=== PATIENT | female | born 1940 | race Caucasian/White ===

== ENCOUNTER 2016-03-03 12:56 | Inpatient (IN) ==
--- NOTE | 2016-03-03 13:37 | Emergency Department Note ---
Disposition Clinical Impression: CAP (community acquired pneumonia), Weakness, Lower extremity pain, left, Acute pelvic pain, female Fatigue Qualifiers: Fatigue type: unspecified Qualified Code(s): R53.83 - Other fatigue Disposition: Admitted As Inpatient Condition: Serious Fall HPI - General Chief Complaint: ED Fall Stated Complaint: WEAKNESS, FATIGUE, L ANKLE INJURY Time Seen by Provider: 03/03/16 13:02 Source: patient Nursing Notes Reviewed: Yes Vital Signs Reviewed: Yes - History of Present Illness HPI Narrative: Patient is a 25-year-old female who sustained a ground-level fall sometime early this morning. Patient has a past history for A. fib, hypertension, CVA, COPD, CHF, leaky heart valve, kidney stents Report is patient was trying to use the bathroom and missed the seat while trying to sit down. She tried to catch herself but was unable to and sustained injury to her right and left arm which she states feels sore, her bottom and her left ankle. Patient states overall her pain is 8 out of 10. - Related Data Home Medications Medication Instructions Recorded Confirmed Carvedilol [Coreg] 6.25 mg PO BID 09/29/14 03/03/16 Citalopram Hydrobromide [Celexa] 10 mg PO DAILY 09/29/14 03/03/16 Clopidogrel [Plavix] 75 mg PO DAILY 09/29/14 03/03/16 Furosemide [Lasix] 80 mg PO BID 09/29/14 03/03/16 Gabapentin [Neurontin] 300 mg PO TID 09/29/14 03/03/16 Loratadine [Claritin] 10 mg PO DAILY 09/29/14 03/03/16 Pantoprazole Sodium 40 mg PO BID 09/29/14 03/03/16 Potassium Chloride 10 meq PO DAILY 09/29/14 03/03/16 Ropinirole HCl [Requip] 3 mg PO HS 09/29/14 03/03/16 Diltiazem HCl [Cartia Xt] 120 mg PO DAILY 07/18/15 03/03/16 HYDROcodone/Acet 7.5/325 mg [[place] 1 tab PO Q6H PRN 07/18/15 03/03/16 7.5-325 mg] Isosorbide MONOnitrate (24 HR) 30 mg PO DAILY 05/28/16 01/12/17 [Imdur] Ferrous Sulfate [Iron] 325 mg PO DAILY 03/03/16 03/03/16 Folic Acid 1 mg PO DAILY 03/03/16 03/03/16 Nitroglycerin [Nitrostat] 0.4 mg SL Q5M PRN 03/03/16 03/03/16 Allergies Allergy/AdvReac Type Severity Reaction Status Date / Time codeine AdvReac Vomiting Verified 05/14/15 18:03 [From Tylenol-Codeine #3] Review of Systems: Patient claims a weakness, fatigue, chills, hot and cold flashes. Patient denies fever, nausea, vomiting, chest pain, shortness of breath, abdominal pain , urinary symptoms of dysuria or frequency. Patient denies back pain but admits to gluteal pain, bilateral arm soreness, left ankle pain. 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: Reports: spontaneous - Social History Smoking Status: Never smoker Alcohol use: Reports: none Drug use: Reports: none Physical Exam Vital Signs Temperature 99 F 03/03/16 12:58 Pulse Rate 96 03/03/16 12:58 Respiratory Rate 20 03/03/16 12:58 Blood Pressure 94/56 03/03/16 12:58 O2 Sat by Pulse Oximetry 97 03/03/16 12:58 Temperature 98.9 F 03/03/16 14:43 Pulse Rate 98 03/03/16 14:15 Respiratory Rate 16 03/03/16 14:15 Blood Pressure 105/63 03/03/16 14:15 O2 Sat by Pulse Oximetry 96 03/03/16 14:15 Oxygen Delivery Oxygen Delivery Nasal Cannula -General Appearance: Patient is a 75-year-old female who is alert and oriented 3 and in no acute distress. -Neurological exam: Cranial nerves II-12 intact, no focal deficits observed, strength equal 5/5 bilaterally in upper and lower extremities, Negative loss of sensation - Head Head exam: atraumatic, normocephalic, normal inspection - Eye Eye exam: Present: normal appearance, PERRL, EOMI, negative for scleral icterus negative for conjunctival pallor - ENT ENT exam: normal exam, normal oropharynx, mucous membranes moist - Neck Neck exam: Present: normal inspection, full ROM, trachea midline, negative JVD - Chest Chest inspection: Present: Patient has bilateral equal rise and fall of chest wall. Non-tender to palpation. - Respiratory Respiratory exam: Clear to auscultation bilaterally without wheezes rales or rhonchi Cardiovascular Cardiovascular exam: Present: regular rate, normal rhythm, normal heart sounds, without murmurs rubs or gallops. - Abdominal Exam Abdominal exam: Present: soft, nondistended, Non-Tender light and deep palpation in all quadrants. Bowel sounds normoactive throughout all 4 quadrants. Negative for hyper or hyperresonance. - Extremities Exam Extremities exam: Present: normal inspection, full ROM, no pinpoint bony tenderness, no crepitus, no bruising, no ecchymosis. Nontender to palpation bilaterally in upper extremities. Left lower extremity around the ankle area tender to palpation bilateral lower extremities edematous (chronic) - Back Exam Back exam: Present: normal inspection, full ROM. Absent: tenderness, CVA tenderness (R), CVA tenderness (L), midline bony tenderness at T7-T8 to palpation. - Psychiatric Psychiatric exam: Present: normal affect, normal mood - Skin Skin exam: Present: Upper extremities warm dry. Normal color for patient. Lower extremities thick woody like skin no signs of skin breakdown no signs of erythema - General Limitations: no limitations General appearance: alert Course Course Narrative: Patient seen and examined. Chest x-ray cardiac labs ordered. UA ordered imagery of pelvis and ankle ordered - Reevaluation(s) Reevaluation #1: Patient resting comfortably no complaints Time: 14:00 Reevaluation #2: Patient's labs show signs of possible infection. looking for source. Ordered lactate and blood cultures. No change in his status states she has no complaints Time: 14:20 Reevaluation #3: Patient's chest x-ray was a poor study. His back pain and current labs may be related. Ordered CTA patient's weight and another CT. Time: 15:00 Additional Reevaluation(s): 1402 hrs., patient on her way to CT. ordered 0.5 mg Dilaudid secondary to patient complaining of leg pain - Consultations Consultation #1: Dr. Beltran has accepted admission. Time: 17:08 Vital Signs Temperature 99 F 01/12/17 12:58 Pulse Rate 96 03/03/16 12:58 Respiratory Rate 20 03/03/16 12:58 Blood Pressure 94/56 03/03/16 12:58 O2 Sat by Pulse Oximetry 97 03/03/16 12:58 Temperature 97.8 F 03/05/16 07:43 Pulse Rate 107 03/05/16 07:43 Respiratory Rate 18 03/05/16 07:43 Blood Pressure 182/108 03/05/16 07:43 O2 Sat by Pulse Oximetry 98 03/05/16 07:43 Oxygen Delivery Oxygen Delivery Nasal Cannula Fall - MDM Narrative Medical decision making narrative: Patient's history and exam concerning for possible fractures of T-spine coccyx, left ankle. Injury taken. Studies show no fractures chest x-ray 2 view for study and T-spine could not be seen properly. Patient also complained of weakness and fatigue. Patient has a history of A. fib and troponin shows 0.07, CBC shows a WBC of 20.0, patient also has a creatinine of 1.15 previous creatinine level 0.06. Acute kidney injury. Patient's worrisome for possible pneumonia. Better chest study needs to be taken. CT chest without contrast ordered. Patient service positive for heart rate of 98 and WBC of 20.0. No clear source of infection. Lactate is been ordered with repeat lactate for 4 hours later. She started on IV fluid therapy normal saline. Patient states that she is feeling slightly short of breath ordered DuoNeb therapy. CT scan studies showed consolidations right lower lung area. Consistent with pneumonia. Patient has community-acquired pneumonia has been started on 2 g ceftriaxone and 500 mg azithromycin. Patient also has SIRS criteria for tachycardia and WBC count 20.0. Patient has sepsis. Recommend admission. This is discussed with patient and family. They understand and agreed to treatment and plan except admission. Dr. Beltran has accepted admission and asked to be ordered a creatine kinase to rule out rhabdomyolysis. Creatinine kinase ordered - Medical Records Medical records reviewed: Yes I reviewed the patient's medical records. She shows a past history a consult with oncology for possible lung pathology. He is also very studies showed enlarged lymph nodes of unclear etiology. - Lab Data Lab results reviewed: Yes I reviewed the patient's lab results. Lab results narrative: Short CBC 03/03/16 Range/Units 14:13 WBC 20.0 H (4.3-11.1) K/mcL Hgb 10.3 L (11.5-15.4) g/dL Hct 34.3 L (35.3-44.9) % Plt Count 207 (140-400) K/mcL Neutrophils # 17.6 H (1.6-8.9) K/mcL BMP 03/03/16 Range/Units 14:13 Sodium 139 (136-145) mEq/L Potassium 3.6 (3.5-4.5) mEq/L Chloride 98 (98-109) mEq/L Carbon Dioxide 31 H (19-29) mEq/L BUN 20 (7-20) mg/dL Creatinine 1.15 H (0.57-1.11) mg/dL Glucose 154 H (70-99) mg/dL Calcium 8.2 L (8.6-10.8) mg/dL Cardiac Enzymes 03/03/16 Range/Units 14:13 Troponin I 0.07 H* (0-0.03) ng/mL Urine 03/03/16 Range/Units 14:57 Urine Color Dark Yellow (Yellow) Urine Clarity Clear (Clear) Urine pH 6.5 (5.0-8.0) pH Units Ur Specific [place] 1.017 (1.010-1.025) Urine Protein Negative (Neg-Trace) mg/dL Urine Glucose (UA) Normal (Normal) mg/dL Result diagrams: 03/05/16 06:02 03/05/16 06:02 Lab Results 03/03/16 03/03/16 03/03/16 Range/Units 13:00 14:13 14:13 WBC 20.0 H (4.3-11.1) K/mcL RBC 3.91 (3.82-4.97) M/mcL Hgb 10.3 L (11.5-15.4) g/dL Hct 34.3 L (35.3-44.9) % MCV 87.7 (83.0-100.0) fL MCH 26.3 L (28.0-33.3) pg MCHC 30.0 L (31.6-35.5) g/dL RDW 15.0 H (11.5-14.5) % Plt Count 207 (140-400) K/mcL MPV 9.2 L (9.4-12.4) fL Immature Gran % 0.8 (0-4) % Seg Neutrophils % 87.7 % Lymphocytes % 6.0 % Monocytes % 5.4 % Eosinophils % 0.0 % Basophils % 0.1 % Neutrophils # 17.6 H (1.6-8.9) K/mcL Lymphocytes # 1.2 (0.6-4.6) K/mcL Monocytes # 1.1 (0.0-1.3) K/mcL Eosinophils # 0.0 (0.0-0.6) K/mcL Basophils # 0.0 (0.0-0.2) K/mcL Sodium 139 (136-145) mEq/L Potassium 3.6 (3.5-4.5) mEq/L Chloride 98 (98-109) mEq/L Carbon Dioxide 31 H (19-29) mEq/L BUN 20 (7-20) mg/dL Creatinine 1.15 H (0.57-1.11) mg/dL Est GFR ( Amer) 56 L (> 60) Est GFR (Non-Af Amer) 46 L (> 60) BUN/Creatinine Ratio 17 (6-26) Glucose 154 H (70-99) mg/dL POC Glucose 163 H (58-89) Calculated Osmolality 294 (280-300) Lactic Acid (0.5-2.2) mmol/L Calcium 8.2 L (8.6-10.8) mg/dL Creatine Kinase (29-168) Units/L Troponin I (0-0.03) ng/mL Urine Color (Yellow) Urine Clarity (Clear) Urine pH (5.0-8.0) pH Units Ur Specific [place] (1.010-1.025) Urine Protein (Neg-Trace) mg/dL Urine Glucose (UA) (Normal) mg/dL Urine Ketones (Negative) mg/dL Urine Blood (Negative) Urine Nitrite (Negative) Urine Bilirubin (Negative) Urine Urobilinogen (Normal) mg/dL Ur Leukocyte Esterase (Negative) 03/03/16 03/03/16 03/03/16 Range/Units 14:13 14:13 14:57 WBC (4.3-11.1) K/mcL RBC (3.82-4.97) M/mcL Hgb (11.5-15.4) g/dL Hct (35.3-44.9) % MCV (83.0-100.0) fL MCH (28.0-33.3) pg MCHC (31.6-35.5) g/dL RDW (11.5-14.5) % Plt Count (140-400) K/mcL MPV (9.4-12.4) fL Immature Gran % (0-4) % Seg Neutrophils % % Lymphocytes % % Monocytes % % Eosinophils % % Basophils % % Neutrophils # (1.6-8.9) K/mcL Lymphocytes # (0.6-4.6) K/mcL Monocytes # (0.0-1.3) K/mcL Eosinophils # (0.0-0.6) K/mcL Basophils # (0.0-0.2) K/mcL Sodium (136-145) mEq/L Potassium (3.5-4.5) mEq/L Chloride (98-109) mEq/L Carbon Dioxide (19-29) mEq/L BUN (7-20) mg/dL Creatinine (0.57-1.11) mg/dL Est GFR ( Amer) (> 60) Est GFR (Non-Af Amer) (> 60) BUN/Creatinine Ratio (6-26) Glucose (70-99) mg/dL POC Glucose (58-89) Calculated Osmolality (280-300) Lactic Acid (0.5-2.2) mmol/L Calcium (8.6-10.8) mg/dL Creatine Kinase 321 H (29-168) Units/L Troponin I 0.07 H* (0-0.03) ng/mL Urine Color Dark Yellow (Yellow) Urine Clarity Clear (Clear) Urine pH 6.5 (5.0-8.0) pH Units Ur Specific [place] 1.017 (1.010-1.025) Urine Protein Negative (Neg-Trace) mg/dL Urine Glucose (UA) Normal (Normal) mg/dL Urine Ketones Negative (Negative) mg/dL Urine Blood Negative (Negative) Urine Nitrite Negative (Negative) Urine Bilirubin Small H (Negative) Urine Urobilinogen 4.0 H (Normal) mg/dL Ur Leukocyte Esterase Negative (Negative) 03/03/16 Range/Units 15:29 WBC (4.3-11.1) K/mcL RBC (3.82-4.97) M/mcL Hgb (11.5-15.4) g/dL Hct (35.3-44.9) % MCV (83.0-100.0) fL MCH (28.0-33.3) pg MCHC (31.6-35.5) g/dL RDW (11.5-14.5) % Plt Count (140-400) K/mcL MPV (9.4-12.4) fL Immature Gran % (0-4) % Seg Neutrophils % % Lymphocytes % % Monocytes % % Eosinophils % % Basophils % % Neutrophils # (1.6-8.9) K/mcL Lymphocytes # (0.6-4.6) K/mcL Monocytes # (0.0-1.3) K/mcL Eosinophils # (0.0-0.6) K/mcL Basophils # (0.0-0.2) K/mcL Sodium (136-145) mEq/L Potassium (3.5-4.5) mEq/L Chloride (98-109) mEq/L Carbon Dioxide (19-29) mEq/L BUN (7-20) mg/dL Creatinine (0.57-1.11) mg/dL Est GFR ( Amer) (> 60) Est GFR (Non-Af Amer) (> 60) BUN/Creatinine Ratio (6-26) Glucose (70-99) mg/dL POC Glucose (58-89) Calculated Osmolality (280-300) Lactic Acid 1.8 (0.5-2.2) mmol/L Calcium (8.6-10.8) mg/dL Creatine Kinase (29-168) Units/L Troponin I (0-0.03) ng/mL Urine Color (Yellow) Urine Clarity (Clear) Urine pH (5.0-8.0) pH Units Ur Specific [place] (1.010-1.025) Urine Protein (Neg-Trace) mg/dL Urine Glucose (UA) (Normal) mg/dL Urine Ketones (Negative) mg/dL Urine Blood (Negative) Urine Nitrite (Negative) Urine Bilirubin (Negative) Urine Urobilinogen (Normal) mg/dL Ur Leukocyte Esterase (Negative) - Radiology Data Radiology results reviewed: Yes I reviewed the patient's radiology results. Chest X-Ray 03/03/16 13:31 IMPRESSION: 1. No acute cardiopulmonary disease. 2. Cardiomegaly, without evidence of overt failure. D/ / Jose Guerrier MD / Jose Guerrier MD Interpreting Provider: Jose Guerrier MD Ankle X-Ray 03/03/16 13:32 IMPRESSION: No fracture demonstrated D/ / Brian Rodriguez MD / Brian Rodriguez MD Interpreting Provider: Brian Rodriguez MD Pelvis X-Ray 03/03/16 13:32 IMPRESSION: No radiographic evidence of fracture in the pelvis or left hip. D/ / Ruslan Baker MD / Ruslan Baker MD Interpreting Provider: Ruslan Baker MD Chest X-Ray 03/03/16 13:31 IMPRESSION: 1. No acute cardiopulmonary disease. 2. Cardiomegaly, without evidence of overt failure. D/ / Jose Guerrier MD / Jose Guerrier MD Interpreting Provider: Jose Guerrier MD Ankle X-Ray 03/03/16 13:32 IMPRESSION: No fracture demonstrated D/ / Brian Rodriguez MD / Brian Rodriguez MD Interpreting Provider: Brian Rodriguez MD Pelvis X-Ray 03/03/16 13:32 IMPRESSION: No radiographic evidence of fracture in the pelvis or left hip. D/ / Ruslan Baker MD / Ruslan Baker MD Interpreting Provider: Ruslan Baker MD Chest CT 03/03/16 14:43 IMPRESSION: 1. Masslike consolidation involving the right lower lobe. Ground-glass and reticular opacities are seen in the left lung findings are new since June 2015 and likely represent pneumonia. Recommend treating the patient and following to resolution (8 weeks). 2. Interval enlargement of multiple mediastinal nodes, favor reactive. 3. No acute fracture of the thoracic spine. D/ / Erika Christianson MD / Erika Christianson MD Interpreting Provider: Erika Christianson MD Thoracic Spine CT 03/03/16 14:47 IMPRESSION: 1. Masslike consolidation involving the right lower lobe. Ground-glass and reticular opacities are seen in the left lung findings are new since June 2015 and likely represent pneumonia. Recommend treating the patient and following to resolution (8 weeks). 2. Interval enlargement of multiple mediastinal nodes, favor reactive. 3. No acute fracture of the thoracic spine. D/ / Erika Christianson MD / Erika Christianson MD Interpreting Provider: Erika Christianson MD - EKG Data EKG attestation: Yes I reviewed and interpreted this EKG. EKG results narrative: EKG taken 03/03/2016 at 1305 hrs. shows A. fib RVR at a rate of [address] abnormalities. Attestation Statement - Attestation Attestation: I examined this patient and my medical decision-making was reviewed with the BEE KEEPER/PA/Advanced Practice Nurse/Resident Physician. I agree with the documented findings, disposition and treatment plan as described except to the extent set forth below.
[2016-03-03 14:22] LABS: Hematocrit 34.3 % (35.3-44.9); Hemoglobin 10.3 g/dL (11.5-15.4); Mean Corpuscular Hemoglobin 26.3 pg (28.0-33.3); Mean Corpuscular Volume 87.7 fL (83.0-100.0); Mean Platelet Volume 9.2 fL (9.4-12.4); Platelet Count 207 K/mcL (140-400); Red Blood Count 3.91 M/mcL (3.82-4.97)
[2016-03-03 14:34] LABS: Calcium 8.2 mg/dL (8.6-10.8); Potassium 3.6 mEq/L (3.5-4.5)
[2016-03-03] MEDS ORDERED: Aspirin 325 MG TABLET PO ONE (14:48)
[2016-03-03] MEDS ORDERED: 0.9 % Sodium Chloride 1,000 ML IVC ONE ×2 (14:49→16:31)
[2016-03-03 15:05] LABS: Bilirubin,Urine Small (Negative); Blood,Urine Negative (Negative); Clarity,Urine Clear (Clear); Color,Urine Dark Yellow (Yellow); Glucose,Urine (UA) Normal (Normal); Ketones,Urine Negative (Negative); Leukocyte Esterase,Urine Negative (Negative); Nitrite,Urine Negative (Negative); PH,Urine 6.5 pH Units (5.0-8.0); Protein,Urine Negative (Neg-Trace); Specific Gravity,Urine 1.017 (1.010-1.025)
[2016-03-03 15:26] LABS: Basophils % 0.1 %; Immature Granulocytes % 0.8 % (0-4); Lymphocytes # 1.2 K/mcL (0.6-4.6); Monocytes # 1.1 K/mcL (0.0-1.3); Monocytes % 5.4 %; Neutrophils # 17.6 K/mcL (1.6-8.9); Segmented Neutrophils % 87.7 %
[2016-03-03] MEDS ORDERED: *HR* HYDROmorphone 2 MG/ML SYRINGE IV ONE (15:46)
[2016-03-03] MEDS ORDERED: Ipratropium/Albuterol Neb 3 ML IH ONE (15:47)
--- NOTE | 2016-03-03 15:57 | Emergency Department Note ---
START Narrative - START START: I examined this patient and my medical decision-making was reviewed with the EMERGENCY SERVICES DIRECTOR/PA/Advanced Practice Nurse/Resident Physician. I agree with the documented findings, disposition and treatment plan as described except to the extent set forth below. Patient presents to the emergency department with a chief complaint of ankle pain and weakness. Patient states this morning she was trying to get on the toilet and fell. States she miscalculated when she went to sit down. Complaining of heel pain. Also complaining of being weak all over. She states the weakness contributed to her fall. Exam shows her awake alert and appropriate. Heart regular lungs clear. Tenderness over the left ankle without swelling. Plan. Imaging. Workup for her weakness. Patient afebrile but coming back with elevated white blood cell count. 20,000 which is abnormally high for her. We will search for infectious source. Patient has a right lower lobe infiltrate that was not visualized on her chest x -ray. An bikes are being ordered at this time. Delayed secondary to no source being done prior to this. Meeting sepsis criteria with elevated white blood cell count heart rate. Admit to medicine.
[2016-03-03] MEDS ORDERED: Azithromycin 500 MG in D5% in Water 250 ML IVPB ONE (16:28)
[2016-03-03] MEDS ORDERED: *HR* HYDROcodone/Acet 5/325 mg TABLET PO PRN (19:29)
[2016-03-03] MEDS ORDERED: Naloxone 0.4 MG/ML INJ IVP PRN (19:29)
[2016-03-03] MEDS ORDERED: 0.9 % Sodium Chloride 1,000 ML IVC SCH (19:30)
[2016-03-03] MEDS ORDERED: Nitroglycerin 0.4 MG TAB.SUBL SL PRN (19:33)
[2016-03-03] MEDS ORDERED: Albuterol 2.5 MG/3 ML NEBULIZER IH PRN (19:35)
--- NOTE | 2016-03-03 20:05 | Internal Med History&Physical ---
Date of Encounter: 03/03/16 Time of Encounter: 19:50 Assessment and Plan (1) Sepsis Current visit: No Status: Acute WBC 20.0, UA negative, Chest CT showed mass consolidation in RLL and ground glass opacities in left lung. Tachycardic with HR 96-110. Low grade fever of 99F. Lactate 1.8. Blood cultures drawn 2L bolus of 0.9NS of fluids given Continuous IV fluids 0.9NS at 125mL/hr Initiated on antibiotics with Azithromycin and Ceftriaxone for community acquired pnuemonia. Qualifiers: Sepsis type: sepsis due to unspecified organism Qualified Code(s): A41.9 - Sepsis, unspecified organism (2) CAP (community acquired pneumonia) Current visit: Yes Status: Acute Patient with increasing shortness of breath. Chest CT showed mass consolidation in right lower lobe and ground glass opacities in left lung. She has low-grade fever to 99F, tachycardic with HR 96-110. Started on Azithromycin and Ceftriaxone for community acquired pneumonia. titrate O2 to maintain O2 saturation > 92% BiPap over night duoneb treatments QIDR Albuterol nebulizer Q2hr PRN Incentive spirometry chest PT (3) Elevated troponin Current visit: Yes Status: Acute Patient with increasing shortness of breath, denies chest pain or palpitations. Troponin elevated to 0.07. EKG showed; serial troponins for trend continuous media monitor titrate O2 to maintain O2 saturation > 92% (4) Lower extremity pain, left Current visit: Yes Status: Acute Imaging negative for fractures. Pain control with [place] Narcan PRN for respiratory depression. (5) Acute kidney injury Current visit: No Status: Acute Creatinine elevated to 1.15 up from baseline of 0.6. CK also elevated to 321, may be related to mild rhabdomyolysis from fall, or dehydration from pneumonia. UA negative. Patient has received 2L of fluid bolus and will continue with maintenance fluids. Recheck chemistry in the morning. (6) Acute on chronic respiratory failure with hypoxemia Current visit: No Status: Acute Patient with history of COPD requiring 3L of oxygen NC at home. Increased O2 requirements, now satting 95% on 4L. Patient appears tachypnic and lungs with expiratory wheeze and diffuse mild crackles. Bipap ordered over night. Duoneb treatments QIDR. Albuterol nebulizer Q2hr PRN. Titrate O2 to maintain oxygen > 92%. ABG ordered. (7) DVT prophylaxis Current visit: No Status: Acute Up to chair BID anti-embolic stockings 5,000u heparin SQ BID Internal Medicine - H&P: HPI Chief complaint: Shortness of breath Admitted From: Emergency Dept Plans for Post Hospital Care: Home History of present illness: Ms. Crawford is a 75 year old female with history of COPD, aFib, HTN, CVA, CHF, lymphadenopathy being followed by Heme/onc, presented to the ED after a fall at home. She was also having increasing shortness of breath. Patient reported falling when trying to get on the toilet this morning and complained of pain in backside, left ankle. Xrays of ankle, pelvis negative for fractures. Additional evaluation in the ED was significant for elevated WBC count of 20.0, tachycardia with HR 96-110, CXR was unrevealing, but Chest CT showed mass consolidation in RLL and ground glass opacities in Left lung, as well as mediastinal lymphadenopathy with increase from previous studies, concerning for pneumonia. She also had elevated creatinine 1.15 up from baseline of 0.6, and CK of 321. On exam, patient is drowsy, but arousable, alert and oriented x 3. She is slightly tachypnic and reports her shortness of breath has been going on for several days. She reports she wears 3L NC oxygen at home. Heart is tachycardic with regular rhythm, lungs have expiratory wheeze and crackles diffusely. Past Med Surg Social Fam HX - Past Medical History Medical history: arthritis, atrial fibrillation, cardiomyopathy, CHF, COPD, GERD , GI bleed, hypertension, myocardial infarction, TIA, other Psychiatric history: depression - Past Surgical History Surgical History: angioplasty/stent, , other (renal artery stent) - Social History Smoking Status: Never smoker Smokeless Tobacco Status: No Alcohol use: none Drug use: none Activity Level: Wheelchair bound - Family History Mother History Unknown: Yes Internal Medicine - H&P: Meds Carvedilol [Coreg] 6.25 mg PO BID 09/29/14 [History] Citalopram Hydrobromide [Celexa] 10 mg PO DAILY 09/29/14 [History] Clopidogrel [Plavix] 75 mg PO DAILY 09/29/14 [History] Furosemide [Lasix] 80 mg PO BID 09/29/14 [History] Gabapentin [Neurontin] 300 mg PO TID 09/29/14 [History] Loratadine [Claritin] 10 mg PO DAILY 09/29/14 [History] Pantoprazole Sodium 40 mg PO BID 09/29/14 [History] Potassium Chloride 10 meq PO DAILY 09/29/14 [History] Ropinirole HCl [Requip] 3 mg PO HS 09/29/14 [History] Diltiazem HCl [Cartia Xt] 120 mg PO DAILY 07/18/15 [History] HYDROcodone/Acet 7.5/325 mg [[place] 7.5-325 mg] 1 tab PO Q6H PRN 07/18/15 [ History] Isosorbide MONOnitrate (24 HR) [Imdur] 30 mg PO DAILY 07/18/15 [History] Ferrous Sulfate [Iron] 325 mg PO DAILY 03/03/16 [History] Folic Acid 1 mg PO DAILY 03/03/16 [History] Nitroglycerin [Nitrostat] 0.4 mg SL Q5M PRN 03/03/16 [History] Allergies codeine [From Tylenol-Codeine #3] Adverse Reaction (Verified 05/14/15 18:03) Vomiting All Systems PM: A 10-system review of systems was performed and is negative for pertinent findings except as documented above in the HPI. - Constitutional Constitutional: no chills, no fever(s), no night sweats - EENT Eyes: no change in vision, no discharge, no pain, no photophobia Ears: no ear discharge, no ear pain, no tinnitus Nose, mouth and throat: no dysphagia, no nasal discharge, no neck pain, no sore throat - Cardiovascular Cardiovascular ROS IM: dyspnea, lightheadedness, no chest pain, no diaphoresis, no palpitations, no syncope - Respiratory Respiratory: cough, dyspnea, dyspnea on exertion, wheezing, no excessive phlegm production, no change in phlegm color - Gastrointestinal Gastrointestinal: no abdominal pain, no diarrhea, no hematemesis, no hematochezia, no melena, no nausea, no vomiting - Genitourinary Genitourinary: no change in urinary stream, no dysuria, no flank pain, no hematuria - Musculoskeletal Musculoskeletal ROS IM: no numbness, no tingling - Integumentary Integumentary IM: no rash, no unusual bruising - Neurological Neurological ROS: no confusion, no convulsions, no focal weakness, no numbness, no tingling, no tremor(s) - Hematologic/Lymphatic Hematologic/Lymphatic: no easy bruising - Constitutional Vitals: Temp Pulse Resp BP Pulse Ox 98.5 F 110 20 153/73 95 03/03/16 18:58 03/03/16 18:58 03/03/16 18:58 03/03/16 18:58 03/03/16 18:58 General appearance: Present: A&O X 3 - Head Head exam: Present: atraumatic, normocephalic - Eye Eye exam: Present: PERRL, conjuntiva pink, sclera anicteric Pupils: Present: PERRL - Neck Neck exam general surgery: Present: supple, trachea midline. Absent: lymphadenopathy - Respiratory Respiratory exam: Present: rales, wheezes, tachypnea. Absent: accessory muscle use, rhonchi - Cardiovascular Cardiovascular exam: Present: RRR, +S1, +S2. Absent: diastolic murmur, gallop, rubs, systolic murmur - GI/Abdominal GI/Abdominal exam: Present: normal bowel sounds, soft, no peritoneal signs. Absent: distended, tenderness - Extremities Exam Extremities exam: Present: normal capillary refill, pedal edema (bilateral 2+ ) , warm, radial pulses palpable and symetrical. Absent: calf tenderness, cyanotic - Neurological Exam Neurological exam: Present: CN II-XII intact, oriented X3, no focal deficits. Absent: facial droop, speech deficit - Skin Skin exam: Present: dry, intact Internal Med - H&P Results - Labs CBC & Chem 7: 03/03/16 14:13 03/03/16 14:13
[2016-03-03] MEDS: Ipratropium/Albuterol Neb 3 ML IH SCH ×2 (20:19→23:40)
[2016-03-03 20:31] LABS: ABG Base Excess 7.5 mEq/L (-2.0 to 3.0); ABG HCO3 31.1 mEQ/L (21-27); ABG Oxygen Saturation 92 % (95-98); ABG PCO2 39 mmHg (35-45); ABG PH 7.51 pH Units (7.32-7.45); ABG PO2 57 mmHg (85-104); ABG TCO2 32.3 mEq/L (20-26)
[2016-03-03 20:32] LABS: Blood Gas FiO2 38 %
[2016-03-03] MEDS: 0.9 % Sodium Chloride 1,000 ML IVC SCH (21:22)
[2016-03-03] MEDS: Furosemide 40 MG TABLET PO SCH (21:24)
[2016-03-03] MEDS: Gabapentin 300 MG CAPSULE PO SCH (21:24)
--- NOTE | 2016-03-03 22:01 | Event Note ---
Date of Encounter: 03/03/16 Time of Encounter: 22:00 Patient's second troponin elevated to 0.21. Discussed with Dr. Santos. Will get Stat EKG. We will give 1mg/kg dose of SQ Lovenox X 2 and order an echocardiogram to check for wall motion abnormality. Continue to follow troponins.
[2016-03-03] MEDS: *HR* Enoxaparin 100 MG/ML SYRINGE SQ SCH (22:42)
[2016-03-04] MEDS: Acetaminophen 325 MG TABLET PO PRN ×2 (00:22→20:55)
[2016-03-04 02:55] LABS: Basophils % 0.1 %; Hematocrit 31.7 % (35.3-44.9); Hemoglobin 9.7 g/dL (11.5-15.4); Immature Granulocytes % 1.9 % (0-4); Immature Platelets 2.4 % (1.1-6.1); Lymphocytes # 1.1 K/mcL (0.6-4.6); Lymphocytes % 5.5 %; Mean Corpuscular HGB Conc 30.6 g/dL (31.6-35.5); Mean Corpuscular Hemoglobin 27.2 pg (28.0-33.3); Mean Platelet Volume 9.5 fL (9.4-12.4); Monocytes # 0.9 K/mcL (0.0-1.3); Monocytes % 4.4 %; Platelet Count 186 K/mcL (140-400); Red Blood Count 3.56 M/mcL (3.82-4.97); Red Cell Distribution Width 14.9 % (11.5-14.5); Segmented Neutrophils % 88.1 %
[2016-03-04 03:08] LABS: BUN/Creatinine Ratio 20 (6-26); Blood Urea Nitrogen 21 mg/dL (7-20); Carbon Dioxide 26 mEq/L (19-29); Chloride 101 mEq/L (98-109); Glucose 190 mg/dL (70-99); Osmolality,Calculated 296 (280-300); Potassium 3.2 mEq/L (3.5-4.5); Sodium 139 mEq/L (136-145); eGFR For African Americans > 60 (> 60); eGFR For Non-African Americans 51 (> 60)
[2016-03-04] MEDS: Ipratropium/Albuterol Neb 3 ML IH SCH ×4 (04:34→22:30)
[2016-03-04] MEDS: 0.9 % Sodium Chloride 1,000 ML IVC SCH (05:46)
[2016-03-04] MEDS: *HR* Enoxaparin 100 MG/ML SYRINGE SQ SCH (09:00)
--- NOTE | 2016-03-04 09:57 | Electrocardiograph Report ---
[facility] Test Date: 2016-03-03 Pat Name: Kimberly Crawford Department: 113 Room: 3B44 Gender: F Screen Maker: : 1940 Requested By: Angelika Wilson Order Number: [id number] Reading MD: Madison Lopez Measurements Intervals [place] Rate: 97 P: SC: 0 QRS: 53 QRSD: 94 T: -9 QT: 358 QTc: 413 Interpretive Statements ATRIAL FIBRILLATION NONSPECIFIC ST \T\ T-WAVE ABNORMALITY Electronically Signed On 03-04-16 09:56:33 EST by Madison Lopez
[2016-03-04] MEDS: Gabapentin 300 MG CAPSULE PO SCH ×3 (10:25→22:46)
[2016-03-04] MEDS: Diltiazem CD (24hr) 120 MG CAPSULE PO SCH (10:25)
[2016-03-04] MEDS: Isosorbide MONOnitrate (24 HR) 30 MG TAB.ER.24H PO SCH (10:25)
[2016-03-04] MEDS: Loratadine 10 MG TABLET PO SCH (10:25)
[2016-03-04] MEDS: Folic Acid 1 MG TABLET PO SCH (10:26)
[2016-03-04] MEDS: Furosemide 40 MG TABLET PO SCH ×2 (10:26→20:40)
--- NOTE | 2016-03-04 10:47 | ECHO - Doppler Report ---
Echocardiogram Name: Kimberly Crawford Date of Study: 03/04/2016 Date: 1940 Ht: 64.0 in Medical Record#: [id number] Age: 75 Wt: 206.0 lb Gender: Female BSA: 1.98 Order #: [id number] Location: [facility] Room #: 3B44 Reading Physician: Rosailo Chong DO, NICOLETTE, LIONEL CORTES Educational Speech Language Clinician: Tesha Leyva Ordering Physician: Angelika Wilson CNP Primary Physician: Yue Kennedy CNP Impressions: LVEF 65%. Normal LV chamber size and function. Moderate concentric left ventricular hypertrophy. Atypical septal motion consistent with bundle branch block. Moderately dilated right ventricle with mildly reduced function. Severely dilated left atrium. Severely dilated right atrium. Moderately calcified aortic valve leaflets. Mild-moderate aortic regurgitation. Mild aortic stenosis. Mean gradient 13 mmHg. Mild mitral regurgitation. Severe tricuspid regurgitation. Moderate-severe pulmonary hypertension. Estimated RVSP is 52-62 mmHg, including an estimated RA pressure of 10-20 mmHg. Left Ventricular Wall Motion: Rest Echo Findings All wall segments showed normal motion. Findings: Study Quality * Technically adequate exam. ECG Findings * Atrial fibrillation iwth a bundle branch block. Left Ventricle * LVEF 65%. * Normal LV chamber size and function. * Moderate concentric left ventricular hypertrophy. * Indeterminate diastolic function. * Atypical septal motion consistent with bundle branch block. Right Ventricle * Moderately dilated right ventricle with mildly reduced function. Left Atrium * Severely dilated left atrium. Right Atrium * Severely dilated right atrium. Interatrial Septum * No evidence of PFO by color Doppler. Aortic Valve * Trileaflet aortic valve. * Moderately calcified aortic valve leaflets. * Mild-moderate aortic regurgitation. * Mild aortic stenosis. Mean gradient 13 mmHg. Mitral Valve * Mild mitral annular calcification * Mildly thickened mitral valve leaflets. * Mild mitral regurgitation. * No mitral stenosis. Tricuspid Valve * Normal tricuspid valve structure. * Severe tricuspid regurgitation. * Estimated RVSP is 52-62 mmHg. * Estimated RA pressure is 10-20 mmHg. * Moderate-severe pulmonary hypertension. Pulmonic Valve * Normal pulmonic valve structure and function. * Trace pulmonic regurgitation. Aorta * Normally sized aortic root. Pericardium * The pericardium appears normal. IVC * The IVC is dilated. * < 50% respiratory change. Pulmonary Artery * Normal visualized portions of the main pulmonary artery. History Hypertension Congestive Heart Failure 03/07/2014 a Previous Echo was performed. Measurements: BP: 128/ 79 2D Normal Values RVIDd: 3.90 cm <2.7 cm IVSd: 1.40 cm 0.6 - 1.0 cm LVIDd: 3.60 cm 3.7 - 5.6 cm LVPWd: 1.40 cm 0.6 - 1.1 cm LVIDs: 2.30 cm 1.5 - 3.6 cm AO: 2.80 cm < 4.0 cm LA: 4.50 cm 2.0 - 4.0cm %FS: 36.10 cm >25 % LVOT Diam: 2.00 cm LA volume: 92 Mitral Valve Peak E:1.11 m/sec LVOT Peak Mark:.75 m/sec Mean Mark:.52 m/sec Peak Grad:2.00 mmHg Mean Grad:1.00 mmHg Aortic Valve Peak Mark:2.51 m/sec Mean Mark:1.66 m/sec Peak Grad:25.00 mmHg Mean Grad:13.00 mmHg Tricuspid Valve TV Regurg Peak Grad: 32.00mmHg TV Regurg Peak Mark: 2.82m/sec Updated by Rosalio Chong DO, FACCortes, LIONEL CORTES on 03/04/2016 10:42:45 AM electronically signed on 03/04/2016 10:43:22 AM with status of Final Wall Motion Torres: 1=Normal, 2=Hypokinesis, 3=Akinesis, 4=Dyskinesis, 5=Aneurysmal, 6=Hyperkinetic, X=Not Visualized (Blank)=Missing
--- NOTE | 2016-03-04 16:26 | Electrocardiograph Report ---
Test Date: 2016-03-03 Pat Name: Kimberly Crawford Department: 103 Room: 3B44 Gender: F Pathologist: BENNY : 1940 Requested By: Sb Rolle Order Number: [id number] Reading MD: Marcus Bourgeois MD Measurements Intervals [place] Rate: 100 P: [place]: 0 QRS: 50 QRSD: 89 T: 21 QT: 381 QTc: 438 Interpretive Statements ATRIAL FIBRILLATION WITH RAPID VENTRICULAR RESPONSE ABNORMAL RHYTHM ECG Electronically Signed On 03-04-16 16:23:54 EST by Marcus Bourgeois MD
[2016-03-04] MEDS: Azithromycin 500 MG in D5% in Water 250 ML IVPB SCH (17:40)
--- NOTE | 2016-03-04 19:03 | Internal Med Progress Note ---
Date of Encounter: 03/04/16 Time of Encounter: 19:00 - Assessment and plan (1) CAP (community acquired pneumonia) Current Visit: Yes Status: Acute (2) Sepsis Current Visit: No Status: Acute Qualifiers: Sepsis type: sepsis due to unspecified organism Qualified Code(s): A41.9 - Sepsis, unspecified organism (3) Elevated troponin Current Visit: Yes Status: Acute (4) Acute hypoxemic respiratory failure Current Visit: No Status: Acute (5) CAD (coronary artery disease) Current Visit: No Status: Acute Qualifiers: Coronary Disease-Associated Artery/Lesion type: unspecified vessel or lesion type Associated angina: without angina Qualified Code(s): I25.10 - Atherosclerotic heart disease of [place] coronary artery without angina pectoris (6) Chronic diastolic CHF (congestive heart failure) Current Visit: No Status: Acute (7) Hypokalemia Current Visit: No Status: Acute (8) MRSA (methicillin resistant Staphylococcus aureus) colonization Current Visit: No Status: Acute (9) Atrial fibrillation Current Visit: No Status: Chronic Assessment and plan: pt seems to be improving, continue rocephin and zithromax. continue oral lasix, monitor ins and outs. monitor electrolytes, replace potassium. Pt does not report chest pain, abnormal troponin likely demand related. follow serial troponin. continue telemetry. continue plavix. continue coreg. continue prn albuterol. continue DVT prophylaxis. Qualifiers: Atrial fibrillation type: chronic Qualified Code(s): I48.2 - Chronic atrial fibrillation - Subjective Interval history: Pt seen laying in bed, says still tired, but not feeling worse. Denies chest pain. - Constitutional Vitals: Temp Pulse Resp BP Pulse Ox 97.9 F 97 18 129/78 96 03/04/16 16:28 03/04/16 16:28 03/04/16 17:00 03/04/16 16:28 03/04/16 17:00 General appearance: Present: A&O X 3 - Head Head exam: Present: atraumatic, normocephalic - Eye Eye exam: Present: PERRL, conjuntiva pink, sclera anicteric Pupils: Present: PERRL - Neck Neck exam general surgery: Present: supple, trachea midline. Absent: lymphadenopathy - Respiratory Respiratory exam: Present: decreased breath sounds. Absent: accessory muscle use, rales, rhonchi, wheezes - Cardiovascular Cardiovascular exam: Present: RRR, +S1, +S2. Absent: diastolic murmur, gallop, rubs, systolic murmur - GI/Abdominal GI/Abdominal exam: Present: normal bowel sounds, soft, no peritoneal signs. Absent: distended, tenderness - Extremities Exam Extremities exam: Present: warm, radial pulses palpable and symetrical. Absent : calf tenderness, cyanotic, pedal edema - Neurological Exam Neurological exam: Present: CN II-XII intact, oriented X3, no focal deficits. Absent: pronater drift, facial droop, speech deficit - Skin Skin exam: Present: dry, intact Internal Medicine: Result - Labs CBC & Chem 7: 03/04/16 02:39 03/04/16 02:39 Labs: Short CBC 03/04/16 Range/Units 02:39 WBC 19.3 H (4.3-11.1) K/mcL Hgb 9.7 L (11.5-15.4) g/dL Hct 31.7 L (35.3-44.9) % Plt Count 186 (140-400) K/mcL Neutrophils # 17.0 H (1.6-8.9) K/mcL BMP 03/04/16 02:39 Sodium 139 Potassium 3.2 L Chloride 101 Carbon Dioxide 26 BUN 21 H Creatinine 1.06 Glucose 190 H Calcium 8.0 L Cardiac Enzymes 03/03/16 03/04/16 Range/Units 20:49 02:39 Troponin I 0.21 H* 0.17 H* (0-0.03) ng/mL - ABG Interpretation ABG results: ABG ABG pH 7.51 pH Units (7.32-7.45) H 03/03/16 20:17 ABG pCO2 39 mmHg (35-45) 03/03/16 20:17 ABG pO2 57 mmHg (85-104) L 03/03/16 20:17 ABG O2 Saturation 92 % (95-98) L 03/03/16 20:17 Consult Discharge Plan - Plan Referrals: Yue Kennedy, NATIONAL SALES REPRESENTATIVE [Primary Care Provider] -
[2016-03-04] MEDS: *HR* Heparin 5,000 UNIT/ML VIAL SQ SCH (20:40)
[2016-03-05] MEDS: Ipratropium/Albuterol Neb 3 ML IH SCH ×4 (04:01→22:29)
[2016-03-05] MEDS: *HR* Heparin 5,000 UNIT/ML VIAL SQ SCH ×2 (06:15→16:38)
[2016-03-05 07:06] LABS: BUN/Creatinine Ratio 24 (6-26); Blood Urea Nitrogen 18 mg/dL (7-20); Calcium 8.2 mg/dL (8.6-10.8); Carbon Dioxide 27 mEq/L (19-29); Chloride 102 mEq/L (98-109); Glucose 107 mg/dL (70-99); Osmolality,Calculated 296 (280-300); Sodium 142 mEq/L (136-145); eGFR For African Americans > 60 (> 60); eGFR For Non-African Americans > 60 (> 60)
[2016-03-05 07:30] LABS: Basophils % 0.3 %; Eosinophils # 0.3 K/mcL (0.0-0.6); Eosinophils % 3.8 %; Hematocrit 32.6 % (35.3-44.9); Hemoglobin 9.7 g/dL (11.5-15.4); Immature Granulocytes % 0.4 % (0-4); Lymphocytes # 0.7 K/mcL (0.6-4.6); Lymphocytes % 10.2 %; Mean Corpuscular HGB Conc 29.8 g/dL (31.6-35.5); Mean Corpuscular Hemoglobin 26.7 pg (28.0-33.3); Mean Corpuscular Volume 89.8 fL (83.0-100.0); Mean Platelet Volume 10.3 fL (9.4-12.4); Monocytes # 0.4 K/mcL (0.0-1.3); Monocytes % 4.9 %; Neutrophils # 5.7 K/mcL (1.6-8.9); Platelet Count 174 K/mcL (140-400); Red Blood Count 3.63 M/mcL (3.82-4.97); Red Cell Distribution Width 14.6 % (11.5-14.5); Segmented Neutrophils % 80.4 %
[2016-03-05] MEDS: Gabapentin 300 MG CAPSULE PO SCH ×3 (08:38→20:21)
[2016-03-05] MEDS: Diltiazem CD (24hr) 120 MG CAPSULE PO SCH (08:38)
[2016-03-05] MEDS: Isosorbide MONOnitrate (24 HR) 30 MG TAB.ER.24H PO SCH (08:39)
[2016-03-05] MEDS: Folic Acid 1 MG TABLET PO SCH (08:39)
[2016-03-05] MEDS: Furosemide 40 MG TABLET PO SCH ×2 (08:39→20:21)
[2016-03-05] MEDS: Loratadine 10 MG TABLET PO SCH (08:41)
[2016-03-05] MEDS ORDERED: Preparation H Ointment 30 GM TUBE RC PRN (14:53)
[2016-03-05] MEDS ORDERED: Potassium Chloride Elixir 20 MEQ/15 ML UDC PO ONE (15:38)
[2016-03-05] MEDS ORDERED: *HR* Metoprolol 5 MG/5 ML VIAL IVP ONE ×2 (16:08→20:45)
[2016-03-05 16:24] LABS: Magnesium 1.7 mg/dL (1.6-2.6); Phosphorous 3.1 mg/dL (2.3-4.7)
[2016-03-05] MEDS: Azithromycin 500 MG in D5% in Water 250 ML IVPB SCH (16:37)
[2016-03-05] MEDS ORDERED: Magnesium Sulfate 1 GM in D5% in Water 100 ML IVPB ONE (17:20)
--- NOTE | 2016-03-05 17:23 | Internal Med Progress Note ---
Date of Encounter: 03/05/16 Time of Encounter: 16:30 - Assessment and plan (1) Elevated troponin Current Visit: Yes Status: Acute Assessment and plan: We will trend troponin, close monitoring, will consult cardiology, check EKG, at one dose of Lopressor IV now with her significant tachycardia and hypertension (2) CHF (congestive heart failure) Current Visit: No Status: Acute Assessment and plan: Lasix IV monitor Qualifiers: Congestive heart failure type: unspecified congestive heart failure type Congestive heart failure chronicity: acute Qualified Code(s): I50.9 - Heart failure, unspecified (3) Community acquired pneumonia Current Visit: No Status: Acute Assessment and plan: Continue current medication, recheck chest x-ray (4) History of atrial fibrillation Current Visit: No Status: Acute Assessment and plan: Continue current medication, Lopressor as needed, replace potassium and magnesium keep potassium more than 4 magnesium more than 2 (5) Abdominal pain Current Visit: Yes Status: Acute Assessment and plan: Possible gastritis will add Protonix and Carafate check liver function test and lipase amylase Qualifiers: Abdominal location: generalized Qualified Code(s): R10.84 - Generalized abdominal pain (6) External hemorrhoid Current Visit: Yes Status: Acute Assessment and plan: Add hydrocortisone, Stool softner - Time Spent With Patient 25 - 35 minutes - Subjective Interval history: Patient is complaining of epigastric discomfort and diffuse abdominal pain with trying eating her lunch. Patient denies any chest pain but she complain of shortness of breath, large external hemorrhoid with straining - Constitutional Vitals: Temp Pulse Resp BP Pulse Ox 97.6 F 113 18 184/116 94 L 03/05/16 16:00 03/05/16 16:00 03/05/16 16:00 03/05/16 16:00 03/05/16 16:00 General appearance: Present: mild distress - Respiratory Respiratory exam: Present: decreased breath sounds, prolonged expiratory phase, rhonchi (Bilateral lung). Absent: accessory muscle use, rales, wheezes - Cardiovascular Cardiovascular exam: Present: irregular rhythm, +S1, +S2. Absent: diastolic murmur, gallop, rubs, systolic murmur - GI/Abdominal GI/Abdominal exam: Present: normal bowel sounds, soft, tenderness (Diffuse abdominal tenderness more in left upper quadrant and epigastric area), no peritoneal signs. Absent: distended - Extremities Exam Extremities exam: Present: warm. Absent: calf tenderness, cyanotic, pedal edema - Skin Skin exam: Present: dry, intact Internal Medicine: Result - Labs CBC & Chem 7: 03/05/16 06:02 03/05/16 06:02 Labs: Short CBC 03/05/16 Range/Units 06:02 WBC 7.1 D (4.3-11.1) K/mcL Hgb 9.7 L (11.5-15.4) g/dL Hct 32.6 L (35.3-44.9) % Plt Count 174 (140-400) K/mcL Neutrophils # 5.7 (1.6-8.9) K/mcL BMP 03/05/16 06:02 Sodium 142 Potassium 3.0 L Chloride 102 Carbon Dioxide 27 BUN 18 Creatinine 0.74 Glucose 107 H Calcium 8.2 L - ABG Interpretation ABG results: ABG ABG pH 7.51 pH Units (7.32-7.45) H 03/03/16 20:17 ABG pCO2 39 mmHg (35-45) 03/03/16 20:17 ABG pO2 57 mmHg (85-104) L 03/03/16 20:17 ABG O2 Saturation 92 % (95-98) L 03/03/16 20:17 Consult Discharge Plan - Plan Referrals: Yue Kennedy TRANSMISSION REPAIRER [Primary Care Provider] -
[2016-03-05] MEDS: Sucralfate 1 GM TABLET PO SCH ×2 (18:21→22:27)
[2016-03-05] MEDS: Pantoprazole 40 MG VIAL IVP SCH (18:23)
[2016-03-05 18:31] LABS: Albumin 2.6 g/dL (3.5-5.0); Albumin/Globulin Ratio 0.7 (1.1-2.2); Bilirubin,Direct 0.6 mg/dL (0.0-0.5); Bilirubin,Indirect 0.5 mg/dL (0.0-1.2); Bilirubin,Total 1.1 mg/dL (0.2-1.2); Globulin 3.8 g/dL (2.4-3.5); Total Protein 6.4 g/dL (6.0-8.3)
[2016-03-05] MEDS: *HR* Metoprolol 5 MG/5 ML VIAL IVP PRN (20:50)
[2016-03-05] MEDS: Hydrocortisone Acetate 25 MG RECTAL SUPPOSITORY RC SCH (22:26)
[2016-03-06] MEDS: *HR* Metoprolol 5 MG/5 ML VIAL IVP PRN ×2 (04:35→21:03)
[2016-03-06 04:46] LABS: Basophils % 0.6 %; Eosinophils # 0.1 K/mcL (0.0-0.6); Hematocrit 35.7 % (35.3-44.9); Hemoglobin 10.7 g/dL (11.5-15.4); Immature Granulocytes % 0.6 % (0-4); Lymphocytes # 0.8 K/mcL (0.6-4.6); Lymphocytes % 11.3 %; Mean Corpuscular Hemoglobin 26.9 pg (28.0-33.3); Mean Corpuscular Volume 89.7 fL (83.0-100.0); Mean Platelet Volume 10.1 fL (9.4-12.4); Monocytes # 0.5 K/mcL (0.0-1.3); Monocytes % 7.1 %; Neutrophils # 5.6 K/mcL (1.6-8.9); Platelet Count 205 K/mcL (140-400); Red Blood Count 3.98 M/mcL (3.82-4.97); Red Cell Distribution Width 14.6 % (11.5-14.5); Segmented Neutrophils % 79.4 %
[2016-03-06 05:01] LABS: BUN/Creatinine Ratio 19 (6-26); Blood Urea Nitrogen 14 mg/dL (7-20); Calcium 8.4 mg/dL (8.6-10.8); Carbon Dioxide 26 mEq/L (19-29); Chloride 100 mEq/L (98-109); Glucose 142 mg/dL (70-99); Osmolality,Calculated 289 (280-300); Sodium 138 mEq/L (136-145); eGFR For African Americans > 60 (> 60); eGFR For Non-African Americans > 60 (> 60)
[2016-03-06] MEDS: Ipratropium/Albuterol Neb 3 ML IH SCH (05:05)
[2016-03-06] MEDS: *HR* Heparin 5,000 UNIT/ML VIAL SQ SCH ×2 (05:56→16:57)
[2016-03-06] MEDS: Pantoprazole 40 MG VIAL IVP SCH ×2 (05:56→16:58)
--- NOTE | 2016-03-06 07:28 | Internal Med Progress Note ---
Date of Encounter: 03/06/16 Time of Encounter: 07:15 - Assessment and plan (1) Elevated troponin Current Visit: Yes Status: Acute Assessment and plan: Troponin is trending down, most likely secondary to CHF exacerbation and pneumonia (2) CHF (congestive heart failure) Current Visit: No Status: Acute Assessment and plan: Change Lasix to IV , cardiac echo reviewed, Qualifiers: Congestive heart failure type: unspecified congestive heart failure type Congestive heart failure chronicity: acute Qualified Code(s): I50.9 - Heart failure, unspecified (3) Community acquired pneumonia Current Visit: No Status: Acute Assessment and plan: Continue current medication, x-ray today, incentive spirometry (4) History of atrial fibrillation Current Visit: No Status: Acute Assessment and plan: Continue current medication, increase beta shilpa and Cardizem discontinue albuterol and start Xopenex (5) Abdominal pain Current Visit: Yes Status: Acute Assessment and plan: Continue Protonix and Carafate, liver function test and lipase amylase normal, check KUB Qualifiers: Abdominal location: generalized Qualified Code(s): R10.84 - Generalized abdominal pain (6) External hemorrhoid Current Visit: Yes Status: Acute Assessment and plan: Continue hydrocortisone, Stool softner. If not better consider surgery consult for possible rectal prolapse. If better consider follow-up as an outpatient - Time Spent With Patient 25 - 35 minutes - Subjective Interval history: Patient is complaining of shortness of breath, productive cough with yellowish sputum. She Is still complaining of generalized abdominal pain, had small bowel movement yesterday, rectal prolapse for last year when she strain - Constitutional Vitals: Temp Pulse Resp BP Pulse Ox 98.1 F 104 24 160/102 95 03/06/16 05:15 03/06/16 05:15 03/06/16 05:15 03/06/16 05:15 03/06/16 05:15 General appearance: Present: mild distress, obese, answers questions appropriately - Respiratory Respiratory exam: Present: decreased breath sounds, prolonged expiratory phase, rales ( scattered crackles rales and wheezing bilateral), rhonchi, wheezes. Absent: accessory muscle use - Cardiovascular Cardiovascular exam: Present: irregular rhythm (Tachycardic), +S1, +S2. Absent : diastolic murmur, gallop, rubs, systolic murmur - GI/Abdominal GI/Abdominal exam: Present: normal bowel sounds, soft, tenderness (Mild generalized abdominal tenderness), no peritoneal signs. Absent: distended - Extremities Exam Extremities exam: Present: warm. Absent: calf tenderness, cyanotic, pedal edema - Skin Skin exam: Present: dry, intact. Absent: abrasion Internal Medicine: Result - Labs CBC & Chem 7: 03/06/16 04:15 03/06/16 04:15 Labs: Short CBC 03/05/16 03/06/16 Range/Units 06:02 04:15 WBC 7.1 D 7.0 (4.3-11.1) K/mcL Hgb 9.7 L 10.7 L (11.5-15.4) g/dL Hct 32.6 L 35.7 (35.3-44.9) % Plt Count 174 205 (140-400) K/mcL Neutrophils # 5.7 5.6 (1.6-8.9) K/mcL BMP 03/05/16 03/06/16 06:02 04:15 Sodium 142 138 Potassium 3.0 L 4.0 D Chloride 102 100 Carbon Dioxide 27 26 BUN 18 14 Creatinine 0.74 0.75 Glucose 107 H 142 H Calcium 8.2 L 8.4 L Cardiac Enzymes 03/05/16 Range/Units 17:52 Troponin I 0.05 H* (0-0.03) ng/mL Liver Function 03/05/16 Range/Units 17:52 Total Bilirubin 1.1 (0.2-1.2) mg/dL Direct Bilirubin 0.6 H (0.0-0.5) mg/dL AST 21 (5-34) Units/L ALT 17 (0-55) Units/L Alkaline Phosphatase 103 (38-126) Units/L Albumin 2.6 L (3.5-5.0) g/dL - ABG Interpretation ABG results: ABG ABG pH 7.51 pH Units (7.32-7.45) H 03/03/16 20:17 ABG pCO2 39 mmHg (35-45) 03/03/16 20:17 ABG pO2 57 mmHg (85-104) L 03/03/16 20:17 ABG O2 Saturation 92 % (95-98) L 03/03/16 20:17 Consult Discharge Plan - Plan Referrals: Yue Kennedy, LATIN DANCER [Primary Care Provider] -
[2016-03-06] MEDS ORDERED: Diltiazem CD (24hr) 120 MG CAPSULE PO SCH (07:41)
[2016-03-06] MEDS: Levalbuterol Neb 1.25 MG/3 ML IH SCH ×4 (08:05→21:49)
[2016-03-06] MEDS: Ipratropium Neb 0.5 MG NEBULIZER IH SCH ×4 (08:05→21:49)
[2016-03-06] MEDS: Furosemide 40 MG/4 ML VIAL IVP SCH ×3 (09:16→23:19)
[2016-03-06] MEDS: Diltiazem CD (24hr) 180 MG CAPSULE PO SCH (09:16)
[2016-03-06] MEDS: Sucralfate 1 GM TABLET PO SCH ×4 (09:17→20:55)
[2016-03-06] MEDS: Loratadine 10 MG TABLET PO SCH (09:17)
[2016-03-06] MEDS: Isosorbide MONOnitrate (24 HR) 30 MG TAB.ER.24H PO SCH (09:17)
[2016-03-06] MEDS: Gabapentin 300 MG CAPSULE PO SCH ×3 (09:18→20:55)
[2016-03-06] MEDS: Folic Acid 1 MG TABLET PO SCH (09:18)
[2016-03-06] MEDS: Sennosides 8.6 MG TABLET PO SCH ×2 (09:19→20:55)
[2016-03-06] MEDS: Hydrocortisone Acetate 25 MG RECTAL SUPPOSITORY RC SCH ×2 (09:19→20:55)
--- NOTE | 2016-03-06 11:57 | Cardiology Consult Note ---
Date of Encounter: 03/06/16 Time of Encounter: 11:57 Assessment and Plan (1) Elevated troponin Current Visit: Yes Status: Acute Mild troponin elevation, 0.07, 0.21, 0.17, 0.11, in the setting of acute on chronic respiratory failure. pneumonia, GERARD and sepsis. Demand ischemia. TTE shows preserved EF. EF 65%, moderate LVH, atypical septal motion consistent with BBB. Moderately dilated RV with reduced function. Severely dilated bilateral atrium. Moderately calcified aortic valve leaflets. Mild to moderate aortic regurgitation and mild aortic stenosis. Mild mitral regurgitation. Severe tricuspid regurgitation. Mod to severe pulmonary hypertension. Pulmonary hypertension increased since last TTE in 2014. LHC in 2015 showed minimal CAD. No further cardiac testing at this time. (2) CHF (congestive heart failure) Current Visit: No Status: Acute Acute on chronic right sided heart failure. LVEF 65%. Agree with IV diuretic to maintain fluid status. Fluid status positive 3855 for hospital stay d/t sepsis fluid resuscitation. No significant peripheral edema seen. No JVD. Reports weight gain. Recent CXR showed small right pleural effusion. Continue lasix as tolerated to maintain fluid status. Monitor BMP. Low sodium diet and daily weights. Close out-pt cardiology f/u. Qualifiers: Congestive heart failure type: unspecified congestive heart failure type Congestive heart failure chronicity: acute Qualified Code(s): I50.9 - Heart failure, unspecified (3) CAP (community acquired pneumonia) Current Visit: Yes Status: Acute CT scan revealed mass like consolidation in the RLL. ground glass and reticular opacities seen on the left lung. Findings consistent with pneumonia. On IV antibiotic. Hospitalist following. (4) Atrial fibrillation Current Visit: No Status: Chronic Known afib. Appears to be chronic. 24 hour telemetry review shows avg HR 103. HR 80-90's currently. HR will improve once respiratory status improves. 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 She required 9 units of PRBC at that time. Continue asa and plavix. Qualifiers: Atrial fibrillation type: chronic Qualified Code(s): I48.2 - Chronic atrial fibrillation Discussion w patient/family: The assessment and plan as outlined above was discussed with the patient and/or family members who expressed understanding and agreement. All questions were answered. Thank you for involving us in the care of your patient. Please call with any questions. History of Present Illness Consult date: 03/06/16 Requesting physician: Que Thapa Consult reason: elevated troponin Chief complaint: SOB History of present illness: Ms. Crawford is a 75 year old female with a past medical history of right sided congestive heart failure, severe tricuspid regurgitation, atrial fibrillation, GI bleed, COPD and chronic respiratory failure. She presented after falling at home. She reports becoming weak and loosing her balance. She denies dizziness or syncope. Also c/o increasing SOB over the past couple of weeks associated with BLE edema, 20 lb weight gain, cough, and orthopnea. Denies chest pain. 03/03 CT scan showed findings suggestive of pneumonia. She was diagnosed with Sepsis , community acquired pneumonia, right sided heart failure, and GERARD. Cardiology consulted for elevated troponin. Past cardiovascular testing includes: TTE 03/07/14: LVEF 65-70%, moderately dilated RV with mild RV dysfunction, severely dilated RA, mild /AR, severe TR. LHC 03/08/14: mild, non-obstructive CAD. Past Med Surg Social Fam HX - Past Medical History Medical history: arthritis, atrial fibrillation, cardiomyopathy, CHF, GERD, GI bleed, hypertension, myocardial infarction, TIA, other Psychiatric history: depression - Past Surgical History Surgical History: angioplasty/stent (Renal stents for JUAN RAMON x2 on right side), c- section - Social History Smoking Status: Never smoker Smokeless Tobacco Status: No Alcohol use: none Drug use: none - Family History Mother History Unknown: Yes Medications and Allergies Carvedilol [Coreg] 6.25 mg PO BID 09/29/14 [History] Citalopram Hydrobromide [Celexa] 10 mg PO DAILY 09/29/14 [History] Clopidogrel [Plavix] 75 mg PO DAILY 09/29/14 [History] Furosemide [Lasix] 80 mg PO BID 09/29/14 [History] Gabapentin [Neurontin] 300 mg PO TID 09/29/14 [History] Loratadine [Claritin] 10 mg PO DAILY 09/29/14 [History] Pantoprazole Sodium 40 mg PO BID 09/29/14 [History] Potassium Chloride 10 meq PO DAILY 09/29/14 [History] Ropinirole HCl [Requip] 3 mg PO HS 09/29/14 [History] Diltiazem HCl [Cartia Xt] 120 mg PO DAILY 07/18/15 [History] HYDROcodone/Acet 7.5/325 mg [[place] 7.5-325 mg] 1 tab PO Q6H PRN 07/18/15 [ History] Isosorbide MONOnitrate (24 HR) [Imdur] 30 mg PO DAILY 07/18/15 [History] Ferrous Sulfate [Iron] 325 mg PO DAILY 03/03/16 [History] Folic Acid 1 mg PO DAILY 03/03/16 [History] Nitroglycerin [Nitrostat] 0.4 mg SL Q5M PRN 03/03/16 [History] Allergies codeine [From Tylenol-Codeine #3] Adverse Reaction (Verified 05/14/15 18:03) Vomiting All Systems Review: A 10-system review of systems was performed and is negative for pertinent findings except as documented above in the HPI. Physical Examination General: Conversant, Other (Ill appearing, tremors noted) HEENT: Atraumatic, Normocephaly, Mucus Membranes Moist Neck: No JVD, Normal carotid pulses Cardiac: Other (Irregularly irregular.) Lungs: Other (Course rhonci scattered throughout. ) Neuro: Alert and responsive, No focal deficits noted Abdomen: Soft, Non-Tender Skin: No rashes noted on visualized skin Musculoskeletal: No Chest Wall Tenderness Extremities: No Clubbing, No Cyanosis, Normal Pulses, Other (Trace edema in BLE. ) Results 03/06/16 04:15 03/06/16 04:15 Lab Results 03/05/16 03/05/16 03/05/16 06:02 17:52 17:52 WBC Hgb Hct Plt Count Sodium 142 Potassium 3.0 L Chloride 102 Carbon Dioxide 27 BUN 18 Creatinine 0.74 Glucose 107 H Calcium 8.2 L Magnesium 1.7 Total Bilirubin 1.1 AST 21 ALT 17 Alkaline Phosphatase 103 Troponin I 0.05 H* Amylase 16 L Lipase 4 L 03/06/16 03/06/16 04:15 04:15 WBC 7.0 Hgb 10.7 L Hct 35.7 Plt Count 205 Sodium 138 Potassium 4.0 D Chloride 100 Carbon Dioxide 26 BUN 14 Creatinine 0.75 Glucose 142 H Calcium 8.4 L Magnesium Total Bilirubin AST ALT Alkaline Phosphatase Troponin I Amylase Lipase - Imaging and Cardiology Echo: report reviewed - EKG Interpretation EKG results cardiology: personally reviewed (atrial fibrillation), other Consult Discharge Plan - Plan Referrals: Yeu Kennedy, MOLD HOLDER [Primary Care Provider] -
[2016-03-06] MEDS: Acetaminophen 325 MG TABLET PO PRN (16:56)
[2016-03-06] MEDS: Azithromycin 500 MG in D5% in Water 250 ML IVPB SCH (16:59)
[2016-03-07] MEDS: Levalbuterol Neb 1.25 MG/3 ML IH SCH ×4 (04:27→23:13)
[2016-03-07] MEDS: Ipratropium Neb 0.5 MG NEBULIZER IH SCH ×4 (04:27→23:14)
[2016-03-07] MEDS: Pantoprazole 40 MG VIAL IVP SCH ×2 (05:58→17:08)
[2016-03-07] MEDS: *HR* Heparin 5,000 UNIT/ML VIAL SQ SCH ×2 (05:59→16:59)
[2016-03-07 06:28] LABS: Basophils % 0.5 %; Hematocrit 34.9 % (35.3-44.9); Hemoglobin 10.6 g/dL (11.5-15.4); Immature Granulocytes % 1.8 % (0-4); Lymphocytes # 0.6 K/mcL (0.6-4.6); Lymphocytes % 13.9 %; Mean Corpuscular HGB Conc 30.4 g/dL (31.6-35.5); Mean Corpuscular Hemoglobin 26.8 pg (28.0-33.3); Mean Corpuscular Volume 88.1 fL (83.0-100.0); Monocytes # 0.4 K/mcL (0.0-1.3); Monocytes % 10.6 %; Neutrophils # 2.9 K/mcL (1.6-8.9); Platelet Count 193 K/mcL (140-400); Red Blood Count 3.96 M/mcL (3.82-4.97); Red Cell Distribution Width 14.6 % (11.5-14.5); Segmented Neutrophils % 72.2 %
[2016-03-07 06:49] LABS: BUN/Creatinine Ratio 19 (6-26); Blood Urea Nitrogen 14 mg/dL (7-20); Calcium 8.4 mg/dL (8.6-10.8); Carbon Dioxide 33 mEq/L (19-29); Chloride 98 mEq/L (98-109); Glucose 127 mg/dL (70-99); Osmolality,Calculated 294 (280-300); Potassium 3.2 mEq/L (3.5-4.5); Sodium 141 mEq/L (136-145); eGFR For African Americans > 60 (> 60); eGFR For Non-African Americans > 60 (> 60)
--- NOTE | 2016-03-07 09:29 | Internal Med Progress Note ---
<Devan Coronel - Last Filed: 03/07/16 16:23> Date of Encounter: 03/07/16 Time of Encounter: 09:28 - Assessment and plan (1) CAP (community acquired pneumonia) Current Visit: Yes Status: Acute Assessment and plan: Pt had drug reaction to azithro IV yesterday, will switch to monotherapy with levaquin IV, SOB improved, (2) Right-sided heart failure Current Visit: Yes Status: Acute Assessment and plan: Recent echo showed LVEF 65%, moderate dilated RV with mildly reduced fxn, cardio once consulted, con't IV lasix, strict I and O's, check daily weight, daily fluid restriction, SOB improved. (3) Elevated troponin Current Visit: Yes Status: Acute Assessment and plan: Demand ischemia in a setting of acute on chronic right sided HF and CAP with sepsis, no chest pain now, cardio once consulted, trop trended down. (4) Weakness Current Visit: Yes Status: Acute Assessment and plan: PT/OT recommended home health, SW consulted. (5) DVT prophylaxis Current Visit: Yes Status: Acute Assessment and plan: Heparin SQ BID. - Subjective Interval history: Pt seen and examined, she states that her SOB is slightly better than yesterday , still have productive cough, no other complaints. - Constitutional Vitals: Temp Pulse Resp BP Pulse Ox 98.2 F 73 20 170/93 100 03/07/16 07:38 03/07/16 07:38 03/07/16 07:38 03/07/16 07:38 03/07/16 07:38 General appearance: Present: cooperative, A&O X 3, no acute distress, obese, answers questions appropriately - Head Head exam: Present: atraumatic, normocephalic - Eye Eye exam: Present: PERRL, conjuntiva pink, sclera anicteric Pupils: Present: PERRL - Neck Neck exam general surgery: Present: supple, trachea midline. Absent: lymphadenopathy - Respiratory Respiratory exam: Present: decreased breath sounds (diffusely in upper and lower b/l). Absent: accessory muscle use, rales, rhonchi, wheezes - Cardiovascular Cardiovascular exam: Present: RRR, +S1, +S2. Absent: diastolic murmur, gallop, rubs, systolic murmur - GI/Abdominal GI/Abdominal exam: Present: normal bowel sounds, soft, no peritoneal signs. Absent: distended, tenderness - Extremities Exam Extremities exam: Present: pedal edema (mild non-pitting b/l), warm, radial pulses palpable and symetrical. Absent: calf tenderness, cyanotic - Neurological Exam Neurological exam: Present: CN II-XII intact, oriented X3, no focal deficits. Absent: pronater drift, facial droop, speech deficit - Skin Skin exam: Present: dry, intact Internal Medicine: Result - Labs CBC & Chem 7: 03/07/16 05:41 03/07/16 05:41 Labs: Short CBC 03/07/16 Range/Units 05:41 WBC 4.0 L (4.3-11.1) K/mcL Hgb 10.6 L (11.5-15.4) g/dL Hct 34.9 L (35.3-44.9) % Plt Count 193 (140-400) K/mcL Neutrophils # 2.9 (1.6-8.9) K/mcL BMP 03/07/16 05:41 Sodium 141 Potassium 3.2 L Chloride 98 Carbon Dioxide 33 H BUN 14 Creatinine 0.72 Glucose 127 H Calcium 8.4 L - ABG Interpretation ABG results: ABG ABG pH 7.51 pH Units (7.32-7.45) H 03/03/16 20:17 ABG pCO2 39 mmHg (35-45) 03/03/16 20:17 ABG pO2 57 mmHg (85-104) L 03/03/16 20:17 ABG O2 Saturation 92 % (95-98) L 03/03/16 20:17 Consult Discharge Plan - Plan Referrals: Yue Kennedy, PRE CODER [Primary Care Provider] - <Que Thapa - Last Filed: 03/07/16 17:24> Date of Encounter: 03/07/16 - Constitutional Vitals: Temp Pulse Resp BP Pulse Ox 98.2 F 97 20 152/86 98 03/07/16 07:38 03/07/16 15:00 03/07/16 15:45 03/07/16 15:00 03/07/16 15:45 Internal Medicine: Result - Labs CBC & Chem 7: 03/07/16 05:41 03/07/16 05:41 Labs: Short CBC 03/07/16 Range/Units 05:41 WBC 4.0 L (4.3-11.1) K/mcL Hgb 10.6 L (11.5-15.4) g/dL Hct 34.9 L (35.3-44.9) % Plt Count 193 (140-400) K/mcL Neutrophils # 2.9 (1.6-8.9) K/mcL BMP 03/07/16 05:41 Sodium 141 Potassium 3.2 L Chloride 98 Carbon Dioxide 33 H BUN 14 Creatinine 0.72 Glucose 127 H Calcium 8.4 L - ABG Interpretation ABG results: ABG ABG pH 7.51 pH Units (7.32-7.45) H 03/03/16 20:17 ABG pCO2 39 mmHg (35-45) 03/03/16 20:17 ABG pO2 57 mmHg (85-104) L 03/03/16 20:17 ABG O2 Saturation 92 % (95-98) L 03/03/16 20:17 - Attending Attestation I examined this patient and my medical decision-making was reviewed with the CURTAIN FRAMER/PA/Advanced Practice Nurse/Resident Physician. I agree with the documented findings, disposition and treatment plan as described except to the extent set forth below.
[2016-03-07] MEDS: Sucralfate 1 GM TABLET PO SCH ×4 (09:45→20:19)
[2016-03-07] MEDS: Isosorbide MONOnitrate (24 HR) 30 MG TAB.ER.24H PO SCH (09:45)
[2016-03-07] MEDS: Folic Acid 1 MG TABLET PO SCH (09:46)
[2016-03-07] MEDS: Diltiazem CD (24hr) 180 MG CAPSULE PO SCH (09:46)
[2016-03-07] MEDS: Sennosides 8.6 MG TABLET PO SCH ×2 (09:46→20:19)
[2016-03-07] MEDS: Gabapentin 300 MG CAPSULE PO SCH ×3 (09:48→20:19)
[2016-03-07] MEDS: Loratadine 10 MG TABLET PO SCH (09:49)
[2016-03-07] MEDS: Furosemide 40 MG/4 ML VIAL IVP SCH ×3 (09:49→20:19)
--- NOTE | 2016-03-07 11:14 | Electrocardiograph Report ---
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
[2016-03-07] MEDS: Acetaminophen 325 MG TABLET PO PRN (16:59)
[2016-03-07] MEDS: Levofloxacin 750 MG/150 ML 750 MG/150 ML BAG IVPB SCH (17:03)
[2016-03-08] MEDS: Levalbuterol Neb 1.25 MG/3 ML IH SCH ×4 (05:17→22:45)
[2016-03-08] MEDS: Ipratropium Neb 0.5 MG NEBULIZER IH SCH ×4 (05:17→22:45)
[2016-03-08] MEDS: *HR* Heparin 5,000 UNIT/ML VIAL SQ SCH ×2 (05:30→17:25)
[2016-03-08] MEDS: Pantoprazole 40 MG VIAL IVP SCH (05:30)
[2016-03-08 05:58] LABS: Basophils % 0.7 %; Eosinophils # 0.3 K/mcL (0.0-0.6); Eosinophils % 4.5 %; Hematocrit 39.8 % (35.3-44.9); Hemoglobin 11.6 g/dL (11.5-15.4); Immature Granulocytes % 1.4 % (0-4); Lymphocytes # 0.8 K/mcL (0.6-4.6); Lymphocytes % 12.9 %; Mean Corpuscular HGB Conc 29.1 g/dL (31.6-35.5); Mean Corpuscular Hemoglobin 26.8 pg (28.0-33.3); Mean Corpuscular Volume 91.9 fL (83.0-100.0); Mean Platelet Volume 10.6 fL (9.4-12.4); Monocytes # 0.6 K/mcL (0.0-1.3); Monocytes % 10.5 %; Neutrophils # 4.1 K/mcL (1.6-8.9); Nucleated Red Blood Cells 0.3 /100 WBC (0); Platelet Count 166 K/mcL (140-400); Red Blood Count 4.33 M/mcL (3.82-4.97)
[2016-03-08 06:12] LABS: BUN/Creatinine Ratio 22 (6-26); Blood Urea Nitrogen 16 mg/dL (7-20); Calcium 8.2 mg/dL (8.6-10.8); Carbon Dioxide 29 mEq/L (19-29); Chloride 99 mEq/L (98-109); Glucose 120 mg/dL (70-99); Osmolality,Calculated 286 (280-300); Sodium 137 mEq/L (136-145); eGFR For African Americans > 60 (> 60); eGFR For Non-African Americans > 60 (> 60)
[2016-03-08 06:22] LABS: Potassium 4.2 mEq/L (3.5-4.5)
[2016-03-08] MEDS: Sucralfate 1 GM TABLET PO SCH ×4 (08:15→20:05)
[2016-03-08] MEDS: Isosorbide MONOnitrate (24 HR) 30 MG TAB.ER.24H PO SCH (08:16)
[2016-03-08] MEDS: Diltiazem CD (24hr) 180 MG CAPSULE PO SCH (08:16)
[2016-03-08] MEDS: Sennosides 8.6 MG TABLET PO SCH ×2 (08:16→20:05)
[2016-03-08] MEDS: Folic Acid 1 MG TABLET PO SCH (08:16)
[2016-03-08] MEDS: Furosemide 40 MG/4 ML VIAL IVP SCH ×2 (08:17→20:05)
[2016-03-08] MEDS: Loratadine 10 MG TABLET PO SCH (08:17)
[2016-03-08] MEDS: Gabapentin 300 MG CAPSULE PO SCH ×3 (08:17→20:05)
[2016-03-08] MEDS: Levofloxacin 750 MG/150 ML 750 MG/150 ML BAG IVPB SCH (08:17)
[2016-03-08] MEDS: Acetaminophen 325 MG TABLET PO PRN ×2 (10:30→21:33)
--- NOTE | 2016-03-08 15:17 | Internal Med Progress Note ---
<Devan Coronel - Last Filed: 03/08/16 15:14> Date of Encounter: 03/08/16 Time of Encounter: 15:14 - Assessment and plan (1) CAP (community acquired pneumonia) Current Visit: Yes Status: Acute Assessment and plan: Con't monotherapy with levaquin IV, SOB improved, two view chest x-ray today showed no infiltrates. She states that her SOB is not back to baseline yet, does not feel comfortable going home, likely d/c tmw. (2) Right-sided heart failure Current Visit: Yes Status: Acute Assessment and plan: Recent echo showed LVEF 65%, moderate dilated RV with mildly reduced fxn, cardio once consulted, con't IV lasix, strict I and O's, check daily weight, daily fluid restriction, SOB improved. (3) Elevated troponin Current Visit: Yes Status: Acute Assessment and plan: Demand ischemia in a setting of acute on chronic right sided HF and CAP with sepsis, no chest pain now, cardio once consulted, trop trended down. (4) Weakness Current Visit: Yes Status: Acute Assessment and plan: PT/OT recommended home health, will add PT to her HH service. (5) DVT prophylaxis Current Visit: Yes Status: Acute Assessment and plan: Heparin SQ BID. - Subjective Interval history: Pt seen and examined, she states that her SOB is slightly better than yesterday but not back to baseline, does not feel comfortable going home today per her. - Constitutional Vitals: Temp Pulse Resp BP Pulse Ox 97.9 F 82 24 146/92 99 03/08/16 14:37 03/08/16 14:37 03/08/16 14:37 03/08/16 14:37 03/08/16 14:37 General appearance: Present: cooperative, A&O X 3, no acute distress, obese, answers questions appropriately - Head Head exam: Present: atraumatic, normocephalic - Eye Eye exam: Present: PERRL, conjuntiva pink, sclera anicteric Pupils: Present: PERRL - Neck Neck exam general surgery: Present: supple, trachea midline. Absent: lymphadenopathy - Respiratory Respiratory exam: Present: decreased breath sounds (diffusely b/l). Absent: accessory muscle use, rales, rhonchi, wheezes - Cardiovascular Cardiovascular exam: Present: RRR, +S1, +S2. Absent: diastolic murmur, gallop, rubs, systolic murmur - GI/Abdominal GI/Abdominal exam: Present: normal bowel sounds, soft, no peritoneal signs. Absent: distended, tenderness - Extremities Exam Extremities exam: Present: warm, radial pulses palpable and symetrical. Absent : calf tenderness, cyanotic, pedal edema - Neurological Exam Neurological exam: Present: CN II-XII intact, oriented X3, no focal deficits. Absent: pronater drift, facial droop, speech deficit - Skin Skin exam: Present: dry, intact Internal Medicine: Result - Labs CBC & Chem 7: 03/08/16 05:51 03/08/16 05:51 Labs: Short CBC 03/08/16 Range/Units 05:51 WBC 5.8 (4.3-11.1) K/mcL Hgb 11.6 (11.5-15.4) g/dL Hct 39.8 (35.3-44.9) % Plt Count 166 (140-400) K/mcL Neutrophils # 4.1 (1.6-8.9) K/mcL BMP 03/08/16 05:51 Sodium 137 Potassium 4.2 D Chloride 99 Carbon Dioxide 29 BUN 16 Creatinine 0.74 Glucose 120 H Calcium 8.2 L - ABG Interpretation ABG results: ABG ABG pH 7.51 pH Units (7.32-7.45) H 03/03/16 20:17 ABG pCO2 39 mmHg (35-45) 03/03/16 20:17 ABG pO2 57 mmHg (85-104) L 03/03/16 20:17 ABG O2 Saturation 92 % (95-98) L 03/03/16 20:17 - Impressions Impressions Chest X-Ray 03/08/16 10:30 IMPRESSION: Cardiomegaly, no acute pulmonary disease. D/ / 03/08/2016 14:40:05 Ok Nunes MD / louis Interpreting Provider: Ok Nunes MD Consult Discharge Plan - Plan Referrals: Yue Kennedy, PLANT SCIENCE PROFESSOR [Primary Care Provider] - <Alessandro Mercer - Last Filed: 03/08/16 17:25> Date of Encounter: 03/08/16 - Assessment and plan (1) Acute on chronic respiratory failure with hypoxemia Current Visit: No Status: Acute (2) Sepsis Current Visit: Yes Status: Resolved Qualifiers: Sepsis type: sepsis due to unspecified organism Qualified Code(s): A41.9 - Sepsis, unspecified organism (3) Pneumonia due to aerobic bacteria Current Visit: Yes Status: Acute (4) Atrial fibrillation Current Visit: No Status: Chronic Qualifiers: Atrial fibrillation type: chronic Qualified Code(s): I48.2 - Chronic atrial fibrillation (5) Restless leg syndrome Current Visit: No Status: Chronic (6) HTN (hypertension) Current Visit: No Status: Acute Qualifiers: Hypertension type: essential hypertension Qualified Code(s): I10 - Essential (primary) hypertension - Constitutional Vitals: Temp Pulse Resp BP Pulse Ox 97 F L 88 18 156/85 98 03/08/16 16:11 03/08/16 16:11 03/08/16 16:11 03/08/16 16:11 03/08/16 16:11 Internal Medicine: Result - Labs CBC & Chem 7: 03/08/16 05:51 03/08/16 05:51 Labs: Short CBC 03/08/16 Range/Units 05:51 WBC 5.8 (4.3-11.1) K/mcL Hgb 11.6 (11.5-15.4) g/dL Hct 39.8 (35.3-44.9) % Plt Count 166 (140-400) K/mcL Neutrophils # 4.1 (1.6-8.9) K/mcL BMP 03/08/16 05:51 Sodium 137 Potassium 4.2 D Chloride 99 Carbon Dioxide 29 BUN 16 Creatinine 0.74 Glucose 120 H Calcium 8.2 L - ABG Interpretation ABG results: ABG ABG pH 7.51 pH Units (7.32-7.45) H 03/03/16 20:17 ABG pCO2 39 mmHg (35-45) 03/03/16 20:17 ABG pO2 57 mmHg (85-104) L 03/03/16 20:17 ABG O2 Saturation 92 % (95-98) L 03/03/16 20:17 - Impressions Impressions Chest X-Ray 03/08/16 10:30 IMPRESSION: Cardiomegaly, no acute pulmonary disease. D/ / 03/08/2016 14:40:05 Ok Nunes MD / louis Interpreting Provider: Ok Nunes MD - Attending Attestation I examined this patient and my medical decision-making was reviewed with the Resident Physician on 03/08/16. I agree with the documented findings, disposition and treatment plan as described except to the extent set forth below. Ms. Crawford is currently admitted for acute respiratory failure. She remains moderate to high risk due to potential for worsening respiratory status. Ms. Crawford is quite dyspneic currently. She just got back from bathroom. She does not feel she is at baseline yet. Denies chest pain or GI symptoms currently. Exam Alert. Mild distress at rest. Heart reg Lungs diminished with bibasilar rales Abd soft I/P 1. Acute on chronic hypoxic respiratory failure 2. CAP 3. Sepsis - resolved. 4. GERARD - resolved Further diagnoses and plan as above. Anticipate d/c tomorrow.
[2016-03-09] MEDS: Levalbuterol Neb 1.25 MG/3 ML IH SCH ×2 (04:26→10:29)
[2016-03-09] MEDS: Ipratropium Neb 0.5 MG NEBULIZER IH SCH ×2 (04:26→10:29)
[2016-03-09] MEDS: *HR* Heparin 5,000 UNIT/ML VIAL SQ SCH (05:14)
[2016-03-09 07:42] VITALS: BP 156/71
[2016-03-09] MEDS: Isosorbide MONOnitrate (24 HR) 30 MG TAB.ER.24H PO SCH (08:07)
[2016-03-09] MEDS: Gabapentin 300 MG CAPSULE PO SCH (08:08)
[2016-03-09] MEDS: Loratadine 10 MG TABLET PO SCH (08:08)
[2016-03-09] MEDS: Sucralfate 1 GM TABLET PO SCH ×2 (08:09→12:33)
[2016-03-09] MEDS: Furosemide 40 MG/4 ML VIAL IVP SCH (08:09)
[2016-03-09] MEDS: Diltiazem CD (24hr) 180 MG CAPSULE PO SCH (08:09)
[2016-03-09] MEDS: Levofloxacin 750 MG/150 ML 750 MG/150 ML BAG IVPB SCH (08:09)
[2016-03-09] MEDS: Folic Acid 1 MG TABLET PO SCH (08:09)
[2016-03-09] MEDS: Sennosides 8.6 MG TABLET PO SCH (08:09)
--- NOTE | 2016-03-09 10:31 | Discharge Summary ---
<Devan Coronel - Last Filed: 03/09/16 13:37> Date of Encounter: 03/09/16 Time of Encounter: 10:28 - Discharge Diagnosis (1) CAP (community acquired pneumonia) Priority: Primary Status: Acute (2) Right-sided heart failure Priority: Secondary Status: Acute (3) Elevated troponin Priority: Secondary Status: Acute (4) Weakness Priority: Secondary Status: Acute (5) DVT prophylaxis Priority: Secondary Status: Acute - Discharge Medications Home Medications: Carvedilol [Coreg] 6.25 mg PO BID 09/29/14 [History] Citalopram Hydrobromide [Celexa] 10 mg PO DAILY 09/29/14 [History] Clopidogrel [Plavix] 75 mg PO DAILY 09/29/14 [History] Furosemide [Lasix] 80 mg PO BID 09/29/14 [History] Gabapentin [Neurontin] 300 mg PO TID 09/29/14 [History] Loratadine [Claritin] 10 mg PO DAILY 09/29/14 [History] Pantoprazole Sodium 40 mg PO BID 09/29/14 [History] Potassium Chloride 10 meq PO DAILY 09/29/14 [History] Ropinirole HCl [Requip] 3 mg PO HS 09/29/14 [History] Diltiazem HCl [Cartia Xt] 120 mg PO DAILY 07/18/15 [History] HYDROcodone/Acet 7.5/325 mg [[place] 7.5-325 mg] 1 tab PO Q6H PRN 07/18/15 [ History] Isosorbide MONOnitrate (24 HR) [Imdur] 30 mg PO DAILY 07/18/15 [History] Ferrous Sulfate [Iron] 325 mg PO DAILY 03/03/16 [History] Folic Acid 1 mg PO DAILY 03/03/16 [History] Nitroglycerin [Nitrostat] 0.4 mg SL Q5M PRN 03/03/16 [History] Allergies/Adverse Reactions: Allergies codeine [From Tylenol-Codeine #3] Adverse Reaction (Verified 05/14/15 18:03) Vomiting Date of admission: 03/03/16 19:29 Primary care physician: Yue Kennedy CNP Consults: 03/07/16 09:28 Consult to Physical Therapy [CONS] Routine Comment: Evaluate, develop and implement POC OT [Consult to Occupational Therapy] [CONS] Routine Comment: Evaluate, develop and implement POC Discharging clinician: Devan Coronel Anticipated date of discharge: 03/09/16 - Patient Status Disposition: Home Health Service Condition: Good Functional capacity at discharge: uses cane/walker (fall precaution) Overall status at discharge: patient is progressing back to baseline - Discharge Instructions Follow Up With: Yue Kennedy, OIL SPRAYER [Primary Care Provider] - 03/16/16 11:00 am (F/u with pt's PCP in a week for hospital d/c f/u, cardiology referral for right sided CHF.) - Diet and Activity Activity: resume usual activities as tolerated Diet: low fat, low cholesterol (cardiac), low salt diet Hospital course: Ms. Crawford is a 75 year old female with hx of COPD and right sided CHF, fell at home, came to the ER, found to have community acquired pneumonia with sepsis, started on azithromycin and rocephin IV, also elevated troponin, which plateaued , 2/2 demand ischemia in a setting of acute on chronic right sided CHF and CAP with sepsis, cardio consulted, echo reviewed, she was on IV lasix therapy during the stay, diuresed well, at the day of discharge, she was stable enough to return to home today, PT/OT recommended home health with PT for weakness and recurrent fall, she refused to go to SNF/ECF. - Time Spent with Patient Total time spent providing and/or coordinating discharge services: - Constitutional Vitals: Temp Pulse Resp BP Pulse Ox 98.2 F 76 16 156/71 100 03/09/16 07:00 03/09/16 07:00 03/09/16 07:00 03/09/16 07:00 03/09/16 07:00 General appearance: Present: cooperative, A&O X 3, no acute distress, obese, answers questions appropriately - Head Head exam: Present: atraumatic, normocephalic - Eye Eye exam: Present: PERRL, conjuntiva pink, sclera anicteric Pupils: Present: PERRL - Neck Neck exam general surgery: Present: supple, trachea midline. Absent: lymphadenopathy - Respiratory Respiratory exam: Present: CTAB. Absent: accessory muscle use, rales, rhonchi, wheezes - Cardiovascular Cardiovascular exam: Present: RRR, +S1, +S2. Absent: diastolic murmur, gallop, rubs, systolic murmur - GI/Abdominal GI/Abdominal exam: Present: normal bowel sounds, soft, no peritoneal signs. Absent: distended, tenderness - Extremities Exam Extremities exam: Present: warm, radial pulses palpable and symetrical. Absent : calf tenderness, cyanotic, pedal edema - Neurological Exam Neurological exam: Present: CN II-XII intact, oriented X3, no focal deficits. Absent: pronater drift, facial droop, speech deficit - Skin Skin exam: Present: dry, intact <Alessandro Mercer A - Last Filed: 03/09/16 16:05> Date of Encounter: 03/09/16 - Discharge Diagnosis (1) Acute on chronic respiratory failure with hypoxemia Priority: Primary Status: Acute (2) Sepsis Priority: Primary Status: Resolved Qualifiers: Sepsis type: sepsis due to unspecified organism Qualified Code(s): A41.9 - Sepsis, unspecified organism (3) Pneumonia due to aerobic bacteria Priority: Primary Status: Acute (4) Atrial fibrillation Priority: Secondary Status: Chronic Qualifiers: Atrial fibrillation type: chronic Qualified Code(s): I48.2 - Chronic atrial fibrillation (5) Restless leg syndrome Priority: Secondary Status: Chronic (6) HTN (hypertension) Priority: Secondary Status: Acute Qualifiers: Hypertension type: essential hypertension Qualified Code(s): I10 - Essential (primary) hypertension Date of admission: 03/03/16 19:29 Primary care physician: Yue Kennedy CNP Consults: 03/07/16 09:28 Consult to Physical Therapy [CONS] Routine Comment: Evaluate, develop and implement POC OT [Consult to Occupational Therapy] [CONS] Routine Comment: Evaluate, develop and implement POC Hospital course: Ms. Crawford is a 75 year old female - Time Spent with Patient Total time spent providing and/or coordinating discharge services: 38min - Constitutional Vitals: Temp Pulse Resp BP Pulse Ox 98.2 F 76 16 156/71 100 03/09/16 07:00 03/09/16 07:00 03/09/16 10:31 03/09/16 07:00 03/09/16 10:31 - Attending Attestation I examined this patient and my medical decision-making was reviewed with the Resident Physician on 03/09/16. I agree with the documented findings, disposition and treatment plan as described except to the extent set forth below. Ms. Crawford feels better today and is nearly at baseline. She is ready to go home today. Exam Alert. Comfortable Heart not tachy No wheeze. Scant rales Plan D/C today.
--- NOTE | 2016-03-09 10:49 | Physician Discharge Referral ---
<Devan Coronel - Last Filed: 03/09/16 10:47> Home Health/Hosp Referral Info Transfer to: Home Health Attending Provider: Dr. Mercer Provider in Charge Post Discharge: PCP - Diagnosis (1) CAP (community acquired pneumonia) Priority: Primary Status: Acute (2) Right-sided heart failure Status: Acute (3) Elevated troponin Status: Acute (4) Weakness Status: Acute (5) DVT prophylaxis Status: Acute - Respiratory Orders Oxygen / L per min (3.5) Smoking Cessation: Smoking cessation has been advised. For more information, call the [place] Quit Line at 6-934-HREU-NOW. - Diet/Nutrition Diet/Nutrition Orders: No Added Salt (PORSCHE), Cardiac - Activity Activity Orders: Ambulate (fall precaution) - Services Needed Following services are medically necessary services: Home Health Aide, Physical Therapy, Occupational Therapy - Transfer Medications Home Medications: Carvedilol [Coreg] 6.25 mg PO BID 09/29/14 [History] Citalopram Hydrobromide [Celexa] 10 mg PO DAILY 09/29/14 [History] Clopidogrel [Plavix] 75 mg PO DAILY 09/29/14 [History] Furosemide [Lasix] 80 mg PO BID 09/29/14 [History] Gabapentin [Neurontin] 300 mg PO TID 09/29/14 [History] Loratadine [Claritin] 10 mg PO DAILY 09/29/14 [History] Pantoprazole Sodium 40 mg PO BID 09/29/14 [History] Potassium Chloride 10 meq PO DAILY 09/29/14 [History] Ropinirole HCl [Requip] 3 mg PO HS 09/29/14 [History] Diltiazem HCl [Cartia Xt] 120 mg PO DAILY 07/18/15 [History] HYDROcodone/Acet 7.5/325 mg [[place] 7.5-325 mg] 1 tab PO Q6H PRN 07/18/15 [ History] Isosorbide MONOnitrate (24 HR) [Imdur] 30 mg PO DAILY 07/18/15 [History] Ferrous Sulfate [Iron] 325 mg PO DAILY 03/03/16 [History] Folic Acid 1 mg PO DAILY 03/03/16 [History] Nitroglycerin [Nitrostat] 0.4 mg SL Q5M PRN 03/03/16 [History] Allergies/Adverse Reactions: Allergies codeine [From Tylenol-Codeine #3] Adverse Reaction (Verified 05/14/15 18:03) Vomiting Certification: Further, I certify that my clinical findings support that this patient is homebound (i.e. absences from home require considerable and taxing effort and are for medical reasons or cheondoism services or infrequently or short duration when for other reasons) because: pt is having difficulty getting in/out of vehicle. Homebound Reason: Leaving home requires considerable and taxing effort due to condition Attestation: My signature below is to certify that this patient is under my care and that I, or nurse practitioner, or a physician's registrar assistant working with me, has a face-to -face encounter with this patient. <Alessandro Mercer - Last Filed: 03/09/16 16:07> - Diagnosis (1) Acute on chronic respiratory failure with hypoxemia Status: Acute (2) Sepsis Status: Resolved (3) Pneumonia due to aerobic bacteria Status: Acute (4) Atrial fibrillation Status: Chronic (5) Restless leg syndrome Status: Chronic (6) HTN (hypertension) Status: Acute - Respiratory Orders Smoking Cessation: Smoking cessation has been advised. For more information, call the [place] [employer] Quit Line at 2-436-UCWM-NOW. Certification: Further, I certify that my clinical findings support that this patient is homebound (i.e. absences from home require considerable and taxing effort and are for medical reasons or cheondoism services or infrequently or short duration when for other reasons) because: Attestation: My signature below is to certify that this patient is under my care and that I, or nurse practitioner, or a physician's registrar assistant working with me, has a face-to -face encounter with this patient.
[2016-03-09] MEDS: Acetaminophen 325 MG TABLET PO PRN (13:05)
== END 2016-03-09 14:45 | disposition home health service (06) | DRG 871 ==
LOC: EMEROO 12:56 → 3BNU 12:56 → SUATTDRO 19:29 → 2NENU 03-04 20:26
PROVIDERS: ADMIT Nurse Practitioner Family; ATTEND Internal Medicine

== ENCOUNTER 2016-06-28 12:01 | Inpatient (IN) ==
[2016-06-28 13:09] LABS: Basophils % 0.2 %; Eosinophils # 0.1 K/mcL (0.0-0.6); Eosinophils % 2.5 %; Hematocrit 34.3 % (35.3-44.9); Immature Granulocytes % 0.4 % (0-4); Lymphocytes # 0.7 K/mcL (0.6-4.6); Lymphocytes % 14.8 %; Mean Corpuscular HGB Conc 29.2 g/dL (31.6-35.5); Mean Corpuscular Hemoglobin 26.6 pg (28.0-33.3); Mean Corpuscular Volume 91.2 fL (83.0-100.0); Mean Platelet Volume 10.2 fL (9.4-12.4); Monocytes # 0.3 K/mcL (0.0-1.3); Monocytes % 6.5 %; Neutrophils # 3.4 K/mcL (1.6-8.9); Platelet Count 171 K/mcL (140-400); Red Blood Count 3.76 M/mcL (3.82-4.97); Red Cell Distribution Width 15.7 % (11.5-14.5); Segmented Neutrophils % 75.6 %
[2016-06-28 13:14] LABS: INR 1.5; Prothrombin Time 16.2 Seconds (9.4-12.1)
[2016-06-28 13:17] LABS: Activated Partial Thrombo Time 30.1 Seconds (26.0-36.0)
[2016-06-28 13:23] LABS: BUN/Creatinine Ratio 18 (6-26); Blood Urea Nitrogen 16 mg/dL (7-20); Calcium 8.1 mg/dL (8.6-10.8); Carbon Dioxide 35 mEq/L (19-29); Chloride 100 mEq/L (98-109); Glucose 112 mg/dL (70-99); Osmolality,Calculated 296 (280-300); Potassium 3.8 mEq/L (3.5-4.5); Sodium 142 mEq/L (136-145); eGFR For African Americans > 60 (> 60); eGFR For Non-African Americans > 60 (> 60)
[2016-06-28] MEDS ORDERED: Furosemide 40 MG/4 ML VIAL IVP ONE (13:45)
--- NOTE | 2016-06-28 13:47 | Emergency Department Note ---
Disposition Clinical Impression: A-fib, Shortness of breath, Lower extremity edema Disposition: Admitted As Inpatient Condition: Fair Time of Disposition: 13:50 Chest Pain HPI - General Chief Complaint: ED Chest Pain Stated Complaint: chf Time Seen by Provider: 06/28/16 12:04 Source: EMS Limitations: no limitations Vital Signs Reviewed: Yes Nursing Notes Reviewed: Yes - History of Present Illness HPI Narrative: 75-year-old female presents emergency room for shortness of breath and dyspnea. Patient admits to lower extremity swelling over the past few days. She has been more short of breath as well for the past 2 days. She does have a history of congestive heart failure. She does wear home oxygen all the time. She takes 80 of Lasix twice daily for a total of 160 mg a day. She has not been weighing herself shows she is not sure if she has been gaining weight or not. She denies chest pain. She denies any cough or sputum production. Pt complaint: other (Shortness of breath) Onset (ago): day(s) Duration: constant Onset: during rest Severity scale (1-10): 8 Quality: tightness Pain Radiation: none Improves with: nothing Worsens with: exertion Associated symptoms: Reports: dyspnea Treatments prior to arrival chest pain: none - Related Data Home Medications Medication Instructions Recorded Confirmed Carvedilol [Coreg] 6.25 mg PO BID 09/29/14 03/03/16 Citalopram Hydrobromide [Celexa] 10 mg PO DAILY 09/29/14 03/03/16 Clopidogrel [Plavix] 75 mg PO DAILY 09/29/14 03/03/16 Furosemide [Lasix] 80 mg PO BID 09/29/14 03/03/16 Gabapentin [Neurontin] 300 mg PO TID 09/29/14 03/03/16 Loratadine [Claritin] 10 mg PO DAILY 09/29/14 03/03/16 Pantoprazole Sodium 40 mg PO BID 09/29/14 03/03/16 Potassium Chloride 10 meq PO DAILY 09/29/14 03/03/16 Ropinirole HCl [Requip] 3 mg PO HS 09/29/14 03/03/16 Diltiazem HCl [Cartia Xt] 120 mg PO DAILY 07/18/15 03/03/16 HYDROcodone/Acet 7.5/325 mg [[place] 1 tab PO Q6H PRN 07/18/15 03/03/16 7.5-325 mg] Isosorbide MONOnitrate (24 HR) 30 mg PO DAILY 07/18/15 03/03/16 [Imdur] Ferrous Sulfate [Iron] 325 mg PO DAILY 03/03/16 03/03/16 Folic Acid 1 mg PO DAILY 03/03/16 03/03/16 Nitroglycerin [Nitrostat] 0.4 mg SL Q5M PRN 03/03/16 03/03/16 Allergies Allergy/AdvReac Type Severity Reaction Status Date / Time codeine AdvReac Vomiting Verified 05/14/15 18:03 [From Tylenol-Codeine #3] All systems ED: reviewed and negative except as stated. Constitutional: Reports: as per HPI Eyes: Reports: as per HPI Cardiovascular: Reports: dyspnea on exertion Respiratory: Reports: dyspnea Gastrointestinal: Reports: as per HPI Genitourinary: Reports: as per HPI Musculoskeletal: Reports: as per HPI Integumentary: Reports: as per HPI Endocrine: Reports: as per HPI Hematological/Lymphatic: Reports: as per HPI Allergic/Immunologic: Reports: as per HPI Chest Pain PMH - Past Medical History Medical history: Reports: arthritis, atrial fibrillation, cardiomyopathy, CHF, GERD, GI bleed, hypertension, myocardial infarction, TIA, other Surgical history: Reports: angioplasty/stent (Renal stents for JUAN RAMON x2 on right side), Psychiatric history: Reports: depression HOSPICE ART THERAPIST history: Reports: spontaneous - Social History Smoking Status: Never smoker Alcohol use: Reports: none Drug use: Reports: none Physical Exam - General Limitations: no limitations General appearance: alert - Head Head exam: atraumatic, normocephalic - Eye Eye exam: Present: normal appearance - Chest Chest inspection: Present: normal inspection, symmetric chest wall rise - Respiratory Respiratory exam: Present: normal lung sounds bilaterally, other (diminshed in bases bilat). Absent: respiratory distress, wheezes - Cardiovascular Cardiovascular exam: Present: irregular rhythm, systolic murmur - Abdominal Exam Abdominal exam: Present: soft, normal bowel sounds - Extremities Exam Extremities exam: Present: other (3+ pitting edema bilat, weeping edema of left LE. bandages intact to Left LE. ) - Back Exam Back exam: Present: normal inspection - Neurological Exam Neurological exam: Present: alert, oriented X3 - Psychiatric Psychiatric exam: Present: normal affect, normal mood - Skin Skin exam: Present: warm, dry, intact Course Vital Signs Temperature 97.3 F L 06/28/16 12:03 Pulse Rate 70 06/28/16 12:03 Respiratory Rate 20 06/28/16 12:03 Blood Pressure 124/65 06/28/16 12:03 O2 Sat by Pulse Oximetry 93 06/28/16 12:03 Temperature 97.3 F L 06/28/16 12:03 Pulse Rate 70 06/28/16 12:03 Respiratory Rate 20 06/28/16 12:03 Blood Pressure 124/65 06/28/16 12:03 O2 Sat by Pulse Oximetry 97 06/28/16 12:08 Oxygen Delivery Oxygen Delivery Nasal Cannula Chest Pain - Medical Records Medical records reviewed: Yes I reviewed the patient's medical records. - Lab Data Lab results reviewed: Yes I reviewed the patient's lab results. Result diagrams: 06/28/16 12:45 06/28/16 12:45 Lab Results 06/28/16 06/28/16 06/28/16 Range/Units 12:45 12:45 12:45 WBC 4.5 (4.3-11.1) K/mcL RBC 3.76 L (3.82-4.97) M/mcL Hgb 10.0 L (11.5-15.4) g/dL Hct 34.3 L (35.3-44.9) % MCV 91.2 (83.0-100.0) fL MCH 26.6 L (28.0-33.3) pg MCHC 29.2 L (31.6-35.5) g/dL RDW 15.7 H (11.5-14.5) % Plt Count 171 (140-400) K/mcL MPV 10.2 (9.4-12.4) fL Immature Gran % 0.4 (0-4) % Seg Neutrophils % 75.6 % Lymphocytes % 14.8 % Monocytes % 6.5 % Eosinophils % 2.5 % Basophils % 0.2 % Neutrophils # 3.4 (1.6-8.9) K/mcL Lymphocytes # 0.7 (0.6-4.6) K/mcL Monocytes # 0.3 (0.0-1.3) K/mcL Eosinophils # 0.1 (0.0-0.6) K/mcL Basophils # 0.0 (0.0-0.2) K/mcL PT 16.2 H (9.4-12.1) Seconds INR 1.5 APTT 30.1 (26.0-36.0) Seconds Sodium (136-145) mEq/L Potassium (3.5-4.5) mEq/L Chloride (98-109) mEq/L Carbon Dioxide (19-29) mEq/L BUN (7-20) mg/dL Creatinine (0.57-1.11) mg/dL Est GFR ( Amer) (> 60) Est GFR (Non-Af Amer) (> 60) BUN/Creatinine Ratio (6-26) Glucose (70-99) mg/dL Calculated Osmolality (280-300) Calcium (8.6-10.8) mg/dL Troponin I (0-0.03) ng/mL B-Natriuretic Peptide 629 H (0-100) pg/mL 06/28/16 06/28/16 Range/Units 12:45 12:45 WBC (4.3-11.1) K/mcL RBC (3.82-4.97) M/mcL Hgb (11.5-15.4) g/dL Hct (35.3-44.9) % MCV (83.0-100.0) fL MCH (28.0-33.3) pg MCHC (31.6-35.5) g/dL RDW (11.5-14.5) % Plt Count (140-400) K/mcL MPV (9.4-12.4) fL Immature Gran % (0-4) % Seg Neutrophils % % Lymphocytes % % Monocytes % % Eosinophils % % Basophils % % Neutrophils # (1.6-8.9) K/mcL Lymphocytes # (0.6-4.6) K/mcL Monocytes # (0.0-1.3) K/mcL Eosinophils # (0.0-0.6) K/mcL Basophils # (0.0-0.2) K/mcL PT (9.4-12.1) Seconds INR APTT (26.0-36.0) Seconds Sodium 142 (136-145) mEq/L Potassium 3.8 (3.5-4.5) mEq/L Chloride 100 (98-109) mEq/L Carbon Dioxide 35 H (19-29) mEq/L BUN 16 (7-20) mg/dL Creatinine 0.89 (0.57-1.11) mg/dL Est GFR ( Amer) > 60 (> 60) Est GFR (Non-Af Amer) > 60 (> 60) BUN/Creatinine Ratio 18 (6-26) Glucose 112 H (70-99) mg/dL Calculated Osmolality 296 (280-300) Calcium 8.1 L (8.6-10.8) mg/dL Troponin I 0.01 (0-0.03) ng/mL B-Natriuretic Peptide (0-100) pg/mL - Radiology Data Radiology results reviewed: Yes I reviewed the patient's radiology results. - EKG Data EKG attestation: Yes I reviewed and interpreted this EKG. EKG results narrative: EKG shows a rate of 56. Atrial fibrillation. Normal axis. QRS 89. QT 442. TN interval indeterminable. No signs acute ischemia
[2016-06-28] MEDS ORDERED: Naloxone 0.4 MG/ML INJ IVP PRN (15:45)
[2016-06-28] MEDS ORDERED: Ondansetron 4 MG/2 ML VIAL IVP PRN (15:45)
[2016-06-28] MEDS ORDERED: Albuterol 2.5 MG/3 ML NEBULIZER IH PRN (15:47)
--- NOTE | 2016-06-28 15:54 | Internal Med History&Physical ---
Date of Encounter: 06/28/16 Time of Encounter: 15:52 Assessment and Plan (1) CHF (congestive heart failure) Current visit: Yes Status: Acute Acute on chronic diastolic CHF exacerbation Patient is hemodynamically stable Respiratory status is stable Patient has chronic respiratory failure and is on oxygen at home she has not required increasing liters of oxygen Continue oxygen supplement Give Lasix IV 60 mg twice a day however challenge with by po metolazone 5mg and 2.5mg respectively 30 minutes prior to Lasix administration tonight and a.m Will repeat as needed Cycle troponins, initial troponin negative. Echocardiogram from February 2016 reviewed and noted for normal ejection fraction with severe pulmonary hypertension, severely dilated LA/RA and diastolic dysfunction. Check repeat limited echocardiogram for ejection fraction and wall motion abnormalities. 1.5 L fluid restriction diet Check daily weights Strict intake and output measurements monitor chemistry closely Qualifiers: Congestive heart failure type: diastolic Congestive heart failure chronicity: acute on chronic Qualified Code(s): I50.33 - Acute on chronic diastolic (congestive) heart failure (2) Atrial fibrillation Current visit: Yes Status: Chronic Heart rate is controlled on current medications Resume home medications. Not on anticoagulation due to GI bleed. Continue aspirin and Plavix. Qualifiers: Atrial fibrillation type: chronic Qualified Code(s): I48.2 - Chronic atrial fibrillation (3) HTN (hypertension) Current visit: Yes Status: Chronic Controlled Continue home meds Qualifiers: Hypertension type: essential hypertension Qualified Code(s): I10 - Essential (primary) hypertension (4) CAD (coronary artery disease) Current visit: Yes Status: Chronic No chest pain EKG with A. fib no ST segment changes. Continue aspirin and Plavix. Qualifiers: Coronary Disease-Associated Artery/Lesion type: [place] artery [place] vs. transplanted heart: [place] heart Associated angina: without angina Qualified Code(s): I25.10 - Atherosclerotic heart disease of [place] coronary artery without angina pectoris (5) Wheelchair bound Current visit: Yes Status: Chronic Fall Precautions. Internal Medicine - H&P: HPI Chief complaint: Shortness of breath Admitted From: Home Plans for Post Hospital Care: Home History of present illness: Ms. Crawford is a 75 year old female with past medical history of CHF with preserved ejection fraction, atrial fibrillation, chronic lower extremity edema and lymphedema, wheelchair-bound, hypertension. She presented to the ER complaining of worsening shortness of breath and lower extremity edema. Patient has chronic lower extremity edema and lymphedema. patient reports that she is wheelchair bound but has not has been having shortness of breath on minimal exertion. At baseline she is able to transfer from her wheelchair to do her daily activities however this has been difficult in the past week. Her shortness of breath has been worsening for the past 3 months. This is despite being on Lasix 80 mg twice a day. She denies chest pain, she denies dizziness. She denies orthopnea she uses only one pillow at night, she denies PND. At the time of review she denies any GI or genitourinary symptoms. She reports compliance with medications however she confesses that she has fluid indiscretion and does not restrict her sodium intake. She has also a history of atrial fibrillation but she is not on anticoagulation due to GI bleed several years ago. Past Med Surg Social Fam HX - Past Medical History Medical history: arthritis, atrial fibrillation, cardiomyopathy, CHF, GERD, GI bleed, hypertension, myocardial infarction, TIA, other Psychiatric history: depression - Past Surgical History Surgical History: angioplasty/stent (Renal stents for JUAN RAMON x2 on right side), c- section - Social History Smoking Status: Never smoker Smokeless Tobacco Status: No Alcohol use: none Drug use: none Internal Medicine - H&P: Meds Carvedilol [Coreg] 6.25 mg PO BID 09/29/14 [History] Citalopram Hydrobromide [Celexa] 10 mg PO DAILY 09/29/14 [History] Clopidogrel [Plavix] 75 mg PO DAILY 09/29/14 [History] Furosemide [Lasix] 80 mg PO BID 09/29/14 [History] Gabapentin [Neurontin] 300 mg PO TID 09/29/14 [History] Pantoprazole Sodium 40 mg PO BID 09/29/14 [History] Potassium Chloride 10 meq PO DAILY 09/29/14 [History] Ropinirole HCl [Requip] 3 mg PO HS 09/29/14 [History] Diltiazem HCl [Cartia Xt] 120 mg PO DAILY 07/18/15 [History] HYDROcodone/Acet 7.5/325 mg [[place] 7.5-325 mg] 1 tab PO Q6H PRN 07/18/15 [ History] Isosorbide MONOnitrate (24 HR) [Imdur] 30 mg PO DAILY 07/18/15 [History] Ferrous Sulfate [Iron] 325 mg PO DAILY 03/03/16 [History] Folic Acid 1 mg PO DAILY 03/03/16 [History] Nitroglycerin [Nitrostat] 0.4 mg SL Q5M PRN 03/03/16 [History] Albuterol Neb [Proventil Neb] 2.5 mg IH Q4HR PRN 06/28/16 [History] Oxygen 3 l .ROUTE AD 06/28/16 [History] Allergies codeine [From Tylenol-Codeine #3] Adverse Reaction (Verified 05/14/15 18:03) Vomiting All Systems PM: A 10-system review of systems was performed and is negative for pertinent findings except as documented above in the HPI. - Constitutional Constitutional: no chills, no fever(s), no night sweats - EENT Eyes: no change in vision, no discharge, no pain, no photophobia Ears: no ear discharge, no ear pain, no tinnitus Nose, mouth and throat: no dysphagia, no nasal discharge, no neck pain, no sore throat - Cardiovascular Cardiovascular ROS IM: as per HPI - Respiratory Respiratory: as per HPI, dyspnea on exertion, no cough, no dyspnea, no wheezing , no excessive phlegm production - Gastrointestinal Gastrointestinal: no abdominal pain, no diarrhea, no hematemesis, no hematochezia, no melena, no nausea, no vomiting - Genitourinary Genitourinary: no change in urinary stream, no dysuria, no flank pain, no hematuria - Musculoskeletal Musculoskeletal ROS IM: no numbness, no tingling - Integumentary Integumentary IM: no rash, no unusual bruising - Neurological Neurological ROS: no confusion, no convulsions, no focal weakness, no numbness, no tingling, no tremor(s) - Hematologic/Lymphatic Hematologic/Lymphatic: no easy bruising - Constitutional Vitals: Temp Pulse Resp BP Pulse Ox 97.5 F L 58 16 114/63 100 06/28/16 15:50 06/28/16 15:50 06/28/16 15:50 06/28/16 15:50 06/28/16 15:50 General appearance: Present: A&O X 3, pleasant, no acute distress, obese - Head Head exam: Present: atraumatic, normocephalic - Eye Eye exam: Present: PERRL, conjuntiva pink, sclera anicteric Pupils: Present: PERRL - Neck Neck exam general surgery: Present: supple, trachea midline. Absent: lymphadenopathy - Respiratory Respiratory exam: Present: CTAB (Anterior auscultation only) - Cardiovascular Cardiovascular exam: Present: irregular rhythm, +S1, +S2. Absent: diastolic murmur, gallop, JVD, rubs, systolic murmur - GI/Abdominal GI/Abdominal exam: Present: normal bowel sounds, soft, no peritoneal signs. Absent: distended, tenderness - Extremities Exam Extremities exam: Present: pedal edema (3+ pitting pedal edea, chronic lymphedema) - Neurological Exam Neurological exam: Present: alert, CN II-XII intact, oriented X3. Absent: strengths equal and symetr throughout, pronater drift, facial droop, speech deficit - Skin Skin exam: Present: dry Internal Med - H&P Results - Labs CBC & Chem 7: 06/28/16 12:45 06/28/16 12:45
[2016-06-28] MEDS: Furosemide 40 MG/4 ML VIAL IVP SCH (16:44)
[2016-06-28] MEDS: *HR* HYDROcodone/Acet 7.5/325 mg TABLET PO PRN (20:00)
[2016-06-28] MEDS: Gabapentin 300 MG CAPSULE PO SCH (20:00)
[2016-06-28] MEDS: rOPINIRole 1 MG TABLET PO SCH (20:01)
[2016-06-28] MEDS ORDERED: metOLazone 5 MG TABLET PO ONE (20:30)
[2016-06-29 01:16] LABS: Basophils % 0.4 %; Eosinophils # 0.1 K/mcL (0.0-0.6); Eosinophils % 1.9 %; Hematocrit 34.4 % (35.3-44.9); Hemoglobin 9.8 g/dL (11.5-15.4); Immature Granulocytes % 0.4 % (0-4); Immature Platelets 4.3 % (1.1-6.1); Lymphocytes # 0.6 K/mcL (0.6-4.6); Mean Corpuscular HGB Conc 28.5 g/dL (31.6-35.5); Mean Corpuscular Hemoglobin 26.3 pg (28.0-33.3); Mean Corpuscular Volume 92.2 fL (83.0-100.0); Mean Platelet Volume 10.1 fL (9.4-12.4); Monocytes # 0.3 K/mcL (0.0-1.3); Monocytes % 6.2 %; Neutrophils # 3.8 K/mcL (1.6-8.9); Platelet Count 176 K/mcL (140-400); Red Blood Count 3.73 M/mcL (3.82-4.97); Red Cell Distribution Width 15.5 % (11.5-14.5); Segmented Neutrophils % 79.1 %
[2016-06-29 01:35] LABS: BUN/Creatinine Ratio 19 (6-26); Blood Urea Nitrogen 16 mg/dL (7-20); Calcium 8.2 mg/dL (8.6-10.8); Carbon Dioxide 35 mEq/L (19-29); Chloride 100 mEq/L (98-109); Glucose 117 mg/dL (70-99); Osmolality,Calculated 296 (280-300); Potassium 3.7 mEq/L (3.5-4.5); Sodium 142 mEq/L (136-145); eGFR For African Americans > 60 (> 60); eGFR For Non-African Americans > 60 (> 60)
[2016-06-29 01:44] LABS: Platelet Estimate Normal (Normal); Reactive Lymphocytes Present (Not Present)
[2016-06-29 01:45] LABS: Hypochromasia Present (Not Present)
[2016-06-29] MEDS: Folic Acid 1 MG TABLET PO SCH (08:02)
[2016-06-29] MEDS: Furosemide 40 MG/4 ML VIAL IVP SCH ×2 (08:02→18:07)
[2016-06-29] MEDS: Diltiazem CD (24hr) 120 MG CAPSULE PO SCH (08:02)
[2016-06-29] MEDS: Gabapentin 300 MG CAPSULE PO SCH ×3 (08:03→20:04)
[2016-06-29] MEDS: Isosorbide MONOnitrate (24 HR) 30 MG TAB.ER.24H PO SCH (08:03)
[2016-06-29] MEDS: *HR* HYDROcodone/Acet 7.5/325 mg TABLET PO PRN ×3 (08:20→21:44)
[2016-06-29] MEDS ORDERED: metOLazone 2.5 MG TABLET PO ONE (08:30)
--- NOTE | 2016-06-29 11:10 | ECHO - Doppler Report ---
Limited Echocardiogram Name: Kimberly Crawford Date of Study: 06/28/2016 Date: 1940 Ht: 63.0 in Medical Record#: [id number] Age: 75 Wt: 190.0 lb Gender: Female BSA: 1.89 Order #: [id number] Location: [facility] Room #: 3B13 Reading Physician: Rosalio Chong DO, FACC, FASE Tube Turner: Charity Smith RDCS Ordering Physician: Yonathan Beltran MD Primary Physician: Yue Kennedy CNP Indications: Evaluate EF, Evaluate WMA Impressions: LVEF 65%. No changes in LV function compared to prior report from 03/04/2016. Limited study for LV function. Left Ventricular Wall Motion: Rest Echo Findings All wall segments showed normal motion. Findings: Study Quality * Technically adequate exam. ECG Findings * Normal sinus rhythm. Left Ventricle * LVEF 65%. * Normal LV chamber size and function. * Moderate concentric left ventricular hypertrophy. History Hypertension History of CAD/PTCA Myocardial Infarction Congestive Heart Failure 03/04/2016 a Previous Echo was performed. Measurements: BP: 114/ 63 2D Normal Values RVIDd: 4.60 cm <2.7 cm IVSd: 1.49 cm 0.6 - 1.0 cm LVIDd: 3.81 cm 3.7 - 5.6 cm LVPWd: 1.58 cm 0.6 - 1.1 cm LVIDs: 2.71 cm 1.5 - 3.6 cm %FS: 28.90 cm >25 % LA volume: Updated by Rosalio Chong DO, FACC, FASE, FASNC on 06/29/2016 11:06:35 AM electronically signed on 06/29/2016 11:07:05 AM with status of Final Wall Motion Torres: 1=Normal, 2=Hypokinesis, 3=Akinesis, 4=Dyskinesis, 5=Aneurysmal, 6=Hyperkinetic, X=Not Visualized (Blank)=Missing
[2016-06-29] MEDS: Methyl Salicylate/Menthol 28 GM TUBE TP PRN ×2 (13:44→20:14)
[2016-06-29] MEDS: Acetaminophen 325 MG TABLET PO PRN ×2 (13:44→20:13)
--- NOTE | 2016-06-29 15:10 | Electrocardiograph Report ---
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
--- NOTE | 2016-06-29 17:05 | Internal Med Progress Note ---
Date of Encounter: 06/29/16 Time of Encounter: 09:00 - Assessment and plan (1) CHF (congestive heart failure) Current Visit: Yes Status: Acute Assessment and plan: Patient has acute on chronic diastolic CHF. Respiratory status is stable. She is wearing 2 L of oxygen. She does wear oxygen at home normally. Patient will have Lasix 60 mg by mouth twice a day. BNP 629. Patient had echocardiogram in February 2016 ejection fraction was normal with severe pulmonary hypertension, severely dilated left and right atria, and diastolic dysfunction. Patient is on 1.5 L fluid restriction diet. Check weight daily . Strict I&O measurements, patient does have a Decker. Patient had limited echocardiogram on 06/28/2016. LVEF 65% with no changes and LV function compared to prior report from February. All wall segments showed normal motion. Chest x-ray showed mild stable enlargement of cardiac silhouette and mild central congestion without evidence of overt pulmonary edema. Lungs are diminished and clear. Patient does have significant bilateral lower extremity edema. She says that she should been short of breath for a while and is unable to quantify the time. She says it has been increasing over the last 2 weeks. Patient does appear to be slightly debilitated and does have poor inspiratory effort. 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 \\ Qualifiers: Congestive heart failure type: diastolic Congestive heart failure chronicity: acute on chronic Qualified Code(s): I50.33 - Acute on chronic diastolic (congestive) heart failure (2) A-fib Current Visit: Yes Status: Acute Assessment and plan: Chronic. Rate is controlled with medications. Continue home medications. She does take aspirin and Plavix. She cannot have anticoagulation due to prior GI bleed. Qualifiers: Atrial fibrillation type: chronic Qualified Code(s): I48.2 - Chronic atrial fibrillation (3) Lower extremity edema Current Visit: Yes Status: Acute Assessment and plan: Patient reports chronic lower extremity edema bilaterally. It is 3-4+ nonpitting. Legs are very dry and scaly. Unable to palpate pulses due to edema. Bilateral feet are warm. She said that she is immobile and does not walk. She says in part due to bilateral knee pain and edema she became immobile probably 2-3 years ago. She does state that her legs look better than they did yesterday. Continue Lasix Fluid restriction diet Daily weights and strict I&O Continue to monitor labs and patient condition Monitor vital signs Qualifiers: Laterality: bilateral Qualified Code(s): R60.0 - Localized edema (4) Wheelchair bound Current Visit: Yes Status: Chronic Assessment and plan: Patient states that she stopped walking probably 2 years ago. She says that walking became too much for chore due to lower extremity edema and bilateral knee pain and degenerative joint disease. She says she uses a wheelchair to get around at all times. I asked her she would like to have PT and OT while she is here and she said no. She has done them multiple times before and they say that there is nothing they can do to help her. She is not a surgical candidate due to comorbidities. Patient is on fall precautions. (5) CAD (coronary artery disease) Current Visit: Yes Status: Chronic Assessment and plan: Patient denies chest pain. Patient is in A. fib with rate control with medication. She takes aspirin and Plavix. She does have a 1/6 systolic murmur heard at the left upper sternal border. She is aware of this and it is not new. Qualifiers: Coronary Disease-Associated Artery/Lesion type: [place] artery [place] vs. transplanted heart: campo heart Associated angina: without angina Qualified Code(s): I25.10 - Atherosclerotic heart disease of [place] coronary artery without angina pectoris (6) HTN (hypertension) Current Visit: Yes Status: Chronic Assessment and plan: Chronic. Continue home medications. Qualifiers: Hypertension type: essential hypertension Qualified Code(s): I10 - Essential (primary) hypertension - Time Spent With Patient less than 15 minutes - Subjective Interval history: Patient was seen and examined at approximately 9 AM this morning. She is alert and oriented she is pleasant cooperative. She reports shortness of breath "for a while". She is unable to quantify how long but she does know that the shortness of breath and edema has become worse over the last 2 weeks. She reported increase bilateral lower extremity edema she states it actually looks better today after some diuresis. She denies a cough. Pain she has is in her legs and is unchanged from her normal chronic leg pain that she has from her degenerative joint disease in her knees and from the chronic edema. She has refused PT and OT this visit says that she is chronically immobile and uses a motorized wheelchair to get around she says that when she does do PT and OT they are unable to help her. Lungs are clear and diminished posteriorly with poor inspiratory effort. She is in A. fib with a 1/6 systolic murmur heard at the left upper sternal border. - Constitutional Vitals: Temp Pulse Resp BP Pulse Ox 98.0 F 79 16 137/70 97 06/29/16 16:07 06/29/16 16:07 06/29/16 16:07 06/29/16 16:07 06/29/16 16:07 General appearance: Present: A&O X 3, pleasant, no acute distress, obese, answers questions appropriately - Head Head exam: Present: normal inspection - Eye Eye exam: Present: normal appearance, conjuntiva pink - ENT ENT exam: Present: mucous membranes moist, normal exam - Neck Neck exam general surgery: Present: normal inspection. Absent: lymphadenopathy , tenderness - Respiratory Respiratory exam: Present: decreased breath sounds, CTAB. Absent: rales, rhonchi - Cardiovascular Cardiovascular exam: Present: irregular rhythm, +S1, +S2, systolic murmur - Expanded Cardiovascular Exam Type of murmur: Present: diastolic Location: Present: LUSB Intensity: 2/6 Peripheral pulses: 1+: Radial (L), Radial (R) - GI/Abdominal GI/Abdominal exam: Present: normal bowel sounds. Absent: hepatomegaly, tenderness - Extremities Exam Extremities exam: Present: pedal edema, warm. Absent: tenderness - Neurological Exam Neurological exam: Present: alert, oriented X3, no focal deficits, strengths equal and symetr throughout. Absent: facial droop, speech deficit Internal Medicine: Result - Labs CBC & Chem 7: 06/29/16 00:28 06/29/16 00:28 Labs: Short CBC 06/29/16 Range/Units 00:28 WBC 4.8 (4.3-11.1) K/mcL Hgb 9.8 L (11.5-15.4) g/dL Hct 34.4 L (35.3-44.9) % Plt Count 176 (140-400) K/mcL Neutrophils # 3.8 (1.6-8.9) K/mcL BMP 06/29/16 00:28 Sodium 142 Potassium 3.7 Chloride 100 Carbon Dioxide 35 H BUN 16 Creatinine 0.83 Glucose 117 H Calcium 8.2 L Cardiac Enzymes 06/28/16 06/29/16 Range/Units 19:59 00:28 Troponin I 0.01 0.01 (0-0.03) ng/mL - ABG Interpretation ABG results: PT/INR, D-dimer PT 16.2 Seconds (9.4-12.1) H 06/28/16 12:45 Consult Discharge Plan - Plan Referrals: Yue Kennedy CNP [Primary Care Provider] - 07/06/16 12:45 pm
[2016-06-29] MEDS: rOPINIRole 1 MG TABLET PO SCH (20:04)
[2016-06-29] MEDS ORDERED: metOLazone 5 MG TABLET PO ONE (20:30)
[2016-06-30 05:15] LABS: Basophils % 0.4 %; Eosinophils # 0.1 K/mcL (0.0-0.6); Eosinophils % 2.9 %; Hematocrit 34.8 % (35.3-44.9); Hemoglobin 10.3 g/dL (11.5-15.4); Immature Granulocytes % 0.4 % (0-4); Lymphocytes # 0.7 K/mcL (0.6-4.6); Lymphocytes % 15.5 %; Mean Corpuscular HGB Conc 29.6 g/dL (31.6-35.5); Mean Corpuscular Hemoglobin 26.5 pg (28.0-33.3); Mean Corpuscular Volume 89.5 fL (83.0-100.0); Mean Platelet Volume 10.1 fL (9.4-12.4); Monocytes # 0.3 K/mcL (0.0-1.3); Monocytes % 7.1 %; Neutrophils # 3.5 K/mcL (1.6-8.9); Platelet Count 180 K/mcL (140-400); Red Blood Count 3.89 M/mcL (3.82-4.97); Red Cell Distribution Width 15.2 % (11.5-14.5); Segmented Neutrophils % 73.7 %
[2016-06-30 05:46] LABS: BUN/Creatinine Ratio 21 (6-26); Blood Urea Nitrogen 20 mg/dL (7-20); Calcium 8.3 mg/dL (8.6-10.8); Carbon Dioxide 39 mEq/L (19-29); Chloride 90 mEq/L (98-109); Glucose 114 mg/dL (70-99); Osmolality,Calculated 293 (280-300); Potassium 3.4 mEq/L (3.5-4.5); Sodium 140 mEq/L (136-145); eGFR For African Americans > 60 (> 60); eGFR For Non-African Americans 57 (> 60)
[2016-06-30] MEDS: *HR* Enoxaparin 40 MG/0.4 ML SYRINGE SQ SCH (06:04)
[2016-06-30] MEDS: *HR* HYDROcodone/Acet 7.5/325 mg TABLET PO PRN ×2 (06:04→16:39)
[2016-06-30] MEDS: Furosemide 40 MG/4 ML VIAL IVP SCH ×2 (10:23→16:23)
[2016-06-30] MEDS: Diltiazem CD (24hr) 120 MG CAPSULE PO SCH (10:23)
[2016-06-30] MEDS: Gabapentin 300 MG CAPSULE PO SCH ×3 (10:24→21:45)
[2016-06-30] MEDS: Isosorbide MONOnitrate (24 HR) 30 MG TAB.ER.24H PO SCH (10:24)
[2016-06-30] MEDS: Folic Acid 1 MG TABLET PO SCH (10:24)
[2016-06-30] MEDS: Acetaminophen 325 MG TABLET PO PRN ×2 (12:41→21:46)
[2016-06-30] MEDS: Methyl Salicylate/Menthol 28 GM TUBE TP PRN (12:42)
--- NOTE | 2016-06-30 12:58 | Internal Med Progress Note ---
Date of Encounter: 06/30/16 Time of Encounter: 12:56 - Assessment and plan (1) CHF (congestive heart failure) Current Visit: Yes Status: Acute Assessment and plan: Patient has acute on chronic diastolic CHF. continue Lasix 60 mg IV bid for now, clinically improving , will transition to PO tomm. Patient is on 1.5 L fluid restriction diet. Check weight daily . Strict I&O measurements, patient does have a Decker. Patient had limited echocardiogram on 06/28/2016. LVEF 65% with no changes and LV function compared to prior report from February. All wall segments showed normal motion. Chest x-ray showed mild stable enlargement of cardiac silhouette and mild central congestion without evidence of overt pulmonary edema. Continue fluxer labs \ Qualifiers: Congestive heart failure type: diastolic Congestive heart failure chronicity: acute on chronic Qualified Code(s): I50.33 - Acute on chronic diastolic (congestive) heart failure (2) Atrial fibrillation Current Visit: Yes Status: Chronic Assessment and plan: stable. Heart rate is controlled on current medications Resume home medications. Not on anticoagulation due to GI bleed. Continue aspirin and Plavix. Qualifiers: Atrial fibrillation type: chronic Qualified Code(s): I48.2 - Chronic atrial fibrillation (3) HTN (hypertension) Current Visit: Yes Status: Chronic Assessment and plan: Chronic. Continue home medications. Qualifiers: Hypertension type: essential hypertension Qualified Code(s): I10 - Essential (primary) hypertension - Time Spent With Patient 25 - 35 minutes - Subjective Interval history: seen at the bedside, reports that the sob is relatively better. denies chest pain or cough. - Constitutional Vitals: Temp Pulse Resp BP Pulse Ox 98.1 F 89 15 134/78 99 06/30/16 11:00 06/30/16 11:00 06/30/16 11:00 06/30/16 11:00 06/30/16 11:00 General appearance: Present: A&O X 3, pleasant, no acute distress, obese, answers questions appropriately Exam: neck- supple chest- b/l decreased breath sounds at the bases CVS-s1 and s2, no mr/g abd-soft, non tender, bs are present ext-b/l lower leg edema neuro -no focal deficits. Internal Medicine: Result - Labs CBC & Chem 7: 06/30/16 04:14 06/30/16 04:14 Labs: Short CBC 06/30/16 Range/Units 04:14 WBC 4.8 (4.3-11.1) K/mcL Hgb 10.3 L (11.5-15.4) g/dL Hct 34.8 L (35.3-44.9) % Plt Count 180 (140-400) K/mcL Neutrophils # 3.5 (1.6-8.9) K/mcL BMP 06/30/16 04:14 Sodium 140 Potassium 3.4 L Chloride 90 L Carbon Dioxide 39 H BUN 20 Creatinine 0.96 Glucose 114 H Calcium 8.3 L - ABG Interpretation ABG results: PT/INR, D-dimer PT 16.2 Seconds (9.4-12.1) H 06/28/16 12:45 Consult Discharge Plan - Plan Referrals: Yue Kennedy, SALINA [Primary Care Provider] - 07/06/16 12:45 pm
[2016-06-30] MEDS: rOPINIRole 1 MG TABLET PO SCH (21:46)
[2016-07-01] MEDS: *HR* HYDROcodone/Acet 7.5/325 mg TABLET PO PRN ×2 (02:03→08:45)
[2016-07-01] MEDS: *HR* Enoxaparin 40 MG/0.4 ML SYRINGE SQ SCH (06:32)
[2016-07-01] MEDS: Furosemide 40 MG/4 ML VIAL IVP SCH (08:38)
[2016-07-01] MEDS: Isosorbide MONOnitrate (24 HR) 30 MG TAB.ER.24H PO SCH (08:43)
[2016-07-01] MEDS: Folic Acid 1 MG TABLET PO SCH (08:43)
[2016-07-01] MEDS: Gabapentin 300 MG CAPSULE PO SCH (08:43)
[2016-07-01] MEDS: Diltiazem CD (24hr) 120 MG CAPSULE PO SCH (08:44)
[2016-07-01 11:12] VITALS: BP 121/78
--- NOTE | 2016-07-01 11:34 | Discharge Summary ---
Date of Encounter: 07/01/16 Time of Encounter: 11:32 - Discharge Diagnosis (1) CHF (congestive heart failure) Priority: Primary Status: Acute Qualifiers: Congestive heart failure type: diastolic Congestive heart failure chronicity: acute on chronic Qualified Code(s): I50.33 - Acute on chronic diastolic (congestive) heart failure (2) Atrial fibrillation Priority: Secondary Status: Chronic Qualifiers: Atrial fibrillation type: chronic Qualified Code(s): I48.2 - Chronic atrial fibrillation (3) HTN (hypertension) Priority: Secondary Status: Chronic Qualifiers: Hypertension type: essential hypertension Qualified Code(s): I10 - Essential (primary) hypertension - Discharge Medications Home Medications: Carvedilol [Coreg] 6.25 mg PO BID 09/29/14 [History] Citalopram Hydrobromide [Celexa] 10 mg PO DAILY 09/29/14 [History] Clopidogrel [Plavix] 75 mg PO DAILY 09/29/14 [History] Furosemide [Lasix] 80 mg PO BID 09/29/14 [History] Gabapentin [Neurontin] 300 mg PO TID 09/29/14 [History] Pantoprazole Sodium 40 mg PO BID 09/29/14 [History] Potassium Chloride 10 meq PO DAILY 09/29/14 [History] Ropinirole HCl [Requip] 3 mg PO HS 09/29/14 [History] Diltiazem HCl [Cartia Xt] 120 mg PO DAILY 07/18/15 [History] HYDROcodone/Acet 7.5/325 mg [[place] 7.5-325 mg] 1 tab PO Q6H PRN 07/18/15 [ History] Isosorbide MONOnitrate (24 HR) [Imdur] 30 mg PO DAILY 07/18/15 [History] Ferrous Sulfate [Iron] 325 mg PO DAILY 03/03/16 [History] Folic Acid 1 mg PO DAILY 03/03/16 [History] Nitroglycerin [Nitrostat] 0.4 mg SL Q5M PRN 03/03/16 [History] Albuterol Neb [Proventil Neb] 2.5 mg IH Q4HR PRN 06/28/16 [History] Oxygen 3 l .ROUTE AD 06/28/16 [History] Allergies/Adverse Reactions: Allergies codeine [From Tylenol-Codeine #3] Adverse Reaction (Verified 05/14/15 18:03) Vomiting Date of admission: 06/29/16 17:00 Primary care physician: Yue Kennedy CNP Discharging clinician: Alberto Huang Anticipated date of discharge: 07/01/16 - Patient Status Disposition: Home Health Service Condition: Fair Functional capacity at discharge: wheelchair bound Overall status at discharge: patient is back to baseline - Discharge Instructions Instructions: Heart Failure (GEN) Follow Up With: Yue Kennedy CNP [Primary Care Provider] - 07/06/16 12:45 pm - Diet and Activity Activity: resume usual activities as tolerated Diet: other (cardiac diet with fluid restriction) Interval History: Ms. Crawford is a 75 year old female with past medical history of CHF with preserved ejection fraction, atrial fibrillation, chronic lower extremity edema and lymphedema, wheelchair-bound, hypertension. She presented to the ER complaining of worsening shortness of breath and lower extremity edema. Patient has acute on chronic diastolic CHF most likely secondary to dietary noncompliance as she admits. Patient was treated with Lasix 60 mg IV bid for now, clinically improving. Patient is on 1.5 L fluid restriction diet. Patient had limited echocardiogram on 06/28/2016. LVEF 65% with no changes and LV function compared to prior report from February. All wall segments showed normal motion. Chest x-ray showed mild stable enlargement of cardiac silhouette and mild central congestion without evidence of overt pulmonary edema. With the Lasix, patient improved clinically. At this time, patient feels much better in terms of breathing, maintaining saturation at 2 L of oxygen. Will discharge patient on her home dose of Lasix 80 twice a day. she is being discharged in stable condition. Hospital course: Ms. Crawford is a 75 year old female Time spent discussing smoking cessation with patient: more than 10 minutes - Time Spent with Patient Total time spent providing and/or coordinating discharge services: Greater than 30 minutes - Constitutional Vitals: Temp Pulse Resp BP Pulse Ox 98.1 F 65 16 121/78 98 07/01/16 11:11 07/01/16 11:11 07/01/16 11:11 07/01/16 11:11 07/01/16 11:11 General appearance: Present: A&O X 3, pleasant, no acute distress, obese, answers questions appropriately Exam: - Head Head exam: Present: atraumatic, normocephalic - Eye Eye exam: Present: PERRL, conjuntiva pink, sclera anicteric Pupils: Present: PERRL - Neck Neck exam general surgery: Present: supple, trachea midline. Absent: lymphadenopathy - Respiratory Respiratory exam: Present: CTAB (Anterior auscultation only) - Cardiovascular Cardiovascular exam: Present: irregular rhythm, +S1, +S2. Absent: diastolic murmur, gallop, JVD, rubs, systolic murmur - GI/Abdominal GI/Abdominal exam: Present: normal bowel sounds, soft, no peritoneal signs. Absent: distended, tenderness - Extremities Exam Extremities exam: Present: pedal edema (3+ pitting pedal edea, chronic lymphedema) - Neurological Exam Neurological exam: Present: alert, CN II-XII intact, oriented X3. Absent: strengths equal and symetr throughout, pronater drift, facial droop, speech deficit - Skin Skin exam: Present: dry
--- NOTE | 2016-07-01 15:25 | Physician Discharge Referral ---
Home Health/Hosp Referral Info Transfer to: Home Health Attending Provider: jeremiah veliz - Diagnosis (1) CHF (congestive heart failure) Status: Acute (2) Atrial fibrillation Status: Chronic (3) HTN (hypertension) Status: Chronic - Respiratory Orders Smoking Cessation: Smoking cessation has been advised. For more information, call the [place] Tobacco Quit Line at 3-927-DHOI-NOW. - Diet/Nutrition Diet/Nutrition Orders: Regular Diet/Nutrition: List: no added salt. - Activity Activity Orders: Walker - Services Needed Following services are medically necessary services: Nursing, Home Health Aide, Physical Therapy, Occupational Therapy - Transfer Medications Home Medications: Carvedilol [Coreg] 6.25 mg PO BID 09/29/14 [History] Citalopram Hydrobromide [Celexa] 10 mg PO DAILY 09/29/14 [History] Clopidogrel [Plavix] 75 mg PO DAILY 09/29/14 [History] Furosemide [Lasix] 80 mg PO BID 09/29/14 [History] Gabapentin [Neurontin] 300 mg PO TID 09/29/14 [History] Pantoprazole Sodium 40 mg PO BID 09/29/14 [History] Potassium Chloride 10 meq PO DAILY 09/29/14 [History] Ropinirole HCl [Requip] 3 mg PO HS 09/29/14 [History] Diltiazem HCl [Cartia Xt] 120 mg PO DAILY 07/18/15 [History] HYDROcodone/Acet 7.5/325 mg [[place] 7.5-325 mg] 1 tab PO Q6H PRN 07/18/15 [ History] Isosorbide MONOnitrate (24 HR) [Imdur] 30 mg PO DAILY 07/18/15 [History] Ferrous Sulfate [Iron] 325 mg PO DAILY 03/03/16 [History] Folic Acid 1 mg PO DAILY 03/03/16 [History] Nitroglycerin [Nitrostat] 0.4 mg SL Q5M PRN 03/03/16 [History] Albuterol Neb [Proventil Neb] 2.5 mg IH Q4HR PRN 06/28/16 [History] Oxygen 3 l .ROUTE AD 06/28/16 [History] Allergies/Adverse Reactions: Allergies codeine [From Tylenol-Codeine #3] Adverse Reaction (Verified 05/14/15 18:03) Vomiting Certification: Further, I certify that my clinical findings support that this patient is homebound (i.e. absences from home require considerable and taxing effort and are for medical reasons or zoroastrian services or infrequently or short duration when for other reasons) because: Homebound Reason: Patient requires assistance of a person or device to safely leave home Attestation: My signature below is to certify that this patient is under my care and that I, or nurse practitioner, or a physician's contract administrative assistant working with me, has a face-to -face encounter with this patient.
== END 2016-07-01 15:47 | disposition home health service (06) | DRG 292 ==
LOC: EMEROO 12:01 → 3BNU 12:01
PROVIDERS: ADMIT Internal Medicine; ATTEND Registered Nurse

== ENCOUNTER 2016-11-18 20:02 | Inpatient (IN) ==
[2016-11-18] MEDS ORDERED: Naloxone 0.4 MG/ML INJ IVP PRN (21:44)
--- NOTE | 2016-11-18 22:21 | Internal Med History&Physical ---
<Wally Castrejon - Last Filed: 11/19/16 02:20> Date of Encounter: 11/19/16 Time of Encounter: 22:21 Assessment and Plan (1) Cellulitis Current visit: No Status: Acute Redness and edema in bilateral legs, and has been on Augmentin prior to arrival Prior would cultures 10/18/16 revealed Proteus mirabilis and Enterococcus. Patient has home calamine lotion and unna boot dressing changes q48h per home health. Blood and wound cultures pending Wound care consulted Continue broad spectrum antibiotics Qualifiers: Site of cellulitis: extremity Site of cellulitis of extremity: lower extremity Laterality: left Qualified Code(s): L03.116 - Cellulitis of left lower limb (2) CHF exacerbation Current visit: No Status: Acute CHF NHYA Class III BNP 2484, rales on auscultation, 3+ pitting edema bilateral lower extremities, and chest x-ray reveals cardiomegaly with vascular congestion and pleural effusion with bibasilar atelectasis. Last echo 10/18/16 reveals EF 60%. Monitor strict I&Os Given Lasix 40 mg IV, continue Lasix 80 mg PO BID Trend serial troponins Resume home Coreg, Digoxin, and isosorbide. Continue fluid restrictions Qualifiers: Congestive heart failure type: diastolic Qualified Code(s): I50.33 - Acute on chronic diastolic (congestive) heart failure (3) Elevated troponin I level Current visit: Yes Status: Acute Troponin elevation likely due to demand ischemia Trend serial troponins Heparin drip stopped due to thrombocytopenia Cardiology consulted (4) Thrombocytopenia Current visit: Yes Status: Acute Hold heparin No active bleeding Continue to monitor (5) Thrombophlebitis Current visit: Yes Status: Acute Left arm at IV site, bilateral legs Continue to monitor (6) Venous stasis dermatitis of both lower extremities Current visit: No Status: Acute Patient has home calamine lotion and unna boot dressing changes q48h per home health. (7) Chronic respiratory failure with hypoxia, on home O2 therapy Current visit: No Status: Acute 3L home O2 at baseline (8) Wheelchair bound Current visit: No Status: Chronic (9) DVT prophylaxis Current visit: No Status: Acute SCDs Internal Medicine - H&P: HPI Chief complaint: Left leg swelling Admitted From: Home History of present illness: Ms. Crawford is a 76 year old female with a past medical history of CHF NHYA Class III, COPD, supplemental oxygen dependence, atrial fibrillation, hypertension, and obesity who was transferred from the [place] ED complaining of redness and swelling in legs and shortness of breath for several days. She wears 3 L home oxygen at baseline. Patient had recent admission on 10/17/16 for CHF exacerbation and lower extremity cellulitis. She is wheelchair bound secondary to bilateral meniscal injury and chronic debilitation. Of note, patient reports current home health treatment for cellulitis of bilateral lower extremities, has redness and edema in bilateral legs, and has been on Augmentin since discharge. Patient denies fever, chills, cough, congestion, chest pain, palpitations, nausea, vomiting, diarrhea, abdominal pain/distention, dysuria, or exposure to sick contacts. Past Med Surg Social Fam HX - Past Medical History Medical history: arthritis, atrial fibrillation, cardiomyopathy, CHF, GERD, GI bleed, hypertension, myocardial infarction, TIA, other Psychiatric history: depression - Past Surgical History Surgical History: - Social History Smoking Status: Never smoker Smokeless Tobacco Status: No Alcohol use: none Drug use: none - Family History Mother Living Status: Hx Family GI Disorders: Yes Father Hx Family Respiratory Disorders: Yes (COPD) Internal Medicine - H&P: Meds Carvedilol [Coreg] 6.25 mg PO BID 09/20/16 [History] Citalopram Hydrobromide [Citalopram HBr] 10 mg PO DAILY 09/20/16 [History] Clopidogrel [Plavix] 75 mg PO DAILY 09/20/16 [History] Diltiazem HCl [Diltiazem ER] 120 mg PO QAM 09/20/16 [History] Ferrous Sulfate 325 mg PO DAILY 09/20/16 [History] Folic Acid 1 mg PO DAILY 09/20/16 [History] HYDROcodone/Acet 7.5/325 mg [[place] 7.5-325 mg] 1 tab PO Q6H 09/20/16 [History] Nitroglycerin [Nitrostat] 0.4 mg SL Q5M PRN 09/20/16 [History] Pantoprazole Sodium [Protonix] 40 mg PO BID 09/20/16 [History] Potassium Chloride [K-Tab ER] 10 meq PO DAILY 09/20/16 [History] Ropinirole HCl [Requip] 3 mg PO HS 09/20/16 [History] Gabapentin [Neurontin] 300 mg PO BID #0 09/22/16 [Rx] Furosemide [Lasix] 80 mg PO BID #60 tablet 10/21/16 [Rx] Isosorbide MONOnitrate (24 HR) [Imdur] 30 mg PO DAILY 11/18/16 [History] Loratadine [Allergy Relief] 10 mg PO DAILY 11/18/16 [History] 3 Allergy/AdvReac Type Severity Reaction Status Date / Time codeine AdvReac Vomiting Verified 11/18/16 16:08 [From Tylenol-Codeine #3] All Systems PM: A 10-system review of systems was performed and is negative for pertinent findings except as documented above in the HPI. - Constitutional Constitutional: no anorexia, no chills, no fever(s), no weight gain, no weight loss - EENT Eyes: no change in vision Nose, mouth and throat: no nasal congestion, no sore throat - Cardiovascular Cardiovascular ROS IM: no chest pain, no palpitations - Respiratory Respiratory: dyspnea, no cough, no chest congestion, no excessive phlegm production - Gastrointestinal Gastrointestinal: diarrhea, no abdominal pain, no nausea, no vomiting - Genitourinary Genitourinary: no dysuria, no urinary frequency, no urinary urgency - Musculoskeletal Musculoskeletal ROS IM: limited range of motion, muscle weakness, no back pain - Integumentary Integumentary IM: erythema, new lesions, non-healing lesions, skin ulcer, sores - Neurological Neurological ROS: weakness, no dizziness, no numbness, no tingling - Psychiatric Psychiatric: no anxiety, no depression - Endocrine Endocrine IM: no polydipsia, no polyphagia, no polyuria - Constitutional Vitals: Temp Pulse Resp BP Pulse Ox 97.7 F 70 14 158/87 97 11/18/16 22:11/18/16 22:09 11/18/16 22:11/18/16 22:11/18/16 22:09 General appearance: Present: cooperative, A&O X 3, pleasant, obese, answers questions appropriately - Head Head exam: Present: atraumatic, normal inspection, normocephalic - Eye Eye exam: Present: EOMI, PERRL - ENT ENT exam: Present: mucous membranes moist, normal oropharynx - Neck Neck exam general surgery: Present: full ROM, normal inspection, supple - Respiratory Respiratory exam: Present: decreased breath sounds (bibasilar), rales - Cardiovascular Cardiovascular exam: Present: RRR, +S1, +S2 - GI/Abdominal GI/Abdominal exam: Present: normal bowel sounds. Absent: guarding, tenderness - Extremities Exam Extremities exam: Present: pedal edema, tenderness, warm, radial pulses palpable and symmetrical. Absent: normal inspection - Back Exam Back exam: Present: normal inspection. Absent: paraspinal tenderness, tenderness - Neurological Exam Neurological exam: Present: alert, motor sensory deficit (unable to walk), oriented X3. Absent: altered - Psychiatric Psychiatric exam: Present: normal affect, normal mood - Skin Skin exam: Present: erythema, warm. Absent: normal color - Expanded Skin Exam Distribution of rash: Present: RLE, LLE (1cm x 2cm ulcer posterior left calf, bilateral leg erythema 3+ edema below the knees, tania wraps in place) Description of rash: Present: crusting, erythematous, indurated, swelling, tenderness Internal Med - H&P Results - Labs CBC & Chem 7: 11/18/16 22:16 Labs: 11/18/16 11/18/16 11/18/16 Range/Units 16:28 16:28 16:28 WBC 3.8 L (4.3-11.1) K/mcL RBC 3.82 (3.82-4.97) M/mcL Hgb 10.9 L (11.5-15.4) g/dL Hct 37.4 (35.3-44.9) % MCV 97.9 (83.0-100.0) fL MCH 28.5 (28.0-33.3) pg MCHC 29.1 L (31.6-35.5) g/dL RDW 17.5 H (11.5-14.5) % Plt Count 78 L (140-400) K/mcL MPV 11.2 (9.4-12.4) fL Immature Gran % 0.5 (0-4) % Seg Neutrophils % 76.0 % Lymphocytes % 14.1 % Monocytes % 6.5 % Eosinophils % 2.6 % Basophils % 0.3 % Neutrophils # 2.9 (1.6-8.9) K/mcL Lymphocytes # 0.5 L (0.6-4.6) K/mcL Monocytes # 0.3 (0.0-1.3) K/mcL Eosinophils # 0.1 (0.0-0.6) K/mcL Basophils # 0.0 (0.0-0.2) K/mcL PT 16.2 H (9.4-12.1) Seconds INR 1.5 APTT 33.0 (26.0-36.0) Seconds D-Dimer 986 H (0-500) ng/mLFEU Sodium 145 (136-145) mEq/L Potassium 4.2 (3.5-4.5) mEq/L Chloride 103 (98-109) mEq/L Carbon Dioxide 32 H (19-29) mEq/L BUN 25 H (7-20) mg/dL Creatinine 0.99 (0.57-1.11) mg/dL Est GFR ( Amer) > 60 (> 60) Est GFR (Non-Af Amer) 55 L (> 60) BUN/Creatinine Ratio 25 (6-26) Glucose 149 H (70-99) mg/dL Calculated Osmolality 307 H (280-300) Calcium 8.5 L (8.6-10.8) mg/dL Total Bilirubin 1.2 (0.2-1.2) mg/dL AST 17 (5-34) Units/L ALT 15 (0-55) Units/L Alkaline Phosphatase 116 (38-126) Units/L Troponin I (0-0.03) ng/mL B-Natriuretic Peptide (0-100) pg/mL Serum Total Protein 7.0 (6.0-8.3) g/dL Albumin 3.1 L (3.5-5.0) g/dL Globulin 3.9 H (2.4-3.5) g/dL Albumin/Globulin Ratio 0.8 L (1.1-2.2) 11/18/16 11/18/16 Range/Units 16:28 16:28 WBC (4.3-11.1) K/mcL RBC (3.82-4.97) M/mcL Hgb (11.5-15.4) g/dL Hct (35.3-44.9) % MCV (83.0-100.0) fL MCH (28.0-33.3) pg MCHC (31.6-35.5) g/dL RDW (11.5-14.5) % Plt Count (140-400) K/mcL MPV (9.4-12.4) fL Immature Gran % (0-4) % Seg Neutrophils % % Lymphocytes % % Monocytes % % Eosinophils % % Basophils % % Neutrophils # (1.6-8.9) K/mcL Lymphocytes # (0.6-4.6) K/mcL Monocytes # (0.0-1.3) K/mcL Eosinophils # (0.0-0.6) K/mcL Basophils # (0.0-0.2) K/mcL PT (9.4-12.1) Seconds INR APTT (26.0-36.0) Seconds D-Dimer (0-500) ng/mLFEU Sodium (136-145) mEq/L Potassium (3.5-4.5) mEq/L Chloride (98-109) mEq/L Carbon Dioxide (19-29) mEq/L BUN (7-20) mg/dL Creatinine (0.57-1.11) mg/dL Est GFR ( Amer) (> 60) Est GFR (Non-Af Amer) (> 60) BUN/Creatinine Ratio (6-26) Glucose (70-99) mg/dL Calculated Osmolality (280-300) Calcium (8.6-10.8) mg/dL Total Bilirubin (0.2-1.2) mg/dL AST (5-34) Units/L ALT (0-55) Units/L Alkaline Phosphatase (38-126) Units/L Troponin I 0.16 H* (0-0.03) ng/mL B-Natriuretic Peptide 2484 H (0-100) pg/mL Serum Total Protein (6.0-8.3) g/dL Albumin (3.5-5.0) g/dL Globulin (2.4-3.5) g/dL Albumin/Globulin Ratio (1.1-2.2) - EKG Data -: EKG Interpreted by Myself (A- fib incomplete bundle-branch block nonspecific T-wave changes no STEMI) - Impressions Chest X-Ray 11/18/16 16:11 IMPRESSION: 1. Patient is rotated which limits evaluation. 2. Persistent enlargement of the cardiac silhouette with prominence of the pulmonary vasculature. 3. Small right and likely trace left pleural effusion with bibasilar atelectasis. D/ / Kaveh Goldsmith MD / Kaveh Goldsmith MD Interpreting Provider: Kaveh Goldsmith MD Chest CTA 11/18/16 17:05 IMPRESSION: No PE identified. Mild CHF with bilateral pleural effusions. D/ / Aden Katz MD / Aden Katz MD Interpreting Provider: Aden Katz MD <[address] - Last Filed: 11/19/16 03:22> Date of Encounter: 11/18/16 Internal Medicine - H&P: HPI History of present illness: Ms. Crawford is a 76 year old female All Systems PM: A 10-system review of systems was performed and is negative for pertinent findings except as documented above in the HPI. - Constitutional Vitals: Temp Pulse Resp BP Pulse Ox 97.7 F 70 14 158/87 97 11/18/16 22:09 11/18/16 22:09 11/18/16 22:09 11/18/16 22:09 11/18/16 22:09 Internal Med - H&P Results - Labs CBC & Chem 7: 11/18/16 22:16 Labs: Short CBC 11/18/16 Range/Units 22:16 WBC 4.2 L (4.3-11.1) K/mcL Hgb 10.8 L (11.5-15.4) g/dL Hct 37.6 (35.3-44.9) % Plt Count 80 L (140-400) K/mcL Neutrophils # 3.2 (1.6-8.9) K/mcL Cardiac Enzymes 11/18/16 Range/Units 22:16 Troponin I 0.14 H* (0-0.03) ng/mL - Attending Attestation I examined this patient and my medical decision-making was reviewed with the Resident Physician. I agree with the documented findings, disposition and treatment plan as described except to the extent set forth below. Patient is a 76-year-old female with past medical history of atrial fibrillation , hypertension, cardiomyopathy, CHF, TIA, coronary artery disease, GERD, history of GI bleed and depression. Patient presents as a transfer from [facility]. She presented to the ED with complaints of shortness of breath and worsening edema of both lower legs. Patient was admitted recently for similar symptoms and for cellulitis as well. She was treated with IV antibiotics for cellulitis. She has chronic venous stasis. Patient is mostly bedbound and wheelchair-bound. Patient denies chest pain or palpitations. No other complaints. Patient is being admitted for seizure exacerbation, elevated troponin, cellulitis. On examination patient is awake and alert. Not in any distress. Able to provide history. No family members at bedside. Initial troponin is 0.16 and second troponin is 0.14. CTA of the chest is negative for PE, but shows mild CHF and bilateral pleural effusions. Heart rate 70, blood pressure 158/87, O2 sat 97% on 2 L O2. Heart S1-S2 positive, irregular rhythm. Bilateral good air entry, mild crackles bilaterally. Abdomen soft, nontender. Extremities all pulses strong regular, bilateral leg edema.
[2016-11-18] MEDS ORDERED: Ondansetron 4 MG/2 ML VIAL IVP PRN (22:23)
[2016-11-18] MEDS ORDERED: *HR* Morphine 2 MG/ML SYRINGE IVP PRN (22:23)
[2016-11-18] MEDS ORDERED: Nitroglycerin 0.4 MG TAB.SUBL SL PRN (22:25)
[2016-11-18] MEDS ORDERED: Aspirin 325 MG TABLET PO ONE (22:28)
[2016-11-18] MEDS ORDERED: *HR* Heparin 5,000 UNIT/ML VIAL IVP PRN ×2 (22:32)
[2016-11-18] MEDS ORDERED: Heparin 25,000 UNIT/500 ML D5W 25,000 UNIT/500 ML MLS IVC SCH (22:45)
[2016-11-18 22:52] LABS: Immature Granulocytes % 0.5 % (0-4)
[2016-11-18 22:53] LABS: Basophils % 0.5 %; Eosinophils # 0.1 K/mcL (0.0-0.6); Eosinophils % 2.6 %; Hematocrit 37.6 % (35.3-44.9); Hemoglobin 10.8 g/dL (11.5-15.4); Lymphocytes # 0.6 K/mcL (0.6-4.6); Lymphocytes % 13.4 %; Mean Corpuscular HGB Conc 28.7 g/dL (31.6-35.5); Mean Corpuscular Hemoglobin 28.3 pg (28.0-33.3); Mean Corpuscular Volume 98.7 fL (83.0-100.0); Mean Platelet Volume 11.4 fL (9.4-12.4); Monocytes # 0.3 K/mcL (0.0-1.3); Monocytes % 7.3 %; Neutrophils # 3.2 K/mcL (1.6-8.9); Red Blood Count 3.81 M/mcL (3.82-4.97); Red Cell Distribution Width 17.6 % (11.5-14.5); Segmented Neutrophils % 75.7 %
[2016-11-18 22:55] LABS: Platelet Count 80 K/mcL (140-400)
[2016-11-18 22:59] LABS: INR 1.7; Prothrombin Time 18.3 Seconds (9.4-12.1)
[2016-11-18 23:02] LABS: Activated Partial Thrombo Time 107.1 Seconds (26.0-36.0)
[2016-11-18 23:12] LABS: Anisocytosis 1+ (Not Present); Hypochromasia Present (Not Present); Platelet Estimate Decreased (Normal); Poikilocytosis 1+ (Not Present)
[2016-11-19] MEDS: *HR* HYDROcodone/Acet 7.5/325 mg TABLET PO SCH ×5 (00:19→23:05)
[2016-11-19] MEDS ORDERED: Furosemide 40 MG/4 ML VIAL IVP ONE (00:42)
[2016-11-19 04:51] LABS: Basophils % 0.6 %; Eosinophils # 0.1 K/mcL (0.0-0.6); Eosinophils % 2.9 %; Hematocrit 38.1 % (35.3-44.9); Hemoglobin 10.4 g/dL (11.5-15.4); Immature Granulocytes % 0.3 % (0-4); Lymphocytes # 0.6 K/mcL (0.6-4.6); Lymphocytes % 17.3 %; Mean Corpuscular HGB Conc 27.3 g/dL (31.6-35.5); Mean Platelet Volume 11.9 fL (9.4-12.4); Monocytes # 0.3 K/mcL (0.0-1.3); Monocytes % 7.2 %; Neutrophils # 2.5 K/mcL (1.6-8.9); Red Blood Count 3.85 M/mcL (3.82-4.97); Red Cell Distribution Width 17.5 % (11.5-14.5); Segmented Neutrophils % 71.7 %
[2016-11-19 04:53] LABS: Platelet Count 87 K/mcL (140-400)
[2016-11-19 05:08] LABS: Alanine Aminotransferase 15 Units/L (0-55); Albumin 3.1 g/dL (3.5-5.0); Albumin/Globulin Ratio 0.8 (1.1-2.2); Alkaline Phosphatase 121 Units/L (38-126); Aspartate Amino Transferase 21 Units/L (5-34); BUN/Creatinine Ratio 24 (6-26); Bilirubin,Total 1.5 mg/dL (0.2-1.2); Blood Urea Nitrogen 25 mg/dL (7-20); Calcium 8.5 mg/dL (8.6-10.8); Carbon Dioxide 35 mEq/L (19-29); Chloride 103 mEq/L (98-109); Glucose 110 mg/dL (70-99); Magnesium 2.3 mg/dL (1.6-2.6); Osmolality,Calculated 303 (280-300); Potassium 4.4 mEq/L (3.5-4.5); Sodium 144 mEq/L (136-145); Total Protein 7.1 g/dL (6.0-8.3); eGFR For African Americans > 60 (> 60); eGFR For Non-African Americans 52 (> 60)
[2016-11-19 05:12] LABS: Anisocytosis 1+ (Not Present); Hypochromasia Present (Not Present); Platelet Estimate Decreased (Normal)
[2016-11-19] MEDS: Vancomycin 1,250 MG in D5% in Water 250 ML IVPB SCH ×2 (05:26→17:48)
[2016-11-19] MEDS: Piperacillin/Tazobactam 3.375 GM in D5% in Water (Mini-Bag+) 100 ML IVPB SCH ×2 (08:25→15:21)
[2016-11-19] MEDS: Furosemide 40 MG TABLET PO SCH ×2 (09:31→16:58)
[2016-11-19] MEDS: Aspirin 81 MG TAB.CHEW PO SCH (09:32)
[2016-11-19] MEDS: Diltiazem CD (24hr) 120 MG CAPSULE PO SCH (09:33)
[2016-11-19] MEDS: Isosorbide MONOnitrate (24 HR) 60 MG TAB.ER.24H PO SCH (09:33)
[2016-11-19] MEDS: Gabapentin 300 MG CAPSULE PO SCH ×2 (09:34→21:20)
[2016-11-19] MEDS: Loratadine 10 MG TABLET PO SCH (09:34)
[2016-11-19] MEDS: Folic Acid 1 MG TABLET PO SCH (09:34)
--- NOTE | 2016-11-19 13:16 | Cardiology Consult Note ---
<JayaYasmine J - Last Filed: 11/19/16 13:31> Date of Encounter: 11/19/16 Time of Encounter: 09:00 Assessment and Plan (1) Cellulitis Current Visit: No Status: Acute Per cardiology: -Admitted with celltulitis to lower extremity. -ON ATB -Management per primary service. Qualifiers: Site of cellulitis: extremity Site of cellulitis of extremity: lower extremity Laterality: left Qualified Code(s): L03.116 - Cellulitis of left lower limb (2) Right-sided heart failure Current Visit: No Status: Chronic Per cardiology: -Chronic right sided heart failure. -BNP 2484 on admission, appears to have chronically elevated BNPs. -ON lasix po BID. Was given one time dose of lasix IV. -Weight today 199 pounds, weight 08/2015 185pounds. Of note, patient reports weights have been decreasing at home per home scale. -reports slight worsening edema and slight worsening shortness of breath. -Echo 10/18/16 LVEF 60%, moderate concentric LVH, indeterminate diastolic dysfunction, moderately dilated and mildly hypokinetic RV, severely dilated right atrium, moderately calcified aortic valve leaflets, mild AR, mild- moderate , mild-moderate PH, severe TR, all wall segments with normal motion. -Strict I/Os, daily weights, fluid restriction. -Will continue to monitor. (3) Elevated troponin I level Current Visit: Yes Status: Acute Per cardiology: -Troponins elevated at 0.14, 0.19, 0.15. -Troponins flat and adynamic in the setting of right sided heart failure and infectious process. -Denies chest pain. -Denies worsening fatigue. -ECG with no ischemic changes. -Echo as above. -[facility] 2014 with 20% mid RCA stenosis, otherwise angiographically free of disease. -Do not suspect NSTEMI, suspect demand ischemia related to above. No cardiac rehab consult warranted at this time. (4) Tricuspid valve regurgitation Current Visit: No Status: Chronic Per cardiology: -KNown severe TR. -Patient declines further intervention or consultations for valve. -Patient states understanding risk of with no intervention. -Will continue to monitor. Qualifiers: Cardiac valve disease etiology: etiology unspecified Qualified Code(s): I07.1 - Rheumatic tricuspid insufficiency (5) A-fib Current Visit: No Status: Chronic Per cardiology: -Known chronic a.fib. -HR controlled. -On cardizem and beta shilpa. -Not on anticoagulation due to severe GI bleed that required 9 units of PRBC transfusion per patient. Patient refuses to be on anticoagulation. Patient understands and accepts increased ris of CVA. -Will continue to monitor. Qualifiers: Atrial fibrillation type: chronic Qualified Code(s): I48.2 - Chronic atrial fibrillation Discussion w patient/family: The assessment and plan as outlined above was discussed with the patient who expressed understanding and agreement. All questions were answered. Thank you for involving us in the care of your patient. Please call with any questions. Discussed and reviewed with . History of Present Illness Consult date: 11/18/16 Requesting physician: Wally Castrejon Consult reason: NSTEMI Chief complaint: worsening edema History of present illness: Ms. Crawford is a 76 year old female with a relevant past medical history of HTN, atrial fibrillation, renal artery stenosis with stenting, right sided CHF, severe TR, mild , chronic respiratory failure. Patient presented to [facility] with complaints of worsening lower extremity edema and pain. Patient was being treated as outpatient for cellulitis. Patient reports chronic shortness of breath, states breathing may be slightly worse than baseline. Patient reports worsening lower extremity edema. Patient denies weight gain at home, per patient , she has actually lost weight recently by her scales at home. Patient denies chest pain. Patient reports fatigue, however states is about baseline. Past Med Surg Social Fam HX - Past Medical History Attestation: Yes The following information was validated with the patient. Source: patient, old records reviewed Medical history: arthritis, atrial fibrillation, cardiomyopathy, CHF, GERD, GI bleed, hypertension, myocardial infarction, TIA, other Psychiatric history: depression - Past Surgical History Surgical History: - Social History Smoking Status: Never smoker Smokeless Tobacco Status: No Alcohol use: none Drug use: none - Family History Mother Living Status: Hx Family GI Disorders: Yes Father Hx Family Respiratory Disorders: Yes (COPD) Medications and Allergies Carvedilol [Coreg] 6.25 mg PO BID 09/20/16 [History] Citalopram Hydrobromide [Citalopram HBr] 10 mg PO DAILY 09/20/16 [History] Clopidogrel [Plavix] 75 mg PO DAILY 09/20/16 [History] Diltiazem HCl [Diltiazem ER] 120 mg PO QAM 09/20/16 [History] Ferrous Sulfate 325 mg PO DAILY 09/20/16 [History] Folic Acid 1 mg PO DAILY 09/20/16 [History] HYDROcodone/Acet 7.5/325 mg [[place] 7.5-325 mg] 1 tab PO Q6H 09/20/16 [History] Nitroglycerin [Nitrostat] 0.4 mg SL Q5M PRN 09/20/16 [History] Pantoprazole Sodium [Protonix] 40 mg PO BID 09/20/16 [History] Potassium Chloride [K-Tab ER] 10 meq PO DAILY 09/20/16 [History] Ropinirole HCl [Requip] 3 mg PO HS 09/20/16 [History] Gabapentin [Neurontin] 300 mg PO BID #0 09/22/16 [Rx] Furosemide [Lasix] 80 mg PO BID #60 tablet 10/21/16 [Rx] Isosorbide MONOnitrate (24 HR) [Imdur] 30 mg PO DAILY 11/18/16 [History] Amoxicillin/Clavulanate [Augmentin] 500 mg PO BIDWM 11/19/16 [History] 3 Allergy/AdvReac Type Severity Reaction Status Date / Time codeine AdvReac Vomiting Verified 11/19/16 11:44 [From Tylenol-Codeine #3] All Systems Review: A 10-system review of systems was performed and is negative for pertinent findings except as documented above in the HPI. - Cardiovascular Cardiovascular: as per HPI, leg edema Physical Examination Vital Signs, Last 4 Hours Temp Pulse Resp Pulse Ox 11/19/16 11:28 98.3 F 58 16 98 Vital Signs Temperature 97.7 F 11/18/16 22:09 Pulse Rate 70 11/18/16 22:09 Respiratory Rate 14 11/18/16 22:09 Blood Pressure 158/87 11/18/16 22:09 O2 Sat by Pulse Oximetry 97 11/18/16 22:09 Temperature 98.3 F 11/19/16 11:28 Pulse Rate 58 11/19/16 11:28 Respiratory Rate 16 11/19/16 11:28 Blood Pressure 145/89 11/19/16 07:24 O2 Sat by Pulse Oximetry 98 11/19/16 11:28 General: Conversant, Other (Mild conversational dyspnea noted. ) HEENT: Atraumatic, Normocephaly, Mucus Membranes Moist Neck: No JVD, Normal carotid pulses Cardiac: Other (Irregularly, irregular) Lungs: Other (Lung sounds diminished throughout. ) Neuro: Alert and responsive, No focal deficits noted Abdomen: Soft Skin: No rashes noted on visualized skin, Other (Bilateral lower extremities with discoloration. ) Musculoskeletal: No Chest Wall Tenderness Extremities: No Clubbing, No Cyanosis, Normal Pulses, Other (3+ bilateral lower extremity pitting edema. ) Results 11/19/16 04:27 11/19/16 04:27 Lab Results Active Medications Hydrocodone Bitart/Acetaminophen ([place] 7.5-325 Mg) 1 tab PO Q6H [facility] Stop: 05/20/17 22:31 Last Admin: 11/19/16 11:07 Dose: 1 tab Aspirin (Aspirin) 81 mg PO DAILY [facility] Stop: 05/21/17 09:01 Last Admin: 11/19/16 09:32 Dose: 81 mg Carvedilol (Coreg) 3.125 mg PO BIDWM [facility] PRN Reason: Protocol Stop: 05/21/17 08:01 Last Admin: 11/19/16 09:32 Dose: 3.125 mg Citalopram Hydrobromide (Celexa) 10 mg PO DAILY [facility] Stop: 05/21/17 09:01 Last Admin: 11/19/16 09:34 Dose: 10 mg Clopidogrel Bisulfate (Plavix) 75 mg PO DAILY [facility] Stop: 05/21/17 09:01 Last Admin: 11/19/16 09:32 Dose: 75 mg Diltiazem HCl (Cardizem Cd) 120 mg PO QAM [facility] Stop: 05/21/17 09:01 Last Admin: 11/19/16 09:33 Dose: 120 mg Ferrous Sulfate (Ferrous Sulfate) 325 mg PO DAILY [facility] Stop: 05/21/17 09:01 Last Admin: 11/19/16 09:35 Dose: 325 mg Folic Acid (Folic Acid) 1 mg PO DAILY [facility] Stop: 05/21/17 09:01 Last Admin: 11/19/16 09:34 Dose: 1 mg Furosemide (Lasix) 80 mg PO BIDDIURETIC [facility] Stop: 05/21/17 08:01 Last Admin: 11/19/16 09:31 Dose: 80 mg Gabapentin (Neurontin) 300 mg PO BID [facility] Stop: 05/21/17 09:01 Last Admin: 11/19/16 09:34 Dose: 300 mg Piperacillin Sod/Tazobactam (Sod 3.375 gm/ Dextrose) 100 mls @ 25 mls/hr IVPB Q8HR [facility] Stop: 05/21/17 08:01 Last Admin: 11/19/16 08:25 Dose: 25 mls/hr Vancomycin HCl 1,250 mg/ (Dextrose) 250 mls @ 167 mls/hr IVPB Q12HR [facility] PRN Reason: Protocol Stop: 05/21/17 06:01 Last Admin: 11/19/16 05:26 Dose: 167 mls/hr Isosorbide Mononitrate (Imdur) 30 mg PO DAILY [facility] Stop: 05/21/17 09:01 Last Admin: 11/19/16 09:33 Dose: 30 mg Loratadine (Claritin) 10 mg PO DAILY [facility] PRN Reason: Protocol Stop: 05/21/17 09:01 Last Admin: 11/19/16 09:34 Dose: 10 mg Morphine Sulfate (Morphine Sulfate) 2 mg IVP Q2H PRN PRN Reason: Chest Pain Stop: 05/20/17 22:24 Naloxone HCl (Narcan) 0.4 mg IVP Q2MIN PRN PRN Reason: Opioid Reversal Stop: 05/20/17 21:45 Nitroglycerin (Nitroglycerin) 0.4 mg SL Q5M PRN PRN Reason: Chest Pain Stop: 05/20/17 22:26 Ondansetron HCl (Zofran) 4 mg IVP Q6HR PRN; Protocol PRN Reason: Nausea Stop: 05/20/17 22:24 Potassium Chloride (Potassium Chloride) 10 meq PO DAILY [facility] Stop: 05/21/17 09:01 Last Admin: 11/19/16 09:32 Dose: 10 meq Ropinirole HCl (Requip) 3 mg PO HS [facility] Stop: 05/21/17 21:01 Laboratory Tests 10/17/16 11/18/16 11/18/16 20:12 16:28 22:16 Hgb Plt Count Creatinine Troponin I 0.14 H* B-Natriuretic Peptide 1625 H 2484 H 11/19/16 11/19/16 11/19/16 04:27 04:27 04:27 Hgb 10.4 L Plt Count 87 L Creatinine 1.04 Troponin I 0.19 H* B-Natriuretic Peptide 11/19/16 10:17 Hgb Plt Count Creatinine Troponin I 0.15 H* B-Natriuretic Peptide - Imaging and Cardiology Chest Xray: report reviewed Echo: report reviewed Cardiac cath: report reviewed - EKG Interpretation EKG results cardiology: personally reviewed (ECG with atrial fibrillation, HR 60.), other (Telemetry reviewed with average HR previous 12 hours noted to be 58 , atrial fibrillation. PVCs noted.) Consult Discharge Plan - Plan Referrals: Yue Kennedy, [employer] [Primary Care Provider] - <Maury Buck - Last Filed: 11/20/16 09:20> Date of Encounter: 11/19/16 Time of Encounter: 17:25 Assessment and Plan Discussion w patient/family: The assessment and plan as outlined above was discussed with the patient and/or family members who expressed understanding and agreement. All questions were answered. Thank you for involving us in the care of your patient. Please call with any questions. History of Present Illness History of present illness: Ms. Crawford is a 76 year old female All Systems Review: A 10-system review of systems was performed and is negative for pertinent findings except as documented above in the HPI. Physical Examination Vital Signs, Last 4 Hours Temp Pulse Resp BP Pulse Ox 11/20/16 07:53 97.5 F L 68 17 143/76 93 Results 11/20/16 07:24 11/20/16 07:24 Lab Results 11/19/16 11/20/16 11/20/16 10:17 07:24 07:24 WBC 3.7 L Hgb 10.2 L Hct 36.8 Plt Count 69 L Sodium 142 Potassium 4.2 Chloride 100 Carbon Dioxide 36 H BUN 24 H Creatinine 1.11 Glucose 115 H Calcium 8.3 L Troponin I 0.15 H* - Attending Attestation Pt seen and examined independently, chart reviewed, essentially agree with findings as documented, my evaluation as below: 1. Acute on chronic right sided heart failure due to mild , moderate pulmonary hypertension, severe TR, with well preserved Lv systoloic function, most recent EF 60% 10/18/16. Pt refuses further evaluation for TR, non-compliant with sodium and fluid restriction, leg elevation and compression stockings. New decompensation responding to IV diuretics, approaching dry weight, switch back to PO lasix at home dose in AM 2. Elevated troponin, minimal elevation, no significant CAD on [facility] 2014, due to demand perfusion mismatch, pt declines any further evaluation, refuses stress imaging. Continue medical management. 3. Severe TR - Declines any further evaluation 4. Essential hypertension: adequate control on current meds 5. Cellulitis- bilat lower extremities, on IV antibioitics, primary service managing.
--- NOTE | 2016-11-19 19:02 | Internal Med Progress Note ---
Date of Encounter: 11/19/16 Time of Encounter: 11:00 - Assessment and plan (1) CHF exacerbation Current Visit: No Status: Acute Assessment and plan: Lasix 80 mg PO BID. Need diet and lifestyle modification like sodium restriction and compression stockings with increased activity, as noted by Cardiology team. Qualifiers: Congestive heart failure type: diastolic Qualified Code(s): I50.33 - Acute on chronic diastolic (congestive) heart failure (2) Cellulitis of both lower extremities Current Visit: Yes Status: Acute Assessment and plan: Precipitated by venous insufficiency. Continue Vanc/Zosyn. If there is no improvement, this suggests this is not infectious cause, especially if Augmentin as OP and Vanc/Zosyn in hospital is ineffective. . (3) Venous stasis dermatitis of both lower extremities Current Visit: No Status: Acute Assessment and plan: Noted by cardiology of JULIO. This also precipitates edema. (4) Foot ulcer Current Visit: Yes Status: Acute Assessment and plan: Wound Care consulted and will be available in two days. Qualifiers: Laterality: unspecified laterality Non-pressure ulcer stage: limited to breakdown of skin Qualified Code(s): L97.501 - Non-pressure chronic ulcer of other part of unspecified foot limited to breakdown of skin - Subjective Interval history: Complains of 9/10 pain in both extremities with shortness of breath. Denies fevers/chills, recent trauma. - Constitutional Vitals: Temp Pulse Resp BP Pulse Ox 98.0 F 64 16 107/67 95 11/19/16 18:40 11/19/16 18:40 11/19/16 18:40 11/19/16 18:40 11/19/16 18:40 General appearance: Present: cooperative, A&O X 3, pleasant, obese, answers questions appropriately - Respiratory Respiratory exam: Present: decreased breath sounds, rhonchi. Absent: accessory muscle use - Cardiovascular Cardiovascular exam: Present: RRR, +S1, +S2. Absent: diastolic murmur, gallop, rubs, systolic murmur - Expanded Lower Extremities Exam Lower Leg exam: Present: erythema, full ROM, swelling, tenderness Ankle exam: Present: erythema, full ROM, swelling, tenderness Internal Medicine: Result - Labs CBC & Chem 7: 11/20/16 07:24 11/20/16 07:24 Labs: Short CBC 11/18/16 11/19/16 Range/Units 22:16 04:27 WBC 4.2 L 3.5 L (4.3-11.1) K/mcL Hgb 10.8 L 10.4 L (11.5-15.4) g/dL Hct 37.6 38.1 (35.3-44.9) % Plt Count 80 L 87 L (140-400) K/mcL Neutrophils # 3.2 2.5 (1.6-8.9) K/mcL BMP 11/19/16 04:27 Sodium 144 Potassium 4.4 Chloride 103 Carbon Dioxide 35 H BUN 25 H Creatinine 1.04 Glucose 110 H Calcium 8.5 L Cardiac Enzymes 11/18/16 11/19/16 11/19/16 Range/Units 22:16 04:27 10:17 Troponin I 0.14 H* 0.19 H* 0.15 H* (0-0.03) ng/mL Liver Function 11/19/16 Range/Units 04:27 Total Bilirubin 1.5 H (0.2-1.2) mg/dL AST 21 (5-34) Units/L ALT 15 (0-55) Units/L Alkaline Phosphatase 121 (38-126) Units/L Albumin 3.1 L (3.5-5.0) g/dL - ABG Interpretation ABG results: PT/INR, D-dimer PT 18.3 Seconds (9.4-12.1) H 11/18/16 22:16 Consult Discharge Plan - Plan Referrals: Yue Kennedy, [employer] [Primary Care Provider] -
[2016-11-20] MEDS: Piperacillin/Tazobactam 3.375 GM in D5% in Water (Mini-Bag+) 100 ML IVPB SCH ×3 (00:15→16:28)
[2016-11-20] MEDS: Vancomycin 1,250 MG in D5% in Water 250 ML IVPB SCH (05:41)
[2016-11-20] MEDS: *HR* HYDROcodone/Acet 7.5/325 mg TABLET PO SCH ×4 (05:41→21:50)
[2016-11-20 07:42] LABS: Calcium 8.3 mg/dL (8.6-10.8); Potassium 4.2 mEq/L (3.5-4.5)
[2016-11-20 07:45] LABS: Basophils % 0.3 %; Eosinophils # 0.2 K/mcL (0.0-0.6); Eosinophils % 4.1 %; Hematocrit 36.8 % (35.3-44.9); Hemoglobin 10.2 g/dL (11.5-15.4); Immature Granulocytes % 0.3 % (0-4); Lymphocytes # 0.5 K/mcL (0.6-4.6); Lymphocytes % 13.9 %; Mean Corpuscular HGB Conc 27.7 g/dL (31.6-35.5); Mean Corpuscular Hemoglobin 27.4 pg (28.0-33.3); Mean Corpuscular Volume 98.9 fL (83.0-100.0); Mean Platelet Volume 11.2 fL (9.4-12.4); Monocytes # 0.3 K/mcL (0.0-1.3); Monocytes % 8.4 %; Neutrophils # 2.7 K/mcL (1.6-8.9); Platelet Count 69 K/mcL (140-400); Red Blood Count 3.72 M/mcL (3.82-4.97); Red Cell Distribution Width 17.2 % (11.5-14.5)
[2016-11-20 08:01] LABS: Anisocytosis 1+ (Not Present); Hypochromasia Present (Not Present); Platelet Estimate Decreased (Normal)
--- NOTE | 2016-11-20 09:23 | Cardiology Progress Note ---
Date of Encounter: 11/20/16 Time of Encounter: 08:30 Assessment and Plan (1) Cellulitis Current Visit: No Status: Acute Per cardiology: -Admitted with celltulitis to lower extremity. -ON ATB -Management per primary service. Qualifiers: Site of cellulitis: extremity Site of cellulitis of extremity: lower extremity Laterality: left Qualified Code(s): L03.116 - Cellulitis of left lower limb (2) Right-sided heart failure Current Visit: No Status: Chronic Per cardiology: -Chronic right sided heart failure. -BNP 2484 on admission, appears to have chronically elevated BNPs. -ON lasix po BID. Was given one time dose of lasix IV. -Weight today 199 pounds, weight 08/2015 185pounds. Of note, patient reports weights have been decreasing at home per home scale. -reports shortness of breath and edema are about baseline now. -Echo 10/18/16 LVEF 60%, moderate concentric LVH, indeterminate diastolic dysfunction, moderately dilated and mildly hypokinetic RV, severely dilated right atrium, moderately calcified aortic valve leaflets, mild AR, mild- moderate , mild-moderate PH, severe TR, all wall segments with normal motion. -Strict I/Os, daily weights, fluid restriction. -Cardiology will sign off and will follow in outpatient setting. Follow up set. (3) Elevated troponin I level Current Visit: Yes Status: Acute Per cardiology: -Troponins elevated at 0.14, 0.19, 0.15. -Troponins flat and adynamic in the setting of right sided heart failure and infectious process. -Denies chest pain. -Denies worsening fatigue. -ECG with no ischemic changes. -Echo as above. -[facility] 2014 with 20% mid RCA stenosis, otherwise angiographically free of disease. -Do not suspect NSTEMI, suspect demand ischemia related to above. No cardiac rehab consult warranted at this time. (4) Tricuspid valve regurgitation Current Visit: No Status: Chronic Per cardiology: -KNown severe TR. -Patient declines further intervention or consultations for valve. -Patient states understanding risk of with no intervention. -Will continue to monitor in outpatient setting. Qualifiers: Cardiac valve disease etiology: etiology unspecified Qualified Code(s): I07.1 - Rheumatic tricuspid insufficiency (5) A-fib Current Visit: No Status: Chronic Per cardiology: -Known chronic a.fib. -HR controlled. -On cardizem and beta shilpa. -Not on anticoagulation due to severe GI bleed that required 9 units of PRBC transfusion per patient. Patient refuses to be on anticoagulation. Patient understands and accepts increased ris of CVA. -Will continue to monitor in outpatient setting. -Can consider outpatient sleep study. Qualifiers: Atrial fibrillation type: chronic Qualified Code(s): I48.2 - Chronic atrial fibrillation Discussion w patient/family: The assessment and plan as outlined above was discussed with the patient who expressed understanding and agreement. All questions were answered. Thank you for involving us in the care of your patient. Please call with any questions. Discussed and reviewed with . Subjective Principal diagnosis: cellulitis Interval history: Patient reports breathing is about the same today. Patient states peripheral edema is about baseline. Objective Vital Signs, Last 4 Hours Temp Pulse Resp BP Pulse Ox 11/20/16 07:53 97.5 F L 68 17 143/76 93 General: Conversant, No Apparent Distress HEENT: Atraumatic, Normocephaly, Mucus Membranes Moist Neck: No JVD, Normal carotid pulses Cardiac: Other (Irregularly, irregular) Lungs: Other (lung sounds diminished throughout) Neuro: Alert and responsive, No focal deficits noted Abdomen: Soft, Non-Tender Skin: Other (Bilateral lower extremities discolored) Musculoskeletal: No Chest Wall Tenderness Extremities: No Clubbing, No Cyanosis, Normal Pulses, Other (2+ bilateral lower extremity pitting edema. ) Results 11/20/16 07:24 11/20/16 07:24 Lab Results Active Medications Hydrocodone Bitart/Acetaminophen ([place] 7.5-325 Mg) 1 tab PO Q6H [facility] Stop: 05/20/17 22:31 Last Admin: 11/20/16 05:41 Dose: Not Given Aspirin (Aspirin) 81 mg PO DAILY [facility] Stop: 05/21/17 09:01 Last Admin: 11/19/16 09:32 Dose: 81 mg Carvedilol (Coreg) 3.125 mg PO BIDWM [facility] PRN Reason: Protocol Stop: 05/21/17 08:01 Last Admin: 11/19/16 16:58 Dose: 3.125 mg Citalopram Hydrobromide (Celexa) 10 mg PO DAILY [facility] Stop: 05/21/17 09:01 Last Admin: 11/19/16 09:34 Dose: 10 mg Clopidogrel Bisulfate (Plavix) 75 mg PO DAILY [facility] Stop: 05/21/17 09:01 Last Admin: 11/19/16 09:32 Dose: 75 mg Diltiazem HCl (Cardizem Cd) 120 mg PO QAM [facility] Stop: 05/21/17 09:01 Last Admin: 11/19/16 09:33 Dose: 120 mg Ferrous Sulfate (Ferrous Sulfate) 325 mg PO DAILY [facility] Stop: 05/21/17 09:01 Last Admin: 11/19/16 09:35 Dose: 325 mg Folic Acid (Folic Acid) 1 mg PO DAILY [facility] Stop: 05/21/17 09:01 Last Admin: 11/19/16 09:34 Dose: 1 mg Furosemide (Lasix) 80 mg PO BIDDIURETIC [facility] Stop: 05/21/17 08:01 Last Admin: 11/19/16 16:58 Dose: 80 mg Gabapentin (Neurontin) 300 mg PO BID [facility] Stop: 05/21/17 09:01 Last Admin: 11/19/16 21:20 Dose: 300 mg Piperacillin Sod/Tazobactam (Sod 3.375 gm/ Dextrose) 100 mls @ 25 mls/hr IVPB Q8HR [facility] Stop: 05/21/17 08:01 Last Infusion: 11/20/16 07:44 Dose: Infused Vancomycin HCl 1,250 mg/ (Dextrose) 250 mls @ 167 mls/hr IVPB Q12HR [facility] PRN Reason: Protocol Stop: 05/21/17 06:01 Last Admin: 11/20/16 05:41 Dose: 80 mls/hr Isosorbide Mononitrate (Imdur) 30 mg PO DAILY [facility] Stop: 05/21/17 09:01 Last Admin: 11/19/16 09:33 Dose: 30 mg Loratadine (Claritin) 10 mg PO DAILY [facility] PRN Reason: Protocol Stop: 05/21/17 09:01 Last Admin: 11/19/16 09:34 Dose: 10 mg Morphine Sulfate (Morphine Sulfate) 2 mg IVP Q2H PRN PRN Reason: Chest Pain Stop: 05/20/17 22:24 Naloxone HCl (Narcan) 0.4 mg IVP Q2MIN PRN PRN Reason: Opioid Reversal Stop: 05/20/17 21:45 Nitroglycerin (Nitroglycerin) 0.4 mg SL Q5M PRN PRN Reason: Chest Pain Stop: 05/20/17 22:26 Ondansetron HCl (Zofran) 4 mg IVP Q6HR PRN; Protocol PRN Reason: Nausea Stop: 05/20/17 22:24 Potassium Chloride (Potassium Chloride) 10 meq PO DAILY [facility] Stop: 05/21/17 09:01 Last Admin: 11/19/16 09:32 Dose: 10 meq Ropinirole HCl (Requip) 3 mg PO HS [facility] Stop: 05/21/17 21:01 Last Admin: 11/19/16 21:20 Dose: 3 mg Laboratory Tests 11/20/16 11/20/16 07:24 07:24 Hgb 10.2 L Creatinine 1.11 - Imaging and Cardiology Chest Xray: report reviewed Echo: report reviewed - EKG Interpretation EKG results cardiology: other (Telemetry reviewed with average HR 59, atrial fibrillation. Longest pause 2.4 seconds, PVCs and couplets noted.) Consult Discharge Plan - Plan Referrals: Yue Kennedy, [employer] [Primary Care Provider] -
[2016-11-20] MEDS: Furosemide 40 MG TABLET PO SCH ×2 (11:39→16:29)
[2016-11-20] MEDS: Loratadine 10 MG TABLET PO SCH (11:40)
[2016-11-20] MEDS: Diltiazem CD (24hr) 120 MG CAPSULE PO SCH (11:40)
[2016-11-20] MEDS: Aspirin 81 MG TAB.CHEW PO SCH (11:40)
[2016-11-20] MEDS: Folic Acid 1 MG TABLET PO SCH (11:41)
[2016-11-20] MEDS: Gabapentin 300 MG CAPSULE PO SCH ×2 (11:41→21:49)
[2016-11-20] MEDS: Isosorbide MONOnitrate (24 HR) 60 MG TAB.ER.24H PO SCH (11:41)
--- NOTE | 2016-11-20 17:58 | Electrocardiograph Report ---
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
--- NOTE | 2016-11-20 18:05 | Electrocardiograph Report ---
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
--- NOTE | 2016-11-20 18:17 | Internal Med Progress Note ---
Date of Encounter: 11/20/16 Time of Encounter: 11:00 - Assessment and plan (1) Cellulitis of both lower extremities Current Visit: Yes Status: Acute Assessment and plan: Precipitated by venous insufficiency. Continue Vanc/Zosyn. If there is no improvement, this suggests this is not infectious cause, especially if Augmentin as OP and Vanc/Zosyn in hospital is ineffective. . (2) Foot ulcer Current Visit: Yes Status: Acute Assessment and plan: Wound Care consulted and will be available in two days. Qualifiers: Laterality: unspecified laterality Non-pressure ulcer stage: limited to breakdown of skin Qualified Code(s): L97.501 - Non-pressure chronic ulcer of other part of unspecified foot limited to breakdown of skin (3) CHF exacerbation Current Visit: No Status: Acute Assessment and plan: Lasix 80 mg PO BID. Need diet and lifestyle modification like sodium restriction and compression stockings with increased activity, as noted by Cardiology team. Qualifiers: Congestive heart failure type: diastolic Qualified Code(s): I50.33 - Acute on chronic diastolic (congestive) heart failure (4) Venous stasis dermatitis of both lower extremities Current Visit: No Status: Acute Assessment and plan: Noted by cardiology of JULIO. This also precipitates edema. (5) Weakness Current Visit: No Status: Acute Assessment and plan: Needs to increase activity. She would benefit from Physical Therapy arrangement. will d/w case management. - Subjective Interval history: Not much improvement in regards to pain. Denies fevers/chills, other constitutional symptoms. - Constitutional Vitals: Temp Pulse Resp BP Pulse Ox 98.0 F 76 17 126/78 97 11/20/16 15:24 11/20/16 15:24 11/20/16 15:24 11/20/16 15:24 11/20/16 15:24 General appearance: Present: cooperative, A&O X 3, pleasant, obese, answers questions appropriately Exam: CVS: RRR, no mrg Lungs: diminished breath sounds at bases. Poor air exchange and inspiratory effort. Abd: soft, NT/ND Ext: bilateral lower extremities with venous stasis changes and 2+ edema, very tender to touch and bottom of left foot has 2 ulcerations that are breakdown of skin, without purulent drainage. Internal Medicine: Result - Labs CBC & Chem 7: 11/20/16 07:24 11/20/16 07:24 Labs: Short CBC 11/20/16 Range/Units 07:24 WBC 3.7 L (4.3-11.1) K/mcL Hgb 10.2 L (11.5-15.4) g/dL Hct 36.8 (35.3-44.9) % Plt Count 69 L (140-400) K/mcL Neutrophils # 2.7 (1.6-8.9) K/mcL BMP 11/20/16 07:24 Sodium 142 Potassium 4.2 Chloride 100 Carbon Dioxide 36 H BUN 24 H Creatinine 1.11 Glucose 115 H Calcium 8.3 L - ABG Interpretation ABG results: PT/INR, D-dimer PT 18.3 Seconds (9.4-12.1) H 11/18/16 22:16 Consult Discharge Plan - Plan Referrals: Yue Kennedy, [employer] [Primary Care Provider] -
[2016-11-21] MEDS: Piperacillin/Tazobactam 3.375 GM in D5% in Water (Mini-Bag+) 100 ML IVPB SCH ×2 (01:03→10:05)
[2016-11-21] MEDS: *HR* HYDROcodone/Acet 7.5/325 mg TABLET PO SCH ×3 (05:14→17:51)
[2016-11-21 06:59] LABS: BUN/Creatinine Ratio 23 (6-26); Blood Urea Nitrogen 23 mg/dL (7-20); Calcium 8.6 mg/dL (8.6-10.8); Carbon Dioxide 38 mEq/L (19-29); Chloride 98 mEq/L (98-109); Glucose 112 mg/dL (70-99); Osmolality,Calculated 298 (280-300); Potassium 4.3 mEq/L (3.5-4.5); Sodium 142 mEq/L (136-145); eGFR For African Americans > 60 (> 60); eGFR For Non-African Americans 53 (> 60)
[2016-11-21 07:07] LABS: Basophils % 0.6 %; Immature Granulocytes % 0.6 % (0-4); Mean Platelet Volume 11.7 fL (9.4-12.4)
[2016-11-21 07:08] LABS: Eosinophils # 0.1 K/mcL (0.0-0.6); Eosinophils % 3.1 %; Hematocrit 37.5 % (35.3-44.9); Hemoglobin 10.8 g/dL (11.5-15.4); Lymphocytes # 0.5 K/mcL (0.6-4.6); Lymphocytes % 16.7 %; Mean Corpuscular HGB Conc 28.8 g/dL (31.6-35.5); Mean Corpuscular Hemoglobin 28.5 pg (28.0-33.3); Mean Corpuscular Volume 98.9 fL (83.0-100.0); Monocytes # 0.3 K/mcL (0.0-1.3); Monocytes % 8.4 %; Neutrophils # 2.3 K/mcL (1.6-8.9); Red Blood Count 3.79 M/mcL (3.82-4.97); Red Cell Distribution Width 17.1 % (11.5-14.5); Segmented Neutrophils % 70.6 %
[2016-11-21 07:11] LABS: Platelet Count 63 K/mcL (140-400)
[2016-11-21 08:05] LABS: Anisocytosis 1+ (Not Present); Hypochromasia Present (Not Present); Microcytosis Present (Not Present); Platelet Estimate Decreased (Normal)
[2016-11-21] MEDS: Aspirin 81 MG TAB.CHEW PO SCH (10:04)
[2016-11-21] MEDS: Gabapentin 300 MG CAPSULE PO SCH (10:04)
[2016-11-21] MEDS: Furosemide 40 MG TABLET PO SCH (10:06)
[2016-11-21] MEDS: Diltiazem CD (24hr) 120 MG CAPSULE PO SCH (10:06)
[2016-11-21] MEDS: Loratadine 10 MG TABLET PO SCH (10:06)
[2016-11-21] MEDS: Folic Acid 1 MG TABLET PO SCH (10:06)
[2016-11-21] MEDS: Isosorbide MONOnitrate (24 HR) 60 MG TAB.ER.24H PO SCH (10:07)
[2016-11-21] MEDS ORDERED: Vancomycin 1,250 MG in D5% in Water 250 ML IVPB SCH (16:00)
[2016-11-21 16:26] VITALS: BP 122/72
--- NOTE | 2016-11-21 16:46 | Venous Imaging Report ---
LE Venous Duplex Patient Name:Kimberly Crawford Order Number:[id number] Procedure Date:11/19/2016 Date:1Age:76 yrs Gender:Female Location:[facility] Room #: 3B44 Director Packaging:Neelam Hdz RVT, MARISOL Referring MD:Homero Street MD rail track layer:Yue Kennedy, INTERNSHIP COORDINATOR Reading MD:Brian Prieto MD , FACS Primary Indications:elevated d-dimer Secondary Indications: Impressions: Bilateral lower extremity: normal superficial and deep exam. Recommendations: After imaging the patient returned to their room. Test completed on 11/19/2016 at 9:06:01 am. Critical findings reported to NATI Li in person at 9:10:19 am on 11/19/2016 by Neelam Hdz RVT, MARISOL. Findings Venous Duplex Results: Right: Venous imaging of the lower extremity reveals full patency and normal vessel compressibility of the right distal iliac, right common femoral, right superficial femoral, right popliteal, right posterior tibial, right peroneal, right great saphenous and right lesser saphenous. Doppler signals in the evaluated veins were normal. Left: Venous imaging of the lower extremity reveals full patency and normal vessel compressibility of the left distal iliac, left common femoral, left superficial femoral, left popliteal, left posterior tibial, left great saphenous and left lesser saphenous. Doppler signals in the evaluated veins were normal. The left peroneal vein was not well visualized. Prior Study: No prior study available for comparison. Lower Extremity Venous Duplex Side Vein Compress Spontaneous Flow Augment Diameter (cm) Depth (cm) Right Distal Iliac Normal Yes Phasic Yes Right Common Femoral Normal Yes Phasic Yes Right Superficial Femoral Normal Yes Phasic Yes Right Popliteal Normal Yes Phasic Yes Right Posterior Tibial Normal Yes Phasic Yes Right Peroneal Normal Yes Phasic Yes Right Great Saphenous Normal Yes Phasic Yes Right Lesser Saphenous Normal Yes Phasic Yes Left Distal Iliac Normal Yes Phasic Yes Left Common Femoral Normal Yes Phasic Yes Left Superficial Femoral Normal Yes Phasic Yes Left Popliteal Normal Yes Phasic Yes Left Posterior Tibial Normal Yes Phasic Yes Left Great Saphenous Normal Yes Phasic Yes Left Lesser Saphenous Normal Yes Phasic Yes Left Peroneal Updated by Brian Prieto MD, FACS on 11/21/2016 4:41:50 PM Brian Prieto MD electronically signed on 11/21/2016 4:42:07 PM with status of Final
--- NOTE | 2016-11-21 17:00 | Discharge Summary ---
Date of Encounter: 11/21/16 Time of Encounter: 16:54 - Discharge Diagnosis (1) Cellulitis of both lower extremities Priority: Primary Status: Acute (2) Foot ulcer Priority: Secondary Status: Acute Qualifiers: Laterality: unspecified laterality Non-pressure ulcer stage: limited to breakdown of skin Qualified Code(s): L97.501 - Non-pressure chronic ulcer of other part of unspecified foot limited to breakdown of skin (3) CHF exacerbation Priority: Secondary Status: Acute Qualifiers: Congestive heart failure type: diastolic Qualified Code(s): I50.33 - Acute on chronic diastolic (congestive) heart failure (4) Venous stasis dermatitis of both lower extremities Priority: Secondary Status: Acute - Discharge Medications Home Medications: Carvedilol [Coreg] 6.25 mg PO BID 09/20/16 [History] Citalopram Hydrobromide [Citalopram HBr] 10 mg PO DAILY 09/20/16 [History] Clopidogrel [Plavix] 75 mg PO DAILY 09/20/16 [History] Diltiazem HCl [Diltiazem ER] 120 mg PO QAM 09/20/16 [History] Ferrous Sulfate 325 mg PO DAILY 09/20/16 [History] Folic Acid 1 mg PO DAILY 09/20/16 [History] HYDROcodone/Acet 7.5/325 mg [[place] 7.5-325 mg] 1 tab PO Q6H 09/20/16 [History] Nitroglycerin [Nitrostat] 0.4 mg SL Q5M PRN 09/20/16 [History] Pantoprazole Sodium [Protonix] 40 mg PO BID 09/20/16 [History] Potassium Chloride [K-Tab ER] 10 meq PO DAILY 09/20/16 [History] Ropinirole HCl [Requip] 3 mg PO HS 09/20/16 [History] Gabapentin [Neurontin] 300 mg PO BID #0 09/22/16 [Rx] Furosemide [Lasix] 80 mg PO BID #60 tablet 10/21/16 [Rx] Isosorbide MONOnitrate (24 HR) [Imdur] 30 mg PO DAILY 11/18/16 [History] Aspirin 81 mg PO DAILY tab.chew 11/21/16 [Rx] Allergies/Adverse Reactions: 3 Allergy/AdvReac Type Severity Reaction Status Date / Time codeine AdvReac Vomiting Verified 11/19/16 11:44 [From Tylenol-Codeine #3] Procedures/tests Complete & Pending: Procedures Performed prior 72 hours Category Date Time Status ECG 12 lead ECG [ECG] Routine Y 11/18/16 23:44 Completed ECG 12 lead ECG [ECG] Routine Y 11/19/16 05:48 Completed EV venous imaging LE BI Stat Y 11/19/16 21:48 Completed Date of admission: 11/18/16 21:44 Primary care physician: Yue Kennedy CNP Consults: 11/18/16 22:23 Consult to Cardiology [CONS] Routine Comment: Consulting Provider: Cardiology Amber Reason for Consult: NSTEMI, on Heparin ggt Call Completed: No 11/19/16 00:08 Consult to Wound Care [CONS] Routine Reason for Consult: Bilateral leg cellulitis, left posterior calf ulcer Call Completed: No - Patient Status Disposition: Home Health Service Condition: Fair Functional capacity at discharge: wheelchair bound Overall status at discharge: patient is back to baseline - Discharge Instructions Follow Up With: Yue Kennedy CNP [Primary Care Provider] - - Diet and Activity Activity: as per physical therapy Diet: advance to your usual diet Hospital course: Ms. Crawford is a 76 year old female - Time Spent with Patient Total time spent providing and/or coordinating discharge services: - Constitutional Vitals: Temp Pulse Resp BP Pulse Ox 98.4 F 61 16 122/72 100 11/21/16 16:25 11/21/16 16:25 11/21/16 16:25 11/21/16 16:25 11/21/16 16:25 General appearance: Present: cooperative, A&O X 3, pleasant, obese, answers questions appropriately
--- NOTE | 2016-11-21 17:05 | Physician Discharge Referral ---
Home Health/Hosp Referral Info Transfer to: Home Health Provider in Charge Post Discharge: PCP - Diagnosis (1) Cellulitis of both lower extremities Status: Acute (2) Foot ulcer Status: Acute (3) CHF exacerbation Status: Acute (4) Venous stasis dermatitis of both lower extremities Status: Acute - Respiratory Orders Smoking Cessation: Smoking cessation has been advised. For more information, call the [place] Tobacco Quit Line at 0-898-MONI-NOW. - Diet/Nutrition Diet/Nutrition Orders: Cardiac - Activity Activity Orders: Up ad victorino - Services Needed Following services are medically necessary services: Nursing, Home Health Aide, Physical Therapy, Occupational Therapy - Transfer Medications Home Medications: Carvedilol [Coreg] 6.25 mg PO BID 09/20/16 [History] Citalopram Hydrobromide [Citalopram HBr] 10 mg PO DAILY 09/20/16 [History] Clopidogrel [Plavix] 75 mg PO DAILY 09/20/16 [History] Diltiazem HCl [Diltiazem ER] 120 mg PO QAM 09/20/16 [History] Ferrous Sulfate 325 mg PO DAILY 09/20/16 [History] Folic Acid 1 mg PO DAILY 09/20/16 [History] HYDROcodone/Acet 7.5/325 mg [[place] 7.5-325 mg] 1 tab PO Q6H 09/20/16 [History] Nitroglycerin [Nitrostat] 0.4 mg SL Q5M PRN 09/20/16 [History] Pantoprazole Sodium [Protonix] 40 mg PO BID 09/20/16 [History] Potassium Chloride [K-Tab ER] 10 meq PO DAILY 09/20/16 [History] Ropinirole HCl [Requip] 3 mg PO HS 09/20/16 [History] Gabapentin [Neurontin] 300 mg PO BID #0 09/22/16 [Rx] Furosemide [Lasix] 80 mg PO BID #60 tablet 10/21/16 [Rx] Isosorbide MONOnitrate (24 HR) [Imdur] 30 mg PO DAILY 11/18/16 [History] Aspirin 81 mg PO DAILY tab.chew 11/21/16 [Rx] Allergies/Adverse Reactions: 3 Allergy/AdvReac Type Severity Reaction Status Date / Time codeine AdvReac Vomiting Verified 11/19/16 11:44 [From Tylenol-Codeine #3] Certification: Further, I certify that my clinical findings support that this patient is homebound (i.e. absences from home require considerable and taxing effort and are for medical reasons or latter day services or infrequently or short duration when for other reasons) because: Homebound Reason: Leaving home requires considerable and taxing effort due to condition Attestation: My signature below is to certify that this patient is under my care and that I, or nurse practitioner, or a physician's administrative assistant receptionist working with me, has a face-to -face encounter with this patient.
[2016-11-21] MEDS ORDERED: Aminoglycoside Consult 1 EACH MC ONE (19:00)
== END 2016-11-21 19:01 | disposition home health service (06) | DRG 602 ==
LOC: 3BNU → SUATTDRO 21:44
PROVIDERS: ADMIT Family Medicine; ATTEND Student in an Organized Health Care Education/Training Program

== ENCOUNTER 2016-11-28 17:21 | Inpatient (IN) ==
[2016-11-28 18:05] LABS: Basophils % 0.5 %; Hemoglobin 10.4 g/dL (11.5-15.4); Lymphocytes % 12.9 %; Mean Corpuscular Volume 100.3 fL (83.0-100.0)
[2016-11-28 18:07] LABS: Eosinophils # 0.1 K/mcL (0.0-0.6); Eosinophils % 2.5 %; Immature Granulocytes % 0.3 % (0-4); Immature Platelets 6.5 % (1.1-6.1); Lymphocytes # 0.5 K/mcL (0.6-4.6); Mean Corpuscular HGB Conc 28.1 g/dL (31.6-35.5); Mean Corpuscular Hemoglobin 28.2 pg (28.0-33.3); Monocytes # 0.2 K/mcL (0.0-1.3); Red Blood Count 3.69 M/mcL (3.82-4.97); Red Cell Distribution Width 17.3 % (11.5-14.5); Segmented Neutrophils % 77.8 %
[2016-11-28 18:09] LABS: Neutrophils # 2.9 K/mcL (1.6-8.9); Platelet Count 80 K/mcL (140-400)
[2016-11-28 18:16] LABS: BUN/Creatinine Ratio 17 (6-26); Blood Urea Nitrogen 18 mg/dL (7-20); Calcium 8.6 mg/dL (8.6-10.8); Carbon Dioxide 37 mEq/L (19-29); Chloride 99 mEq/L (98-109); Glucose 117 mg/dL (70-99); Osmolality,Calculated 299 (280-300); Potassium 3.8 mEq/L (3.5-4.5); Sodium 143 mEq/L (136-145); eGFR For African Americans > 60 (> 60); eGFR For Non-African Americans 50 (> 60)
[2016-11-28 18:34] LABS: Hypochromasia Present (Not Present); Platelet Estimate Decreased (Normal)
[2016-11-28 18:35] LABS: Anisocytosis 1+ (Not Present)
[2016-11-28 18:50] LABS: INR 1.6; Prothrombin Time 17.7 Seconds (9.4-12.1)
[2016-11-28] MEDS ORDERED: Furosemide 40 MG/4 ML VIAL IVP ONE (19:15)
[2016-11-28] MEDS ORDERED: Acetaminophen 325 MG TABLET PO PRN (19:56)
[2016-11-28] MEDS ORDERED: Naloxone 0.4 MG/ML INJ IVP PRN (19:56)
[2016-11-28] MEDS ORDERED: *HR* Morphine 2 MG/ML SYRINGE IVP PRN (19:56)
[2016-11-28] MEDS ORDERED: Ondansetron 4 MG/2 ML VIAL IVP PRN (19:56)
[2016-11-28] MEDS ORDERED: *HR* Promethazine 25 MG/ML VIAL IVP PRN (19:56)
[2016-11-28] MEDS ORDERED: Nitroglycerin 0.4 MG TAB.SUBL SL PRN (20:00)
[2016-11-28] MEDS: Gabapentin 300 MG CAPSULE PO SCH (21:55)
[2016-11-28] MEDS: *HR* HYDROcodone/Acet 5/325 mg TABLET PO PRN (21:59)
--- NOTE | 2016-11-28 22:04 | Internal Med History&Physical ---
Date of Encounter: 11/28/16 Time of Encounter: 20:30 Assessment and Plan (1) Diastolic CHF, acute on chronic Current visit: Yes Status: Acute Will admit the pt into Tele Reviewed her CXR by myself - showing inc vascular congestion and interstitial edema started her on IV Lasix 40mg Q8hr Strict I & O Fluid restriction resumed other home meds BB, ASA, Plavix and statin Reviewed 2 D Echo from 10/06 showing normal LVEF< moderate diastolic dysfunction (2) Left leg cellulitis Current visit: Yes Status: Acute She does significant cellulites in Left leg her wound cx from the past growing Proteus and Enteroccocus, susceptible for Levofloxacin so will start her on levofloxacin She does have chronic venous stasis changes in both legs will use TRISHA wraps (3) CAD (coronary artery disease) Current visit: No Status: Chronic resumed all home meds Qualifiers: Coronary Disease-Associated Artery/Lesion type: [place] artery Qualified Code(s): I25.10 - Atherosclerotic heart disease of [place] coronary artery without angina pectoris (4) A-fib Current visit: No Status: Chronic chronic A fib rate controlled with BB and Cardizem Not a candidate for anticaog due to thrombocytopenia cont ASA + Plavix Qualifiers: Atrial fibrillation type: chronic Qualified Code(s): I48.2 - Chronic atrial fibrillation (5) DM type 2 (diabetes mellitus, type 2) Current visit: No Status: Chronic on ISS Qualifiers: Diabetes mellitus complication status: with hyperglycemia Diabetes mellitus long term care social worker insulin use: without residential use Qualified Code(s): E11.65 - Type 2 diabetes mellitus with hyperglycemia (6) Thrombocytopenia Current visit: No Status: Chronic chronic cont close monitoring avoid Heparin (7) Restless leg syndrome Current visit: No Status: Chronic resumed home med Requip Internal Medicine - H&P: HPI Chief complaint: b/l LE swelling, Shortness of breath Admitted From: Emergency Dept Plans for Post Hospital Care: Home History of present illness: Ms. Crawford is a 76 year old female with a past medical history of CHF NHYA Class III, COPD, supplemental oxygen dependence at 3lit, Chronic atrial fibrillation, hypertension, and obesity who presented to ED complaining of redness and swelling in legs and shortness of breath for several days. She was recently discharged from our hospital for same problem. However pt stated she never felt better, still having SOB and CLANCY. Denied any cough / CP. She is wheelchair bound secondary to bilateral meniscal injury and chronic debilitation. Patient denies fever, chills, cough, congestion, chest pain, palpitations, nausea, vomiting, diarrhea, abdominal pain/distention, dysuria, or exposure to sick contacts. Past Med Surg Social Fam HX - Past Medical History Medical history: arthritis, atrial fibrillation, cardiomyopathy, CHF, GERD, GI bleed, hyperlipidemia, hypertension, myocardial infarction, TIA, other Psychiatric history: anxiety, depression - Past Surgical History Surgical History: - Social History Smoking Status: Never smoker Smokeless Tobacco Status: No Alcohol use: none Drug use: none - Family History Mother Living Status: Hx Family GI Disorders: Yes Father Hx Family Respiratory Disorders: Yes (COPD) Internal Medicine - H&P: Meds Citalopram Hydrobromide [Citalopram HBr] 10 mg PO DAILY 09/20/16 [History] Clopidogrel [Plavix] 75 mg PO DAILY 09/20/16 [History] Diltiazem HCl [Diltiazem ER] 120 mg PO QAM 09/20/16 [History] Ferrous Sulfate 325 mg PO DAILY 09/20/16 [History] Folic Acid 1 mg PO DAILY 09/20/16 [History] HYDROcodone/Acet 7.5/325 mg [[place] 7.5-325 mg] 1 tab PO TID 09/20/16 [History] Nitroglycerin [Nitrostat] 0.4 mg SL Q5M PRN 09/20/16 [History] Pantoprazole Sodium [Protonix] 40 mg PO BID 09/20/16 [History] Potassium Chloride [K-Tab ER] 10 meq PO DAILY 09/20/16 [History] Ropinirole HCl [Requip] 3 mg PO HS 09/20/16 [History] Gabapentin [Neurontin] 300 mg PO BID #0 09/22/16 [Rx] Furosemide [Lasix] 80 mg PO BID #60 tablet 10/21/16 [Rx] Isosorbide MONOnitrate (24 HR) [Imdur] 60 mg PO DAILY 11/18/16 [History] Aspirin 81 mg PO DAILY tab.chew 11/21/16 [Rx] Levofloxacin [Levaquin] 750 mg PO DAILY #7 tablet 10/02/17 [Rx] Carvedilol 3.125 mg PO BID 11/28/16 [History] 3 Allergy/AdvReac Type Severity Reaction Status Date / Time codeine AdvReac Vomiting Verified 11/19/16 11:44 [From Tylenol-Codeine #3] All Systems PM: A 10-system review of systems was performed and is negative for pertinent findings except as documented above in the HPI. Review of systems: All the systems are reviewed everything is benign except the systems and symptoms I mentioned in the history of present illness - Constitutional Vitals: Temp Pulse Resp BP Pulse Ox 97.5 F L 59 16 124/62 98 11/28/16 21:08 11/28/16 21:08 11/28/16 21:08 11/28/16 21:08 11/28/16 21:08 General appearance: Present: A&O X 3, no acute distress - Head Head exam: Present: atraumatic, normal inspection - Respiratory Respiratory exam: Present: decreased breath sounds, rales (mild), wheezes (mild) . Absent: respiratory distress, rhonchi - Cardiovascular Cardiovascular exam: Present: irregular rhythm, +S1, +S2. Absent: tachycardia - GI/Abdominal GI/Abdominal exam: Present: distended, normal bowel sounds, soft. Absent: rebound, rigid, tenderness - Extremities Exam Extremities exam: Present: pedal edema (2+), tenderness (Left leg). Absent: calf tenderness Additional comments: Left leg -- feels warm to touch, swollen and circumferential erythema noticed extending from ankle to proximal 1/3 of leg - Back Exam Back exam: Absent: CVA tenderness (L), CVA tenderness (R) - Neurological Exam Neurological exam: Present: alert, oriented X3 - Psychiatric Psychiatric exam: Present: normal affect, normal mood Internal Med - H&P Results - Labs CBC & Chem 7: 11/28/16 17:58 11/28/16 17:58
--- NOTE | 2016-11-28 22:36 | Emergency Department Note ---
Disposition Clinical Impression: Congestive heart failure Qualifiers: Congestive heart failure type: unspecified congestive heart failure type Congestive heart failure chronicity: unspecified congestive heart failure chronicity Qualified Code(s): I50.9 - Heart failure, unspecified Disposition: Admitted As Inpatient Condition: Good General Adult HPI - General Chief complaint: ED Chest Pain Stated complaint: EDEMA/CP Time Seen by Provider: 11/28/16 17:43 Source: patient Limitations: no limitations Nursing Notes Reviewed: Yes Vital Signs Reviewed: Yes - History of Present Illness HPI Narrative: This is a 76-year-old female with a history of heart failure presents with concern for bruising on the right thigh as well as the back. This was spontaneous petechiae. There is no history of trauma. The patient is bed confined but has a history of having moderate to severe congestive heart failure. No fever, chills. There is baseline lower extremity edema in the legs are wrapped with compression devices. The patient is dyspneic with 1-2 word dyspnea. There is evidence of possible congestive heart failure. General: No acute distress HEENT: Pupils equal and reactive to light, extraoccular muscle movement is normal, TMS are clear bilaterally. Heart: RRR, No murmor rub or gallop Lungs: Rales bilaterally ABD: SNT, no focal areas or tenderness, no guarding or rebound tenderness. Extremities: No cyanosis, clubbing or edema Neuro: CN 2-12 in tact, no focal deficit. strength 5/5. There is bruising on the right thigh, bruising on the posterior upper thorax Medical decision-making This is a female patient with congestive heart failure and thrombocytopenia as well as pancytopenia. Her platelet level is stable at this time. I would provide diuresis and admitted for evaluation of heart failure in the setting of ongoing dyspnea. The patient was diuresed in the emergency department, will be admitted for further evaluation of dyspnea. EKG shows atrial fibrillation with nonspecific ST segment changes. Nonspecific abnormal ECG. Pain Scale: 0 - Related Data Home Medications Medication Instructions Recorded Confirmed Citalopram Hydrobromide 10 mg PO DAILY 09/20/16 11/28/16 [Citalopram HBr] Clopidogrel [Plavix] 75 mg PO DAILY 09/20/16 11/28/16 Diltiazem HCl [Diltiazem ER] 120 mg PO QAM 09/20/16 11/28/16 Ferrous Sulfate 325 mg PO DAILY 09/20/16 11/28/16 Folic Acid 1 mg PO DAILY 09/20/16 11/28/16 HYDROcodone/Acet 7.5/325 mg [[place] 1 tab PO TID 09/20/16 11/28/16 7.5-325 mg] Nitroglycerin [Nitrostat] 0.4 mg SL Q5M PRN 09/20/16 11/28/16 Pantoprazole Sodium [Protonix] 40 mg PO BID 09/20/16 11/28/16 Potassium Chloride [K-Tab ER] 10 meq PO DAILY 09/20/16 11/28/16 Ropinirole HCl [Requip] 3 mg PO HS 09/20/16 11/28/16 Isosorbide MONOnitrate (24 HR) 60 mg PO DAILY 11/18/16 11/28/16 [Imdur] Carvedilol 3.125 mg PO BID 11/28/16 11/28/16 Previous Rx's Medication Instructions Recorded Gabapentin [Neurontin] 300 mg PO BID #0 09/22/16 Furosemide [Lasix] 80 mg PO BID #60 tablet 10/21/16 Aspirin 81 mg PO DAILY tab.chew 11/21/16 Levofloxacin [Levaquin] 750 mg PO DAILY #7 tablet 11/21/16 Allergies Allergy/AdvReac Type Severity Reaction Status Date / Time codeine AdvReac Vomiting Verified 11/19/16 11:44 [From Tylenol-Codeine #3] All systems ED: reviewed and negative except as stated. 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 - Social History Smoking Status: Never smoker Smokeless Tobacco Status: No Alcohol use: Reports: none Drug use: Reports: none Physical Exam - General Limitations: no limitations General appearance: alert Course Vital Signs Temperature 98.3 F 11/28/16 17:26 Pulse Rate 56 11/28/16 17:26 Respiratory Rate 18 11/28/16 17:26 Blood Pressure 109/72 11/28/16 17:26 O2 Sat by Pulse Oximetry 98 11/28/16 17:26 Temperature 97.5 F L 11/28/16 21:08 Pulse Rate 59 11/28/16 21:08 Respiratory Rate 16 11/28/16 21:08 Blood Pressure 124/62 11/28/16 21:08 O2 Sat by Pulse Oximetry 98 11/28/16 21:08 Oxygen Delivery Oxygen Delivery Nasal Cannula Medical Decision Making - Lab Data Result diagrams: 11/28/16 17:58 11/28/16 17:58 Lab Results 11/28/16 11/28/16 11/28/16 Range/Units 17:58 17:58 17:58 WBC 3.7 L (4.3-11.1) K/mcL RBC 3.69 L (3.82-4.97) M/mcL Hgb 10.4 L (11.5-15.4) g/dL Hct 37.0 (35.3-44.9) % MCV 100.3 H (83.0-100.0) fL MCH 28.2 (28.0-33.3) pg MCHC 28.1 L (31.6-35.5) g/dL RDW 17.3 H (11.5-14.5) % Plt Count 80 L (140-400) K/mcL MPV 11.0 (9.4-12.4) fL Immature Gran % 0.3 (0-4) % Seg Neutrophils % 77.8 % Lymphocytes % 12.9 % Monocytes % 6.0 % Eosinophils % 2.5 % Basophils % 0.5 % Neutrophils # 2.9 (1.6-8.9) K/mcL Lymphocytes # 0.5 L (0.6-4.6) K/mcL Monocytes # 0.2 (0.0-1.3) K/mcL Eosinophils # 0.1 (0.0-0.6) K/mcL Basophils # 0.0 (0.0-0.2) K/mcL Platelet Estimate Decreased L (Normal) Immature Plt Fraction 6.5 H (1.1-6.1) % Hypochromasia Present A (Not Present) Anisocytosis 1+ A (Not Present) PT 17.7 H (9.4-12.1) Seconds INR 1.6 APTT 31.0 (26.0-36.0) Seconds Sodium (136-145) mEq/L Potassium (3.5-4.5) mEq/L Chloride (98-109) mEq/L Carbon Dioxide (19-29) mEq/L BUN (7-20) mg/dL Creatinine (0.57-1.11) mg/dL Est GFR ( Amer) (> 60) Est GFR (Non-Af Amer) (> 60) BUN/Creatinine Ratio (6-26) Glucose (70-99) mg/dL Calculated Osmolality (280-300) Calcium (8.6-10.8) mg/dL Troponin I (0-0.03) ng/mL B-Natriuretic Peptide 2560 H (0-100) pg/mL 11/28/16 11/28/16 Range/Units 17:58 17:58 WBC (4.3-11.1) K/mcL RBC (3.82-4.97) M/mcL Hgb (11.5-15.4) g/dL Hct (35.3-44.9) % MCV (83.0-100.0) fL MCH (28.0-33.3) pg MCHC (31.6-35.5) g/dL RDW (11.5-14.5) % Plt Count (140-400) K/mcL MPV (9.4-12.4) fL Immature Gran % (0-4) % Seg Neutrophils % % Lymphocytes % % Monocytes % % Eosinophils % % Basophils % % Neutrophils # (1.6-8.9) K/mcL Lymphocytes # (0.6-4.6) K/mcL Monocytes # (0.0-1.3) K/mcL Eosinophils # (0.0-0.6) K/mcL Basophils # (0.0-0.2) K/mcL Platelet Estimate (Normal) Immature Plt Fraction (1.1-6.1) % Hypochromasia (Not Present) Anisocytosis (Not Present) PT (9.4-12.1) Seconds INR APTT (26.0-36.0) Seconds Sodium 143 (136-145) mEq/L Potassium 3.8 (3.5-4.5) mEq/L Chloride 99 (98-109) mEq/L Carbon Dioxide 37 H (19-29) mEq/L BUN 18 (7-20) mg/dL Creatinine 1.06 (0.57-1.11) mg/dL Est GFR ( Amer) > 60 (> 60) Est GFR (Non-Af Amer) 50 L (> 60) BUN/Creatinine Ratio 17 (6-26) Glucose 117 H (70-99) mg/dL Calculated Osmolality 299 (280-300) Calcium 8.6 (8.6-10.8) mg/dL Troponin I 0.03 (0-0.03) ng/mL B-Natriuretic Peptide (0-100) pg/mL
[2016-11-28] MEDS ORDERED: Levofloxacin 500 MG/100 ML 500 MG/100 ML BAG IVPB SCH (23:00)
[2016-11-29] MEDS ORDERED: D5% in Water 1,000 ML IVC PRN (02:57)
[2016-11-29] MEDS ORDERED: Dextrose Gel 15 GM PO PRN ×2 (02:57)
[2016-11-29] MEDS ORDERED: *HR* Dextrose 50 % in Water (Syg) 50 ML SYRINGE IVP PRN (02:57)
[2016-11-29 04:59] LABS: Hemoglobin 11.1 g/dL (11.5-15.4); Lymphocytes % 17.3 %
[2016-11-29 05:00] LABS: Basophils % 0.7 %; Eosinophils # 0.1 K/mcL (0.0-0.6); Eosinophils % 3.1 %; Immature Granulocytes % 0.7 % (0-4); Lymphocytes # 0.5 K/mcL (0.6-4.6); Mean Corpuscular HGB Conc 28.5 g/dL (31.6-35.5); Mean Corpuscular Hemoglobin 28.8 pg (28.0-33.3); Mean Corpuscular Volume 101.3 fL (83.0-100.0); Mean Platelet Volume 11.1 fL (9.4-12.4); Monocytes # 0.1 K/mcL (0.0-1.3); Monocytes % 4.5 %; Neutrophils # 2.1 K/mcL (1.6-8.9); Red Blood Count 3.85 M/mcL (3.82-4.97); Red Cell Distribution Width 17.4 % (11.5-14.5); Segmented Neutrophils % 73.7 %
[2016-11-29 05:10] LABS: Alanine Aminotransferase 13 Units/L (0-55); Albumin 3.2 g/dL (3.5-5.0); Albumin/Globulin Ratio 0.8 (1.1-2.2); Alkaline Phosphatase 116 Units/L (38-126); Aspartate Amino Transferase 19 Units/L (5-34); BUN/Creatinine Ratio 18 (6-26); Bilirubin,Total 1.6 mg/dL (0.2-1.2); Blood Urea Nitrogen 19 mg/dL (7-20); Calcium 8.6 mg/dL (8.6-10.8); Carbon Dioxide 38 mEq/L (19-29); Chloride 99 mEq/L (98-109); Cholesterol 96 mg/dL (< 200); Globulin 3.9 g/dL (2.4-3.5); Glucose 96 mg/dL (70-99); HDL Cholesterol 32 mg/dL (40-59); LDL Cholesterol,Calculated 48 mg/dL (0-99); Magnesium 2.2 mg/dL (1.6-2.6); Osmolality,Calculated 302 (280-300); Potassium 3.7 mEq/L (3.5-4.5); Sodium 145 mEq/L (136-145); Total Protein 7.1 g/dL (6.0-8.3); Triglycerides 78 mg/dL (< 150); eGFR For African Americans > 60 (> 60); eGFR For Non-African Americans 50 (> 60)
[2016-11-29 05:15] LABS: Platelet Count 84 K/mcL (140-400)
[2016-11-29 05:23] LABS: Bilirubin,Urine Small (Negative); Blood,Urine Trace (Negative); Clarity,Urine Cloudy (Clear); Color,Urine Dark Yellow (Yellow); Glucose,Urine (UA) Normal (Normal); Ketones,Urine Negative (Negative); Leukocyte Esterase,Urine Small (Negative); Nitrite,Urine Negative (Negative); PH,Urine 5.5 pH Units (5.0-8.0); Protein,Urine Trace mg/dL (Neg-Trace); Specific Gravity,Urine 1.022 (1.010-1.025)
[2016-11-29 05:25] LABS: Bacteria,Urine None Seen per hpf (None-Few); Hyaline Casts,Urine None Seen per lpf (None-Few); Squamous Epithelial Cell,Urine Many per lpf (None-Few)
[2016-11-29 05:54] LABS: Hypochromasia Present (Not Present); Macrocytosis Present (Not Present); Platelet Estimate Decreased (Normal); Polychromasia 1+ (Not Present)
[2016-11-29 05:55] LABS: Anisocytosis 1+ (Not Present)
[2016-11-29] MEDS ORDERED: Furosemide 40 MG/4 ML VIAL IVP SCH (09:00)
[2016-11-29] MEDS: Insulin LISPRO 300 UNITS/3 ML VIAL SQ SCH ×3 (09:26→17:27)
[2016-11-29] MEDS: Gabapentin 300 MG CAPSULE PO SCH ×2 (09:27→21:24)
[2016-11-29] MEDS: Isosorbide MONOnitrate (24 HR) 60 MG TAB.ER.24H PO SCH (09:28)
[2016-11-29] MEDS: Aspirin 81 MG TAB.CHEW PO SCH (09:28)
[2016-11-29] MEDS: Folic Acid 1 MG TABLET PO SCH (09:28)
[2016-11-29] MEDS: Diltiazem CD (24hr) 120 MG CAPSULE PO SCH (09:28)
[2016-11-29] MEDS: Furosemide 40 MG/4 ML VIAL IVP SCH ×2 (09:57→17:27)
[2016-11-29] MEDS: *HR* HYDROcodone/Acet 5/325 mg TABLET PO PRN ×2 (16:10→21:24)
--- NOTE | 2016-11-29 16:43 | Electrocardiograph Report ---
[place] [address] Test Date: 2016-11-28 Pat Name: Kimberly Crawford Department: 102 Room: 2A14 Gender: F [employer] Job Titles: : 1940 Requested By: Kaveh Erwin Order Number: [id number] Reading MD: Madison Lopez Measurements Intervals [place] Rate: 62 P: NM: 0 QRS: 82 QRSD: 99 T: 218 QT: 436 QTc: 442 Interpretive Statements ATRIAL FIBRILLATION LOW QRS VOLTAGE IN PRECORDIAL LEADS [QRS DEFLECTION < 1.0 mV IN CHEST LEADS] MODERATE T-WAVE ABNORMALITY, CONSIDER LATERAL ISCHEMIA [-0.1+ mV T WAVE IN I/aVL/V5/V6] MODERATE T-WAVE ABNORMALITY, CONSIDER INFERIOR ISCHEMIA [-0.1+ mV T WAVE IN II/aVF] Electronically Signed On 11-29-2016 16:41:23 EDT by Madison Lopez
--- NOTE | 2016-11-29 17:16 | Internal Med Progress Note ---
Date of Encounter: 11/29/16 Time of Encounter: 10:00 - Assessment and plan (1) Diastolic CHF, acute on chronic Current Visit: Yes Status: Acute Assessment and plan: And has known history of right-sided heart failure. She was admitted last week for acute heart failure exacerbation and left leg cellulitis. At that time she was encouraged to ambulate and wear compression stockings and elevate legs, monitor sodium intake. There is a question to whether patient is compliant with these therapies. She has refused elevate her legs in the past while admitted week ago. Today she did note that a few days ago she had fries that may have been salty. An echo on 10/18/2016 showed EF of 60% with moderate concentric left ventricular hypertrophy and severely dilated right atrium mild AR and mild to moderate left ear [id number] pH severe TR and wall segments within normal motion. She does still appear fluid overloaded will continue 40 mg IV Lasix twice a day with strict I's and O's and daily weights. Cardiology has been consulted and will appreciate further recommendations. (2) Right-sided heart failure Current Visit: No Status: Chronic Assessment and plan: . (3) A-fib Current Visit: No Status: Chronic Assessment and plan: On carvedilol 6.25 mg twice a day, diltiazem 20 mg every morning. Not currently on anticoagulation therapy. Qualifiers: Atrial fibrillation type: chronic Qualified Code(s): I48.2 - Chronic atrial fibrillation (4) Wheelchair bound Current Visit: No Status: Chronic (5) DM type 2 (diabetes mellitus, type 2) Current Visit: No Status: Chronic Assessment and plan: Diabetic diet and insulin sliding scale Qualifiers: Diabetes mellitus complication status: with hyperglycemia Diabetes mellitus long term acute care registered nurse insulin use: without mcfp use Qualified Code(s): E11.65 - Type 2 diabetes mellitus with hyperglycemia (6) High blood pressure Current Visit: No Status: Chronic Assessment and plan: She is hypertensive most recently blood pressure is 150/69 with a heart rate of 66. Currently taking Cardizem, Imdur, Coreg. She is currently being diuresed with IV Lasix which may lower her blood pressure as well. Qualifiers: Hypertension type: essential hypertension Qualified Code(s): I10 - Essential (primary) hypertension (7) Venous stasis dermatitis of both lower extremities Current Visit: No Status: Acute (8) Left leg cellulitis Current Visit: Yes Status: Acute Assessment and plan: She is taking Levaquin for this, we have continued Levaquin which was part of her home medication. Was chosen based on culture sensitivities. - Subjective Interval history: Acute events overnight. States her breathing is somewhat unchanged since yesterday denies chest pain, diaphoresis, nausea vomiting, numbness or tingling , palpitations. Left leg cellulitis is stable. - Constitutional Vitals: Temp Pulse Resp BP Pulse Ox 97.6 F 66 18 150/69 100 11/29/16 16:44 11/29/16 16:44 11/29/16 16:44 11/29/16 16:44 11/29/16 16:44 Exam: General appearance: Present: A&O X 3, no acute distress - Head Head exam: Present: atraumatic, normal inspection - Respiratory Respiratory exam: Present: decreased breath sounds, rales (mild), wheezes (mild) . Absent: respiratory distress, rhonchi - Cardiovascular Cardiovascular exam: Present: irregular rhythm, +S1, +S2. Absent: tachycardia - GI/Abdominal GI/Abdominal exam: Present: distended, normal bowel sounds, soft. Absent: rebound, rigid, tenderness - Extremities Exam Extremities exam: Present: pedal edema (2+), tenderness (Left leg). Absent: calf tenderness Additional comments: Left leg -- feels warm to touch, swollen and circumferential erythema noticed extending from ankle to proximal 1/3 of leg - Back Exam Back exam: Absent: CVA tenderness (L), CVA tenderness (R) - Neurological Exam Neurological exam: Present: alert, oriented X3 - Psychiatric Psychiatric exam: Present: normal affect, normal mood Internal Medicine: Result - Labs CBC & Chem 7: 11/29/16 04:33 11/29/16 04:33 Labs: Short CBC 11/29/16 Range/Units 04:33 WBC 2.9 L (4.3-11.1) K/mcL Hgb 11.1 L (11.5-15.4) g/dL Hct 39.0 (35.3-44.9) % Plt Count 84 L (140-400) K/mcL Neutrophils # 2.1 (1.6-8.9) K/mcL BMP 11/29/16 04:33 Sodium 145 Potassium 3.7 Chloride 99 Carbon Dioxide 38 H BUN 19 Creatinine 1.06 Glucose 96 Calcium 8.6 Cardiac Enzymes 11/28/16 11/29/16 Range/Units 21:25 04:33 Troponin I 0.01 0.05 H* (0-0.03) ng/mL Liver Function 11/29/16 Range/Units 04:33 Total Bilirubin 1.6 H (0.2-1.2) mg/dL AST 19 (5-34) Units/L ALT 13 (0-55) Units/L Alkaline Phosphatase 116 (38-126) Units/L Albumin 3.2 L (3.5-5.0) g/dL Urine 11/29/16 Range/Units 05:13 Urine Color Dark Yellow (Yellow) Urine Clarity Cloudy A (Clear) Urine pH 5.5 (5.0-8.0) pH Units Ur Specific Onset 1.022 (1.010-1.025) Urine Protein Trace (Neg-Trace) mg/dL Urine Glucose (UA) Normal (Normal) mg/dL - ABG Interpretation ABG results: PT/INR, D-dimer PT 17.7 Seconds (9.4-12.1) H 11/28/16 17:58 - VTE Documentation of Mechanical Device: Venous foot pump, device Consult Discharge Plan - Plan Referrals: Yue Kennedy CNP [Primary Care Provider] - 12/13/16 2:15 pm (Please follow up as schedule..)
[2016-11-29] MEDS ORDERED: Insulin LISPRO 300 UNITS/3 ML VIAL SQ SCH (21:00)
[2016-11-29] MEDS: levoFLOXacin 750 MG TABLET PO SCH (21:24)
[2016-11-29] MEDS ORDERED: ceFAZolin 1,000 MG in D5% in Water (Mini-Bag+) 100 ML IVPB SCH (22:00)
[2016-11-30 03:24] LABS: Basophils % 0.7 %; Hemoglobin 10.5 g/dL (11.5-15.4)
[2016-11-30 03:26] LABS: Eosinophils # 0.1 K/mcL (0.0-0.6); Eosinophils % 2.1 %; Hematocrit 37.7 % (35.3-44.9); Immature Granulocytes % 0.7 % (0-4); Lymphocytes # 0.5 K/mcL (0.6-4.6); Lymphocytes % 16.3 %; Mean Corpuscular HGB Conc 27.9 g/dL (31.6-35.5); Mean Corpuscular Hemoglobin 28.4 pg (28.0-33.3); Mean Corpuscular Volume 101.9 fL (83.0-100.0); Mean Platelet Volume 11.2 fL (9.4-12.4); Monocytes # 0.3 K/mcL (0.0-1.3); Monocytes % 8.8 %; Red Cell Distribution Width 17.4 % (11.5-14.5); Segmented Neutrophils % 71.4 %
[2016-11-30 03:29] LABS: Platelet Count 72 K/mcL (140-400)
[2016-11-30 03:35] LABS: BUN/Creatinine Ratio 22 (6-26); Blood Urea Nitrogen 22 mg/dL (7-20); Calcium 8.3 mg/dL (8.6-10.8); Carbon Dioxide 34 mEq/L (19-29); Chloride 102 mEq/L (98-109); Glucose 104 mg/dL (70-99); Osmolality,Calculated 300 (280-300); Potassium 4.2 mEq/L (3.5-4.5); Sodium 143 mEq/L (136-145); eGFR For African Americans > 60 (> 60); eGFR For Non-African Americans 53 (> 60)
[2016-11-30 03:47] LABS: Hypochromasia Present (Not Present); Platelet Estimate Decreased (Normal)
[2016-11-30] MEDS: Furosemide 40 MG/4 ML VIAL IVP SCH ×2 (08:51→17:01)
[2016-11-30] MEDS: Gabapentin 300 MG CAPSULE PO SCH ×2 (08:51→21:44)
[2016-11-30] MEDS: Folic Acid 1 MG TABLET PO SCH (08:52)
[2016-11-30] MEDS: Isosorbide MONOnitrate (24 HR) 60 MG TAB.ER.24H PO SCH (08:52)
[2016-11-30] MEDS: Diltiazem CD (24hr) 120 MG CAPSULE PO SCH (08:52)
[2016-11-30] MEDS: Aspirin 81 MG TAB.CHEW PO SCH (08:52)
[2016-11-30] MEDS: Insulin LISPRO 300 UNITS/3 ML VIAL SQ SCH ×2 (09:16→12:26)
--- NOTE | 2016-11-30 11:48 | Cardiology Consult Note ---
Date of Encounter: 11/30/16 Time of Encounter: 11:45 - Attending Attestation I have personally performed a face to face evaluation on this patient. I have reviewed and agree with the care plan with THEATRICAL DRESSER. History and Exam by me shows: Subjective: Patient complains of worsening SOB and LE edema x 1 week. Exam: Vital Signs Reviewed NAD, alert, conversant and oriented Mild elevation of JVP, no carotid bruit Irregularly irregular, 2/6 soft systolic murmur RSB, no gallop or rub Abdomen soft, bowel sounds present, nondistended No focal deficits Bilateral LE edema (legs wrapped) IMPRESSION: 1. Right sided heart failure: Chronic right sided heart failure presenting with dyspnea and worsening LE edema. Admits to dietary sodium indiscretion recently. Recommend strict I/Os, daily weights and fluid restriction. Agree with IV diuresis. Weights in late 2016 were around 185 lbs. Strongly advised compliance with patient. Recommend outpatient sleep study. 2. Elevated Troponin: Troponins negative x2 then 0.05 then negative. This does not appear to represent ACS. ECG without new ischemic findings. Continue antiplatelet agent. Lipid panel reviewed demonstrating acceptable findings. 3. AFIB: Known chronic AFIB rate controlled. Not on full anticoagulation due to history of severe GIB requiring transfusion. Patient declines full anticoagulation. Recommend transitioning to her home PO maintenance lasix when euvolemic. Will sign off. Please call with questions. Assessment and Plan (1) Right-sided heart failure Current Visit: No Status: Chronic Per cardiology: -Chronic right sided heart failure. -BNP 2560 on admission, now 2383--appears to have chronically elevated BNPs. -On IV lasix 40mg BID. -Pt admits to eating high Na foods--frozen meals and had faroese fries. Also admits to excess fluid intake--likely causing exacerbation. Counseled on fluid and Na restriction. -Echo 10/18/16 LVEF 60%, moderate concentric LVH, indeterminate diastolic dysfunction, moderately dilated and mildly hypokinetic RV, severely dilated right atrium, moderately calcified aortic valve leaflets, mild AR, mild- moderate , mild-moderate PH, severe TR, all wall segments with normal motion. -Recommend strict I/Os, daily weights, fluid restriction. -Agree with IV diuresis, transition to PO Maintenance dose prior to discharge. -Cardiology will sign off and will follow in outpatient setting. Will coordinate. (2) Elevated troponin I level Current Visit: Yes Status: Acute Per cardiology: -Troponins negative x 2, 0.05, then negative. One borderline elevation of 0.05 in the setting of right sided heart failure and cellulitis. -Denies worsening fatigue. -ECG with no ischemic changes. -Echo as above. -[facility] 2014 with 20% mid RCA stenosis, otherwise angiographically free of disease. -Do not suspect NSTEMI, suspect demand ischemia related to above. No cardiac rehab consult warranted. (3) A-fib Current Visit: Yes Status: Chronic Per cardiology: -Known chronic a.fib. -HR controlled. -On cardizem and beta shilpa. -Not on anticoagulation due to severe GI bleed that required 9 units of PRBC transfusion per patient. Patient refuses to be on anticoagulation. Patient understands and accepts increased ris of CVA. -Pt was on Plavix only at home--currently on ASA and Plavix as inpt. No indication for pt to be on both, so will stop ASA. -Will continue to monitor in outpatient setting. -Can consider outpatient sleep study. Qualifiers: Atrial fibrillation type: chronic Qualified Code(s): I48.2 - Chronic atrial fibrillation (4) Tricuspid valve regurgitation Current Visit: Yes Status: Chronic Per cardiology: -Known severe TR. -Patient declines further intervention or consultations for valve. -Patient states understanding risk of with no intervention. -Will continue to monitor in outpatient setting. Qualifiers: Cardiac valve disease etiology: etiology unspecified Qualified Code(s): I07.1 - Rheumatic tricuspid insufficiency Discussion w patient/family: The assessment and plan as outlined above was discussed with the patient and/or family members who expressed understanding and agreement. All questions were answered. Thank you for involving us in the care of your patient. Please call with any questions. I will discuss all the above with Dr. Bravo and make changes as necessary. History of Present Illness Consult date: 11/30/16 Requesting physician: Randall Kamara Consult reason: CHF Chief complaint: dyspnea, edema History of present illness: Ms. Crawford is a 76 year old female with a relevant past medical history of HTN, atrial fibrillation, renal artery stenosis with stenting, right sided CHF, severe TR, mild , chronic respiratory failure. Patient presented to [facility] with complaints of bruising/lesions on her back, worsening lower extremity edema and lower extremity pain, worsening dyspnea all over the past week since her last hospital discharge. Pt admits to drinking more fluid than she should and consuming high Na frozen meals. BNP 2560, 2383. CXR with persistent Right basilar pleural disease/pulmonary edema. Troponins negative x 2, 0.05, then negative. She denies chest pain. Echo 10/18/16 EF 60%, moderate concentric LVH, moderate dilated and mildly hypokinetic RV, severely dilated RA, mild-moderate , mild-mod phtn estimated RVSP 36-46mmHg, severe TR. Cardiology consulted for CHF recommendations. Past Med Surg Social Fam HX - Past Medical History Medical history: arthritis, atrial fibrillation, cardiomyopathy, CHF, GERD, GI bleed, hyperlipidemia, hypertension, myocardial infarction, TIA, other Psychiatric history: anxiety, depression - Past Surgical History Surgical History: - Social History Smoking Status: Never smoker Smokeless Tobacco Status: No Alcohol use: none Drug use: none - Family History Mother Living Status: Hx Family GI Disorders: Yes Father Hx Family Respiratory Disorders: Yes (COPD) Medications and Allergies Citalopram Hydrobromide [Citalopram HBr] 10 mg PO DAILY 09/20/16 [History] Clopidogrel [Plavix] 75 mg PO DAILY 09/20/16 [History] Diltiazem HCl [Diltiazem ER] 120 mg PO QAM 09/20/16 [History] Ferrous Sulfate 325 mg PO DAILY 09/20/16 [History] Folic Acid 1 mg PO DAILY 09/20/16 [History] HYDROcodone/Acet 7.5/325 mg [[place] 7.5-325 mg] 1 tab PO TID 09/20/16 [History] Nitroglycerin [Nitrostat] 0.4 mg SL Q5M PRN 09/20/16 [History] Pantoprazole Sodium [Protonix] 40 mg PO BID 09/20/16 [History] Potassium Chloride [K-Tab ER] 10 meq PO DAILY 09/20/16 [History] Ropinirole HCl [Requip] 3 mg PO HS 09/20/16 [History] Gabapentin [Neurontin] 300 mg PO BID #0 09/22/16 [Rx] Furosemide [Lasix] 80 mg PO BID #60 tablet 10/21/16 [Rx] Isosorbide MONOnitrate (24 HR) [Imdur] 60 mg PO DAILY 11/18/16 [History] Aspirin 81 mg PO DAILY tab.chew 11/21/16 [Rx] Levofloxacin [Levaquin] 750 mg PO DAILY #7 tablet 11/21/16 [Rx] Carvedilol 3.125 mg PO BID 11/28/16 [History] 3 Allergy/AdvReac Type Severity Reaction Status Date / Time codeine AdvReac Vomiting Verified 11/19/16 11:44 [From Tylenol-Codeine #3] All Systems Review: A 10-system review of systems was performed and is negative for pertinent findings except as documented above in the HPI. - Cardiovascular Cardiovascular: as per HPI, dyspnea at rest, dyspnea on exertion, leg edema - Respiratory Respiratory: dyspnea Physical Examination Vital Signs Temp Pulse Resp BP Pulse Ox 11/30/16 06:59 97.6 F 61 20 114/72 94 11/30/16 03:46 97.3 F L 57 18 128/76 93 11/29/16 23:29 97.5 F L 71 17 109/69 97 11/29/16 20:26 97.6 F 63 18 146/84 97 11/29/16 16:44 97.6 F 66 18 150/69 100 Intake and Output 11/29/16 11/30/16 11/30/16 23:59 07:59 15:59 Intake Total 360 / 360 0 / 0 240 / 240 Output Total 100 / 100 150 / 150 Balance 260 / 260 0 / 0 90 / 90 Intake: Oral 360 / 360 0 / 0 240 / 240 Output: Urine 100 / 100 150 / 150 Other: Meal Dinner Breakfast Percent of Meal Consumed 90% 100% Stool Size Small Stool Consistency soft formed Stool Characteristics Normal for Patient Stool Color Brown Weight 88.6 kg Blood Glucose* 112 90 Patient Weight 11/30/16 23:59 Weight 88.6 kg General: Conversant, No Apparent Distress HEENT: Atraumatic, Normocephaly, Mucus Membranes Moist Neck: Normal carotid pulses Cardiac: Other (irregularly irregular) Lungs: Other (diminished) Neuro: Alert and responsive, No focal deficits noted Abdomen: Soft, Non-Tender Skin: No rashes noted on visualized skin Musculoskeletal: No Chest Wall Tenderness Extremities: Other (lower extremities wrapped) Results 11/30/16 03:17 11/30/16 03:17 Lab Results 11/29/16 11/30/16 11/30/16 18:39 03:17 03:17 WBC 2.8 L Hgb 10.5 L Hct 37.7 Plt Count 72 L Sodium 143 Potassium 4.2 Chloride 102 Carbon Dioxide 34 H BUN 22 H Creatinine 1.02 Glucose 104 H Calcium 8.3 L Troponin I 0.03 Short CBC 11/30/16 Range/Units 03:17 WBC 2.8 L (4.3-11.1) K/mcL Hgb 10.5 L (11.5-15.4) g/dL Hct 37.7 (35.3-44.9) % Plt Count 72 L (140-400) K/mcL Neutrophils # 2.0 (1.6-8.9) K/mcL BMP 11/30/16 Range/Units 03:17 Sodium 143 (136-145) mEq/L Potassium 4.2 (3.5-4.5) mEq/L Chloride 102 (98-109) mEq/L Carbon Dioxide 34 H (19-29) mEq/L BUN 22 H (7-20) mg/dL Creatinine 1.02 (0.57-1.11) mg/dL Glucose 104 H (70-99) mg/dL Calcium 8.3 L (8.6-10.8) mg/dL Cardiac Enzymes 11/29/16 Range/Units 18:39 Troponin I 0.03 (0-0.03) ng/mL Active Medications Acetaminophen (Tylenol) 650 mg PO Q6HR PRN PRN Reason: Mild Pain (1-3) Stop: 05/30/17 19:57 Hydrocodone Bitart/Acetaminophen ([place] 5-325 Mg) 1 tab PO Q4HR PRN PRN Reason: Moderate Pain (4-6) Stop: 05/30/17 19:57 Last Admin: 11/29/16 21:24 Dose: 1 tab Aspirin (Aspirin) 81 mg PO DAILY [facility] Stop: 05/31/17 09:01 Last Admin: 11/30/16 08:52 Dose: 81 mg Carvedilol (Coreg) 6.25 mg PO BIDWM [facility] PRN Reason: Protocol Stop: 05/31/17 09:47 Last Admin: 11/30/16 08:52 Dose: 6.25 mg Citalopram Hydrobromide (Celexa) 10 mg PO DAILY [facility] Stop: 05/31/17 09:01 Last Admin: 11/30/16 08:51 Dose: 10 mg Clopidogrel Bisulfate (Plavix) 75 mg PO DAILY [facility] Stop: 05/31/17 09:01 Last Admin: 11/30/16 08:52 Dose: 75 mg Dextrose/Water (Dextrose 50% (Syg)) 25 ml IVP AD PRN PRN Reason: Hypoglycemia Stop: 05/31/17 02:58 Diltiazem HCl (Cardizem Cd) 120 mg PO QAM [facility] Stop: 05/31/17 09:01 Last Admin: 11/30/16 08:52 Dose: 120 mg Ferrous Sulfate (Ferrous Sulfate) 325 mg PO DAILY [facility] Stop: 05/31/17 09:01 Last Admin: 11/30/16 08:52 Dose: 325 mg Folic Acid (Folic Acid) 1 mg PO DAILY [facility] Stop: 05/31/17 09:01 Last Admin: 11/30/16 08:52 Dose: 1 mg Furosemide (Lasix) 40 mg IVP BIDDIURETIC [facility] Stop: 05/31/17 10:01 Last Admin: 11/30/16 08:51 Dose: 40 mg Gabapentin (Neurontin) 300 mg PO BID [facility] Stop: 05/30/17 21:01 Last Admin: 11/30/16 08:51 Dose: 300 mg Glucagon (Glucagen) 1 mg IM ONCE PRN PRN Reason: Hypoglycemia Stop: 05/31/17 02:58 Glucose (Gluctose) 15 gm PO ONCE PRN PRN Reason: Hypoglycemia Stop: 05/31/17 02:58 Glucose (Gluctose) 30 gm PO ONCE PRN PRN Reason: Hypoglycemia Stop: 05/31/17 02:58 Dextrose (Dextrose 5%) 1,000 mls @ 100 mls/hr IVC .Q10H PRN PRN Reason: HYPOGLYCEMIA Stop: 05/31/17 02:58 Insulin Human Lispro (Humalog) 0 units SQ TIDAC [facility] PRN Reason: Protocol Stop: 05/31/17 07:31 Last Admin: 11/30/16 09:16 Dose: Not Given Insulin Human Lispro (Humalog) 0 units SQ HS [facility] PRN Reason: Protocol Stop: 05/31/17 21:01 Last Admin: 11/29/16 21:25 Dose: Not Given Isosorbide Mononitrate (Imdur) 30 mg PO DAILY [facility] Stop: 05/31/17 09:01 Last Admin: 11/30/16 08:52 Dose: 30 mg Lansoprazole (Prevacid) 30 mg PO BIDAC [facility] PRN Reason: Protocol Stop: 05/31/17 10:01 Last Admin: 11/30/16 08:51 Dose: 30 mg Levofloxacin (Levaquin) 750 mg PO Q24H [facility] Stop: 05/31/17 21:01 Last Admin: 11/29/16 21:24 Dose: 750 mg Naloxone HCl (Narcan) 0.4 mg IVP Q2MIN PRN PRN Reason: Opioid Reversal Stop: 05/30/17 19:57 Nitroglycerin (Nitroglycerin) 0.4 mg SL Q5M PRN PRN Reason: Chest Pain Stop: 05/30/17 20:01 Ondansetron HCl (Zofran) 4 mg IVP Q8HR PRN PRN Reason: Nausea And Vomiting Stop: 05/30/17 19:57 Potassium Chloride (Potassium Chloride) 10 meq PO DAILY [facility] Stop: 05/30/17 20:01 Last Admin: 11/30/16 08:51 Dose: 10 meq Ropinirole HCl (Requip) 3 mg PO HS [facility] Stop: 05/30/17 21:01 Last Admin: 11/29/16 21:24 Dose: 3 mg - Imaging and Cardiology Echo: report reviewed Cardiac cath: report reviewed - EKG Interpretation EKG results cardiology: personally reviewed (A-Fib, HR 62), other (12 hr tele AVG HR 65, A-Fib.) Consult Discharge Plan - Plan Referrals: Yue Kennedy THEATRICAL DRESSER [Primary Care Provider] - 12/13/16 2:15 pm (Please follow up as schedule..)
[2016-11-30] MEDS: *HR* HYDROcodone/Acet 5/325 mg TABLET PO PRN ×2 (13:14→21:44)
--- NOTE | 2016-11-30 16:40 | Internal Med Progress Note ---
Date of Encounter: 11/30/16 Time of Encounter: 16:38 - Assessment and plan (1) Diastolic CHF, acute on chronic Current Visit: Yes Status: Acute Assessment and plan: History this seems to be from noncompliance and brief intake of high sodium food. She shows improvement with of aggressive diuresis currently Lasix 40 mg IV twice a day. We will transition to by mouth Lasix. The patient overnight most likely discharge in the morning. (2) Right-sided heart failure Current Visit: No Status: Chronic Assessment and plan: Plan is for possible sleep study as outpatient. However and may have had CPAP machine in the past and just did not want to wear it per nursing. (3) A-fib Current Visit: Yes Status: Chronic Assessment and plan: On carvedilol 6.25 mg twice a day, diltiazem 20 mg every morning. On anticoagulation due to severe GI bleed and required 9 units of packed red blood cell transfusions. She also refuses anticoagulation, knowing the risks of DVT.. Qualifiers: Atrial fibrillation type: chronic Qualified Code(s): I48.2 - Chronic atrial fibrillation (4) Wheelchair bound Current Visit: No Status: Chronic (5) DM type 2 (diabetes mellitus, type 2) Current Visit: No Status: Chronic Qualifiers: Diabetes mellitus complication status: with hyperglycemia Diabetes mellitus intermediate card tender insulin use: without correction use Qualified Code(s): E11.65 - Type 2 diabetes mellitus with hyperglycemia (6) High blood pressure Current Visit: No Status: Chronic Qualifiers: Hypertension type: essential hypertension Qualified Code(s): I10 - Essential (primary) hypertension (7) Venous stasis dermatitis of both lower extremities Current Visit: No Status: Acute (8) Left leg cellulitis Current Visit: Yes Status: Acute - Subjective Interval history: No acute events overnight. She states her breathing has improved currently. And states she has been producing significant amounts of urine. Left leg centrifugal casting machine tender but cellulitis improves, however there is still purulent drainage - Constitutional Vitals: Temp Pulse Resp BP Pulse Ox 97.8 F 76 20 109/69 97 11/30/16 15:45 11/30/16 15:45 11/30/16 15:45 11/30/16 15:45 11/30/16 15:45 General appearance: Present: A&O X 3, no acute distress Exam: - Head Head exam: Present: atraumatic, normal inspection - Respiratory Respiratory exam: Present: decreased breath sounds, rales (mild), wheezes (mild) . Absent: respiratory distress, rhonchi - Cardiovascular Cardiovascular exam: Present: irregular rhythm, +S1, +S2. Absent: tachycardia - GI/Abdominal GI/Abdominal exam: Present: distended, normal bowel sounds, soft. Absent: rebound, rigid, tenderness - Extremities Exam Extremities exam: Present: pedal edema (2+), tenderness (Left leg). Absent: calf tenderness Additional comments: Left leg -- erythema is improved from prior exam. 2 wounds still with purulent drainage - Back Exam Back exam: Absent: CVA tenderness (L), CVA tenderness (R) - Neurological Exam Neurological exam: Present: alert, oriented X3 - Psychiatric Psychiatric exam: Present: normal affect, normal mood Internal Medicine: Result - Labs CBC & Chem 7: 11/30/16 03:17 11/30/16 03:17 Labs: Short CBC 11/30/16 Range/Units 03:17 WBC 2.8 L (4.3-11.1) K/mcL Hgb 10.5 L (11.5-15.4) g/dL Hct 37.7 (35.3-44.9) % Plt Count 72 L (140-400) K/mcL Neutrophils # 2.0 (1.6-8.9) K/mcL BMP 11/30/16 03:17 Sodium 143 Potassium 4.2 Chloride 102 Carbon Dioxide 34 H BUN 22 H Creatinine 1.02 Glucose 104 H Calcium 8.3 L Cardiac Enzymes 11/29/16 Range/Units 18:39 Troponin I 0.03 (0-0.03) ng/mL - ABG Interpretation ABG results: PT/INR, D-dimer PT 17.7 Seconds (9.4-12.1) H 11/28/16 17:58 - VTE Documentation of Mechanical Device: Venous foot pump, device Consult Discharge Plan - Plan Referrals: Yue Kennedy CNP [Primary Care Provider] - 12/13/16 2:15 pm (Please follow up as schedule..)
[2016-11-30] MEDS: levoFLOXacin 750 MG TABLET PO SCH (21:44)
[2016-12-01 06:58] LABS: Red Cell Distribution Width 17.2 % (11.5-14.5)
[2016-12-01 07:05] LABS: BUN/Creatinine Ratio 22 (6-26); Blood Urea Nitrogen 23 mg/dL (7-20); Calcium 8.4 mg/dL (8.6-10.8); Carbon Dioxide 35 mEq/L (19-29); Chloride 100 mEq/L (98-109); Glucose 100 mg/dL (70-99); Osmolality,Calculated 298 (280-300); Sodium 142 mEq/L (136-145); eGFR For African Americans > 60 (> 60); eGFR For Non-African Americans 52 (> 60)
[2016-12-01 08:26] LABS: Eosinophils # 0.1 K/mcL (0.0-0.6); Hematocrit 37.3 % (35.3-44.9); Hemoglobin 10.7 g/dL (11.5-15.4); Immature Platelets 5.7 % (1.1-6.1); Mean Corpuscular HGB Conc 28.7 g/dL (31.6-35.5); Mean Corpuscular Hemoglobin 28.7 pg (28.0-33.3); Mean Platelet Volume 11.2 fL (9.4-12.4); Nucleated Red Blood Cells 0.6 /100 WBC (0); Red Blood Count 3.73 M/mcL (3.82-4.97)
[2016-12-01 08:28] LABS: Platelet Count 88 K/mcL (140-400)
[2016-12-01 08:35] VITALS: BP 109/72
[2016-12-01] MEDS: Gabapentin 300 MG CAPSULE PO SCH (09:02)
[2016-12-01] MEDS: Folic Acid 1 MG TABLET PO SCH (09:02)
[2016-12-01] MEDS: Diltiazem CD (24hr) 120 MG CAPSULE PO SCH (09:02)
[2016-12-01] MEDS: Furosemide 40 MG/4 ML VIAL IVP SCH (09:02)
[2016-12-01] MEDS: *HR* HYDROcodone/Acet 5/325 mg TABLET PO PRN (09:03)
[2016-12-01] MEDS: Isosorbide MONOnitrate (24 HR) 60 MG TAB.ER.24H PO SCH (09:03)
--- NOTE | 2016-12-01 09:28 | Discharge Summary ---
Date of Encounter: 12/01/16 Time of Encounter: 09:23 - Discharge Diagnosis (1) Diastolic CHF, acute on chronic Priority: Primary Status: Acute (2) Right-sided heart failure Priority: Secondary Status: Chronic (3) A-fib Priority: Secondary Status: Chronic Qualifiers: Atrial fibrillation type: chronic Qualified Code(s): I48.2 - Chronic atrial fibrillation (4) Wheelchair bound Priority: Secondary Status: Chronic (5) DM type 2 (diabetes mellitus, type 2) Priority: Secondary Status: Chronic Qualifiers: Diabetes mellitus complication status: with hyperglycemia Diabetes mellitus email engineer insulin use: without care home use Qualified Code(s): E11.65 - Type 2 diabetes mellitus with hyperglycemia (6) High blood pressure Priority: Secondary Status: Chronic Qualifiers: Hypertension type: essential hypertension Qualified Code(s): I10 - Essential (primary) hypertension (7) Venous stasis dermatitis of both lower extremities Priority: Secondary Status: Acute (8) Left leg cellulitis Priority: Secondary Status: Acute (9) Chronic respiratory failure Priority: Secondary Status: Chronic Qualifiers: Respiratory failure complication: hypoxia Qualified Code(s): J96.11 - Chronic respiratory failure with hypoxia - Discharge Medications Home Medications: Citalopram Hydrobromide [Citalopram HBr] 10 mg PO DAILY 09/20/16 [History] Clopidogrel [Plavix] 75 mg PO DAILY 09/20/16 [History] Diltiazem HCl [Diltiazem ER] 120 mg PO QAM 09/20/16 [History] Ferrous Sulfate 325 mg PO DAILY 09/20/16 [History] Folic Acid 1 mg PO DAILY 09/20/16 [History] HYDROcodone/Acet 7.5/325 mg [[place] 7.5-325 mg] 1 tab PO TID 09/20/16 [History] Nitroglycerin [Nitrostat] 0.4 mg SL Q5M PRN 09/20/16 [History] Pantoprazole Sodium [Protonix] 40 mg PO BID 09/20/16 [History] Potassium Chloride [K-Tab ER] 10 meq PO DAILY 09/20/16 [History] Ropinirole HCl [Requip] 3 mg PO HS 09/20/16 [History] Gabapentin [Neurontin] 300 mg PO BID #0 09/22/16 [Rx] Furosemide [Lasix] 80 mg PO BID #60 tablet 10/21/16 [Rx] Isosorbide MONOnitrate (24 HR) [Imdur] 60 mg PO DAILY 11/18/16 [History] Aspirin 81 mg PO DAILY tab.chew 11/21/16 [Rx] Carvedilol [Coreg] 6.25 mg PO BIDWM tablet 12/01/16 [Rx] Sulfamethoxazole/Trimeth DS [Bactrim DS] 1 each PO BID #14 tablet 12/01/16 [Rx] Allergies/Adverse Reactions: 3 Allergy/AdvReac Type Severity Reaction Status Date / Time codeine AdvReac Vomiting Verified 11/19/16 11:44 [From Tylenol-Codeine #3] Date of admission: 11/28/16 20:08 Primary care physician: Yue Kennedy CNP Consults: 11/28/16 22:20 Consult to Acquisition Editor [CONS] Routine Reason for SW Consult: [facility]; RN through family nursing, HH aide through [facility] 11/29/16 15:32 Consult to Cardiology [CONS] Routine Comment: Consulting Provider: Cardiology Amber Reason for Consult: Acute decompensated HFpEF. Recently admitted one week ago. Call Completed: Yes Discharging clinician: Randall Kamara - Patient Status Disposition: Home Health Service Condition: Good Functional capacity at discharge: wheelchair bound Overall status at discharge: patient is progressing back to baseline - Discharge Instructions Follow Up With: Yue Kennedy CNP [Primary Care Provider] - 12/13/16 2:15 pm (Please follow up as schedule..) Forms: ED Satisfaction Letter - Diet and Activity Activity: increase activity as tolerated Diet: low salt diet Interval History: Ms. Crawford is a 76 year old female with a past medical history of CHF NHYA Class III, COPD, supplemental oxygen dependence at 3lit, Chronic atrial fibrillation, hypertension, and obesity who presented to ED complaining of redness and swelling in legs and shortness of breath for several days. She was recently discharged from our hospital for same problem. However pt stated she never felt better, still having SOB and CLANCY. Denied any cough / CP. She is wheelchair bound secondary to bilateral meniscal injury and chronic debilitation. Patient denies fever, chills, cough, congestion, chest pain, palpitations, nausea, vomiting, diarrhea, abdominal pain/distention, dysuria, or exposure to sick contacts. She does admit to increasing salt intake recently. She was recently started on Levaquin for right leg cellulitis, and is finishing a 10 day course. Dramatic choice was based on sensitivities from a culture taking about 10 days ago of 2 growing organisms. There is still purulent drainage, but the patient's status the erythema is overall better. She takes 80 mg of by mouth Lasix twice a day at home. An echo on 10/18/2016 showed EF of 60% with moderate concentric left ventricular hypertrophy and severely dilated right atrium mild AR and mild to moderate left ear [id number] pH severe TR and wall segments within normal motion. Hospital course: He was admitted to telemetry for. She was started on 40 mg IV Lasix every 8 hours. His x-ray was consistent with a score congestion/pulmonary edema. She was fluid restricted. Her Levaquin was resumed to finish a ten-day course. Cardiology was consulted and agreed to continue with IV diuresis. Patient was switched to 40 mg IV Lasix twice a day. Fluid overload improved and patient's respiratory function improved him as well as lower extremity edema. Her IV diuresis was held and she was resumed on by mouth Lasix 80 mg twice a day, which is her home dose. She was discharged in stable condition. She was supposed to have a cardiology appointment today. Patient agrees to reschedule. She also agrees to reschedule a next available follow-up visit with her primary care provider. She did her course of Levaquin and completed 10 days total. Diabetic purulent drainage. We will send her home on Bactrim and follow up with primary care. Of note she was discharged home on Bactrim in the past however she has been noncompliant as she has Bactrim tablets left over, and most likely did not complete the course. - Time Spent with Patient Total time spent providing and/or coordinating discharge services: - Constitutional Vitals: Temp Pulse Resp BP Pulse Ox 97.9 F 82 17 109/72 98 12/01/16 08:33 12/01/16 08:33 12/01/16 08:33 12/01/16 08:33 12/01/16 08:33 General appearance: Present: A&O X 3, no acute distress - VTE Documentation of Mechanical Device: Intermittent pneumatic compression device
[2016-12-01 09:53] LABS: Lymphocytes # 0.7 K/mcL (0.6-4.6); Monocytes # 0.1 K/mcL (0.0-1.3); Neutrophils # 2.6 K/mcL (1.6-8.9)
[2016-12-01 09:54] LABS: Hypochromasia Present (Not Present); Platelet Estimate Decreased (Normal)
[2016-12-01 09:55] LABS: Reactive Lymphocytes Present (Not Present)
--- NOTE | 2016-12-01 10:00 | Physician Discharge Referral ---
Home Health/Hosp Referral Info Transfer to: Home Health Provider in Charge Post Discharge: PCP - Diagnosis (1) Diastolic CHF, acute on chronic Priority: Primary Status: Acute (2) Right-sided heart failure Priority: Secondary Status: Chronic (3) A-fib Priority: Secondary Status: Chronic (4) Wheelchair bound Priority: Secondary Status: Chronic (5) DM type 2 (diabetes mellitus, type 2) Priority: Secondary Status: Chronic (6) High blood pressure Priority: Secondary Status: Chronic (7) Venous stasis dermatitis of both lower extremities Priority: Secondary Status: Acute (8) Left leg cellulitis Priority: Secondary Status: Acute (9) Chronic respiratory failure Priority: Secondary Status: Chronic - Respiratory Orders Smoking Cessation: Smoking cessation has been advised. For more information, call the [employer] Tobacco Quit Line at 0-845-BMWJ-NOW. - Diet/Nutrition Diet/Nutrition Orders: No Added Salt (PORSCHE), Cardiac - Activity Activity Orders: Chair - Services Needed Following services are medically necessary services: Home Health Aide Home Care Orders: Wound care - Transfer Medications Prescriptions: Sulfamethoxazole/Trimeth DS [Bactrim DS] 1 each PO BID #14 tablet Home Medications: Citalopram Hydrobromide [Citalopram HBr] 10 mg PO DAILY 09/20/16 [History] Clopidogrel [Plavix] 75 mg PO DAILY 09/20/16 [History] Diltiazem HCl [Diltiazem ER] 120 mg PO QAM 09/20/16 [History] Ferrous Sulfate 325 mg PO DAILY 09/20/16 [History] Folic Acid 1 mg PO DAILY 09/20/16 [History] HYDROcodone/Acet 7.5/325 mg [[place] 7.5-325 mg] 1 tab PO TID 09/20/16 [History] Nitroglycerin [Nitrostat] 0.4 mg SL Q5M PRN 09/20/16 [History] Pantoprazole Sodium [Protonix] 40 mg PO BID 09/20/16 [History] Potassium Chloride [K-Tab ER] 10 meq PO DAILY 09/20/16 [History] Ropinirole HCl [Requip] 3 mg PO HS 09/20/16 [History] Gabapentin [Neurontin] 300 mg PO BID #0 09/22/16 [Rx] Furosemide [Lasix] 80 mg PO BID #60 tablet 10/21/16 [Rx] Isosorbide MONOnitrate (24 HR) [Imdur] 60 mg PO DAILY 11/18/16 [History] Aspirin 81 mg PO DAILY tab.chew 11/21/16 [Rx] Carvedilol [Coreg] 6.25 mg PO BIDWM tablet 12/01/16 [Rx] Sulfamethoxazole/Trimeth DS [Bactrim DS] 1 each PO BID #14 tablet 12/01/16 [Rx] Allergies/Adverse Reactions: 3 Allergy/AdvReac Type Severity Reaction Status Date / Time codeine AdvReac Vomiting Verified 11/19/16 11:44 [From Tylenol-Codeine #3] Certification: Further, I certify that my clinical findings support that this patient is homebound (i.e. absences from home require considerable and taxing effort and are for medical reasons or muslim services or infrequently or short duration when for other reasons) because: Homebound Reason: Patient requires assistance of a person or device to safely leave home, Leaving home requires considerable and taxing effort due to condition Attestation: My signature below is to certify that this patient is under my care and that I, or nurse practitioner, or a physician's automobile mechanic assistant working with me, has a face-to -face encounter with this patient.
== END 2016-12-01 11:44 | disposition home health service (06) | DRG 292 ==
LOC: 2ANU 17:21 → EMEROO 17:21 → SUATTDRO 20:08 → 2ANU 20:57
PROVIDERS: ADMIT Family Medicine; ATTEND Student in an Organized Health Care Education/Training Program

== ENCOUNTER 2016-12-03 22:03 | Inpatient (IN) ==
--- NOTE | 2016-12-04 02:56 | Internal Med History&Physical ---
<Ash Grubbs - Last Filed: 12/04/16 02:52> Date of Encounter: 12/04/16 Time of Encounter: 02:00 Assessment and Plan (1) COPD exacerbation Current visit: Yes Status: Acute Patient's shortness of breath is likely due to COPD, due to her rapid improvement on BiPAP, as well as poor skin turgor and lower extremities, indicating diuresis. -Patient will be placed on Solu-Medrol 60 every 8, DuoNeb every 4, and Mucinex. -Continue to monitor vital signs closely. -Continue BiPAP. -Obtain morning labs. (2) Chronic diastolic CHF (congestive heart failure) Current visit: No Status: Acute Patient has a known history of CHF NYHA class III. -Last echo on 10/18/16 showed ejection fraction of 60%. Mild to moderate pulmonary hypertension. -Patient was started on 60 mg of IV Lasix at [place]. -40 mg IV Lasix twice a day. -Strict I/O's, daily weights, fluid restriction. -Low-sodium diet. -Follow-up with cardiology in the outpatient setting. (3) Fatigue Current visit: No Status: Acute Patient appears to be very fatigued, has a hard time communicating. -Patient is currently on BiPAP and is hard of hearing. -Will question patient further in the morning. Qualifiers: Fatigue type: unspecified Qualified Code(s): R53.83 - Other fatigue (4) Foot ulcer Current visit: No Status: Acute Patient has a nonhealing ulcer on her foot. -Recently completed a course of antibiotics. -IV Levaquin. Qualifiers: Laterality: unspecified laterality Non-pressure ulcer stage: limited to breakdown of skin Qualified Code(s): L97.501 - Non-pressure chronic ulcer of other part of unspecified foot limited to breakdown of skin Internal Medicine - H&P: HPI Chief complaint: Shortness of breath Admitted From: Hospital to Hospital Transfer History of present illness: Ms. Crawford is a 76 year old female with past medical history of CHF NYHA class III , COPD, supplemental oxygen dependence at 3 L, chronic atrial fibrillation, hypertension, and obesity who presented to [place] with chief complaint of shortness of breath and swelling in the lower extremities. Patient was recently discharged from [facility] with a similar complaint. Patient had previously been admitted for shortness of breath and swelling in the lower extremities. Patient has +4 pitting edema bilaterally. When patient was in the hospital previously, she admitted to increasing her salt intake. Patient's last echocardiogram on 10/18/2016 showed ejection fraction of 60% with moderate concentric left ventricular hypertrophy and severely dilated right atrium mild aortic regurgitation and mild to moderate PH. Patient was placed on BiPAP, and her vital signs improved. It is possible the patient is experiencing a COPD exacerbation. Patient's breathing has improved since the administration of BiPAP. On initial presentation, she denied having any chest pain, cough, sputum production, or GI distress. Patient appears to be very drowsy, and has difficulty communicating due to her BiPAP machine and her hearing loss. Past Med Surg Social Fam HX - Past Medical History Medical history: arthritis, atrial fibrillation, cardiomyopathy, CHF, GERD, GI bleed, hyperlipidemia, hypertension, myocardial infarction, TIA, other Psychiatric history: anxiety, depression - Past Surgical History Surgical History: - Social History Smoking Status: Never smoker Smokeless Tobacco Status: No Alcohol use: none Drug use: none - Family History Mother Living Status: Hx Family GI Disorders: Yes Father Hx Family Respiratory Disorders: Yes (COPD) Internal Medicine - H&P: Meds Citalopram Hydrobromide [Citalopram HBr] 10 mg PO DAILY 09/20/16 [History] Clopidogrel [Plavix] 75 mg PO DAILY 09/20/16 [History] Diltiazem HCl [Diltiazem ER] 120 mg PO QAM 09/20/16 [History] Ferrous Sulfate 325 mg PO DAILY 09/20/16 [History] Folic Acid 1 mg PO DAILY 09/20/16 [History] HYDROcodone/Acet 7.5/325 mg [[place] 7.5-325 mg] 1 tab PO TID 09/20/16 [History] Nitroglycerin [Nitrostat] 0.4 mg SL Q5M PRN 09/20/16 [History] Pantoprazole Sodium [Protonix] 40 mg PO BID 09/20/16 [History] Potassium Chloride [K-Tab ER] 10 meq PO DAILY 09/20/16 [History] Ropinirole HCl [Requip] 3 mg PO HS 09/20/16 [History] Gabapentin [Neurontin] 300 mg PO BID #0 09/22/16 [Rx] Furosemide [Lasix] 80 mg PO BID #60 tablet 10/21/16 [Rx] Isosorbide MONOnitrate (24 HR) [Imdur] 60 mg PO DAILY 11/18/16 [History] Aspirin 81 mg PO DAILY tab.chew 11/21/16 [Rx] Carvedilol [Coreg] 6.25 mg PO BIDWM tablet 12/01/16 [Rx] Sulfamethoxazole/Trimeth DS [Bactrim DS] 1 each PO BID #14 tablet 12/01/16 [Rx] 3 Allergy/AdvReac Type Severity Reaction Status Date / Time codeine AdvReac Vomiting Verified 11/19/16 11:44 [From Tylenol-Codeine #3] ROS unobtainable: due to mental status (Patient is very drowsy, is hard of hearing. Question patient further in the morning.) All Systems PM: A 10-system review of systems was performed and is negative for pertinent findings except as documented above in the HPI. - Constitutional Vitals: Temp Pulse Resp BP Pulse Ox 99.5 F 71 20 119/91 96 12/03/16 23:52 12/04/16 00:15 12/03/16 23:52 12/03/16 23:52 12/03/16 23:52 - Respiratory Respiratory exam: Present: decreased breath sounds. Absent: chest wall tenderness, prolonged expiratory phase, respiratory distress, stridor, wheezes - Cardiovascular Cardiovascular exam: Present: irregular rhythm, +S1, +S2. Absent: distant heart sounds, systolic murmur, tachycardia - Extremities Exam Extremities exam: Present: pedal edema (+4 pitting edema bilaterally in the lower extremities.) <Melissa Kelley - Last Filed: 12/04/16 04:15> Date of Encounter: 12/04/16 Internal Medicine - H&P: HPI History of present illness: Ms. Crawford is a 76 year old female All Systems PM: A 10-system review of systems was performed and is negative for pertinent findings except as documented above in the HPI. - Constitutional Vitals: Temp Pulse Resp BP Pulse Ox 99.5 F 71 20 119/91 96 12/03/16 23:52 12/04/16 00:15 12/03/16 23:52 12/03/16 23:52 12/03/16 23:52 - Attending Attestation I have personally and independently seen and examined the patient and discussed the plan with the resident and agree with the findings. Mrs. Lesly Crawford is a 76-year-old female who was recently discharged after being treated for CHF COPD like A. fib and leg wound. This is a concern that she has a started smoking again and therefore she become short of breath and came to [facility]. Initial concern was that. If she has CHF and I was told that chest x-ray also was told the same findings. We do not have that report. In any case patient transferred to a hospital with as I saw the patient she appears confused and she is on BiPAP and did not answer my questions. I will obtain a CT head to rule out bleed or stroke though her neurological examination otherwise is nonfocal. Since she is on BiPAP I could not hear any wheezing or rales but I will restart her on DuoNeb's Solu-Medrol and Mucinex along with Levaquin. I did not find any JVD on examination and her legs are swollen but appears wrinkled which tells me that she had been diuresed well enough recently. In any case we have given her a dose of Lasix 80 tonight and she already had received Lasix 60 at [facility] and from thereon will put her on 40 twice a day dosing and check her electrolytes and renal function in the morning. Her leg wound has yielded there enterococcus and Proteus which are sensitive to Levaquin and therefore it can be continued. Will obtain a chest x-ray of her own to see if there is any underlying pneumonia.
[2016-12-04] MEDS ORDERED: Nitroglycerin 0.4 MG TAB.SUBL SL PRN (03:59)
[2016-12-04] MEDS ORDERED: Naloxone 0.4 MG/ML INJ IVP PRN ×2 (04:01→04:05)
[2016-12-04] MEDS ORDERED: Ondansetron 4 MG/2 ML VIAL IVP PRN (04:05)
[2016-12-04] MEDS: Furosemide 40 MG/4 ML VIAL IVP SCH ×3 (04:06→21:31)
[2016-12-04] MEDS: Ipratropium/Albuterol Neb 3 ML IH SCH ×5 (05:01→20:18)
[2016-12-04 05:24] LABS: ABG Base Excess 9 mEq/L (-2 to 3); ABG HCO3 37 mEq/L (21-27); ABG Oxygen Saturation 97 % (95-98); ABG PCO2 65 mmHg (35-45); ABG PH 7.36 pH Units (7.32-7.45); ABG PO2 98 mmHg (85-104); ABG TCO2 39 mEq/L (20-26); Blood Gas PEEP 5 cm H2O; Blood Gas Pressure Support 12 cm H2O
[2016-12-04] MEDS ORDERED: *HR* Heparin 5,000 UNIT/ML VIAL SQ SCH (06:00)
[2016-12-04 08:24] LABS: Basophils % 0.4 %; Immature Granulocytes % 0.6 % (0-4); Lymphocytes % 2.9 %
[2016-12-04 08:25] LABS: Eosinophils % 0.2 %; Hematocrit 37.1 % (35.3-44.9); Hemoglobin 10.8 g/dL (11.5-15.4); Lymphocytes # 0.2 K/mcL (0.6-4.6); Mean Corpuscular HGB Conc 29.1 g/dL (31.6-35.5); Mean Corpuscular Hemoglobin 28.6 pg (28.0-33.3); Mean Corpuscular Volume 98.1 fL (83.0-100.0); Mean Platelet Volume 11.3 fL (9.4-12.4); Monocytes # 0.1 K/mcL (0.0-1.3); Monocytes % 2.1 %; Red Blood Count 3.78 M/mcL (3.82-4.97); Red Cell Distribution Width 17.3 % (11.5-14.5); Segmented Neutrophils % 93.8 %
[2016-12-04 08:33] LABS: Neutrophils # 4.9 K/mcL (1.6-8.9)
[2016-12-04 08:34] LABS: Platelet Count 76 K/mcL (140-400)
[2016-12-04 08:39] LABS: Albumin 3.1 g/dL (3.5-5.0); Albumin/Globulin Ratio 0.9 (1.1-2.2); Bilirubin,Total 1.8 mg/dL (0.2-1.2); Calcium 8.6 mg/dL (8.6-10.8); Globulin 3.5 g/dL (2.4-3.5); Potassium 4.4 mEq/L (3.5-4.5); Total Protein 6.6 g/dL (6.0-8.3)
[2016-12-04] MEDS ORDERED: *HR* Heparin 5,000 UNIT/ML VIAL IVP PRN ×2 (09:10)
[2016-12-04] MEDS ORDERED: *HR* Heparin 5,000 UNIT/ML VIAL IVP ONE (09:10)
[2016-12-04] MEDS: methylPREDNISolone 125 MG/2 ML VIAL IVP SCH ×2 (09:35→16:00)
[2016-12-04] MEDS: Levofloxacin 500 MG/100 ML 500 MG/100 ML BAG IVPB SCH (09:35)
[2016-12-04] MEDS: Aspirin 81 MG TAB.CHEW PO SCH (09:35)
[2016-12-04] MEDS: Diltiazem CD (24hr) 120 MG CAPSULE PO SCH (09:36)
[2016-12-04] MEDS: Folic Acid 1 MG TABLET PO SCH (09:36)
[2016-12-04] MEDS: Isosorbide MONOnitrate (24 HR) 60 MG TAB.ER.24H PO SCH (09:36)
[2016-12-04 09:42] LABS: INR 1.6
[2016-12-04 09:45] LABS: Activated Partial Thrombo Time 31.6 Seconds (26.0-36.0)
[2016-12-04] MEDS: Heparin 25,000 UNIT/500 ML D5W 25,000 UNIT/500 ML MLS IVC SCH (11:04)
[2016-12-04] MEDS: Acetaminophen 325 MG TABLET PO PRN (18:57)
[2016-12-05] MEDS: Ipratropium/Albuterol Neb 3 ML IH SCH ×7 (00:01→23:02)
[2016-12-05 00:45] LABS: Basophils % 0.3 %; Hematocrit 32.8 % (35.3-44.9); Hemoglobin 9.9 g/dL (11.5-15.4); Immature Granulocytes % 0.8 % (0-4); Lymphocytes # 0.6 K/mcL (0.6-4.6); Lymphocytes % 14.3 %; Mean Corpuscular HGB Conc 30.2 g/dL (31.6-35.5); Mean Corpuscular Hemoglobin 28.7 pg (28.0-33.3); Mean Corpuscular Volume 95.1 fL (83.0-100.0); Mean Platelet Volume 11.5 fL (9.4-12.4); Monocytes # 0.1 K/mcL (0.0-1.3); Monocytes % 2.8 %; Neutrophils # 3.2 K/mcL (1.6-8.9); Red Blood Count 3.45 M/mcL (3.82-4.97); Red Cell Distribution Width 17.2 % (11.5-14.5); Segmented Neutrophils % 81.8 %
[2016-12-05 00:46] LABS: Platelet Count 76 K/mcL (140-400)
[2016-12-05 00:57] LABS: Phosphorous 2.8 mg/dL (2.3-4.7)
[2016-12-05] MEDS: Gabapentin 300 MG CAPSULE PO SCH ×3 (01:20→14:18)
[2016-12-05] MEDS: methylPREDNISolone 125 MG/2 ML VIAL IVP SCH ×2 (01:20→09:22)
[2016-12-05 04:36] LABS: ABG Base Excess 9 mEq/L (-2 to 3); ABG HCO3 36 mEq/L (21-27); ABG Oxygen Saturation 99 % (95-98); ABG PCO2 60 mmHg (35-45); ABG PH 7.39 pH Units (7.32-7.45); ABG PO2 143 mmHg (85-104); ABG TCO2 38 mEq/L (20-26); Blood Gas Modality NCPAP
[2016-12-05] MEDS: Heparin 25,000 UNIT/500 ML D5W 25,000 UNIT/500 ML MLS IVC SCH (06:19)
[2016-12-05 08:13] LABS: Calcium 8.1 mg/dL (8.6-10.8); Potassium 4.6 mEq/L (3.5-4.5)
--- NOTE | 2016-12-05 09:17 | Cardiology Consult Note ---
Date of Encounter: 12/05/16 Time of Encounter: 09:13 Assessment and Plan (1) Right-sided heart failure Current Visit: Yes Status: Chronic Per cardiology: -Acute on chronic right sided heart failure. Known severe TR. -BNP 2795--was down to 2383 on last admission--appears to have chronically elevated BNPs. -On IV lasix 40mg BID. -CXR consistent with CHF and stable small-moderate pleural effusion. -Pt admits to eating high Na foods--frozen meals. Also admits to excess fluid intake 3L/day--likely causing her recurrent exacerbations. Counseled on fluid and Na restriction. -Echo 10/18/16 LVEF 60%, moderate concentric LVH, indeterminate diastolic dysfunction, moderately dilated and mildly hypokinetic RV, severely dilated right atrium, moderately calcified aortic valve leaflets, mild AR, mild- moderate , mild-moderate PH, severe TR, all wall segments with normal motion. -Recommend strict I/Os, daily weights, fluid restriction. -Agree with IV diuresis, transition to PO Maintenance dose prior to discharge. -Check limited echo given elevated troponins. If EF remains preserved, anticipate sign off with outpt follow-up. (2) Elevated troponin I level Current Visit: No Status: Acute Per cardiology: -Troponins 0.22, 0.24, 0.31 in setting of right sided CHF and COPD exacerbation. Suspect demand ischemia, nondiagnostic for ACS. -ECG with no ischemic changes. -Echo as above. -[facility] 2014 with 20% mid RCA stenosis, otherwise angiographically free of disease. -Check limited echo to re-evaluate EF. If EF preserved, no further cardiac testing warranted. (3) A-fib Current Visit: No Status: Chronic Per cardiology: -Known chronic a.fib. -HR controlled. -On cardizem and beta shilpa. -Not on anticoagulation due to severe GI bleed that required 9 units of PRBC transfusion per patient. Patient refuses to be on anticoagulation. Patient understands and accepts increased risk of CVA. -Pt was on Plavix only at home--currently on ASA and Plavix as inpt. No indication for pt to be on both, so will stop ASA. -Will continue to monitor in outpatient setting. -Can consider outpatient sleep study. Qualifiers: Atrial fibrillation type: chronic Qualified Code(s): I48.2 - Chronic atrial fibrillation (4) Tricuspid valve regurgitation Current Visit: No Status: Chronic Per cardiology: -Known severe TR. -Patient declines further intervention or consultations for valve--likely poor candidate for any intervention. -Patient states understanding risk of with no intervention. -Will continue to monitor in outpatient setting. Qualifiers: Cardiac valve disease etiology: etiology unspecified Qualified Code(s): I07.1 - Rheumatic tricuspid insufficiency Discussion w patient/family: The assessment and plan as outlined above was discussed with the patient and/or family members who expressed understanding and agreement. All questions were answered. Thank you for involving us in the care of your patient. Please call with any questions. I will discuss all the above with Dr. Mullen and make changes as necessary. History of Present Illness Consult date: 12/05/16 Requesting physician: Melissa Kelley Consult reason: elevated troponin Chief complaint: dyspnea History of present illness: Ms. Crawford is a 76 year old female with past medical history of right sided CHF NYHA class III, COPD, supplemental oxygen dependence at 3 L, chronic atrial fibrillation, hypertension, and obesity who presented to [place] with chief complaint of shortness of breath and swelling in the lower extremities. Patient was recently discharged from [facility] with CHF exacerbation. Currently it is thought she has a combination of CHF and COPD exacerbation. Troponins mildly elevated at 0.22, 0.24 and 0.32--cardiology consulted for further recommendations. Pt denies chest pain. Admits to continuing to eat frozen meals high in sodium and drinking close to 3L of fluid/day. BNP 2795. CXR consistent with congestive heart failure with stable small to moderate right pleural effusion. Echo 10/18/2016 EF 60% with moderate concentric LVH, Moderately dilated and mildly hypokinetic right ventricle, Severely dilated right atrium, Moderately calcified aortic valve leaflets, Mild aortic regurgitation, Mild-moderate aortic stenosis. Mean gradient 19 mmHg, Mild-moderate pulmonary hypertension, Estimated RVSP is 36-46 mmHg, Severe tricuspid regurgitation. [facility] 02/26/14 mild nonobstructive CAD. Past Med Surg Social Fam HX - Past Medical History Medical history: arthritis, atrial fibrillation, cardiomyopathy, CHF, GERD, GI bleed, hyperlipidemia, hypertension, myocardial infarction, TIA, other Psychiatric history: anxiety, depression - Past Surgical History Surgical History: - Social History Smoking Status: Never smoker Smokeless Tobacco Status: No Alcohol use: none Drug use: none - Family History Mother Living Status: Hx Family GI Disorders: Yes Father Hx Family Respiratory Disorders: Yes (COPD) Medications and Allergies Citalopram Hydrobromide [Citalopram HBr] 10 mg PO DAILY 09/20/16 [History] Clopidogrel [Plavix] 75 mg PO DAILY 09/20/16 [History] Diltiazem HCl [Diltiazem ER] 120 mg PO QAM 09/20/16 [History] Ferrous Sulfate 325 mg PO DAILY 09/20/16 [History] Folic Acid 1 mg PO DAILY 09/20/16 [History] HYDROcodone/Acet 7.5/325 mg [[place] 7.5-325 mg] 1 tab PO TID 09/20/16 [History] Nitroglycerin [Nitrostat] 0.4 mg SL Q5M PRN 09/20/16 [History] Pantoprazole Sodium [Protonix] 40 mg PO BID 09/20/16 [History] Potassium Chloride [K-Tab ER] 30 meq PO DAILY 09/20/16 [History] Ropinirole HCl [Requip] 3 mg PO HS 09/20/16 [History] Furosemide [Lasix] 80 mg PO BID #60 tablet 10/21/16 [Rx] Isosorbide MONOnitrate (24 HR) [Imdur] 60 mg PO DAILY 11/18/16 [History] Aspirin 81 mg PO DAILY tab.chew 11/21/16 [Rx] Carvedilol [Coreg] 6.25 mg PO BIDWM tablet 12/01/16 [Rx] Gabapentin [Neurontin] 300 mg PO TID 12/04/16 [History] Sulfamethoxazole/Trimeth DS [Bactrim DS] 1 tab PO BID 12/04/16 [History] 3 Allergy/AdvReac Type Severity Reaction Status Date / Time codeine AdvReac Vomiting Verified 11/19/16 11:44 [From Tylenol-Codeine #3] All Systems Review: A 10-system review of systems was performed and is negative for pertinent findings except as documented above in the HPI. - Cardiovascular Cardiovascular: as per HPI, dyspnea at rest, dyspnea on exertion, leg edema - Respiratory Respiratory: dyspnea Physical Examination Vital Signs, Last 4 Hours Pulse Resp Pulse Ox 12/05/16 08:23 65 97 12/05/16 07:32 18 100 Vital Signs Temp Pulse Resp BP Pulse Ox 12/05/16 08:23 65 97 12/05/16 07:32 18 100 12/05/16 04:18 16 99 12/05/16 04:01 97.9 F 78 20 99/66 94 12/05/16 03:16 67 12/05/16 00:01 23 101/49 97 12/04/16 23:41 97.8 F 70 18 101/49 93 12/04/16 23:08 62 12/04/16 20:18 18 94 12/04/16 19:45 69 12/04/16 19:31 97.7 F 77 20 107/70 94 12/04/16 16:29 20 114/69 93 12/04/16 16:13 97.5 F L 77 20 114/69 93 12/04/16 16:09 77 12/04/16 12:30 97.3 F L 77 20 133/72 92 12/04/16 11:38 16 97 12/04/16 09:56 70 Intake and Output 12/04/16 12/05/16 12/05/16 23:59 07:59 15:59 Intake Total 200 / 200 300 / 300 770 / 770 Output Total 300 / 300 300 / 300 Balance -100 / -100 0 / 0 770 / 770 Intake: IV Fluids 200 / 200 300 / 300 50 / 50 Heparin 25,000 UNIT/500 ML D5W 200 / 200 300 / 300 50 / 50 25,000 unit In 500 ml @ 14 UNIT /KG/HR 26.068 mls/hr IVC . [id number] [facility] Rx#:[id number] Oral 720 / 720 Output: Urine 300 / 300 300 / 300 Other: Stool Size Small Stool Consistency loose Stool Color Brown Yellow # Bowel Movements 1 Weight 92.3 kg Patient Weight 12/05/16 23:59 Weight 92.3 kg General: Conversant, No Apparent Distress HEENT: Atraumatic, Normocephaly, Mucus Membranes Moist Neck: Normal carotid pulses Cardiac: Other (irregularly irregular rhythm. 2/6 murmur) Lungs: Other (diminished) Neuro: Alert and responsive, No focal deficits noted Abdomen: Soft, Non-Tender Skin: No rashes noted on visualized skin Musculoskeletal: No Chest Wall Tenderness Extremities: Other (3+ BLE) Results 12/05/16 00:33 12/05/16 00:33 Lab Results 12/04/16 12/04/16 12/04/16 08:07 14:20 17:50 WBC Hgb Hct Plt Count INR 1.6 APTT 31.6 Sodium Potassium Chloride Carbon Dioxide BUN Creatinine Glucose Calcium Magnesium Troponin I 0.24 H* 0.31 H* 12/04/16 12/05/16 12/05/16 17:50 00:33 00:33 WBC Hgb Hct Plt Count INR APTT 79.8 H D 96.9 H Sodium Potassium Chloride Carbon Dioxide BUN Creatinine Glucose Calcium Magnesium 2.0 Troponin I 12/05/16 12/05/16 12/05/16 00:33 00:33 00:33 WBC 3.9 L Hgb 9.9 L Hct 32.8 L Plt Count 76 L INR APTT Sodium 136 Potassium 4.6 H Chloride 96 L Carbon Dioxide 29 BUN 36 H Creatinine 1.36 H Glucose 185 H Calcium 8.1 L Magnesium Troponin I 0.30 H* 12/05/16 07:25 WBC Hgb Hct Plt Count INR APTT 76.2 H Sodium Potassium Chloride Carbon Dioxide BUN Creatinine Glucose Calcium Magnesium Troponin I Short CBC 12/05/16 12/05/16 12/05/16 Range/Units 07:25 04:32 00:33 WBC (4.3-11.1) K/mcL RBC (3.82-4.97) M/mcL Hgb (11.5-15.4) g/dL Hct (35.3-44.9) % MCV (83.0-100.0) fL MCH (28.0-33.3) pg MCHC (31.6-35.5) g/dL RDW (11.5-14.5) % Plt Count (140-400) K/mcL MPV (9.4-12.4) fL Immature Gran % (0-4) % Seg Neutrophils % % Lymphocytes % % Monocytes % % Eosinophils % % Basophils % % Neutrophils # (1.6-8.9) K/mcL Lymphocytes # (0.6-4.6) K/mcL Monocytes # (0.0-1.3) K/mcL Eosinophils # (0.0-0.6) K/mcL Basophils # (0.0-0.2) K/mcL PT (9.4-12.1) Seconds INR APTT 76.2 H (26.0-36.0) Seconds Sample Site ABG pH 7.39 (7.32-7.45) pH Units ABG pCO2 60 H (35-45) mmHg ABG pO2 143 H (85-104) mmHg ABG HCO3 36 H (21-27) mEq/L ABG Total CO2 38 H (20-26) mEq/L ABG O2 Saturation 99 H (95-98) % ABG Base Excess 9 H (-2 to 3) mEq/L Shan Test O2 Delivery Device Blood Gas Modality NCPAP Inspired O2 36.0 (1-15=lpm fa27-410=%) PEEP cm H2O Pressure Support cm H2O Sodium 136 (136-145) mEq/L Potassium 4.6 H (3.5-4.5) mEq/L Chloride 96 L (98-109) mEq/L Carbon Dioxide 29 (19-29) mEq/L BUN 36 H (7-20) mg/dL Creatinine 1.36 H (0.57-1.11) mg/dL Est GFR ( Amer) 46 L (> 60) Est GFR (Non-Af Amer) 38 L (> 60) BUN/Creatinine Ratio 26 (6-26) Glucose 185 H (70-99) mg/dL Calculated Osmolality 295 (280-300) Calcium 8.1 L (8.6-10.8) mg/dL Phosphorus (2.3-4.7) mg/dL Magnesium (1.6-2.6) mg/dL Total Bilirubin (0.2-1.2) mg/dL AST (5-34) Units/L ALT (0-55) Units/L Alkaline Phosphatase (38-126) Units/L Troponin I (0-0.03) ng/mL B-Natriuretic Peptide (0-100) pg/mL Serum Total Protein (6.0-8.3) g/dL Albumin (3.5-5.0) g/dL Globulin (2.4-3.5) g/dL Albumin/Globulin Ratio (1.1-2.2) 12/05/16 12/05/16 12/05/16 Range/Units 00:33 00:33 00:33 WBC 3.9 L (4.3-11.1) K/mcL RBC 3.45 L (3.82-4.97) M/mcL Hgb 9.9 L (11.5-15.4) g/dL Hct 32.8 L (35.3-44.9) % MCV 95.1 (83.0-100.0) fL MCH 28.7 (28.0-33.3) pg MCHC 30.2 L (31.6-35.5) g/dL RDW 17.2 H (11.5-14.5) % Plt Count 76 L (140-400) K/mcL MPV 11.5 (9.4-12.4) fL Immature Gran % 0.8 (0-4) % Seg Neutrophils % 81.8 % Lymphocytes % 14.3 % Monocytes % 2.8 % Eosinophils % 0.0 % Basophils % 0.3 % Neutrophils # 3.2 (1.6-8.9) K/mcL Lymphocytes # 0.6 (0.6-4.6) K/mcL Monocytes # 0.1 (0.0-1.3) K/mcL Eosinophils # 0.0 (0.0-0.6) K/mcL Basophils # 0.0 (0.0-0.2) K/mcL PT (9.4-12.1) Seconds INR APTT 96.9 H (26.0-36.0) Seconds Sample Site ABG pH (7.32-7.45) pH Units ABG pCO2 (35-45) mmHg ABG pO2 (85-104) mmHg ABG HCO3 (21-27) mEq/L ABG Total CO2 (20-26) mEq/L ABG O2 Saturation (95-98) % ABG Base Excess (-2 to 3) mEq/L Shan Test O2 Delivery Device Blood Gas Modality Inspired O2 (1-15=lpm jx90-521=%) PEEP cm H2O Pressure Support cm H2O Sodium (136-145) mEq/L Potassium (3.5-4.5) mEq/L Chloride (98-109) mEq/L Carbon Dioxide (19-29) mEq/L BUN (7-20) mg/dL Creatinine (0.57-1.11) mg/dL Est GFR ( Amer) (> 60) Est GFR (Non-Af Amer) (> 60) BUN/Creatinine Ratio (6-26) Glucose (70-99) mg/dL Calculated Osmolality (280-300) Calcium (8.6-10.8) mg/dL Phosphorus (2.3-4.7) mg/dL Magnesium (1.6-2.6) mg/dL Total Bilirubin (0.2-1.2) mg/dL AST (5-34) Units/L ALT (0-55) Units/L Alkaline Phosphatase (38-126) Units/L Troponin I 0.30 H* (0-0.03) ng/mL B-Natriuretic Peptide (0-100) pg/mL Serum Total Protein (6.0-8.3) g/dL Albumin (3.5-5.0) g/dL Globulin (2.4-3.5) g/dL Albumin/Globulin Ratio (1.1-2.2) 12/05/16 12/04/16 12/04/16 Range/Units 00:33 17:50 17:50 WBC (4.3-11.1) K/mcL RBC (3.82-4.97) M/mcL Hgb (11.5-15.4) g/dL Hct (35.3-44.9) % MCV (83.0-100.0) fL MCH (28.0-33.3) pg MCHC (31.6-35.5) g/dL RDW (11.5-14.5) % Plt Count (140-400) K/mcL MPV (9.4-12.4) fL Immature Gran % (0-4) % Seg Neutrophils % % Lymphocytes % % Monocytes % % Eosinophils % % Basophils % % Neutrophils # (1.6-8.9) K/mcL Lymphocytes # (0.6-4.6) K/mcL Monocytes # (0.0-1.3) K/mcL Eosinophils # (0.0-0.6) K/mcL Basophils # (0.0-0.2) K/mcL PT (9.4-12.1) Seconds INR APTT 79.8 H D (26.0-36.0) Seconds Sample Site ABG pH (7.32-7.45) pH Units ABG pCO2 (35-45) mmHg ABG pO2 (85-104) mmHg ABG HCO3 (21-27) mEq/L ABG Total CO2 (20-26) mEq/L ABG O2 Saturation (95-98) % ABG Base Excess (-2 to 3) mEq/L Shan Test O2 Delivery Device Blood Gas Modality Inspired O2 (1-15=lpm oe60-136=%) PEEP cm H2O Pressure Support cm H2O Sodium (136-145) mEq/L Potassium (3.5-4.5) mEq/L Chloride (98-109) mEq/L Carbon Dioxide (19-29) mEq/L BUN (7-20) mg/dL Creatinine (0.57-1.11) mg/dL Est GFR ( Amer) (> 60) Est GFR (Non-Af Amer) (> 60) BUN/Creatinine Ratio (6-26) Glucose (70-99) mg/dL Calculated Osmolality (280-300) Calcium (8.6-10.8) mg/dL Phosphorus 2.8 (2.3-4.7) mg/dL Magnesium 2.0 (1.6-2.6) mg/dL Total Bilirubin (0.2-1.2) mg/dL AST (5-34) Units/L ALT (0-55) Units/L Alkaline Phosphatase (38-126) Units/L Troponin I 0.31 H* (0-0.03) ng/mL B-Natriuretic Peptide (0-100) pg/mL Serum Total Protein (6.0-8.3) g/dL Albumin (3.5-5.0) g/dL Globulin (2.4-3.5) g/dL Albumin/Globulin Ratio (1.1-2.2) 12/04/16 12/04/16 12/04/16 Range/Units 14:20 08:07 08:07 WBC (4.3-11.1) K/mcL RBC (3.82-4.97) M/mcL Hgb (11.5-15.4) g/dL Hct (35.3-44.9) % MCV (83.0-100.0) fL MCH (28.0-33.3) pg MCHC (31.6-35.5) g/dL RDW (11.5-14.5) % Plt Count (140-400) K/mcL MPV (9.4-12.4) fL Immature Gran % (0-4) % Seg Neutrophils % % Lymphocytes % % Monocytes % % Eosinophils % % Basophils % % Neutrophils # (1.6-8.9) K/mcL Lymphocytes # (0.6-4.6) K/mcL Monocytes # (0.0-1.3) K/mcL Eosinophils # (0.0-0.6) K/mcL Basophils # (0.0-0.2) K/mcL PT 17.0 H (9.4-12.1) Seconds INR 1.6 APTT 31.6 (26.0-36.0) Seconds Sample Site ABG pH (7.32-7.45) pH Units ABG pCO2 (35-45) mmHg ABG pO2 (85-104) mmHg ABG HCO3 (21-27) mEq/L ABG Total CO2 (20-26) mEq/L ABG O2 Saturation (95-98) % ABG Base Excess (-2 to 3) mEq/L Shan Test O2 Delivery Device Blood Gas Modality Inspired O2 (1-15=lpm fs27-887=%) PEEP cm H2O Pressure Support cm H2O Sodium (136-145) mEq/L Potassium (3.5-4.5) mEq/L Chloride (98-109) mEq/L Carbon Dioxide (19-29) mEq/L BUN (7-20) mg/dL Creatinine (0.57-1.11) mg/dL Est GFR ( Amer) (> 60) Est GFR (Non-Af Amer) (> 60) BUN/Creatinine Ratio (6-26) Glucose (70-99) mg/dL Calculated Osmolality (280-300) Calcium (8.6-10.8) mg/dL Phosphorus (2.3-4.7) mg/dL Magnesium (1.6-2.6) mg/dL Total Bilirubin (0.2-1.2) mg/dL AST (5-34) Units/L ALT (0-55) Units/L Alkaline Phosphatase (38-126) Units/L Troponin I 0.24 H* (0-0.03) ng/mL B-Natriuretic Peptide 2795 H (0-100) pg/mL Serum Total Protein (6.0-8.3) g/dL Albumin (3.5-5.0) g/dL Globulin (2.4-3.5) g/dL Albumin/Globulin Ratio (1.1-2.2) 12/04/16 12/04/16 12/04/16 Range/Units 08:07 08:07 08:07 WBC (4.3-11.1) K/mcL RBC 3.78 L (3.82-4.97) M/mcL Hgb (11.5-15.4) g/dL Hct (35.3-44.9) % MCV 98.1 (83.0-100.0) fL MCH 28.6 (28.0-33.3) pg MCHC 29.1 L (31.6-35.5) g/dL RDW 17.3 H (11.5-14.5) % Plt Count (140-400) K/mcL MPV 11.3 (9.4-12.4) fL Immature Gran % 0.6 (0-4) % Seg Neutrophils % 93.8 % Lymphocytes % 2.9 % Monocytes % 2.1 % Eosinophils % 0.2 % Basophils % 0.4 % Neutrophils # (1.6-8.9) K/mcL Lymphocytes # 0.2 L (0.6-4.6) K/mcL Monocytes # 0.1 (0.0-1.3) K/mcL Eosinophils # 0.0 (0.0-0.6) K/mcL Basophils # 0.0 (0.0-0.2) K/mcL PT (9.4-12.1) Seconds INR APTT (26.0-36.0) Seconds Sample Site ABG pH (7.32-7.45) pH Units ABG pCO2 (35-45) mmHg ABG pO2 (85-104) mmHg ABG HCO3 (21-27) mEq/L ABG Total CO2 (20-26) mEq/L ABG O2 Saturation (95-98) % ABG Base Excess (-2 to 3) mEq/L Shan Test O2 Delivery Device Blood Gas Modality Inspired O2 (1-15=lpm am29-617=%) PEEP cm H2O Pressure Support cm H2O Sodium 143 (136-145) mEq/L Potassium 4.4 (3.5-4.5) mEq/L Chloride 99 (98-109) mEq/L Carbon Dioxide 35 H (19-29) mEq/L BUN 33 H (7-20) mg/dL Creatinine 1.38 H (0.57-1.11) mg/dL Est GFR ( Amer) 45 L (> 60) Est GFR (Non-Af Amer) 37 L (> 60) BUN/Creatinine Ratio 24 (6-26) Glucose 99 (70-99) mg/dL Calculated Osmolality 303 H (280-300) Calcium 8.6 (8.6-10.8) mg/dL Phosphorus (2.3-4.7) mg/dL Magnesium (1.6-2.6) mg/dL Total Bilirubin 1.8 H (0.2-1.2) mg/dL AST 18 (5-34) Units/L ALT 11 (0-55) Units/L Alkaline Phosphatase 102 (38-126) Units/L Troponin I 0.22 H* (0-0.03) ng/mL B-Natriuretic Peptide (0-100) pg/mL Serum Total Protein 6.6 (6.0-8.3) g/dL Albumin 3.1 L (3.5-5.0) g/dL Globulin 3.5 (2.4-3.5) g/dL Albumin/Globulin Ratio 0.9 L (1.1-2.2) 12/04/16 Range/Units 05:21 WBC (4.3-11.1) K/mcL RBC (3.82-4.97) M/mcL Hgb (11.5-15.4) g/dL Hct (35.3-44.9) % MCV (83.0-100.0) fL MCH (28.0-33.3) pg MCHC (31.6-35.5) g/dL RDW (11.5-14.5) % Plt Count (140-400) K/mcL MPV (9.4-12.4) fL Immature Gran % (0-4) % Seg Neutrophils % % Lymphocytes % % Monocytes % % Eosinophils % % Basophils % % Neutrophils # (1.6-8.9) K/mcL Lymphocytes # (0.6-4.6) K/mcL Monocytes # (0.0-1.3) K/mcL Eosinophils # (0.0-0.6) K/mcL Basophils # (0.0-0.2) K/mcL PT (9.4-12.1) Seconds INR APTT (26.0-36.0) Seconds Sample Site L Radial ABG pH 7.36 (7.32-7.45) pH Units ABG pCO2 65 H (35-45) mmHg ABG pO2 98 (85-104) mmHg ABG HCO3 37 H (21-27) mEq/L ABG Total CO2 39 H (20-26) mEq/L ABG O2 Saturation 97 (95-98) % ABG Base Excess 9 H (-2 to 3) mEq/L Shan Test N/A O2 Delivery Device BiPAP Blood Gas Modality Inspired O2 40.0 (1-15=lpm tm25-720=%) PEEP 5 cm H2O Pressure Support 12 cm H2O Sodium (136-145) mEq/L Potassium (3.5-4.5) mEq/L Chloride (98-109) mEq/L Carbon Dioxide (19-29) mEq/L BUN (7-20) mg/dL Creatinine (0.57-1.11) mg/dL Est GFR ( Amer) (> 60) Est GFR (Non-Af Amer) (> 60) BUN/Creatinine Ratio (6-26) Glucose (70-99) mg/dL Calculated Osmolality (280-300) Calcium (8.6-10.8) mg/dL Phosphorus (2.3-4.7) mg/dL Magnesium (1.6-2.6) mg/dL Total Bilirubin (0.2-1.2) mg/dL AST (5-34) Units/L ALT (0-55) Units/L Alkaline Phosphatase (38-126) Units/L Troponin I (0-0.03) ng/mL B-Natriuretic Peptide (0-100) pg/mL Serum Total Protein (6.0-8.3) g/dL Albumin (3.5-5.0) g/dL Globulin (2.4-3.5) g/dL Albumin/Globulin Ratio (1.1-2.2) [facility] 12/05/16 Range/Units 00:33 Sodium 136 (136-145) mEq/L Potassium 4.6 H (3.5-4.5) mEq/L Chloride 96 L (98-109) mEq/L Carbon Dioxide 29 (19-29) mEq/L BUN 36 H (7-20) mg/dL Creatinine 1.36 H (0.57-1.11) mg/dL Glucose 185 H (70-99) mg/dL Calcium 8.1 L (8.6-10.8) mg/dL Cardiac Enzymes 12/05/16 12/04/16 12/04/16 Range/Units 00:33 17:50 14:20 Troponin I 0.30 H* 0.31 H* 0.24 H* (0-0.03) ng/mL Impressions Chest X-Ray 12/04/16 04:09 IMPRESSION: Findings likely reflecting congestive heart failure with stable small to moderate right pleural effusion. D/ / Jyoti Bernardo MD / Jyoti Bernardo MD Interpreting Provider: Jyoti Bernardo MD Active Medications Acetaminophen (Tylenol) 650 mg PO Q6HR PRN PRN Reason: Mild Pain (1-3) Stop: 06/05/17 04:06 Last Admin: 12/04/16 18:57 Dose: 650 mg Albuterol/Ipratropium (Duoneb) 3 ml IH [id number] [facility] Stop: 06/05/17 04:01 Last Admin: 12/05/16 07:32 Dose: 3 ml Aspirin (Aspirin) 81 mg PO DAILY [facility] Stop: 06/05/17 09:01 Last Admin: 12/04/16 09:35 Dose: 81 mg Carvedilol (Coreg) 6.25 mg PO BIDWM [facility]I PRN Reason: Protocol Stop: 06/05/17 08:01 Last Admin: 12/04/16 16:00 Dose: 6.25 mg Citalopram Hydrobromide (Celexa) 10 mg PO DAILY [facility] Stop: 06/05/17 09:01 Last Admin: 12/04/16 09:36 Dose: 10 mg Clopidogrel Bisulfate (Plavix) 75 mg PO DAILY [facility] Stop: 06/05/17 09:01 Last Admin: 12/04/16 09:36 Dose: 75 mg Diltiazem HCl (Cardizem Cd) 120 mg PO QAM [facility] Stop: 06/05/17 09:01 Last Admin: 12/04/16 09:36 Dose: 120 mg Docusate Sodium (Colace) 100 mg PO BID PRN PRN Reason: Constipation Stop: 06/05/17 04:06 Ferrous Sulfate (Ferrous Sulfate) 325 mg PO DAILY [facility] Stop: 06/05/17 09:01 Last Admin: 12/04/16 09:36 Dose: 325 mg Folic Acid (Folic Acid) 1 mg PO DAILY [facility] Stop: 06/05/17 09:01 Last Admin: 12/04/16 09:36 Dose: 1 mg Furosemide (Lasix) 40 mg IVP BID [facility] Stop: 06/05/17 03:01 Last Admin: 12/04/16 21:31 Dose: 40 mg Gabapentin (Neurontin) 300 mg PO TID [facility] Stop: 06/06/17 00:46 Last Admin: 12/05/16 01:20 Dose: 300 mg Guaifenesin (Mucinex) 600 mg PO BID [facility] Stop: 06/05/17 09:01 Last Admin: 12/04/16 21:31 Dose: 600 mg Heparin Sodium (Porcine) (Heparin) 6,500 unit 70 unit/kg (6500 unit) IVP Q6HR PRN PRN Reason: SEE COMMENTS Stop: 06/05/17 09:11 Heparin Sodium (Porcine) (Heparin) 3,300 unit 35 unit/kg (3300 unit) IVP Q6H PRN PRN Reason: SEE COMMENTS Stop: 06/05/17 09:11 Levofloxacin/Dextrose (Levaquin Premix 500mg/100ml) 500 mg in 100 mls @ 100 mls /hr IVPB Q48H [facility]I PRN Reason: Protocol Stop: 06/05/17 09:01 Last Infusion: 12/04/16 11:11 Dose: Infused Heparin Sodium/Dextrose (Heparin 25,000 Unit/500 Ml D5w) 25,000 unit in 500 mls @ 26.068 mls/hr IVC .[id number] VIVI; 14 UNIT/KG/HR PRN Reason: Protocol Stop: 06/05/17 09:16 Last Titration: 12/05/16 08:34 Dose: 11.97 unit/kg/hr, 22.3 mls/hr Isosorbide Mononitrate (Imdur) 60 mg PO DAILY [facility] Stop: 06/05/17 09:01 Last Admin: 12/04/16 09:36 Dose: 60 mg Methylprednisolone (Solu-Medrol) 60 mg IVP Q8HR [facility] Stop: 06/05/17 08:01 Last Admin: 12/05/16 01:20 Dose: 60 mg Naloxone HCl (Narcan) 0.4 mg IVP Q2MIN PRN PRN Reason: Opioid Reversal Stop: 06/05/17 04:02 Naloxone HCl (Narcan) 0.4 mg IVP Q2MIN PRN PRN Reason: Opioid Reversal Stop: 06/05/17 04:06 Nitroglycerin (Nitroglycerin) 0.4 mg SL Q5M PRN PRN Reason: Chest Pain Stop: 06/05/17 04:00 Omeprazole (Prilosec) 20 mg PO BID [facility] Stop: 06/05/17 09:01 Last Admin: 12/04/16 21:30 Dose: 20 mg Ondansetron HCl (Zofran) 4 mg IVP Q8HR PRN PRN Reason: Nausea And Vomiting Stop: 06/05/17 04:06 Potassium Chloride (Potassium Chloride) 10 meq PO DAILY [facility] Stop: 06/05/17 09:01 Last Admin: 12/04/16 09:36 Dose: 10 meq Ropinirole HCl (Requip) 3 mg PO HS [facility] Stop: 06/05/17 21:01 Last Admin: 12/04/16 21:30 Dose: 3 mg - Imaging and Cardiology Echo: report reviewed Cardiac cath: report reviewed - EKG Interpretation EKG results cardiology: personally reviewed (A-Fib HR 99), other (12 hr tele AVG HR 73, A-Fib) Consult Discharge Plan - Plan Referrals: Yue Kennedy, ACTUARIAL MANAGER [Primary Care Provider] -
[2016-12-05] MEDS: Aspirin 81 MG TAB.CHEW PO SCH (09:23)
[2016-12-05] MEDS: Diltiazem CD (24hr) 120 MG CAPSULE PO SCH (09:24)
[2016-12-05] MEDS: Folic Acid 1 MG TABLET PO SCH (09:24)
[2016-12-05] MEDS: Isosorbide MONOnitrate (24 HR) 60 MG TAB.ER.24H PO SCH (09:25)
[2016-12-05] MEDS: Furosemide 40 MG/4 ML VIAL IVP SCH ×2 (09:25→21:32)
[2016-12-05] MEDS: Acetaminophen 325 MG TABLET PO PRN (09:38)
[2016-12-05] MEDS: *HR* HYDROcodone/Acet 7.5/325 mg TABLET PO PRN ×2 (13:12→21:31)
[2016-12-05] MEDS: Gabapentin 100 MG CAPSULE PO SCH ×2 (16:01→21:31)
--- NOTE | 2016-12-05 18:03 | Electrocardiograph Report ---
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
[2016-12-05] MEDS: *HR* Heparin 5,000 UNIT/ML VIAL SQ SCH (18:28)
--- NOTE | 2016-12-05 19:02 | Internal Med Progress Note ---
Date of Encounter: 12/05/16 Time of Encounter: 11:00 - Assessment and plan (1) Right-sided heart failure Current Visit: Yes Status: Chronic Assessment and plan: -Cardiology consulted and suspects elevated troponins secondary to demand ischemia. -Recommendations to continue IV diuresis to follow-up at discharge in 2 weeks with cardiology. (2) A-fib Current Visit: No Status: Chronic Assessment and plan: Rate controlled; continue home dose of Cardizem. Qualifiers: Atrial fibrillation type: chronic Qualified Code(s): I48.2 - Chronic atrial fibrillation (3) DVT prophylaxis Current Visit: No Status: Acute Assessment and plan: Subcutaneous heparin - Subjective Interval history: Patient reports that her respiratory status has improved and shortness of breath is resolving - Constitutional Vitals: Temp Pulse Resp BP Pulse Ox 98.4 F 70 17 111/70 94 12/05/16 15:53 12/05/16 15:53 12/05/16 15:53 12/05/16 15:53 12/05/16 15:53 - Respiratory Respiratory exam: Absent: accessory muscle use, CTAB (Bilateral crackles auscultated at the base), rales, rhonchi, wheezes Internal Medicine: Result - Labs CBC & Chem 7: 12/05/16 00:33 12/05/16 00:33 Labs: Short CBC 12/05/16 Range/Units 00:33 WBC 3.9 L (4.3-11.1) K/mcL Hgb 9.9 L (11.5-15.4) g/dL Hct 32.8 L (35.3-44.9) % Plt Count 76 L (140-400) K/mcL Neutrophils # 3.2 (1.6-8.9) K/mcL BMP 12/05/16 00:33 Sodium 136 Potassium 4.6 H Chloride 96 L Carbon Dioxide 29 BUN 36 H Creatinine 1.36 H Glucose 185 H Calcium 8.1 L Cardiac Enzymes 12/05/16 Range/Units 00:33 Troponin I 0.30 H* (0-0.03) ng/mL - ABG Interpretation ABG results: ABG ABG pH 7.39 pH Units (7.32-7.45) 12/05/16 04:32 ABG pCO2 60 mmHg (35-45) H 12/05/16 04:32 ABG pO2 143 mmHg (85-104) H 12/05/16 04:32 ABG O2 Saturation 99 % (95-98) H 12/05/16 04:32 PT/INR, D-dimer PT 17.0 Seconds (9.4-12.1) H 12/04/16 08:07 - Impressions Impressions Echocardiogram Limited Views 12/04/16 11:15 Impressions: LVEF 65%. Normal left ventricular size and systolic function. Left Ventricular Wall Motion: Rest Echo Findings All wall segments showed normal motion. Findings: Study Quality * Technically adequate exam. ECG Findings * Atrial fibrillation. Left Ventricle * LVEF 65%. * Normal LV size. * Mild-moderate increased LV wall thickness. Aorta * Normally sized aortic root. - VTE Documentation of Mechanical Device: Graduated compression elastic hosiery Consult Discharge Plan - Plan Referrals: Yue Kennedy, HYSTER MACHINE OPERATOR [Primary Care Provider] -
[2016-12-06] MEDS: Ipratropium/Albuterol Neb 3 ML IH SCH ×6 (03:35→23:23)
[2016-12-06] MEDS: *HR* Heparin 5,000 UNIT/ML VIAL SQ SCH ×2 (05:59→20:19)
[2016-12-06] MEDS: Aspirin 81 MG TAB.CHEW PO SCH (08:36)
[2016-12-06] MEDS: Folic Acid 1 MG TABLET PO SCH (08:36)
[2016-12-06] MEDS: Gabapentin 100 MG CAPSULE PO SCH ×3 (08:36→20:19)
[2016-12-06] MEDS: Diltiazem CD (24hr) 120 MG CAPSULE PO SCH (08:37)
[2016-12-06] MEDS: Isosorbide MONOnitrate (24 HR) 60 MG TAB.ER.24H PO SCH (08:37)
[2016-12-06] MEDS: Furosemide 40 MG/4 ML VIAL IVP SCH (08:37)
[2016-12-06] MEDS: predniSONE 20 MG TABLET PO SCH (08:37)
[2016-12-06] MEDS: Levofloxacin 500 MG/100 ML 500 MG/100 ML BAG IVPB SCH (08:38)
[2016-12-06 09:31] LABS: Hematocrit 36.5 % (35.3-44.9); Hemoglobin 10.8 g/dL (11.5-15.4); Immature Granulocytes % 0.4 % (0-4); Immature Platelets 6.4 % (1.1-6.1); Lymphocytes # 0.5 K/mcL (0.6-4.6); Lymphocytes % 9.9 %; Mean Corpuscular HGB Conc 29.6 g/dL (31.6-35.5); Mean Corpuscular Hemoglobin 28.9 pg (28.0-33.3); Mean Corpuscular Volume 97.6 fL (83.0-100.0); Monocytes # 0.3 K/mcL (0.0-1.3); Monocytes % 6.6 %; Neutrophils # 3.8 K/mcL (1.6-8.9); Platelet Count 100 K/mcL (140-400); Red Blood Count 3.74 M/mcL (3.82-4.97); Segmented Neutrophils % 83.1 %
[2016-12-06 09:43] LABS: VBG HCO3 34 mEq/L (21-27); VBG PCO2 53 mmHg (41-51); VBG PH 7.41 pH Units (7.32-7.42); VBG PO2 182 mmHg (25-50)
--- NOTE | 2016-12-06 09:54 | Internal Med Progress Note ---
Date of Encounter: 12/06/16 Time of Encounter: 09:50 - Assessment and plan (1) GERARD (acute kidney injury) Current Visit: Yes Status: Acute Assessment and plan: Possibly cardiorenal, or due to lasix patient is still hypervolemic Add acetazolamide, and change lasix to daily Obtain renal USS Monitor Chem Avoid nephrotoxins (2) Hypercapnia Current Visit: Yes Status: Acute Assessment and plan: Compensated, ABG 12/05 with PCO2 60, VBG this am with PCO2 53. PH is normal Continue to monitor BiPAP prn and HS (3) Right-sided heart failure Current Visit: Yes Status: Chronic Assessment and plan: Patient with Acute on chronic right sided heart failure. Known severe TR. BNP 2795 on admission On IV lasix 40mg BID with hypercapnea, metabolic alkalosis and GERARD CXR on admission consistent with CHF and stable small-moderate pleural effusion. Echo 10/18/16 LVEF 60%, moderate concentric LVH, indeterminate diastolic dysfunction, moderately dilated and mildly hypokinetic RV, severely dilated right atrium, moderately calcified aortic valve leaflets, mild AR, mild- moderate , mild-moderate PH, severe TR, all wall segments with normal motion. ECHO done 12/04-Normal EF with no WMA Continue strict I/Os, daily weights, fluid restriction. Continue Lasix, change to daily dose due to GERARD, will add acetazolamide 500mg X 3 doses Repeat Chem and VBG a.m Monitor closely (4) A-fib Current Visit: Yes Status: Chronic Assessment and plan: Known Afib, HR controlled on cardizem and coreg, Not on anticoagulation due to severe GI bleed that required 9 units of PRBC transfusion per patient. Patient refuses to be on anticoagulation. Patient understands and accepts increased risk of CVA. ON plavix only per cardiology, continue same Qualifiers: Atrial fibrillation type: chronic Qualified Code(s): I48.2 - Chronic atrial fibrillation (5) Wheelchair bound Current Visit: Yes Status: Chronic Assessment and plan: Continue PT/OT as tolerated (6) DM type 2 (diabetes mellitus, type 2) Current Visit: Yes Status: Chronic Assessment and plan: Continue current insulin regimen A1C 5.9 09/2016 Qualifiers: Diabetes mellitus complication status: without complication Diabetes mellitus half-way insulin use: without exterminator use Qualified Code(s): E11.9 - Type 2 diabetes mellitus without complications (7) Venous stasis dermatitis of both lower extremities Current Visit: No Status: Acute (8) Acute on chronic respiratory failure with hypoxemia Current Visit: Yes Status: Resolved Assessment and plan: Continue O2 and BIPAP prn (9) Tricuspid valve regurgitation Current Visit: Yes Status: Chronic Qualifiers: Cardiac valve disease etiology: etiology unspecified Qualified Code(s): I07.1 - Rheumatic tricuspid insufficiency (10) CAD (coronary artery disease) Current Visit: Yes Status: Chronic Assessment and plan: Chronic, stable, elevated troponin due to demand ischemia Qualifiers: Coronary Disease-Associated Artery/Lesion type: [place] artery [place] vs. transplanted heart: [place] heart Associated angina: without angina Qualified Code(s): I25.10 - Atherosclerotic heart disease of [place] coronary artery without angina pectoris - Subjective Interval history: Patient is seen and evaluated at the bedside this morning. She denies new complaints. Reports no changes in clinical status Patient is a recurrent admission for CHF exacerbation from home, she also has acute on chronic hypoxic and hypercapneic resp failure, GERARD, Afib Cardiology has seen patient 12/05, recommendations noted - Constitutional Vitals: Temp Pulse Resp BP Pulse Ox 96.2 F L 65 16 126/90 99 12/06/16 07:45 12/06/16 07:45 12/06/16 07:45 12/06/16 07:45 12/06/16 07:45 General appearance: Present: A&O X 3, pleasant, no acute distress, obese - Head Head exam: Present: atraumatic, normocephalic - Eye Eye exam: Present: PERRL, conjuntiva pink, sclera anicteric Pupils: Present: PERRL - Neck Neck exam general surgery: Present: supple, trachea midline. Absent: lymphadenopathy - Respiratory Respiratory exam: Present: CTAB. Absent: accessory muscle use, rales, rhonchi, wheezes - Cardiovascular Cardiovascular exam: Present: irregular rhythm, +S1, +S2, systolic murmur. Absent: diastolic murmur, gallop, rubs - GI/Abdominal GI/Abdominal exam: Present: normal bowel sounds, soft, no peritoneal signs. Absent: distended, tenderness - Extremities Exam Additional comments: 3+ piting edema up to the knees, both legs wrapped in tania, with evidence of venous stasis dermatitis - Neurological Exam Neurological exam: Present: alert, CN II-XII intact, oriented X3, no focal deficits. Absent: pronater drift, facial droop, speech deficit - Skin Skin exam: Present: dry Additional comments: Multiple bruising from heparin Internal Medicine: Result - Labs CBC & Chem 7: 12/06/16 09:10 12/06/16 09:10 Labs: Short CBC 12/06/16 Range/Units 09:10 WBC 4.6 (4.3-11.1) K/mcL Hgb 10.8 L (11.5-15.4) g/dL Hct 36.5 (35.3-44.9) % Plt Count 100 L (140-400) K/mcL Neutrophils # 3.8 (1.6-8.9) K/mcL - ABG Interpretation ABG results: ABG ABG pH 7.39 pH Units (7.32-7.45) 12/05/16 04:32 ABG pCO2 60 mmHg (35-45) H 12/05/16 04:32 ABG pO2 143 mmHg (85-104) H 12/05/16 04:32 ABG O2 Saturation 99 % (95-98) H 12/05/16 04:32 PT/INR, D-dimer PT 17.0 Seconds (9.4-12.1) H 12/04/16 08:07 - VTE Documentation of Mechanical Device: Graduated compression elastic hosiery Consult Discharge Plan - Plan Referrals: Yue Kennedy PLANT OPERATIONS ENGINEER [Primary Care Provider] - 12/20/16 1:45 pm
[2016-12-06 10:29] LABS: Potassium 4.6 mEq/L (3.5-4.5)
[2016-12-06 10:30] LABS: Calcium 8.4 mg/dL (8.6-10.8)
[2016-12-06] MEDS: *HR* HYDROcodone/Acet 7.5/325 mg TABLET PO PRN (16:24)
[2016-12-07] MEDS: Ipratropium/Albuterol Neb 3 ML IH SCH ×7 (04:04→23:51)
[2016-12-07 05:42] LABS: Hemoglobin 9.9 g/dL (11.5-15.4); Immature Granulocytes % 0.5 % (0-4); Lymphocytes # 0.4 K/mcL (0.6-4.6); Mean Corpuscular HGB Conc 29.1 g/dL (31.6-35.5); Mean Corpuscular Hemoglobin 28.8 pg (28.0-33.3); Mean Corpuscular Volume 98.8 fL (83.0-100.0); Mean Platelet Volume 10.4 fL (9.4-12.4); Monocytes # 0.5 K/mcL (0.0-1.3); Monocytes % 11.4 %; Neutrophils # 3.4 K/mcL (1.6-8.9); Red Blood Count 3.44 M/mcL (3.82-4.97); Red Cell Distribution Width 16.8 % (11.5-14.5); Segmented Neutrophils % 78.1 %
[2016-12-07 05:43] LABS: Platelet Count 88 K/mcL (140-400)
[2016-12-07 05:57] LABS: Calcium 8.1 mg/dL (8.6-10.8); Potassium 3.9 mEq/L (3.5-4.5)
[2016-12-07] MEDS: *HR* Heparin 5,000 UNIT/ML VIAL SQ SCH ×2 (06:24→18:42)
[2016-12-07] MEDS: Diltiazem CD (24hr) 120 MG CAPSULE PO SCH (07:48)
[2016-12-07] MEDS: Gabapentin 100 MG CAPSULE PO SCH ×3 (07:48→20:19)
[2016-12-07] MEDS: Furosemide 40 MG/4 ML VIAL IVP SCH (07:48)
[2016-12-07] MEDS: Isosorbide MONOnitrate (24 HR) 60 MG TAB.ER.24H PO SCH (07:48)
[2016-12-07] MEDS: Aspirin 81 MG TAB.CHEW PO SCH (07:48)
[2016-12-07] MEDS: predniSONE 20 MG TABLET PO SCH (07:49)
[2016-12-07] MEDS: Folic Acid 1 MG TABLET PO SCH (07:49)
[2016-12-07] MEDS ORDERED: Furosemide 20 MG/2 ML VIAL IVP ONE (09:40)
--- NOTE | 2016-12-07 10:47 | Internal Med Progress Note ---
Date of Encounter: 12/07/16 Time of Encounter: 10:45 - Assessment and plan (1) GERARD (acute kidney injury) Current Visit: Yes Status: Acute Assessment and plan: Possibly cardiorenal, or due to lasix patient is still hypervolemic Add acetazolamide, and change lasix to daily Renal USS noted, not contributory, creatinine and GFR improving, continue to monitor, no urgent indication for renal eval or HD Avoid nephrotoxins (2) Hypercapnia Current Visit: Yes Status: Acute Assessment and plan: Compensated, ABG 12/05 with PCO2 60, VBG this am with PCO2 53. PH is normal Continue to monitor BiPAP prn and HS (3) Right-sided heart failure Current Visit: Yes Status: Chronic Assessment and plan: Patient with Acute on chronic right sided heart failure. Known severe TR. BNP 2795 on admission She was on IV lasix 40mg BID with hypercapnea, metabolic alkalosis and GERARD CXR on admission consistent with CHF and stable small-moderate pleural effusion. Echo 10/18/16 LVEF 60%, moderate concentric LVH, indeterminate diastolic dysfunction, moderately dilated and mildly hypokinetic RV, severely dilated right atrium, moderately calcified aortic valve leaflets, mild AR, mild- moderate , mild-moderate PH, severe TR, all wall segments with normal motion. ECHO done 12/04-Normal EF with no WMA Continue strict I/Os, daily weights, fluid restriction. Continue Lasix, additonal dose today with acetazolamide Repeat Chem a.m Monitor closely (4) A-fib Current Visit: Yes Status: Chronic Assessment and plan: Known Afib, HR controlled on cardizem and coreg, Not on anticoagulation due to severe GI bleed that required 9 units of PRBC transfusion per patient. Patient refuses to be on anticoagulation. Patient understands and accepts increased risk of CVA. ON plavix only per cardiology, continue same Qualifiers: Atrial fibrillation type: chronic Qualified Code(s): I48.2 - Chronic atrial fibrillation (5) Wheelchair bound Current Visit: Yes Status: Chronic Assessment and plan: Continue PT/OT as tolerated (6) DM type 2 (diabetes mellitus, type 2) Current Visit: Yes Status: Chronic Assessment and plan: Continue current insulin regimen A1C 5.9 09/2016 Qualifiers: Diabetes mellitus complication status: without complication Diabetes mellitus terminal gauger insulin use: without fpc use Qualified Code(s): E11.9 - Type 2 diabetes mellitus without complications (7) Venous stasis dermatitis of both lower extremities Current Visit: Yes Status: Chronic Assessment and plan: Chronic, continue tania wraps (8) Acute on chronic respiratory failure with hypoxemia Current Visit: Yes Status: Resolved Assessment and plan: Continue O2 and BIPAP prn (9) Tricuspid valve regurgitation Current Visit: Yes Status: Chronic Assessment and plan: Chronic, stable Qualifiers: Cardiac valve disease etiology: etiology unspecified Qualified Code(s): I07.1 - Rheumatic tricuspid insufficiency (10) CAD (coronary artery disease) Current Visit: Yes Status: Chronic Assessment and plan: Chronic, stable, elevated troponin due to demand ischemia Qualifiers: Coronary Disease-Associated Artery/Lesion type: [place] artery [place] vs. transplanted heart: [place] heart Associated angina: without angina Qualified Code(s): I25.10 - Atherosclerotic heart disease of [place] coronary artery without angina pectoris (11) Thrombocytopenia Current Visit: Yes Status: Chronic Assessment and plan: Chronic, no evidence of bleeding, continue to monitor - Subjective Interval history: Patient is seen and evaluated at the bedside this morning. She denies new complaints. Patient is a recurrent admission for CHF exacerbation from home, she also has acute on chronic hypoxic and hypercapneic resp failure, GERARD, Afib Cardiology has seen patient 12/05, recommendations noted I/O improving but still positive, weight loss documented Renal function is stable, will give additional dose of lasix this a.m, and acetazolamide - Constitutional Vitals: Temp Pulse Resp BP Pulse Ox 97.6 F 65 17 113/61 97 12/07/16 06:54 12/07/16 08:15 12/07/16 08:00 12/07/16 06:54 12/07/16 08:00 General appearance: Present: A&O X 3, pleasant, no acute distress - Head Head exam: Present: atraumatic, normocephalic - Eye Eye exam: Present: PERRL, conjuntiva pink, sclera anicteric Pupils: Present: PERRL - Neck Neck exam general surgery: Present: supple, trachea midline. Absent: lymphadenopathy - Respiratory Respiratory exam: Present: CTAB. Absent: accessory muscle use, rales, rhonchi, wheezes - Cardiovascular Cardiovascular exam: Present: RRR, +S1, +S2. Absent: diastolic murmur, gallop, rubs, systolic murmur - GI/Abdominal GI/Abdominal exam: Present: normal bowel sounds, soft, no peritoneal signs. Absent: distended, tenderness - Extremities Exam Extremities exam: Present: pedal edema (tania dressing on both legs, chronic venous stasis) - Neurological Exam Neurological exam: Present: alert, CN II-XII intact, oriented X3, no focal deficits. Absent: pronater drift, facial droop, speech deficit - Skin Skin exam: Present: dry, intact Internal Medicine: Result - Labs CBC & Chem 7: 12/07/16 05:12 12/07/16 05:12 Labs: Short CBC 12/07/16 Range/Units 05:12 WBC 4.3 (4.3-11.1) K/mcL Hgb 9.9 L (11.5-15.4) g/dL Hct 34.0 L (35.3-44.9) % Plt Count 88 L (140-400) K/mcL Neutrophils # 3.4 (1.6-8.9) K/mcL BMP 12/07/16 05:12 Sodium 138 Potassium 3.9 Chloride 97 L Carbon Dioxide 34 H BUN 42 H Creatinine 1.17 H Glucose 145 H Calcium 8.1 L - ABG Interpretation ABG results: ABG ABG pH 7.39 pH Units (7.32-7.45) 12/05/16 04:32 ABG pCO2 60 mmHg (35-45) H 12/05/16 04:32 ABG pO2 143 mmHg (85-104) H 12/05/16 04:32 ABG O2 Saturation 99 % (95-98) H 12/05/16 04:32 PT/INR, D-dimer PT 17.0 Seconds (9.4-12.1) H 12/04/16 08:07 - Impressions Impressions Retroperitoneum Ultrasound 12/06/16 17:00 IMPRESSION: Unremarkable ultrasound of the kidneys and urinary bladder. Urinary bladder suboptimally evaluated due to underdistention. Incidental note of mild perihepatic ascites suboptimally evaluated on this nondedicated study. Recommend CT of the abdomen and pelvis to evaluate for underlying etiology. D/ / 12/06/2016 18:27:36 Odin Ochoa MD / [email or web address] Interpreting Provider: Odin Ochoa MD - VTE Documentation of Mechanical Device: Graduated compression elastic hosiery Consult Discharge Plan - Plan Referrals: Yue Kennedy, NON MORSE INTERCEPT TECHNICIAN [Primary Care Provider] - 12/20/16 1:45 pm
[2016-12-07] MEDS: *HR* HYDROcodone/Acet 7.5/325 mg TABLET PO PRN ×2 (16:26→20:29)
[2016-12-08 04:12] LABS: Mean Corpuscular Volume 98.6 fL (83.0-100.0)
[2016-12-08 04:14] LABS: Hematocrit 34.3 % (35.3-44.9); Immature Granulocytes % 0.8 % (0-4); Immature Platelets 3.3 % (1.1-6.1); Lymphocytes # 0.5 K/mcL (0.6-4.6); Mean Corpuscular HGB Conc 29.2 g/dL (31.6-35.5); Mean Corpuscular Hemoglobin 28.7 pg (28.0-33.3); Mean Platelet Volume 10.6 fL (9.4-12.4); Monocytes # 0.6 K/mcL (0.0-1.3); Monocytes % 15.1 %; Neutrophils # 2.8 K/mcL (1.6-8.9); Red Blood Count 3.48 M/mcL (3.82-4.97); Red Cell Distribution Width 16.7 % (11.5-14.5); Segmented Neutrophils % 72.1 %
[2016-12-08 04:15] LABS: Platelet Count 95 K/mcL (140-400)
[2016-12-08 04:27] LABS: Calcium 8.2 mg/dL (8.6-10.8); Magnesium 2.4 mg/dL (1.6-2.6); Potassium 3.8 mEq/L (3.5-4.5)
[2016-12-08] MEDS: Ipratropium/Albuterol Neb 3 ML IH SCH ×6 (04:30→23:13)
[2016-12-08] MEDS: *HR* Heparin 5,000 UNIT/ML VIAL SQ SCH ×2 (05:51→17:41)
[2016-12-08] MEDS: Furosemide 40 MG/4 ML VIAL IVP SCH (08:29)
[2016-12-08] MEDS: Gabapentin 100 MG CAPSULE PO SCH ×3 (08:29→21:42)
[2016-12-08] MEDS: predniSONE 20 MG TABLET PO SCH (08:30)
[2016-12-08] MEDS: Aspirin 81 MG TAB.CHEW PO SCH (08:30)
[2016-12-08] MEDS: Diltiazem CD (24hr) 120 MG CAPSULE PO SCH (08:30)
[2016-12-08] MEDS: Folic Acid 1 MG TABLET PO SCH (08:30)
[2016-12-08] MEDS: Isosorbide MONOnitrate (24 HR) 60 MG TAB.ER.24H PO SCH (08:30)
[2016-12-08] MEDS ORDERED: levoFLOXacin 500 MG TABLET PO SCH (09:00)
--- NOTE | 2016-12-08 09:21 | Internal Med Progress Note ---
Date of Encounter: 12/08/16 Time of Encounter: 09:20 - Assessment and plan (1) GERARD (acute kidney injury) Current Visit: Yes Status: Acute Assessment and plan: Possibly cardiorenal, or due to lasix Renal USS noted, not contributory, creatinine and GFR improving, continue to monitor, no urgent indication for renal eval or HD Renal function is stable,and improving Continue current dose of lasix Avoid nephrotoxins (2) Hypercapnia Current Visit: Yes Status: Acute Assessment and plan: Compensated, PH is normal, chronic CO2 retainer Continue to monitor BiPAP prn and HS (3) Right-sided heart failure Current Visit: Yes Status: Chronic Assessment and plan: Patient with Acute on chronic right sided heart failure. Known severe TR. BNP 2795 on admission She was on IV lasix 40mg BID with hypercapnea, metabolic alkalosis and GERARD CXR on admission consistent with CHF and stable small-moderate pleural effusion. Echo 10/18/16 LVEF 60%, moderate concentric LVH, indeterminate diastolic dysfunction, moderately dilated and mildly hypokinetic RV, severely dilated right atrium, moderately calcified aortic valve leaflets, mild AR, mild- moderate , mild-moderate PH, severe TR, all wall segments with normal motion. ECHO done 12/04-Normal EF with no WMA Continue strict I/Os, daily weights, fluid restriction. I/O negative, weight loss documented Continue Lasix at current dose, change to po a.m Repeat Chem Monitor closely (4) A-fib Current Visit: Yes Status: Chronic Assessment and plan: Known Afib, HR controlled on cardizem and coreg, Not on anticoagulation due to severe GI bleed that required 9 units of PRBC transfusion per patient. Patient refuses to be on anticoagulation. Patient understands and accepts increased risk of CVA. ON plavix only per cardiology, continue same Qualifiers: Atrial fibrillation type: chronic Qualified Code(s): I48.2 - Chronic atrial fibrillation (5) Wheelchair bound Current Visit: Yes Status: Chronic Assessment and plan: Continue PT/OT as tolerated (6) DM type 2 (diabetes mellitus, type 2) Current Visit: Yes Status: Chronic Assessment and plan: Continue current insulin regimen A1C 5.9 09/2016 Qualifiers: Diabetes mellitus complication status: without complication Diabetes mellitus correction insulin use: without long term care social worker use Qualified Code(s): E11.9 - Type 2 diabetes mellitus without complications (7) Venous stasis dermatitis of both lower extremities Current Visit: Yes Status: Chronic Assessment and plan: Chronic, continue tania wraps (8) Acute on chronic respiratory failure with hypoxemia Current Visit: Yes Status: Resolved Assessment and plan: Continue O2 and BIPAP prn (9) Tricuspid valve regurgitation Current Visit: Yes Status: Chronic Assessment and plan: Chronic, stable Qualifiers: Cardiac valve disease etiology: etiology unspecified Qualified Code(s): I07.1 - Rheumatic tricuspid insufficiency (10) CAD (coronary artery disease) Current Visit: Yes Status: Chronic Assessment and plan: Chronic, stable, elevated troponin due to demand ischemia Qualifiers: Coronary Disease-Associated Artery/Lesion type: [place] artery [place] vs. transplanted heart: [place] heart Associated angina: without angina Qualified Code(s): I25.10 - Atherosclerotic heart disease of [place] coronary artery without angina pectoris (11) Thrombocytopenia Current Visit: Yes Status: Chronic Assessment and plan: Chronic, no evidence of bleeding, continue to monitor - Subjective Interval history: Patient is seen and evaluated at the bedside this morning. She denies new complaints. Patient is a recurrent admission for CHF exacerbation from home, she also has acute on chronic hypoxic and hypercapneic resp failure, GERARD, Afib Cardiology has seen patient 12/05, recommendations noted Renal function is stable, patient is clinically stable to be transferred out of SDU - Constitutional Vitals: Temp Pulse Resp BP Pulse Ox 96.7 F L 68 20 132/82 98 12/08/16 07:56 12/08/16 07:56 12/08/16 07:56 12/08/16 07:56 12/08/16 07:56 General appearance: Present: A&O X 3, pleasant, no acute distress - Head Head exam: Present: atraumatic, normocephalic - Eye Eye exam: Present: PERRL, conjuntiva pink, sclera anicteric Pupils: Present: PERRL - Neck Neck exam general surgery: Present: supple, trachea midline. Absent: lymphadenopathy - Respiratory Respiratory exam: Present: rales (few scaterred bibasal rales). Absent: accessory muscle use, rhonchi, wheezes - Cardiovascular Cardiovascular exam: Present: RRR, +S1, +S2, systolic murmur. Absent: diastolic murmur, gallop, rubs - GI/Abdominal GI/Abdominal exam: Present: normal bowel sounds, soft, no peritoneal signs. Absent: distended, tenderness - Extremities Exam Extremities exam: Present: pedal edema (chronic non-piting pedal edema up to the ankle, chronic venous dermatitis, piting edema around the peres.), warm, radial pulses palpable and symmetrical. Absent: calf tenderness, cyanotic - Back Exam Additional comments: Bruising Left posterior region, present since admission, attributed to metal bed use by patient - Neurological Exam Neurological exam: Present: alert, CN II-XII intact, oriented X3, no focal deficits. Absent: pronater drift, facial droop, speech deficit - Skin Skin exam: Present: dry Internal Medicine: Result - Labs CBC & Chem 7: 12/08/16 03:55 12/08/16 03:55 Labs: Short CBC 12/08/16 Range/Units 03:55 WBC 3.9 L (4.3-11.1) K/mcL Hgb 10.0 L (11.5-15.4) g/dL Hct 34.3 L (35.3-44.9) % Plt Count 95 L (140-400) K/mcL Neutrophils # 2.8 (1.6-8.9) K/mcL BMP 12/08/16 03:55 Sodium 139 Potassium 3.8 Chloride 99 Carbon Dioxide 35 H BUN 41 H Creatinine 1.20 H Glucose 140 H Calcium 8.2 L - ABG Interpretation ABG results: ABG ABG pH 7.39 pH Units (7.32-7.45) 12/05/16 04:32 ABG pCO2 60 mmHg (35-45) H 12/05/16 04:32 ABG pO2 143 mmHg (85-104) H 12/05/16 04:32 ABG O2 Saturation 99 % (95-98) H 12/05/16 04:32 PT/INR, D-dimer PT 17.0 Seconds (9.4-12.1) H 12/04/16 08:07 - VTE Documentation of Mechanical Device: Graduated compression elastic hosiery Consult Discharge Plan - Plan Referrals: Yue Kennedy TRAVEL PTA [Primary Care Provider] - 12/20/16 1:45 pm
[2016-12-08] MEDS: *HR* HYDROcodone/Acet 7.5/325 mg TABLET PO PRN (21:42)
[2016-12-09 03:10] LABS: Hemoglobin 10.1 g/dL (11.5-15.4); Red Cell Distribution Width 16.3 % (11.5-14.5)
[2016-12-09 03:11] LABS: Hematocrit 33.4 % (35.3-44.9); Immature Granulocytes % 0.8 % (0-4); Immature Platelets 3.2 % (1.1-6.1); Lymphocytes # 0.3 K/mcL (0.6-4.6); Lymphocytes % 8.6 %; Mean Corpuscular HGB Conc 30.2 g/dL (31.6-35.5); Mean Platelet Volume 10.7 fL (9.4-12.4); Monocytes # 0.5 K/mcL (0.0-1.3); Monocytes % 13.3 %; Red Blood Count 3.48 M/mcL (3.82-4.97); Segmented Neutrophils % 77.3 %
[2016-12-09 03:12] LABS: Neutrophils # 2.9 K/mcL (1.6-8.9)
[2016-12-09 03:13] LABS: Platelet Count 94 K/mcL (140-400)
[2016-12-09 03:27] LABS: Calcium 8.3 mg/dL (8.6-10.8); Potassium 3.6 mEq/L (3.5-4.5)
[2016-12-09] MEDS: Ipratropium/Albuterol Neb 3 ML IH SCH ×5 (04:10→20:50)
[2016-12-09] MEDS: *HR* Heparin 5,000 UNIT/ML VIAL SQ SCH ×2 (05:49→17:42)
[2016-12-09] MEDS: Folic Acid 1 MG TABLET PO SCH (10:07)
[2016-12-09] MEDS: Gabapentin 100 MG CAPSULE PO SCH ×3 (10:07→20:57)
[2016-12-09] MEDS: Furosemide 40 MG TABLET PO SCH (10:07)
[2016-12-09] MEDS: Diltiazem CD (24hr) 120 MG CAPSULE PO SCH (10:07)
[2016-12-09] MEDS: Isosorbide MONOnitrate (24 HR) 60 MG TAB.ER.24H PO SCH (10:08)
[2016-12-09] MEDS: Aspirin 81 MG TAB.CHEW PO SCH (10:08)
[2016-12-09] MEDS: predniSONE 20 MG TABLET PO SCH (10:08)
[2016-12-09] MEDS ORDERED: D5% in Water 1,000 ML IVC PRN (11:22)
[2016-12-09] MEDS ORDERED: Dextrose Gel 15 GM PO PRN ×2 (11:22)
[2016-12-09] MEDS ORDERED: *HR* Dextrose 50 % in Water (Syg) 50 ML SYRINGE IVP PRN (11:22)
[2016-12-09 12:10] LABS: Hemoglobin A1C 5.4 %
[2016-12-09] MEDS: Insulin LISPRO 300 UNITS/3 ML VIAL SQ SCH ×2 (13:11→16:47)
--- NOTE | 2016-12-09 13:22 | Internal Med Progress Note ---
Date of Encounter: 12/09/16 Time of Encounter: 10:20 - Assessment and plan (1) Acute on chronic respiratory failure with hypoxemia Current Visit: Yes Status: Resolved Assessment and plan: Improved. Patient currently back on her usual home oxygen supplementation. (2) Right-sided heart failure Current Visit: Yes Status: Acute Assessment and plan: Acute on chronic right heart failure. With severe tricuspid regurgitation. Continue Lasix. Transition to oral Lasix. Continue monitoring urine output. (3) GERARD (acute kidney injury) Current Visit: Yes Status: Acute Assessment and plan: Renal function remains stable. We will continue to monitor. (4) A-fib Current Visit: Yes Status: Chronic Assessment and plan: Rate controlled. Not on anticoagulation due to prior history of GI bleed. Qualifiers: Atrial fibrillation type: chronic Qualified Code(s): I48.2 - Chronic atrial fibrillation (5) CAD (coronary artery disease) Current Visit: Yes Status: Chronic Assessment and plan: No chest pain at this time. Continue aspirin, beta shilpa, Plavix Qualifiers: Coronary Disease-Associated Artery/Lesion type: [place] artery [place] vs. transplanted heart: [place] heart Associated angina: without angina Qualified Code(s): I25.10 - Atherosclerotic heart disease of [place] coronary artery without angina pectoris (6) DM type 2 (diabetes mellitus, type 2) Current Visit: Yes Status: Chronic Assessment and plan: Well controlled. Continue monitoring blood sugars. Low correctional sliding scale. Qualifiers: Diabetes mellitus complication status: without complication Diabetes mellitus half-way insulin use: without half-way use Qualified Code(s): E11.9 - Type 2 diabetes mellitus without complications (7) Hypercapnia Current Visit: Yes Status: Chronic Assessment and plan: Continue BiPAP use as needed (8) Thrombocytopenia Current Visit: Yes Status: Chronic Assessment and plan: Stable platelet count. (9) Venous stasis dermatitis of both lower extremities Current Visit: Yes Status: Chronic Assessment and plan: Patient was receiving IV antibiotics for chronic venous stasis ulcer. Completed antibiotic course at this time. We will stop antibiotics - Subjective Interval history: Patient complains of some shortness of breath but feels that overall her symptoms are improving. Denies any chest pain. No nausea or vomiting. No headache. No other new complaints at this time - Constitutional Vitals: Temp Pulse Resp BP Pulse Ox 98.9 F 87 18 114/64 91 12/09/16 11:29 12/09/16 11:29 12/09/16 11:29 12/09/16 11:29 12/09/16 11:29 General appearance: Present: mild distress, A&O X 3, pleasant, answers questions appropriately - Neck Neck exam general surgery: Present: supple, trachea midline. Absent: lymphadenopathy - Respiratory Respiratory exam: Present: CTAB. Absent: accessory muscle use, rales, rhonchi, wheezes - Cardiovascular Cardiovascular exam: Present: RRR, +S1, +S2. Absent: diastolic murmur, gallop, rubs, systolic murmur - GI/Abdominal GI/Abdominal exam: Present: normal bowel sounds, soft, no peritoneal signs. Absent: distended, tenderness - Extremities Exam Extremities exam: Present: pedal edema (non pitting pedal edema), warm, radial pulses palpable and symmetrical. Absent: calf tenderness, cyanotic - Neurological Exam Neurological exam: Present: alert, oriented X3, no focal deficits. Absent: facial droop, speech deficit - Skin Skin exam: Present: dry, intact Internal Medicine: Result - Labs CBC & Chem 7: 12/09/16 02:47 12/09/16 02:47 Labs: Short CBC 12/09/16 Range/Units 02:47 WBC 3.8 L (4.3-11.1) K/mcL Hgb 10.1 L (11.5-15.4) g/dL Hct 33.4 L (35.3-44.9) % Plt Count 94 L (140-400) K/mcL Neutrophils # 2.9 (1.6-8.9) K/mcL BMP 12/09/16 02:47 Sodium 138 Potassium 3.6 Chloride 100 Carbon Dioxide 31 H BUN 40 H Creatinine 1.16 H Glucose 180 H Calcium 8.3 L - ABG Interpretation ABG results: ABG ABG pH 7.39 pH Units (7.32-7.45) 12/05/16 04:32 ABG pCO2 60 mmHg (35-45) H 12/05/16 04:32 ABG pO2 143 mmHg (85-104) H 12/05/16 04:32 ABG O2 Saturation 99 % (95-98) H 12/05/16 04:32 PT/INR, D-dimer PT 17.0 Seconds (9.4-12.1) H 12/04/16 08:07 - VTE Documentation of Mechanical Device: Graduated compression elastic hosiery Consult Discharge Plan - Plan Referrals: Yue Kennedy, SALINA [Primary Care Provider] - 12/20/16 1:45 pm
[2016-12-09] MEDS: *HR* HYDROcodone/Acet 7.5/325 mg TABLET PO PRN (16:41)
[2016-12-09] MEDS ORDERED: Insulin LISPRO 300 UNITS/3 ML VIAL SQ SCH (21:00)
[2016-12-10] MEDS: Ipratropium/Albuterol Neb 3 ML IH SCH ×4 (01:15→10:54)
[2016-12-10] MEDS: *HR* Heparin 5,000 UNIT/ML VIAL SQ SCH (05:26)
[2016-12-10] MEDS: Isosorbide MONOnitrate (24 HR) 60 MG TAB.ER.24H PO SCH (07:58)
[2016-12-10] MEDS: Furosemide 40 MG TABLET PO SCH (07:58)
[2016-12-10] MEDS: Diltiazem CD (24hr) 120 MG CAPSULE PO SCH (07:58)
[2016-12-10] MEDS: Folic Acid 1 MG TABLET PO SCH (07:58)
[2016-12-10] MEDS: Gabapentin 100 MG CAPSULE PO SCH (07:58)
[2016-12-10] MEDS: Insulin LISPRO 300 UNITS/3 ML VIAL SQ SCH ×2 (07:59→11:27)
[2016-12-10] MEDS: Aspirin 81 MG TAB.CHEW PO SCH (07:59)
--- NOTE | 2016-12-10 11:15 | Discharge Summary ---
Date of Encounter: 12/10/16 Time of Encounter: 09:50 - Discharge Diagnosis (1) Acute on chronic respiratory failure with hypoxemia Priority: Primary Status: Resolved (2) Right-sided heart failure Priority: Secondary Status: Acute (3) GERARD (acute kidney injury) Priority: Secondary Status: Acute (4) A-fib Priority: Secondary Status: Chronic Qualifiers: Atrial fibrillation type: chronic Qualified Code(s): I48.2 - Chronic atrial fibrillation (5) CAD (coronary artery disease) Priority: Secondary Status: Chronic Qualifiers: Coronary Disease-Associated Artery/Lesion type: [place] artery [place] vs. transplanted heart: [place] heart Associated angina: without angina Qualified Code(s): I25.10 - Atherosclerotic heart disease of [place] coronary artery without angina pectoris (6) DM type 2 (diabetes mellitus, type 2) Priority: Secondary Status: Chronic Qualifiers: Diabetes mellitus complication status: without complication Diabetes mellitus custodial insulin use: without intermediate school teacher use Qualified Code(s): E11.9 - Type 2 diabetes mellitus without complications (7) Hypercapnia Priority: Secondary Status: Chronic (8) Thrombocytopenia Priority: Secondary Status: Chronic (9) Venous stasis dermatitis of both lower extremities Priority: Secondary Status: Chronic - Discharge Medications Prescriptions: Furosemide [Lasix] 60 mg PO BID #180 tablet Home Medications: Citalopram Hydrobromide [Citalopram HBr] 10 mg PO DAILY 09/20/16 [History] Clopidogrel [Plavix] 75 mg PO DAILY 09/20/16 [History] Diltiazem HCl [Diltiazem ER] 120 mg PO QAM 09/20/16 [History] Ferrous Sulfate 325 mg PO DAILY 09/20/16 [History] Folic Acid 1 mg PO DAILY 09/20/16 [History] HYDROcodone/Acet 7.5/325 mg [[place] 7.5-325 mg] 1 tab PO TID 09/20/16 [History] Nitroglycerin [Nitrostat] 0.4 mg SL Q5M PRN 09/20/16 [History] Pantoprazole Sodium [Protonix] 40 mg PO BID 09/20/16 [History] Potassium Chloride [K-Tab ER] 30 meq PO DAILY 09/20/16 [History] Ropinirole HCl [Requip] 3 mg PO HS 09/20/16 [History] Isosorbide MONOnitrate (24 HR) [Imdur] 60 mg PO DAILY 11/18/16 [History] Aspirin 81 mg PO DAILY tab.chew 11/21/16 [Rx] Carvedilol [Coreg] 6.25 mg PO BIDWM tablet 12/01/16 [Rx] Gabapentin [Neurontin] 300 mg PO TID 12/04/16 [History] Furosemide [Lasix] 60 mg PO BID #180 tablet 12/10/16 [Rx] Allergies/Adverse Reactions: 3 Allergy/AdvReac Type Severity Reaction Status Date / Time acetaminophen AdvReac Anaphylaxis Verified 12/03/16 20:50 [From Tylenol-Codeine] codeine AdvReac Vomiting Verified 11/19/16 11:44 [From Tylenol-Codeine #3] Date of admission: 12/04/16 04:01 Primary care physician: Yue Kennedy CNP Consults: 12/04/16 03:05 Consult to Table Filler [CONS] Routine Reason for SW Consult: home health; oxygen therapy 12/04/16 09:59 Consult to Cardiology [CONS] Routine Comment: Consulting Provider: Cardiology Amber Reason for Consult: elevated troponins Call Completed: No 12/05/16 10:26 Consult to Physical Therapy [CONS] Routine Comment: Evaluate, develop and implement POC Reason for Consult: eval and treat 12/05/16 10:28 Consult to Occupational Therapy [CONS] Routine Comment: Evaluate, develop and implement POC Reason for Consult: eval and treat Discharging clinician: Brandt Holly Anticipated date of discharge: 12/10/16 - Patient Status Disposition: Home Health Service Condition: Good Functional capacity at discharge: uses cane/walker Overall status at discharge: patient is progressing back to baseline - Discharge Instructions Instructions: Heart Failure (DC), Atrial Fibrillation (DC) Follow Up With: Yue Kennedy CNP [Primary Care Provider] - 12/20/16 1:45 pm (Web request sent for cardiology follow up with Dr. Bee in [place], [place]. ) Additional Instructions: Follow up with Cardiology in 1 week - Diet and Activity Activity: as per physical therapy Diet: diabetic diet, low fat, low cholesterol, low salt diet, other (FLuid restriction to 1500 ml/24 hrs) Hospital course: Ms. Crawford is a 76 year old female patient with a history CHF, COPD with chronic respiratory failure on home oxygen presented to the ER at [facility] with shortness of breath and swelling of lower extremities. She was diagnosed with acute on chronic congestive heart failure and COPD. It appears that she has underlying right-sided heart failure according to cardiology evaluation. She was started on treatment with intravenous Lasix. Patient did have worsening of her renal function on presentation and so the Lasix dosage was kept at minimum. Patient did have good urine output with even low doses of intravenous Lasix. Her renal function also improved. Presently she is on her baseline home oxygen and is doing well. She was evaluated by physical therapy and recommended placement to rehabilitation. Patient however wishes to go home. She already has home health and physical therapy which will be continued. She is clinically stable for discharge home. At home she is on 80 mg Lasix twice daily. Given her renal dysfunction, I will decrease the dosage to 60 mg twice daily. She will follow up with cardiology after discharge. - Time Spent with Patient Total time spent providing and/or coordinating discharge services: Greater than 30 minutes (35 min) - Constitutional Vitals: Temp Pulse Resp BP Pulse Ox 97.6 F 69 17 148/82 100 12/10/16 07:31 12/10/16 07:31 12/10/16 10:54 12/10/16 07:31 12/10/16 10:54 General appearance: Present: cooperative, A&O X 3, pleasant, answers questions appropriately - Respiratory Respiratory exam: Present: CTAB. Absent: accessory muscle use, rales, rhonchi, wheezes - Cardiovascular Cardiovascular exam: Present: RRR, +S1, +S2. Absent: diastolic murmur, gallop, rubs, systolic murmur - GI/Abdominal GI/Abdominal exam: Present: normal bowel sounds, soft, no peritoneal signs. Absent: distended, tenderness - Extremities Exam Extremities exam: Present: pedal edema (bilateral non pitting ), warm, radial pulses palpable and symmetrical. Absent: calf tenderness, cyanotic - VTE Documentation of Mechanical Device: Graduated compression elastic hosiery
[2016-12-10 11:20] VITALS: BP 108/70
--- NOTE | 2016-12-10 11:32 | Physician Discharge Referral ---
Home Health/Hosp Referral Info Transfer to: Home Health Provider in Charge Post Discharge: PCP - Diagnosis (1) Acute on chronic respiratory failure with hypoxemia Priority: Primary Status: Resolved (2) Right-sided heart failure Priority: Secondary Status: Acute (3) GERARD (acute kidney injury) Priority: Secondary Status: Acute (4) A-fib Priority: Secondary Status: Chronic (5) CAD (coronary artery disease) Priority: Secondary Status: Chronic (6) DM type 2 (diabetes mellitus, type 2) Priority: Secondary Status: Chronic (7) Hypercapnia Priority: Secondary Status: Chronic (8) Thrombocytopenia Priority: Secondary Status: Chronic (9) Venous stasis dermatitis of both lower extremities Priority: Secondary Status: Chronic - Respiratory Orders Oxygen / L per min (3) Smoking Cessation: Smoking cessation has been advised. For more information, call the [place] Tobacco Quit Line at 0-164-IAQS-NOW. - Diet/Nutrition Diet/Nutrition Orders: No Added Salt (PORSCHE), Cardiac, No Concentrated Sweets ( diabetic) Diet/Nutrition: List: Fluid restriction to 1.5 L per day - Activity Activity Orders: Walker - Services Needed Following services are medically necessary services: Nursing, Physical Therapy, Occupational Therapy - Transfer Medications Prescriptions: Furosemide [Lasix] 60 mg PO BID #180 tablet Home Medications: Citalopram Hydrobromide [Citalopram HBr] 10 mg PO DAILY 09/20/16 [History] Clopidogrel [Plavix] 75 mg PO DAILY 09/20/16 [History] Diltiazem HCl [Diltiazem ER] 120 mg PO QAM 09/20/16 [History] Ferrous Sulfate 325 mg PO DAILY 09/20/16 [History] Folic Acid 1 mg PO DAILY 09/20/16 [History] HYDROcodone/Acet 7.5/325 mg [[place] 7.5-325 mg] 1 tab PO TID 09/20/16 [History] Nitroglycerin [Nitrostat] 0.4 mg SL Q5M PRN 09/20/16 [History] Pantoprazole Sodium [Protonix] 40 mg PO BID 09/20/16 [History] Potassium Chloride [K-Tab ER] 30 meq PO DAILY 09/20/16 [History] Ropinirole HCl [Requip] 3 mg PO HS 09/20/16 [History] Isosorbide MONOnitrate (24 HR) [Imdur] 60 mg PO DAILY 11/18/16 [History] Aspirin 81 mg PO DAILY tab.chew 11/21/16 [Rx] Carvedilol [Coreg] 6.25 mg PO BIDWM tablet 12/01/16 [Rx] Gabapentin [Neurontin] 300 mg PO TID 12/04/16 [History] Furosemide [Lasix] 60 mg PO BID #180 tablet 12/10/16 [Rx] Allergies/Adverse Reactions: 3 Allergy/AdvReac Type Severity Reaction Status Date / Time acetaminophen AdvReac Anaphylaxis Verified 12/03/16 20:50 [From Tylenol-Codeine] codeine AdvReac Vomiting Verified 11/19/16 11:44 [From Tylenol-Codeine #3] Certification: Further, I certify that my clinical findings support that this patient is homebound (i.e. absences from home require considerable and taxing effort and are for medical reasons or muslim services or infrequently or short duration when for other reasons) because: Homebound Reason: Patient requires assistance of a person or device to safely leave home, Severity of cardiac or pulmonary status limits activity tolerance Attestation: My signature below is to certify that this patient is under my care and that I, or nurse practitioner, or a physician's library clerical assistant working with me, has a face-to -face encounter with this patient.
== END 2016-12-10 12:45 | disposition home health service (06) | DRG 291 ==
LOC: 2NNU → SUATTDRO 12-04 04:01 → 2ANU 12-08 14:30
PROVIDERS: ADMIT Family Medicine; ATTEND Internal Medicine

== ENCOUNTER 2016-12-15 16:34 | Inpatient (IN) ==
[2016-12-15] MEDS ORDERED: Ipratropium/Albuterol Neb 3 ML IH ONE (16:43)
[2016-12-15] MEDS ORDERED: predniSONE 20 MG TABLET PO ONE (16:43)
--- NOTE | 2016-12-15 16:47 | Emergency Department Note ---
Disposition Clinical Impression: Acute exacerbation of chronic obstructive airways disease, Increased oxygen demand CHF exacerbation Qualifiers: Congestive heart failure type: systolic Qualified Code(s): I50.23 - Acute on chronic systolic (congestive) heart failure Disposition: Admitted As Inpatient Condition: Undetermined Referrals: Yue Kennedy CNP [Primary Care Provider] - Forms: ED Satisfaction Letter Time of Disposition: 18:12 SOB HPI - General Chief Complaint: ED Shortness of Breath/Dyspnea Stated Complaint: SOB/ANAYA Time Seen by Provider: 12/15/16 16:41 Source: patient, EMS Mode of arrival: EMS Limitations: no limitations Nursing Notes Reviewed: Yes Vital Signs Reviewed: Yes - History of Present Illness 76-year-old female with history of CHF and COPD arrives to [facility] emergency department complaining of shortness of breath that has been ongoing over the course the past 3-4 days. The patient typically wears 2 L nasal cannula oxygen at home but states that over the course of the past couple days she has had increased her oxygen usage. The patient was noted to be moderately hypoxic and tachypneic upon arrival by EMS. EMS placed the patient on 4 L nasal cannula and this improved her breathing. The patient arrives to the emergency department with chronic bilateral lower extremity pedal edema but states over the course of the past 24 hours it is worsened. Patient denies any other complaints at this time including chest pain, unilateral leg splint, fever, chills, cough. The patient is resting comfortably upon arrival to the emergency room with a mild amount of tachypnea. The patient is wheezing on auscultation without any other acute findings. Pt Subjective Complaint: shortness of breath Onset (ago): day(s) (3-4) Severity: mild, moderate Consistency/Duration: constant, gradually worsening Improves with: oxygen Worsens with: nothing Known history of: COPD, congestive heart failure Associated symptoms: Reports: denies other symptoms Treatment prior to arrival: oxygen Cough present: No Sputum production: No - Related Data Home oxygen amount: 2 liters Home Medications Medication Instructions Recorded Confirmed Citalopram Hydrobromide 10 mg PO DAILY 09/20/16 12/04/16 [Citalopram HBr] Clopidogrel [Plavix] 75 mg PO DAILY 09/20/16 12/04/16 Diltiazem HCl [Diltiazem ER] 120 mg PO QAM 09/20/16 12/04/16 Ferrous Sulfate 325 mg PO DAILY 09/20/16 12/04/16 Folic Acid 1 mg PO DAILY 09/20/16 12/04/16 HYDROcodone/Acet 7.5/325 mg [[place] 1 tab PO TID 09/20/16 12/04/16 7.5-325 mg] Nitroglycerin [Nitrostat] 0.4 mg SL Q5M PRN 09/20/16 12/04/16 Pantoprazole Sodium [Protonix] 40 mg PO BID 09/20/16 12/04/16 Potassium Chloride [K-Tab ER] 30 meq PO DAILY 09/20/16 12/04/16 Ropinirole HCl [Requip] 3 mg PO HS 09/20/16 12/04/16 Isosorbide MONOnitrate (24 HR) 60 mg PO DAILY 11/18/16 12/04/16 [Imdur] Gabapentin [Neurontin] 300 mg PO TID 12/04/16 12/04/16 Previous Rx's Medication Instructions Recorded Aspirin 81 mg PO DAILY tab.chew 11/21/16 Carvedilol [Coreg] 6.25 mg PO BIDWM tablet 12/01/16 Furosemide [Lasix] 60 mg PO BID #180 tablet 12/10/16 Allergies Allergy/AdvReac Type Severity Reaction Status Date / Time acetaminophen AdvReac Anaphylaxis Verified 12/03/16 20:50 [From Tylenol-Codeine] codeine AdvReac Vomiting Verified 11/19/16 11:44 [From Tylenol-Codeine #3] All systems ED: reviewed and negative except as stated. Constitutional: Reports: weakness. Denies: fever, chills ENT ED: Denies: congestion Cardiovascular: Reports: dyspnea on exertion, edema. Denies: chest pain, orthopnea, syncope Respiratory: Reports: dyspnea, wheezes. Denies: cough, hemoptysis, stridor, sputum production Gastrointestinal: Denies: abdominal pain, nausea, vomiting Genitourinary: Denies: dysuria Musculoskeletal: Denies: back pain Neurological: Reports: weakness. Denies: confusion Past Medical History - Past Medical History Attestation: Yes The following information was validated with the patient. 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: spontaneous - Social History Smoking Status: Never smoker Smokeless Tobacco Status: No Alcohol use: Reports: none Drug use: Reports: none Physical Exam - General Limitations: no limitations General appearance: alert, in no apparent distress - Head Head exam: atraumatic, normocephalic, normal inspection - Eye Eye exam: Present: normal appearance, PERRL, EOMI - ENT ENT exam: normal exam, normal oropharynx, mucous membranes moist - Neck Neck exam: Present: full ROM, trachea midline, other (JVD) - Chest Chest inspection: Present: normal inspection, symmetric chest wall rise - Respiratory Respiratory exam: Present: wheezes, prolonged expiratory phase. Absent: respiratory distress, accessory muscle use - Expanded Respiratory Exam Location: rales: Left, Right, Lower - Cardiovascular Cardiovascular exam: Present: regular rate, normal rhythm, normal heart sounds - Abdominal Exam Abdominal exam: Present: soft, Non-Tender. Absent: tenderness, distention, guarding, rebound, rigidity - Extremities Exam Extremities exam: Present: full ROM, pedal edema (1+). Absent: tenderness - Neurological Exam Neurological exam: Present: alert, oriented X3, CN II-XII intact Course Vital Signs Temperature 98.6 F 12/15/16 16:40 Pulse Rate 56 12/15/16 16:40 Respiratory Rate 20 12/15/16 16:40 Blood Pressure 100/55 12/15/16 16:40 O2 Sat by Pulse Oximetry 99 12/15/16 16:40 Temperature 98.6 F 12/15/16 16:40 Pulse Rate 56 12/15/16 16:40 Respiratory Rate 20 12/15/16 17:01 Blood Pressure 100/55 12/15/16 16:40 O2 Sat by Pulse Oximetry 98 12/15/16 17:01 Oxygen Delivery Oxygen Delivery Nasal Cannula Shortness of Breath/Dyspnea - MDM Narrative Medical decision making narrative: Patient's workup here in the emergency department demonstrates findings consistent with congestive heart failure. The patient is dyspneic with a BNP of 2036. The patient does have a pleural effusion that was noted to be stable but appears to be slightly worse than previous chest x-ray. Given the patient' s shortness of breath and difficulty breathing at home with increased oxygen demand, we will admit the patient to the hospitalist for further care and workup. The patient made aware and agrees to plan. We will admit the patient to the hospitalist, accepted by Meagan Chavez NP. - Medical Records Medical records reviewed: Yes I reviewed the patient's medical records. - Lab Data Lab results reviewed: Yes I reviewed the patient's lab results. Result diagrams: 12/15/16 17:14 12/15/16 17:14 Lab Results 12/15/16 12/15/16 12/15/16 Range/Units 17:14 17:14 17:14 WBC 5.3 (4.3-11.1) K/mcL RBC 3.54 L (3.82-4.97) M/mcL Hgb 10.2 L (11.5-15.4) g/dL Hct 34.9 L (35.3-44.9) % MCV 98.6 (83.0-100.0) fL MCH 28.8 (28.0-33.3) pg MCHC 29.2 L (31.6-35.5) g/dL RDW 16.5 H (11.5-14.5) % Plt Count 80 L (140-400) K/mcL MPV 11.2 (9.4-12.4) fL Immature Gran % 0.9 (0-4) % Seg Neutrophils % 80.1 % Lymphocytes % 7.7 % Monocytes % 9.0 % Eosinophils % 2.1 % Basophils % 0.2 % Neutrophils # 4.3 (1.6-8.9) K/mcL Lymphocytes # 0.4 L (0.6-4.6) K/mcL Monocytes # 0.5 (0.0-1.3) K/mcL Eosinophils # 0.1 (0.0-0.6) K/mcL Basophils # 0.0 (0.0-0.2) K/mcL Immature Plt Fraction 5.6 (1.1-6.1) % Sodium 143 (136-145) mEq/L Potassium 4.3 (3.5-4.5) mEq/L Chloride 101 (98-109) mEq/L Carbon Dioxide 35 H (19-29) mEq/L BUN 24 H (7-20) mg/dL Creatinine 0.98 (0.57-1.11) mg/dL Est GFR ( Amer) > 60 (> 60) Est GFR (Non-Af Amer) 55 L (> 60) BUN/Creatinine Ratio 24 (6-26) Glucose 163 H (70-99) mg/dL Calculated Osmolality 304 H (280-300) Calcium 8.1 L (8.6-10.8) mg/dL Troponin I 0.02 (0-0.03) ng/mL B-Natriuretic Peptide (0-100) pg/mL 12/15/16 Range/Units 17:14 WBC (4.3-11.1) K/mcL RBC (3.82-4.97) M/mcL Hgb (11.5-15.4) g/dL Hct (35.3-44.9) % MCV (83.0-100.0) fL MCH (28.0-33.3) pg MCHC (31.6-35.5) g/dL RDW (11.5-14.5) % Plt Count (140-400) K/mcL MPV (9.4-12.4) fL Immature Gran % (0-4) % Seg Neutrophils % % Lymphocytes % % Monocytes % % Eosinophils % % Basophils % % Neutrophils # (1.6-8.9) K/mcL Lymphocytes # (0.6-4.6) K/mcL Monocytes # (0.0-1.3) K/mcL Eosinophils # (0.0-0.6) K/mcL Basophils # (0.0-0.2) K/mcL Immature Plt Fraction (1.1-6.1) % Sodium (136-145) mEq/L Potassium (3.5-4.5) mEq/L Chloride (98-109) mEq/L Carbon Dioxide (19-29) mEq/L BUN (7-20) mg/dL Creatinine (0.57-1.11) mg/dL Est GFR ( Amer) (> 60) Est GFR (Non-Af Amer) (> 60) BUN/Creatinine Ratio (6-26) Glucose (70-99) mg/dL Calculated Osmolality (280-300) Calcium (8.6-10.8) mg/dL Troponin I (0-0.03) ng/mL B-Natriuretic Peptide 2056 H (0-100) pg/mL - Radiology Data Radiology results reviewed: Yes I reviewed the patient's radiology results. - EKG Data EKG attestation: Yes I reviewed and interpreted this EKG. EKG results narrative: Heart rate 54 bpm. QTC 419 ms. Atrial fibrillation with slow ventricular response. No ST elevation or ST depression noted. EKG similar in appearance to EKG from 12/04/2016 with the exception of new bradycardia and some nonspecific changes overall.
[2016-12-15] MEDS ORDERED: Furosemide 40 MG/4 ML VIAL IVP ONE (17:05)
[2016-12-15 17:30] LABS: Basophils % 0.2 %; Eosinophils # 0.1 K/mcL (0.0-0.6); Eosinophils % 2.1 %; Hematocrit 34.9 % (35.3-44.9); Hemoglobin 10.2 g/dL (11.5-15.4); Immature Granulocytes % 0.9 % (0-4); Immature Platelets 5.6 % (1.1-6.1); Lymphocytes # 0.4 K/mcL (0.6-4.6); Lymphocytes % 7.7 %; Mean Corpuscular HGB Conc 29.2 g/dL (31.6-35.5); Mean Corpuscular Hemoglobin 28.8 pg (28.0-33.3); Mean Corpuscular Volume 98.6 fL (83.0-100.0); Mean Platelet Volume 11.2 fL (9.4-12.4); Monocytes # 0.5 K/mcL (0.0-1.3); Neutrophils # 4.3 K/mcL (1.6-8.9); Red Blood Count 3.54 M/mcL (3.82-4.97); Red Cell Distribution Width 16.5 % (11.5-14.5); Segmented Neutrophils % 80.1 %
[2016-12-15 17:31] LABS: Platelet Count 80 K/mcL (140-400)
[2016-12-15 17:37] LABS: BUN/Creatinine Ratio 24 (6-26); Blood Urea Nitrogen 24 mg/dL (7-20); Calcium 8.1 mg/dL (8.6-10.8); Carbon Dioxide 35 mEq/L (19-29); Chloride 101 mEq/L (98-109); Glucose 163 mg/dL (70-99); Osmolality,Calculated 304 (280-300); Potassium 4.3 mEq/L (3.5-4.5); Sodium 143 mEq/L (136-145); eGFR For African Americans > 60 (> 60); eGFR For Non-African Americans 55 (> 60)
--- NOTE | 2016-12-15 18:12 | Emergency Department Note ---
Disposition Clinical Impression: Acute exacerbation of chronic obstructive airways disease, CHF exacerbation, Increased oxygen demand Disposition: Admitted As Inpatient Condition: Fair General Adult HPI - General Chief complaint: ED Shortness of Breath/Dyspnea Stated complaint: SOB/ANAYA Time Seen by Provider: 12/15/16 16:41 Source: patient, EMS Mode of arrival: EMS Limitations: no limitations - History of Present Illness Pain Scale: 0 - Related Data Home Medications Medication Instructions Recorded Confirmed Citalopram Hydrobromide 10 mg PO DAILY 09/20/16 12/15/16 [Citalopram HBr] Clopidogrel [Plavix] 75 mg PO DAILY 09/20/16 12/15/16 Diltiazem HCl [Diltiazem ER] 120 mg PO QAM 09/20/16 12/15/16 Ferrous Sulfate 325 mg PO DAILY 09/20/16 12/15/16 Folic Acid 1 mg PO DAILY 09/20/16 12/15/16 HYDROcodone/Acet 7.5/325 mg [[place] 1 tab PO TID 09/20/16 12/15/16 7.5-325 mg] Nitroglycerin [Nitrostat] 0.4 mg SL Q5M PRN 09/20/16 12/15/16 Pantoprazole Sodium [Protonix] 40 mg PO BID 09/20/16 12/15/16 Potassium Chloride [K-Tab ER] 30 meq PO DAILY 09/20/16 12/15/16 Ropinirole HCl [Requip] 3 mg PO HS 09/20/16 12/15/16 Isosorbide MONOnitrate (24 HR) 60 mg PO DAILY 11/18/16 12/15/16 [Imdur] Gabapentin [Neurontin] 300 mg PO TID 12/04/16 12/15/16 Previous Rx's Medication Instructions Recorded Aspirin 81 mg PO DAILY tab.chew 11/21/16 Carvedilol [Coreg] 6.25 mg PO BIDWM tablet 12/01/16 Furosemide [Lasix] 60 mg PO BID #180 tablet 12/10/16 Allergies Allergy/AdvReac Type Severity Reaction Status Date / Time acetaminophen AdvReac Anaphylaxis Verified 12/03/16 20:50 [From Tylenol-Codeine] codeine AdvReac Vomiting Verified 11/19/16 11:44 [From Tylenol-Codeine #3] Constitutional: Reports: weakness. Denies: fever, chills ENT ED: Denies: congestion Cardiovascular: Reports: dyspnea on exertion, edema. Denies: chest pain, orthopnea, syncope Respiratory: Reports: dyspnea, wheezes. Denies: cough, hemoptysis, stridor, sputum production Gastrointestinal: Denies: abdominal pain, nausea, vomiting Genitourinary: Denies: dysuria Musculoskeletal: Denies: back pain Neurological: Reports: weakness. 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 Singh. Patient presents with shortness of breath that is progressively worsening at home. Normally bedridden. On exam we find the patient tachypneic, low oxygen sats, wheezing diffusely. Even after treatment she is tachypneic at rest. The chest x-ray is not impressive but her BNP is pretty elevated and she also has a history of COPD. I think this is a combination of CHF and COPD. She needs to be admitted to the hospital. Time: 18:11 Vital Signs Temperature 98.6 F 12/15/16 16:40 Pulse Rate 56 12/15/16 16:40 Respiratory Rate 20 12/15/16 16:40 Blood Pressure 100/55 12/15/16 16:40 O2 Sat by Pulse Oximetry 99 12/15/16 16:40 Temperature 98.6 F 12/15/16 16:40 Pulse Rate 56 12/15/16 16:40 Respiratory Rate 14 12/15/16 18:32 Blood Pressure 110/54 12/15/16 18:32 O2 Sat by Pulse Oximetry 98 12/15/16 20:39 Oxygen Delivery Oxygen Delivery Nasal Cannula Medical Decision Making - Lab Data Result diagrams: 12/15/16 17:14 12/15/16 17:14 Lab Results 12/15/16 12/15/16 12/15/16 Range/Units 17:14 17:14 17:14 WBC 5.3 (4.3-11.1) K/mcL RBC 3.54 L (3.82-4.97) M/mcL Hgb 10.2 L (11.5-15.4) g/dL Hct 34.9 L (35.3-44.9) % MCV 98.6 (83.0-100.0) fL MCH 28.8 (28.0-33.3) pg MCHC 29.2 L (31.6-35.5) g/dL RDW 16.5 H (11.5-14.5) % Plt Count 80 L (140-400) K/mcL MPV 11.2 (9.4-12.4) fL Immature Gran % 0.9 (0-4) % Seg Neutrophils % 80.1 % Lymphocytes % 7.7 % Monocytes % 9.0 % Eosinophils % 2.1 % Basophils % 0.2 % Neutrophils # 4.3 (1.6-8.9) K/mcL Lymphocytes # 0.4 L (0.6-4.6) K/mcL Monocytes # 0.5 (0.0-1.3) K/mcL Eosinophils # 0.1 (0.0-0.6) K/mcL Basophils # 0.0 (0.0-0.2) K/mcL Immature Plt Fraction 5.6 (1.1-6.1) % Sodium 143 (136-145) mEq/L Potassium 4.3 (3.5-4.5) mEq/L Chloride 101 (98-109) mEq/L Carbon Dioxide 35 H (19-29) mEq/L BUN 24 H (7-20) mg/dL Creatinine 0.98 (0.57-1.11) mg/dL Est GFR ( Amer) > 60 (> 60) Est GFR (Non-Af Amer) 55 L (> 60) BUN/Creatinine Ratio 24 (6-26) Glucose 163 H (70-99) mg/dL Calculated Osmolality 304 H (280-300) Calcium 8.1 L (8.6-10.8) mg/dL Troponin I 0.02 (0-0.03) ng/mL B-Natriuretic Peptide (0-100) pg/mL 12/15/16 Range/Units 17:14 WBC (4.3-11.1) K/mcL RBC (3.82-4.97) M/mcL Hgb (11.5-15.4) g/dL Hct (35.3-44.9) % MCV (83.0-100.0) fL MCH (28.0-33.3) pg MCHC (31.6-35.5) g/dL RDW (11.5-14.5) % Plt Count (140-400) K/mcL MPV (9.4-12.4) fL Immature Gran % (0-4) % Seg Neutrophils % % Lymphocytes % % Monocytes % % Eosinophils % % Basophils % % Neutrophils # (1.6-8.9) K/mcL Lymphocytes # (0.6-4.6) K/mcL Monocytes # (0.0-1.3) K/mcL Eosinophils # (0.0-0.6) K/mcL Basophils # (0.0-0.2) K/mcL Immature Plt Fraction (1.1-6.1) % Sodium (136-145) mEq/L Potassium (3.5-4.5) mEq/L Chloride (98-109) mEq/L Carbon Dioxide (19-29) mEq/L BUN (7-20) mg/dL Creatinine (0.57-1.11) mg/dL Est GFR ( Amer) (> 60) Est GFR (Non-Af Amer) (> 60) BUN/Creatinine Ratio (6-26) Glucose (70-99) mg/dL Calculated Osmolality (280-300) Calcium (8.6-10.8) mg/dL Troponin I (0-0.03) ng/mL B-Natriuretic Peptide 2056 H (0-100) pg/mL Attestation Statement - Attestation Attestation: I, Dr. Reich, examined this patient [id number] and my medical decision- making was reviewed with the Resident Physician, Dr. Singh. I agree with the documented findings, disposition and treatment plan as described except to the extent set forth below. Please see my progress notes for details.
[2016-12-15] MEDS ORDERED: Naloxone 0.4 MG/ML INJ IVP PRN (20:09)
[2016-12-15] MEDS ORDERED: Nitroglycerin 0.4 MG TAB.SUBL SL PRN (20:12)
--- NOTE | 2016-12-15 20:15 | Internal Med History&Physical ---
Date of Encounter: 12/15/16 Time of Encounter: 20:15 Assessment and Plan (1) CHF exacerbation Current visit: Yes Status: Acute Echo 822016 EF 60% with moderate concentric LVH, moderately dilated mildly hypokinetic right ventricle, severely dilated right atrium, moderately calcified aortic valve leaflets, mild aortic regurgitation, [id number] aortic stenosis. Mean gradient 19 mm) per mercury mild-moderate pulmonary hypertension severe tricuspid regurgitation- Left heart catheter 02/26/14 mild nonobstructive Patient admits that she has not been compliant with her diet and has been eating processed foods high in salt. As well she has not been compliant with fluid restriction. Experiencing increasing shortness of breath as well as lower extremity edema. We will give Lasix 40 mg IV twice a day. Monitor intake and output daily weights Low-sodium diet 1500 mL fluid restriction Qualifiers: Congestive heart failure type: diastolic Qualified Code(s): I50.33 - Acute on chronic diastolic (congestive) heart failure (2) Chronic respiratory failure with hypoxia, on home O2 therapy Current visit: Yes Status: Acute Patient experiencing increasing shortness of breath and required higher oxygen demand. Most likely related to CHF exacerbation we will continue with Lasix and fluid restriction and oxygen. 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 We will obtain ultrasound to assess for any abscess, she is on Bactrim at this time which we will continue Qualifiers: Site of cellulitis: unspecified site Qualified Code(s): L03.90 - Cellulitis , unspecified (6) A-fib Current visit: No Status: Chronic Presently she is rate controlled rate control with metoprolol and Cardizem for now. She is not anticoagulated due to history of severe GI bleed in the past and she is refusing anticoagulants Continuous cardiac monitoring Qualifiers: Atrial fibrillation type: chronic Qualified Code(s): I48.2 - Chronic atrial fibrillation (7) DVT prophylaxis Current visit: No Status: Acute foot pumps-patient's platelets are 80 patient has a wound to her lower extremity Internal Medicine - H&P: HPI Chief complaint: SOB Admitted From: Emergency Dept Plans for Post Hospital Care: Home History of present illness: Ms. Crawford is a 76 year old female past history of hypertension and atrial fibrillation renal artery stenosis right-sided heart failure gastric ulcers COPD oxygen dependent. Patient did have a recent auscultation to this facility and was discharged on the for CHF exacerbation. Patient has been experiencing for the past 2 days increasing shortness of breath requiring increased oxygen use. He does have chronic lower extremity edema however past 24 hours she has noticed increase in swelling Arrival of EMS patient was found to be moderately hypoxic and tachypneic. Patient was placed on 4 L nasal cannula this did improve her breathing. She was brought to the ER for evaluation . According to the ER records patient was in mild respiratory distress upon presentation and had scattered wheezing throughout. BNP was 2056 was slightly down from previous troponin 0 lab work was unremarkable. Patient continued to depend upon increased oxygen flow with sats dropping on exertion. She has been admitted for further work reevaluation. Presently patient does not appear to be in respiratory distress and denies any chest pain. Patient does admit that she has been noncompliant with her diet and continues to eat salt as well as processed foods. She has not been compliant with fluid restriction as well. She denies any weight gain but does admit to lower extremity edema. She does complain of some right breast tenderness as well. Right breast appears to be red and tender to touch and warm. No open lesions noted. She also has a open lesion to her left lower leg is also red. She is hemodynamically stable at this time I did review this case with Dr. Snow who agrees with plan. Past Med Surg Social Fam HX - Past Medical History Medical history: GERD, GI bleed, myocardial infarction, atrial fibrillation, hyperlipidemia, arthritis, hypertension, other, TIA, valvular heart disease, coronary artery disease, cardiomyopathy, CHF Psychiatric history: anxiety, depression - Past Surgical History Surgical History: - Social History Smoking Status: Never smoker Smokeless Tobacco Status: No Alcohol use: none Drug use: none - Family History Mother Living Status: Hx Family GI Disorders: Yes Father Hx Family Respiratory Disorders: Yes (COPD) Internal Medicine - H&P: Meds Citalopram Hydrobromide [Citalopram HBr] 10 mg PO DAILY 09/20/16 [History] Clopidogrel [Plavix] 75 mg PO DAILY 09/20/16 [History] Diltiazem HCl [Diltiazem ER] 120 mg PO QAM 09/20/16 [History] Ferrous Sulfate 325 mg PO DAILY 09/20/16 [History] Folic Acid 1 mg PO DAILY 09/20/16 [History] HYDROcodone/Acet 7.5/325 mg [[place] 7.5-325 mg] 1 tab PO TID 09/20/16 [History] Nitroglycerin [Nitrostat] 0.4 mg SL Q5M PRN 09/20/16 [History] Pantoprazole Sodium [Protonix] 40 mg PO BID 09/20/16 [History] Potassium Chloride [K-Tab ER] 30 meq PO DAILY 09/20/16 [History] Ropinirole HCl [Requip] 3 mg PO HS 09/20/16 [History] Isosorbide MONOnitrate (24 HR) [Imdur] 60 mg PO DAILY 11/18/16 [History] Aspirin 81 mg PO DAILY tab.chew 11/21/16 [Rx] Carvedilol [Coreg] 6.25 mg PO BIDWM tablet 12/01/16 [Rx] Gabapentin [Neurontin] 300 mg PO TID 12/04/16 [History] Furosemide [Lasix] 60 mg PO BID #180 tablet 12/10/16 [Rx] 3 Allergy/AdvReac Type Severity Reaction Status Date / Time acetaminophen AdvReac Anaphylaxis Verified 12/03/16 20:50 [From Tylenol-Codeine] codeine AdvReac Vomiting Verified 11/19/16 11:44 [From Tylenol-Codeine #3] All Systems PM: A 10-system review of systems was performed and is negative for pertinent findings except as documented above in the HPI. - Constitutional Constitutional: fatigue, no chills, no fever(s), no night sweats - EENT Eyes: no change in vision, no discharge, no pain, no photophobia Nose, mouth and throat: no dysphagia, no nasal discharge, no neck pain, no sore throat - Cardiovascular Cardiovascular ROS IM: dyspnea, edema, no chest pain, no diaphoresis, no lightheadedness, no palpitations, no syncope - Respiratory Respiratory: no cough, no dyspnea, no wheezing, no excessive phlegm production - Gastrointestinal Gastrointestinal: no abdominal pain, no diarrhea, no hematemesis, no hematochezia, no melena, no nausea, no vomiting - Genitourinary Genitourinary: breast skin changes, no change in urinary stream, no dysuria, no flank pain, no hematuria - Musculoskeletal Musculoskeletal ROS IM: no numbness, no tingling - Integumentary Integumentary IM: no rash, no unusual bruising - Neurological Neurological ROS: no confusion, no convulsions, no focal weakness, no numbness, no tingling, no tremor(s) - Constitutional Vitals: Temp Pulse Resp BP Pulse Ox 98.6 F 56 14 110/54 98 12/15/16 16:40 12/15/16 16:40 12/15/16 18:32 12/15/16 18:32 12/15/16 17:01 General appearance: Present: A&O X 3 - Head Head exam: Present: atraumatic, normocephalic - Eye Eye exam: Present: PERRL, conjuntiva pink, sclera anicteric Pupils: Present: PERRL - Neck Neck exam general surgery: Present: supple, trachea midline. Absent: lymphadenopathy - Respiratory Respiratory exam: Present: rales. Absent: accessory muscle use, rhonchi, wheezes - Cardiovascular Cardiovascular exam: Present: RRR, +S1, +S2. Absent: diastolic murmur, gallop, rubs, systolic murmur - GI/Abdominal GI/Abdominal exam: Present: normal bowel sounds, soft, no peritoneal signs. Absent: distended, tenderness - Extremities Exam Extremities exam: Present: warm, radial pulses palpable and symmetrical. Absent : calf tenderness, cyanotic, pedal edema - Neurological Exam Neurological exam: Present: CN II-XII intact, oriented X3, no focal deficits. Absent: pronater drift, facial droop, speech deficit - Skin Skin exam: Present: dry, intact Internal Med - H&P Results - Labs CBC & Chem 7: 12/15/16 17:14 12/15/16 17:14 - EKG Data Prior EKG available for review: yes When compared to previous EKG: there is no significant change EKG comments: 12/15/16 23:02 Atrial fibrillation - Diagnostic Studies Other Images Additional comments: Chest X-Ray 12/15/16 16:43 IMPRESSION: Stable chest. D/ / Lio Conti MD / Lio Conti MD Interpreting Provider: Lio Conti MD
[2016-12-15] MEDS: Gabapentin 300 MG CAPSULE PO SCH (21:08)
--- NOTE | 2016-12-15 22:24 | Event Note ---
Date of Encounter: 12/15/16 Time of Encounter: 22:21 Patient seen and examined with nurse practitioner. Acute CHF exacerbation. We will start patient on Lasix 40 IV twice-daily after reviewing her home Lasix dose. She has a small wound on her left leg for which she was started on Bactrim yesterday and will continue that. Wound care to see patient.
[2016-12-16 05:46] LABS: Immature Granulocytes % 0.6 % (0-4)
[2016-12-16 05:49] LABS: Basophils % 0.3 %; Hematocrit 33.8 % (35.3-44.9); Hemoglobin 9.9 g/dL (11.5-15.4); Immature Platelets 5.3 % (1.1-6.1); Lymphocytes # 0.3 K/mcL (0.6-4.6); Lymphocytes % 7.8 %; Mean Corpuscular HGB Conc 29.3 g/dL (31.6-35.5); Mean Corpuscular Hemoglobin 28.6 pg (28.0-33.3); Mean Corpuscular Volume 97.7 fL (83.0-100.0); Mean Platelet Volume 11.5 fL (9.4-12.4); Monocytes # 0.1 K/mcL (0.0-1.3); Monocytes % 3.5 %; Neutrophils # 3.1 K/mcL (1.6-8.9); Red Blood Count 3.46 M/mcL (3.82-4.97); Red Cell Distribution Width 16.8 % (11.5-14.5); Segmented Neutrophils % 87.8 %
[2016-12-16 06:12] LABS: BUN/Creatinine Ratio 29 (6-26); Blood Urea Nitrogen 24 mg/dL (7-20); Calcium 7.9 mg/dL (8.6-10.8); Carbon Dioxide 34 mEq/L (19-29); Chloride 102 mEq/L (98-109); Glucose 162 mg/dL (70-99); Osmolality,Calculated 304 (280-300); Potassium 4.3 mEq/L (3.5-4.5); Sodium 143 mEq/L (136-145); eGFR For African Americans > 60 (> 60); eGFR For Non-African Americans > 60 (> 60)
[2016-12-16 06:50] LABS: Platelet Count 81 K/mcL (140-400)
[2016-12-16] MEDS: Folic Acid 1 MG TABLET PO SCH (08:27)
[2016-12-16] MEDS: Furosemide 40 MG/4 ML VIAL IVP SCH ×2 (08:27→21:06)
[2016-12-16] MEDS: Isosorbide MONOnitrate (24 HR) 60 MG TAB.ER.24H PO SCH (08:27)
[2016-12-16] MEDS: Diltiazem CD (24hr) 120 MG CAPSULE PO SCH (08:27)
[2016-12-16] MEDS: Sulfamethoxazole/Trimeth DS 1 EACH TABLET PO SCH ×2 (08:28→21:07)
[2016-12-16] MEDS: Gabapentin 300 MG CAPSULE PO SCH ×3 (08:28→21:07)
[2016-12-16] MEDS: Aspirin 81 MG TAB.CHEW PO SCH (08:28)
[2016-12-16] MEDS ORDERED: Pantoprazole 40 MG VIAL IVP SCH (09:00)
--- NOTE | 2016-12-16 09:07 | Electrocardiograph Report ---
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
[2016-12-16] MEDS: Silvasorb 44.4 ML TUBE TP SCH (16:25)
--- NOTE | 2016-12-16 17:34 | Internal Med Progress Note ---
Date of Encounter: 12/16/16 Time of Encounter: 17:31 - Assessment and plan (1) Acute on chronic diastolic (congestive) heart failure Current Visit: Yes Status: Acute (2) Bilateral lower leg cellulitis Current Visit: Yes Status: Acute (3) Diabetic ulcer of lower extremity Current Visit: Yes Status: Acute (4) A-fib Current Visit: No Status: Chronic Qualifiers: Atrial fibrillation type: chronic Qualified Code(s): I48.2 - Chronic atrial fibrillation (5) DM type 2 (diabetes mellitus, type 2) Current Visit: No Status: Chronic Qualifiers: Diabetes mellitus complication status: without complication Diabetes mellitus half-way insulin use: without half-way use Qualified Code(s): E11.9 - Type 2 diabetes mellitus without complications (6) CAD (coronary artery disease) Current Visit: Yes Status: Chronic Qualifiers: Coronary Disease-Associated Artery/Lesion type: [place] artery [place] vs. transplanted heart: [place] heart Associated angina: without angina Qualified Code(s): I25.10 - Atherosclerotic heart disease of [place] coronary artery without angina pectoris - Subjective Interval history: Ration admitted for CHF. Currently asymptomatic sitting comfortably and does not appear short of breath. She has chronic pancytopenia. Previous echocardiogram showed normal EF about 60% with [id number] aortic stenosis and mild to moderate pulmonary hypertension contributing to diastolic dysfunction. She has chronic leg ulcer. Wound care is consulted. She is on Bactrim and Ancef is added - Constitutional Vitals: Temp Pulse Resp BP Pulse Ox 98.3 F 78 14 125/71 94 12/16/16 15:41 12/16/16 15:41 12/16/16 15:41 12/16/16 15:41 12/16/16 15:41 General appearance: Present: A&O X 3 - Head Head exam: Present: atraumatic, normocephalic - Eye Eye exam: Present: PERRL, conjuntiva pink, sclera anicteric Pupils: Present: PERRL - Neck Neck exam general surgery: Present: supple, trachea midline. Absent: lymphadenopathy - Respiratory Respiratory exam: Present: CTAB. Absent: accessory muscle use, rales, rhonchi, wheezes - Cardiovascular Cardiovascular exam: Present: RRR, +S1, +S2. Absent: diastolic murmur, gallop, rubs, systolic murmur - GI/Abdominal GI/Abdominal exam: Present: normal bowel sounds, soft, no peritoneal signs. Absent: distended, tenderness - Extremities Exam Extremities exam: Present: warm, radial pulses palpable and symmetrical. Absent : calf tenderness, cyanotic, pedal edema Additional comments: Both legs covered with dressing has cellulitis and diabetic ulcer - Neurological Exam Neurological exam: Present: CN II-XII intact, oriented X3, no focal deficits. Absent: pronater drift, facial droop, speech deficit - Skin Skin exam: Present: dry, intact Internal Medicine: Result - Labs CBC & Chem 7: 12/16/16 04:42 12/16/16 04:42 Labs: Short CBC 12/16/16 Range/Units 04:42 WBC 3.5 L (4.3-11.1) K/mcL Hgb 9.9 L (11.5-15.4) g/dL Hct 33.8 L (35.3-44.9) % Plt Count 81 L (140-400) K/mcL Neutrophils # 3.1 (1.6-8.9) K/mcL BMP 12/16/16 04:42 Sodium 143 Potassium 4.3 Chloride 102 Carbon Dioxide 34 H BUN 24 H Creatinine 0.83 Glucose 162 H Calcium 7.9 L Cardiac Enzymes 12/15/16 12/16/16 Range/Units 23:14 04:42 Troponin I 0.02 0.01 (0-0.03) ng/mL - Impressions Impressions Breast Ultrasound 12/16/16 14:00 IMPRESSION: 1. Diffuse right breast edematous changes which correspond with findings identified on the prior CTA chest 11/18/2016. 2. No evidence of an abscess. No significant hyperemia to correspond with cellulitis/mastitis. 3. No evidence of a primary malignancy or significant axillary lymphadenopathy. If symptoms persist following appropriate antimicrobial therapy inflammatory malignancy should be considered and further evaluation with MRI may be helpful. BIRADS: BIRADS - CATEGORY 2 Benign, no evidence of malignancy. Normal interval follow-up is recommended in 12 months. OVERALL ASSESSMENT - BENIGN A letter of notification will be sent to the patient regarding the results. The [employer] recommends annual mammograms for women 40 years and older. D/ / 12/16/2016 15:05:50 Mamadou oDbson MD / saturnino Interpreting Provider: Mamadou Dobson MD Consult Discharge Plan - Plan Referrals: Yue Kennedy CNP [Primary Care Provider] -
[2016-12-16] MEDS: ceFAZolin 2,000 MG in Water for inj. (sterile) 20 ML IVP SCH (18:15)
[2016-12-17] MEDS: *HR* HYDROcodone/Acet 7.5/325 mg TABLET PO PRN ×2 (00:23→20:33)
[2016-12-17 04:10] LABS: Basophils % 0.3 %; Immature Granulocytes % 0.5 % (0-4); Mean Platelet Volume 10.7 fL (9.4-12.4); Red Blood Count 3.45 M/mcL (3.82-4.97); Red Cell Distribution Width 16.7 % (11.5-14.5)
[2016-12-17 04:12] LABS: Eosinophils # 0.1 K/mcL (0.0-0.6); Eosinophils % 0.8 %; Hematocrit 33.3 % (35.3-44.9); Immature Platelets 5.2 % (1.1-6.1); Lymphocytes # 0.7 K/mcL (0.6-4.6); Lymphocytes % 11.8 %; Mean Corpuscular Volume 96.5 fL (83.0-100.0); Monocytes # 0.6 K/mcL (0.0-1.3); Monocytes % 10.3 %; Neutrophils # 4.5 K/mcL (1.6-8.9); Segmented Neutrophils % 76.3 %
[2016-12-17 04:14] LABS: Platelet Count 97 K/mcL (140-400)
[2016-12-17 04:26] LABS: Alanine Aminotransferase 21 Units/L (0-55); Albumin/Globulin Ratio 1.1 (1.1-2.2); Alkaline Phosphatase 114 Units/L (38-126); Aspartate Amino Transferase 24 Units/L (5-34); BUN/Creatinine Ratio 28 (6-26); Bilirubin,Total 1.3 mg/dL (0.2-1.2); Blood Urea Nitrogen 29 mg/dL (7-20); Calcium 8.2 mg/dL (8.6-10.8); Carbon Dioxide 36 mEq/L (19-29); Chloride 100 mEq/L (98-109); Globulin 2.7 g/dL (2.4-3.5); Glucose 105 mg/dL (70-99); Magnesium 2.1 mg/dL (1.6-2.6); Osmolality,Calculated 300 (280-300); Potassium 4.1 mEq/L (3.5-4.5); Sodium 142 mEq/L (136-145); Total Protein 5.7 g/dL (6.0-8.3); eGFR For African Americans > 60 (> 60); eGFR For Non-African Americans 53 (> 60)
[2016-12-17] MEDS: ceFAZolin 2,000 MG in Water for inj. (sterile) 20 ML IVP SCH ×3 (04:57→17:37)
[2016-12-17] MEDS: Aspirin 81 MG TAB.CHEW PO SCH (08:47)
[2016-12-17] MEDS: Folic Acid 1 MG TABLET PO SCH (08:47)
[2016-12-17] MEDS: Sulfamethoxazole/Trimeth DS 1 EACH TABLET PO SCH (08:47)
[2016-12-17] MEDS: Isosorbide MONOnitrate (24 HR) 60 MG TAB.ER.24H PO SCH (08:47)
[2016-12-17] MEDS: Furosemide 40 MG/4 ML VIAL IVP SCH ×2 (08:48→20:33)
[2016-12-17] MEDS: Diltiazem CD (24hr) 120 MG CAPSULE PO SCH (08:48)
[2016-12-17] MEDS: Gabapentin 300 MG CAPSULE PO SCH ×3 (08:48→20:33)
--- NOTE | 2016-12-17 10:58 | Internal Med Progress Note ---
Date of Encounter: 12/17/16 Time of Encounter: 14:59 - Assessment and plan (1) Acute on chronic diastolic (congestive) heart failure Current Visit: Yes Status: Acute (2) COPD (chronic obstructive pulmonary disease) Current Visit: Yes Status: Acute Qualifiers: COPD type: COPD with acute exacerbation Qualified Code(s): J44.1 - Chronic obstructive pulmonary disease with (acute) exacerbation (3) Bilateral lower leg cellulitis Current Visit: Yes Status: Acute (4) Diabetic ulcer of lower extremity Current Visit: Yes Status: Acute (5) A-fib Current Visit: No Status: Chronic Qualifiers: Atrial fibrillation type: chronic Qualified Code(s): I48.2 - Chronic atrial fibrillation (6) DM type 2 (diabetes mellitus, type 2) Current Visit: No Status: Chronic Qualifiers: Diabetes mellitus complication status: without complication 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 transplanted heart: [place] heart Associated angina: without angina Qualified Code(s): I25.10 - Atherosclerotic heart disease of [place] coronary artery without angina pectoris - Subjective Interval history: Patient admitted for shortness of breath secondary to CHF. She uses nebulizers at home. She says she is short of breath. She has chronic pancytopenia. Previous echocardiogram showed normal EF about 60% with [id number]-as-[id number] aortic stenosis and mild to moderate pulmonary hypertension contributing to diastolic dysfunction. She has chronic leg ulcer. Wound care is consulted. She is on Bactrim and Ancef was added. However it seems like that her cellulitis has gotten worse and raising the question if she has MRSA. While cultures are pending I will DC Bactrim and start IV vancomycin continue to follow up CBC and CMP. She has negative fluid balance while she is on IV Lasix 40 twice a day. As noted above she has only diastolic dysfunction and her pulmonary hypertension due to which she has bilateral leg edema. Add nebulizers and IV steroids to see if respiration improves - Constitutional Vitals: Temp Pulse Resp BP Pulse Ox 97.6 F 73 14 113/71 93 12/17/16 05:52 12/17/16 05:52 12/17/16 05:52 12/17/16 05:52 12/17/16 05:52 General appearance: Present: A&O X 3 - Head Head exam: Present: atraumatic, normocephalic - Eye Eye exam: Present: PERRL, conjuntiva pink, sclera anicteric Pupils: Present: PERRL - Neck Neck exam general surgery: Present: supple, trachea midline. Absent: lymphadenopathy - Respiratory Respiratory exam: Present: CTAB. Absent: accessory muscle use, rales, rhonchi, wheezes - Cardiovascular Cardiovascular exam: Present: RRR, +S1, +S2. Absent: diastolic murmur, gallop, rubs, systolic murmur - GI/Abdominal GI/Abdominal exam: Present: normal bowel sounds, soft, no peritoneal signs. Absent: distended, tenderness - Extremities Exam Extremities exam: Present: pedal edema, warm, radial pulses palpable and symmetrical. Absent: calf tenderness, cyanotic Additional comments: Bilateral lower extremity reflects bilateral leg edema with chronic stasis dermatitis. Left leg has a stage II ulcer on the posterior distal third aspect 2 cm long. Left leg has cellulitis all the way up to the knee seems to have gotten worsen. - Neurological Exam Neurological exam: Present: CN II-XII intact, oriented X3, no focal deficits. Absent: pronater drift, facial droop, speech deficit - Skin Skin exam: Present: dry, intact Internal Medicine: Result - Labs CBC & Chem 7: 12/17/16 03:43 12/17/16 03:43 Labs: Short CBC 12/17/16 Range/Units 03:43 WBC 5.9 D (4.3-11.1) K/mcL Hgb 10.0 L (11.5-15.4) g/dL Hct 33.3 L (35.3-44.9) % Plt Count 97 L (140-400) K/mcL Neutrophils # 4.5 (1.6-8.9) K/mcL BMP 12/17/16 03:43 Sodium 142 Potassium 4.1 Chloride 100 Carbon Dioxide 36 H BUN 29 H Creatinine 1.02 Glucose 105 H Calcium 8.2 L Liver Function 12/17/16 Range/Units 03:43 Total Bilirubin 1.3 H (0.2-1.2) mg/dL AST 24 (5-34) Units/L ALT 21 (0-55) Units/L Alkaline Phosphatase 114 (38-126) Units/L Albumin 3.0 L (3.5-5.0) g/dL - Impressions Impressions Breast Ultrasound 12/16/16 14:00 IMPRESSION: 1. Diffuse right breast edematous changes which correspond with findings identified on the prior CTA chest 11/18/2016. 2. No evidence of an abscess. No significant hyperemia to correspond with cellulitis/mastitis. 3. No evidence of a primary malignancy or significant axillary lymphadenopathy. If symptoms persist following appropriate antimicrobial therapy inflammatory malignancy should be considered and further evaluation with MRI may be helpful. BIRADS: BIRADS - CATEGORY 2 Benign, no evidence of malignancy. Normal interval follow-up is recommended in 12 months. OVERALL ASSESSMENT - BENIGN A letter of notification will be sent to the patient regarding the results. The [employer] recommends annual mammograms for women 40 years and older. D/ / 12/16/2016 15:05:50 Mamadou Dobson MD / attila Interpreting Provider: Mamadou Dobson MD Consult Discharge Plan - Plan Referrals: Yue Kennedy, LICENSED AND CERTIFIED MIDWIFE [Primary Care Provider] -
[2016-12-17] MEDS: Silvasorb 44.4 ML TUBE TP SCH (10:59)
[2016-12-17] MEDS ORDERED: Albuterol 2.5 MG/3 ML NEBULIZER IH PRN (14:56)
[2016-12-17] MEDS ORDERED: Vancomycin 1,250 MG in D5% in Water 250 ML IVPB SCH (15:00)
[2016-12-17] MEDS: Vancomycin 1,250 MG in D5% in Water 250 ML IVPB SCH (15:49)
[2016-12-17] MEDS: methylPREDNISolone 125 MG/2 ML VIAL IVP SCH (15:50)
[2016-12-17] MEDS: Ipratropium/Albuterol Neb 3 ML IH SCH (16:11)
[2016-12-18] MEDS: Ipratropium/Albuterol Neb 3 ML IH SCH ×5 (04:38→22:42)
[2016-12-18 05:06] LABS: Basophils % 0.3 %; Immature Granulocytes % 0.5 % (0-4); Red Cell Distribution Width 16.5 % (11.5-14.5)
[2016-12-18 05:08] LABS: Hematocrit 32.8 % (35.3-44.9); Hemoglobin 9.6 g/dL (11.5-15.4); Immature Platelets 4.9 % (1.1-6.1); Lymphocytes # 0.3 K/mcL (0.6-4.6); Lymphocytes % 8.1 %; Mean Corpuscular HGB Conc 29.3 g/dL (31.6-35.5); Mean Corpuscular Hemoglobin 28.2 pg (28.0-33.3); Mean Corpuscular Volume 96.5 fL (83.0-100.0); Mean Platelet Volume 11.1 fL (9.4-12.4); Monocytes # 0.2 K/mcL (0.0-1.3); Monocytes % 5.6 %; Neutrophils # 3.2 K/mcL (1.6-8.9); Segmented Neutrophils % 85.5 %
[2016-12-18 05:22] LABS: Platelet Count 98 K/mcL (140-400)
[2016-12-18 05:43] LABS: Albumin 2.9 g/dL (3.5-5.0); Globulin 2.8 g/dL (2.4-3.5); Magnesium 2.1 mg/dL (1.6-2.6); Potassium 4.3 mEq/L (3.5-4.5); Total Protein 5.7 g/dL (6.0-8.3)
[2016-12-18] MEDS: methylPREDNISolone 125 MG/2 ML VIAL IVP SCH ×3 (06:19→21:46)
[2016-12-18] MEDS: ceFAZolin 2,000 MG in Water for inj. (sterile) 20 ML IVP SCH ×3 (06:19→21:46)
[2016-12-18] MEDS: Vancomycin 1,250 MG in D5% in Water 250 ML IVPB SCH ×2 (06:21→16:59)
[2016-12-18] MEDS: Folic Acid 1 MG TABLET PO SCH (08:30)
[2016-12-18] MEDS: Furosemide 40 MG/4 ML VIAL IVP SCH (08:30)
[2016-12-18] MEDS: Aspirin 81 MG TAB.CHEW PO SCH (08:31)
[2016-12-18] MEDS: Isosorbide MONOnitrate (24 HR) 60 MG TAB.ER.24H PO SCH (08:31)
[2016-12-18] MEDS: Diltiazem CD (24hr) 120 MG CAPSULE PO SCH (08:31)
[2016-12-18] MEDS: Gabapentin 300 MG CAPSULE PO SCH ×3 (08:31→21:45)
[2016-12-18] MEDS: Silvasorb 44.4 ML TUBE TP SCH (08:59)
--- NOTE | 2016-12-18 12:06 | Internal Med Progress Note ---
Date of Encounter: 12/18/16 Time of Encounter: 12:04 - Assessment and plan (1) Acute on chronic diastolic (congestive) heart failure Current Visit: Yes Status: Acute (2) COPD (chronic obstructive pulmonary disease) Current Visit: Yes Status: Acute Qualifiers: COPD type: COPD with acute exacerbation Qualified Code(s): J44.1 - Chronic obstructive pulmonary disease with (acute) exacerbation (3) Bilateral lower leg cellulitis Current Visit: Yes Status: Acute (4) Diabetic ulcer of lower extremity Current Visit: Yes Status: Acute (5) A-fib Current Visit: No Status: Chronic Qualifiers: Atrial fibrillation type: chronic Qualified Code(s): I48.2 - Chronic atrial fibrillation (6) DM type 2 (diabetes mellitus, type 2) Current Visit: No Status: Chronic Qualifiers: Diabetes mellitus complication status: without complication Diabetes mellitus long term care pharmacist insulin use: without senior living use Qualified Code(s): E11.9 - Type 2 diabetes mellitus without complications (7) CAD (coronary artery disease) Current Visit: Yes Status: Chronic Qualifiers: Coronary Disease-Associated Artery/Lesion type: [place] artery [place] vs. transplanted heart: [place] heart Associated angina: without angina Qualified Code(s): I25.10 - Atherosclerotic heart disease of [place] coronary artery without angina pectoris - Subjective Interval history: Patient admitted for shortness of breath secondary to CHF/COPD. She uses nebulizers at home. She says she feels much better now. Previous echocardiogram showed normal EF about 60% with [id number]-[id number] aortic stenosis and mild to moderate pulmonary hypertension contributing to diastolic dysfunction. She has negative fluid balance while she is on IV Lasix 40 twice a day. As noted above she has only diastolic dysfunction and her pulmonary hypertension due to which she has bilateral leg edema. Patient creatinine has gone up therefore Lasix will be switched to 40 mg by mouth daily and continue following creatinine. Continue nebulizers and reduce IV steroids .She has chronic pancytopenia. CBC stable.She has chronic leg ulcer. Wound care is consulted. She is on Bactrim and Ancef was added. However it seems like that her cellulitis has gotten worse and raising the question if she has MRSA. While cultures are pending I will DC Bactrim and start IV vancomycin continue to follow up CBC and CMP. - Constitutional Vitals: Temp Pulse Resp BP Pulse Ox 98.5 F 72 18 130/74 96 12/18/16 11:45 12/18/16 11:45 12/18/16 11:45 12/18/16 11:45 12/18/16 11:45 General appearance: Present: A&O X 3 - Head Head exam: Present: atraumatic, normocephalic - Eye Eye exam: Present: PERRL, conjuntiva pink, sclera anicteric Pupils: Present: PERRL - Neck Neck exam general surgery: Present: supple, trachea midline. Absent: lymphadenopathy - Respiratory Respiratory exam: Present: CTAB. Absent: accessory muscle use, rales, rhonchi, wheezes - Cardiovascular Cardiovascular exam: Present: RRR, +S1, +S2. Absent: diastolic murmur, gallop, rubs, systolic murmur - GI/Abdominal GI/Abdominal exam: Present: normal bowel sounds, soft, no peritoneal signs. Absent: distended, tenderness - Extremities Exam Extremities exam: Present: warm, radial pulses palpable and symmetrical. Absent : calf tenderness, cyanotic, pedal edema Additional comments: Bilateral lower extremity edema, redness at left lower extremity which is is still unchanged while she was started on IV vancomycin yesterday. WBC is within normal range. - Neurological Exam Neurological exam: Present: CN II-XII intact, oriented X3, no focal deficits. Absent: pronater drift, facial droop, speech deficit - Skin Skin exam: Present: dry, intact Internal Medicine: Result - Labs CBC & Chem 7: 12/18/16 04:32 12/18/16 04:32 Labs: Short CBC 12/18/16 Range/Units 04:32 WBC 3.7 L (4.3-11.1) K/mcL Hgb 9.6 L (11.5-15.4) g/dL Hct 32.8 L (35.3-44.9) % Plt Count 98 L (140-400) K/mcL Neutrophils # 3.2 (1.6-8.9) K/mcL BMP 12/18/16 04:32 Sodium 141 Potassium 4.3 Chloride 99 Carbon Dioxide 34 H BUN 29 H Creatinine 1.23 H Glucose 199 H Calcium 8.0 L Liver Function 12/18/16 Range/Units 04:32 Total Bilirubin 1.0 (0.2-1.2) mg/dL AST 32 (5-34) Units/L ALT 15 (0-55) Units/L Alkaline Phosphatase 120 (38-126) Units/L Albumin 2.9 L (3.5-5.0) g/dL Consult Discharge Plan - Plan Referrals: Yue Kennedy, INFORMATION SYSTEMS COORDINATOR [Primary Care Provider] -
[2016-12-18] MEDS: *HR* HYDROcodone/Acet 7.5/325 mg TABLET PO PRN ×2 (17:38→21:45)
[2016-12-19 03:25] LABS: Basophils % 0.2 %; Immature Granulocytes % 0.4 % (0-4)
[2016-12-19 03:26] LABS: Hematocrit 36.1 % (35.3-44.9); Hemoglobin 10.8 g/dL (11.5-15.4); Immature Platelets 4.6 % (1.1-6.1); Lymphocytes # 0.4 K/mcL (0.6-4.6); Lymphocytes % 7.4 %; Mean Corpuscular HGB Conc 29.9 g/dL (31.6-35.5); Mean Corpuscular Hemoglobin 28.8 pg (28.0-33.3); Mean Corpuscular Volume 96.3 fL (83.0-100.0); Mean Platelet Volume 10.6 fL (9.4-12.4); Monocytes # 0.2 K/mcL (0.0-1.3); Monocytes % 3.2 %; Neutrophils # 4.2 K/mcL (1.6-8.9); Red Blood Count 3.75 M/mcL (3.82-4.97); Segmented Neutrophils % 88.8 %
[2016-12-19 03:41] LABS: Alanine Aminotransferase 12 Units/L (0-55); Albumin 3.1 g/dL (3.5-5.0); Albumin/Globulin Ratio 1.1 (1.1-2.2); Alkaline Phosphatase 123 Units/L (38-126); Aspartate Amino Transferase 24 Units/L (5-34); BUN/Creatinine Ratio 33 (6-26); Blood Urea Nitrogen 32 mg/dL (7-20); Calcium 8.2 mg/dL (8.6-10.8); Carbon Dioxide 33 mEq/L (19-29); Chloride 99 mEq/L (98-109); Globulin 2.9 g/dL (2.4-3.5); Glucose 195 mg/dL (70-99); Magnesium 2.1 mg/dL (1.6-2.6); Osmolality,Calculated 302 (280-300); Potassium 4.4 mEq/L (3.5-4.5); Sodium 140 mEq/L (136-145); eGFR For African Americans > 60 (> 60); eGFR For Non-African Americans 56 (> 60)
[2016-12-19] MEDS: Ipratropium/Albuterol Neb 3 ML IH SCH ×4 (03:43→22:20)
[2016-12-19 03:45] LABS: Platelet Count 95 K/mcL (140-400)
[2016-12-19] MEDS: methylPREDNISolone 125 MG/2 ML VIAL IVP SCH (04:55)
[2016-12-19] MEDS: ceFAZolin 2,000 MG in Water for inj. (sterile) 20 ML IVP SCH ×2 (04:55→10:43)
[2016-12-19] MEDS: Vancomycin 1,250 MG in D5% in Water 250 ML IVPB SCH ×2 (04:58→15:08)
[2016-12-19] MEDS: Furosemide 40 MG TABLET PO SCH (08:19)
[2016-12-19] MEDS: Diltiazem CD (24hr) 120 MG CAPSULE PO SCH (08:19)
[2016-12-19] MEDS: Folic Acid 1 MG TABLET PO SCH (08:19)
[2016-12-19] MEDS: Aspirin 81 MG TAB.CHEW PO SCH (08:20)
[2016-12-19] MEDS: Isosorbide MONOnitrate (24 HR) 60 MG TAB.ER.24H PO SCH (08:20)
[2016-12-19] MEDS: Gabapentin 300 MG CAPSULE PO SCH ×3 (08:20→20:46)
[2016-12-19] MEDS ORDERED: Dextrose Gel 15 GM PO PRN ×2 (12:22)
[2016-12-19] MEDS ORDERED: *HR* Dextrose 50 % in Water (Syg) 50 ML SYRINGE IVP PRN (12:22)
[2016-12-19] MEDS ORDERED: D5% in Water 1,000 ML IVC PRN (12:22)
[2016-12-19] MEDS ORDERED: Lidocaine -MPF 1% 5 ML AMPUL INFILT ONE (14:35)
--- NOTE | 2016-12-19 15:51 | Internal Med Progress Note ---
Date of Encounter: 12/19/16 Time of Encounter: 15:47 - Assessment and plan (1) Acute on chronic diastolic (congestive) heart failure Current Visit: Yes Status: Acute (2) COPD (chronic obstructive pulmonary disease) Current Visit: Yes Status: Acute Qualifiers: COPD type: COPD with acute exacerbation Qualified Code(s): J44.1 - Chronic obstructive pulmonary disease with (acute) exacerbation (3) Bilateral lower leg cellulitis Current Visit: Yes Status: Acute (4) Diabetic ulcer of lower extremity Current Visit: Yes Status: Acute (5) A-fib Current Visit: No Status: Chronic Qualifiers: Atrial fibrillation type: chronic Qualified Code(s): I48.2 - Chronic atrial fibrillation (6) DM type 2 (diabetes mellitus, type 2) Current Visit: No Status: Chronic Qualifiers: Diabetes mellitus complication status: without complication 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 transplanted heart: [place] heart Associated angina: without angina Qualified Code(s): I25.10 - Atherosclerotic heart disease of [place] coronary artery without angina pectoris - Subjective Interval history: Patient admitted for shortness of breath secondary to CHF/COPD. She uses nebulizers at home. She says she feels much better now. Previous echocardiogram showed normal EF about 60% with hfnc-vl-[id number] te aortic stenosis and mild to moderate pulmonary hypertension contributing to diastolic dysfunction. She has negative fluid balance while she is on IV Lasix 40 twice a day. As noted above she has only diastolic dysfunction and her pulmonary hypertension due to which she has bilateral leg edema. Patient creatinine has gone up therefore Lasix will be switched to 40 mg by mouth daily and continue following creatinine. Continue nebulizers and reduce IV steroids .She has chronic pancytopenia. CBC stable. She has chronic leg ulcer. Wound care is consulted. She was tried on Bactrim and Ancef but cellulitis did not improve and therefore she has been placed on vancomycin. We have ordered a PICC line and she will be discharged on vancomycin with home care. . - Constitutional Vitals: Temp Pulse Resp BP Pulse Ox 98.9 F 85 18 117/66 99 12/19/16 15:37 12/19/16 15:37 10/30/17 15:37 12/19/16 15:37 12/19/16 15:37 General appearance: Present: A&O X 3 - Head Head exam: Present: atraumatic, normocephalic - Eye Eye exam: Present: PERRL, conjuntiva pink, sclera anicteric Pupils: Present: PERRL - Neck Neck exam general surgery: Present: supple, trachea midline. Absent: lymphadenopathy - Respiratory Respiratory exam: Present: CTAB. Absent: accessory muscle use, rales, rhonchi, wheezes - Cardiovascular Cardiovascular exam: Present: RRR, +S1, +S2. Absent: diastolic murmur, gallop, rubs, systolic murmur - GI/Abdominal GI/Abdominal exam: Present: normal bowel sounds, soft, no peritoneal signs. Absent: distended, tenderness - Extremities Exam Extremities exam: Present: warm, radial pulses palpable and symmetrical. Absent : calf tenderness, cyanotic, pedal edema Additional comments: Only modest improvement in left lower extremity redness - Neurological Exam Neurological exam: Present: CN II-XII intact, oriented X3, no focal deficits. Absent: pronater drift, facial droop, speech deficit - Skin Skin exam: Present: dry, intact Internal Medicine: Result - Labs CBC & Chem 7: 12/19/16 03:17 12/19/16 03:17 Labs: Short CBC 12/19/16 Range/Units 03:17 WBC 4.7 (4.3-11.1) K/mcL Hgb 10.8 L (11.5-15.4) g/dL Hct 36.1 (35.3-44.9) % Plt Count 95 L (140-400) K/mcL Neutrophils # 4.2 (1.6-8.9) K/mcL BMP 12/19/16 03:17 Sodium 140 Potassium 4.4 Chloride 99 Carbon Dioxide 33 H BUN 32 H Creatinine 0.97 Glucose 195 H Calcium 8.2 L Liver Function 12/19/16 Range/Units 03:17 Total Bilirubin 1.0 (0.2-1.2) mg/dL AST 24 (5-34) Units/L ALT 12 (0-55) Units/L Alkaline Phosphatase 123 (38-126) Units/L Albumin 3.1 L (3.5-5.0) g/dL Consult Discharge Plan - Plan Referrals: Yue Kennedy, SAL[place] [Primary Care Provider] -
[2016-12-19] MEDS: Insulin LISPRO 300 UNITS/3 ML VIAL SQ SCH ×2 (17:25→20:27)
[2016-12-19] MEDS: MethylPREDNISolone 40 MG/ML VIAL IVP SCH (17:26)
[2016-12-19] MEDS: *HR* HYDROcodone/Acet 7.5/325 mg TABLET PO PRN (20:46)
[2016-12-20] MEDS: Ipratropium/Albuterol Neb 3 ML IH SCH ×4 (04:01→23:49)
[2016-12-20] MEDS: Silvasorb 44.4 ML TUBE TP SCH ×2 (05:39→06:22)
[2016-12-20] MEDS: MethylPREDNISolone 40 MG/ML VIAL IVP SCH (05:39)
[2016-12-20 06:31] LABS: Mean Corpuscular Volume 96.2 fL (83.0-100.0); Monocytes % 6.5 %; Red Cell Distribution Width 15.9 % (11.5-14.5)
[2016-12-20 06:33] LABS: Hemoglobin 10.2 g/dL (11.5-15.4); Immature Granulocytes % 0.7 % (0-4); Immature Platelets 5.2 % (1.1-6.1); Lymphocytes # 0.3 K/mcL (0.6-4.6); Lymphocytes % 5.6 %; Mean Corpuscular HGB Conc 29.1 g/dL (31.6-35.5); Mean Platelet Volume 10.7 fL (9.4-12.4); Monocytes # 0.4 K/mcL (0.0-1.3); Neutrophils # 4.8 K/mcL (1.6-8.9); Platelet Count 105 K/mcL (140-400); Red Blood Count 3.64 M/mcL (3.82-4.97); Segmented Neutrophils % 87.2 %
[2016-12-20 06:43] LABS: Alanine Aminotransferase 11 Units/L (0-55); Albumin 2.9 g/dL (3.5-5.0); Albumin/Globulin Ratio 1.1 (1.1-2.2); Alkaline Phosphatase 119 Units/L (38-126); Aspartate Amino Transferase 27 Units/L (5-34); BUN/Creatinine Ratio 41 (6-26); Bilirubin,Total 0.9 mg/dL (0.2-1.2); Blood Urea Nitrogen 35 mg/dL (7-20); Calcium 8.4 mg/dL (8.6-10.8); Carbon Dioxide 35 mEq/L (19-29); Chloride 100 mEq/L (98-109); Globulin 2.7 g/dL (2.4-3.5); Glucose 251 mg/dL (70-99); Osmolality,Calculated 308 (280-300); Potassium 4.4 mEq/L (3.5-4.5); Sodium 141 mEq/L (136-145); Total Protein 5.6 g/dL (6.0-8.3); eGFR For African Americans > 60 (> 60); eGFR For Non-African Americans > 60 (> 60)
[2016-12-20] MEDS: Vancomycin 1,250 MG in D5% in Water 250 ML IVPB SCH ×2 (07:55→20:53)
[2016-12-20] MEDS: Insulin LISPRO 300 UNITS/3 ML VIAL SQ SCH ×4 (07:56→21:16)
[2016-12-20] MEDS: Diltiazem CD (24hr) 120 MG CAPSULE PO SCH (10:00)
[2016-12-20] MEDS: Folic Acid 1 MG TABLET PO SCH (10:00)
[2016-12-20] MEDS: Furosemide 40 MG TABLET PO SCH (10:00)
[2016-12-20] MEDS: Isosorbide MONOnitrate (24 HR) 60 MG TAB.ER.24H PO SCH (10:01)
[2016-12-20] MEDS: Aspirin 81 MG TAB.CHEW PO SCH (10:01)
[2016-12-20] MEDS: Gabapentin 300 MG CAPSULE PO SCH ×3 (10:01→20:53)
[2016-12-20] MEDS: predniSONE 20 MG TABLET PO SCH (11:40)
--- NOTE | 2016-12-20 13:13 | Discharge Summary ---
Date of Encounter: 12/20/16 Time of Encounter: 10:15 - Discharge Diagnosis (1) Acute on chronic diastolic (congestive) heart failure Priority: Primary Status: Acute (2) Bilateral lower leg cellulitis Priority: Secondary Status: Acute (3) A-fib Priority: Secondary Status: Chronic Qualifiers: Atrial fibrillation type: chronic Qualified Code(s): I48.2 - Chronic atrial fibrillation (4) CAD (coronary artery disease) Priority: Secondary Status: Chronic Qualifiers: Coronary Disease-Associated Artery/Lesion type: [place] artery [place] vs. transplanted heart: [place] heart Associated angina: without angina Qualified Code(s): I25.10 - Atherosclerotic heart disease of [place] coronary artery without angina pectoris (5) COPD (chronic obstructive pulmonary disease) Priority: Secondary Status: Acute Qualifiers: COPD type: COPD with acute exacerbation Qualified Code(s): J44.1 - Chronic obstructive pulmonary disease with (acute) exacerbation (6) DM type 2 (diabetes mellitus, type 2) Priority: Secondary Status: Chronic Qualifiers: Diabetes mellitus complication status: without complication Diabetes mellitus chcf insulin use: without chcf use Qualified Code(s): E11.9 - Type 2 diabetes mellitus without complications - Discharge Medications Prescriptions: Albuterol Sulfate [Albuterol Inhaler] 2 puff IH Q4H PRN #1 inhaler PRN Reason: Shortness Of Breath Fluticasone/Salmeterol [Advair 250-50 Diskus] 1 each IH BID #60 blst.w.dev predniSONE [PredniSONE] 10 mg PO DAILY 8 Days tablet Vancomycin/0.9 % Sod Chloride [Vanco 1.25 gm/150 ml-0.9% NaCl] 1.25 gm IV BID # 14 plast..bag Home Medications: Citalopram Hydrobromide [Citalopram HBr] 10 mg PO DAILY 09/20/16 [History] Clopidogrel [Plavix] 75 mg PO DAILY 09/20/16 [History] Diltiazem HCl [Diltiazem ER] 120 mg PO QAM 09/20/16 [History] Ferrous Sulfate 325 mg PO DAILY 09/20/16 [History] Folic Acid 1 mg PO DAILY 09/20/16 [History] HYDROcodone/Acet 7.5/325 mg [[place] 7.5-325 mg] 1 tab PO TID 09/20/16 [History] Nitroglycerin [Nitrostat] 0.4 mg SL Q5M PRN 09/20/16 [History] Pantoprazole Sodium [Protonix] 40 mg PO BID 09/20/16 [History] Potassium Chloride [K-Tab ER] 30 meq PO DAILY 09/20/16 [History] Ropinirole HCl [Requip] 3 mg PO HS 09/20/16 [History] Isosorbide MONOnitrate (24 HR) [Imdur] 60 mg PO DAILY 11/18/16 [History] Aspirin 81 mg PO DAILY tab.chew 11/21/16 [Rx] Carvedilol [Coreg] 6.25 mg PO BIDWM tablet 12/01/16 [Rx] Gabapentin [Neurontin] 300 mg PO TID 12/04/16 [History] Furosemide [Lasix] 60 mg PO BID #180 tablet 12/10/16 [Rx] Albuterol Sulfate [Albuterol Inhaler] 2 puff IH Q4H PRN #1 inhaler 12/20/16 [Rx] Vancomycin/0.9 % Sod Chloride [Vanco 1.25 gm/150 ml-0.9% NaCl] 1.25 gm IV BID # 14 plast..bag 12/20/16 [Rx] predniSONE [PredniSONE] 10 mg PO DAILY 8 Days tablet 12/20/16 [Rx] Fluticasone/Salmeterol [Advair 250-50 Diskus] 1 each IH BID #60 blst.w.dev 12/21 [Rx] Allergies/Adverse Reactions: 3 Allergy/AdvReac Type Severity Reaction Status Date / Time acetaminophen AdvReac Anaphylaxis Verified 12/03/16 20:50 [From Tylenol-Codeine] codeine AdvReac Vomiting Verified 11/19/16 11:44 [From Tylenol-Codeine #3] Date of admission: 12/15/16 22:43 Primary care physician: Yue Kennedy CNP Consults: 12/15/16 22:46 Consult to Wound Care [CONS] Routine Reason for Consult: open wound to L leg Time Notified: 22:47 Call Completed: No 12/19/16 14:34 Consult to Invasive Line Access Team [CONS] Routine Reason for Consult: longterm CRISTINA upon d/c Line Type: PICC PICC line indications: longterm Med/Antibiotic Time Notified: 14:35 Call Completed: Yes 12/19/16 14:35 Consult to Invasive Line Access Team [CONS] Routine Reason for Consult: Picc Line Insertion Line Type: PICC PICC line indications: longterm Med/Antibiotic Time Notified: 14:35 Call Completed: Yes Discharging clinician: Brandt Holly Anticipated date of discharge: 12/21/16 - Patient Status Disposition: Home Health Service Condition: Good Functional capacity at discharge: uses cane/walker Overall status at discharge: patient is progressing back to baseline - Discharge Instructions Instructions: Heart Failure (DC), Acute Respiratory Distress Syndrome (DC), Chronic Obstructive Pulmonary Disease (DC) Follow Up With: Fercho Gilmore CNP [Advanced Practice Nurse] - 01/19/17 2:00 pm Yue Kennedy CNP [Primary Care Provider] - 12/28/16 12:30 pm () - Diet and Activity Activity: as per physical therapy, increase activity as tolerated, wear oxygen at all times Diet: diabetic diet, low fat, low cholesterol, low salt diet, other (Fluid restriction to 1.5 L per 24 hrs) Hospital course: Ms. Crawford is a 76 year old female patient a history of congestive heart failure, atrial fibrillation, COPD, coronary artery disease and diabetes mellitus type 2 presented to the ER with complaints of shortness of breath along with erythema and swelling over her right breast and open wound on her left lower extremity which was also concerning for cellulitis. She was started on treatment for these conditions with intravenous antibiotics along with intravenous diuretics. She responded well to this treatment plan with improvement in her shortness of breath and her cellulitis after she was placed on intravenous vancomycin. Given her good response to IV vancomycin, she has been recommended to be discharged on this antibiotic to complete 14 day treatment course. She was evaluated by physical therapy and recommended placement to skilled rehabilitation. Our patient does not wish to go to skilled rehabilitation. Patient has had recurrent hospitalizations here and understands that she may continue to do so if she does not obtain proper care and stick to her treatment plan including fluid restriction. She does follow up with cardiology as outpatient and is in process of getting a new provider after her primary press supervisor left practice. At this time, she is feeling much better, she is back on her baseline home oxygen. Swelling and redness in her lower extremities and right breast has improved. She will be discharged home on IV vancomycin to complete 7 more days of antibiotic therapy. She will have her CBC and basic panel followed as an outpatient while she is receiving IV antibiotics. She will be discharged with home health. She will follow up with cardiology for her congestive heart failure. - Time Spent with Patient Total time spent providing and/or coordinating discharge services: Greater than 30 minutes (40 min) - Constitutional Vitals: Temp Pulse Resp BP Pulse Ox 98.6 F 95 16 157/92 98 12/20/16 11:15 12/20/16 11:15 12/20/16 11:15 12/20/16 11:15 12/20/16 11:15 General appearance: Present: cooperative, A&O X 3, answers questions appropriately - Neck Neck exam general surgery: Present: supple, trachea midline. Absent: lymphadenopathy - Cardiovascular Cardiovascular exam: Present: RRR, +S1, +S2. Absent: diastolic murmur, gallop, rubs, systolic murmur - GI/Abdominal GI/Abdominal exam: Present: normal bowel sounds, soft, no peritoneal signs. Absent: distended, tenderness - Extremities Exam Extremities exam: Absent: calf tenderness, cyanotic Additional comments: Both lower extremities in compressive bandage - Skin Skin exam: Present: dry, intact
--- NOTE | 2016-12-20 13:20 | Physician Discharge Referral ---
Home Health/Hosp Referral Info Transfer to: Home Health Provider in Charge Post Discharge: PCP - Diagnosis (1) Acute on chronic diastolic (congestive) heart failure Priority: Primary Status: Acute (2) Bilateral lower leg cellulitis Priority: Secondary Status: Acute (3) A-fib Priority: Secondary Status: Chronic (4) CAD (coronary artery disease) Priority: Secondary Status: Chronic (5) COPD (chronic obstructive pulmonary disease) Priority: Secondary Status: Acute (6) DM type 2 (diabetes mellitus, type 2) Priority: Secondary Status: Chronic - Respiratory Orders Oxygen / L per min (3) Smoking Cessation: Smoking cessation has been advised. For more information, call the [place] Tobacco Quit Line at 1-193-EUZZ-NOW. - Diet/Nutrition Diet/Nutrition Orders: Cardiac, No Concentrated Sweets (Diabetic diet) Diet/Nutrition: List: Fluid restriction to 1.5 L in 24 hours - Activity Activity Orders: Walker - Services Needed Following services are medically necessary services: Nursing, Physical Therapy, Occupational Therapy Home Care Orders: Please get CBC, basic panel, vancomycin trough level on 12/23/2016 - Transfer Medications Prescriptions: Albuterol Sulfate [Albuterol Inhaler] 2 puff IH Q4H PRN #1 inhaler PRN Reason: Shortness Of Breath Budesonide/Formoterol 80/4.5 [Symbicort 80/4.5] 1 puff IH BID #1 hfa.aer.ad predniSONE [PredniSONE] 10 mg PO DAILY 8 Days tablet Vancomycin/0.9 % Sod Chloride [Vanco 1.25 gm/150 ml-0.9% NaCl] 1.25 gm IV BID # 14 plast..bag Home Medications: Citalopram Hydrobromide [Citalopram HBr] 10 mg PO DAILY 09/20/16 [History] Clopidogrel [Plavix] 75 mg PO DAILY 09/20/16 [History] Diltiazem HCl [Diltiazem ER] 120 mg PO QAM 09/20/16 [History] Ferrous Sulfate 325 mg PO DAILY 09/20/16 [History] Folic Acid 1 mg PO DAILY 09/20/16 [History] HYDROcodone/Acet 7.5/325 mg [[place] 7.5-325 mg] 1 tab PO TID 09/20/16 [History] Nitroglycerin [Nitrostat] 0.4 mg SL Q5M PRN 09/20/16 [History] Pantoprazole Sodium [Protonix] 40 mg PO BID 09/20/16 [History] Potassium Chloride [K-Tab ER] 30 meq PO DAILY 09/20/16 [History] Ropinirole HCl [Requip] 3 mg PO HS 09/20/16 [History] Isosorbide MONOnitrate (24 HR) [Imdur] 60 mg PO DAILY 11/18/16 [History] Aspirin 81 mg PO DAILY tab.chew 11/21/16 [Rx] Carvedilol [Coreg] 6.25 mg PO BIDWM tablet 12/01/16 [Rx] Gabapentin [Neurontin] 300 mg PO TID 12/04/16 [History] Furosemide [Lasix] 60 mg PO BID #180 tablet 12/10/16 [Rx] Albuterol Sulfate [Albuterol Inhaler] 2 puff IH Q4H PRN #1 inhaler 12/20/16 [Rx] Budesonide/Formoterol 80/4.5 [Symbicort 80/4.5] 1 puff IH BID #1 hfa.aer.ad [Rx] Vancomycin/0.9 % Sod Chloride [Vanco 1.25 gm/150 ml-0.9% NaCl] 1.25 gm IV BID # 14 plast..bag 12/20/16 [Rx] predniSONE [PredniSONE] 10 mg PO DAILY 8 Days tablet 12/20/16 [Rx] Allergies/Adverse Reactions: 3 Allergy/AdvReac Type Severity Reaction Status Date / Time acetaminophen AdvReac Anaphylaxis Verified 12/03/16 20:50 [From Tylenol-Codeine] codeine AdvReac Vomiting Verified 11/19/16 11:44 [From Tylenol-Codeine #3] Certification: Further, I certify that my clinical findings support that this patient is homebound (i.e. absences from home require considerable and taxing effort and are for medical reasons or confucianist services or infrequently or short duration when for other reasons) because: Homebound Reason: Patient requires assistance of a person or device to safely leave home, Severity of cardiac or pulmonary status limits activity tolerance Attestation: My signature below is to certify that this patient is under my care and that I, or nurse practitioner, or a physician's surveyor instrument assistant working with me, has a face-to -face encounter with this patient.
[2016-12-20] MEDS: *HR* HYDROcodone/Acet 7.5/325 mg TABLET PO PRN (20:53)
[2016-12-21] MEDS: Ipratropium/Albuterol Neb 3 ML IH SCH ×3 (04:47→15:28)
[2016-12-21 05:24] LABS: Basophils % 0.2 %; Hematocrit 35.6 % (35.3-44.9); Hemoglobin 10.7 g/dL (11.5-15.4); Lymphocytes # 0.5 K/mcL (0.6-4.6); Lymphocytes % 7.8 %; Mean Corpuscular HGB Conc 30.1 g/dL (31.6-35.5); Mean Corpuscular Hemoglobin 28.6 pg (28.0-33.3); Mean Corpuscular Volume 95.2 fL (83.0-100.0); Monocytes # 0.6 K/mcL (0.0-1.3); Monocytes % 8.8 %; Neutrophils # 5.2 K/mcL (1.6-8.9); Platelet Count 102 K/mcL (140-400); Red Blood Count 3.74 M/mcL (3.82-4.97); Segmented Neutrophils % 82.2 %
[2016-12-21 05:43] LABS: Alanine Aminotransferase 13 Units/L (0-55); Albumin 2.9 g/dL (3.5-5.0); Albumin/Globulin Ratio 0.9 (1.1-2.2); Alkaline Phosphatase 112 Units/L (38-126); Aspartate Amino Transferase 29 Units/L (5-34); BUN/Creatinine Ratio 42 (6-26); Blood Urea Nitrogen 34 mg/dL (7-20); Calcium 8.5 mg/dL (8.6-10.8); Carbon Dioxide 34 mEq/L (19-29); Chloride 99 mEq/L (98-109); Globulin 3.3 g/dL (2.4-3.5); Glucose 196 mg/dL (70-99); Osmolality,Calculated 303 (280-300); Sodium 140 mEq/L (136-145); Total Protein 6.2 g/dL (6.0-8.3); eGFR For African Americans > 60 (> 60); eGFR For Non-African Americans > 60 (> 60)
[2016-12-21 05:45] LABS: Potassium 4.7 mEq/L (3.5-4.5)
[2016-12-21] MEDS: Isosorbide MONOnitrate (24 HR) 60 MG TAB.ER.24H PO SCH (09:04)
[2016-12-21] MEDS: predniSONE 20 MG TABLET PO SCH (09:04)
[2016-12-21] MEDS: Folic Acid 1 MG TABLET PO SCH (09:04)
[2016-12-21] MEDS: Vancomycin 1,250 MG in D5% in Water 250 ML IVPB SCH (09:04)
[2016-12-21] MEDS: Furosemide 40 MG TABLET PO SCH (09:04)
[2016-12-21] MEDS: Gabapentin 300 MG CAPSULE PO SCH (09:05)
[2016-12-21] MEDS: Aspirin 81 MG TAB.CHEW PO SCH (09:05)
[2016-12-21] MEDS: Diltiazem CD (24hr) 120 MG CAPSULE PO SCH (09:05)
[2016-12-21] MEDS: Silvasorb 44.4 ML TUBE TP SCH (09:06)
[2016-12-21] MEDS: Insulin LISPRO 300 UNITS/3 ML VIAL SQ SCH ×2 (09:07→13:07)
[2016-12-21 11:58] VITALS: BP 124/66
--- NOTE | 2016-12-21 13:23 | Internal Med Progress Note ---
Date of Encounter: 12/21/16 Time of Encounter: 09:45 - Assessment and plan (1) Acute on chronic diastolic (congestive) heart failure Current Visit: Yes Status: Acute Assessment and plan: Improving. Continue Lasix. Fluid restriction. Follow-up with cardiology after discharge. (2) Bilateral lower leg cellulitis Current Visit: Yes Status: Acute Assessment and plan: Continue vancomycin. Patient will be discharged once IV access and home IV antibiotics have been set up. (3) A-fib Current Visit: No Status: Chronic Assessment and plan: Controlled. Not on anticoagulation due to prior history of GI bleed. Qualifiers: Atrial fibrillation type: chronic Qualified Code(s): I48.2 - Chronic atrial fibrillation (4) CAD (coronary artery disease) Current Visit: Yes Status: Chronic Assessment and plan: No chest pain. Continue aspirin, Plavix and Coreg Qualifiers: Coronary Disease-Associated Artery/Lesion type: [place] artery [place] vs. transplanted heart: [place] heart Associated angina: without angina Qualified Code(s): I25.10 - Atherosclerotic heart disease of [place] coronary artery without angina pectoris (5) COPD (chronic obstructive pulmonary disease) Current Visit: Yes Status: Acute Assessment and plan: On bronchodilators as needed. Continue steroid taper. Qualifiers: COPD type: COPD with acute exacerbation Qualified Code(s): J44.1 - Chronic obstructive pulmonary disease with (acute) exacerbation (6) DM type 2 (diabetes mellitus, type 2) Current Visit: Yes Status: Chronic Assessment and plan: Blood sugars improved today. Continue current insulin regimen Qualifiers: Diabetes mellitus complication status: without complication Diabetes mellitus processing supervisor insulin use: without processing supervisor use Qualified Code(s): E11.9 - Type 2 diabetes mellitus without complications - Subjective Interval history: Patient is doing well this morning. Denies any shortness of breath. No chest pain. Discomfort in lower extremities is improving - Constitutional Vitals: Temp Pulse Resp BP Pulse Ox 98 F 74 16 124/66 96 12/21/16 11:57 12/21/16 11:57 12/21/16 11:57 12/21/16 11:57 12/21/16 11:57 General appearance: Present: cooperative, A&O X 3, answers questions appropriately - Neck Neck exam general surgery: Present: supple, trachea midline. Absent: lymphadenopathy - Respiratory Respiratory exam: Present: CTAB. Absent: accessory muscle use, rales, rhonchi, wheezes - Cardiovascular Cardiovascular exam: Present: RRR, +S1, +S2. Absent: diastolic murmur, gallop, rubs, systolic murmur - GI/Abdominal GI/Abdominal exam: Present: normal bowel sounds, soft, no peritoneal signs. Absent: distended, tenderness - Extremities Exam Extremities exam: Present: warm, radial pulses palpable and symmetrical. Absent : calf tenderness, cyanotic, pedal edema Additional comments: Lower extremities bandaged with compressive bandage - Neurological Exam Neurological exam: Present: alert, oriented X3, no focal deficits. Absent: facial droop, speech deficit Internal Medicine: Result - Labs CBC & Chem 7: 12/21/16 04:46 12/21/16 04:46 Labs: Short CBC 12/21/16 Range/Units 04:46 WBC 6.3 (4.3-11.1) K/mcL Hgb 10.7 L (11.5-15.4) g/dL Hct 35.6 (35.3-44.9) % Plt Count 102 L (140-400) K/mcL Neutrophils # 5.2 (1.6-8.9) K/mcL BMP 12/21/16 04:46 Sodium 140 Potassium 4.7 H Chloride 99 Carbon Dioxide 34 H BUN 34 H Creatinine 0.81 Glucose 196 H Calcium 8.5 L Liver Function 12/21/16 Range/Units 04:46 Total Bilirubin 1.0 (0.2-1.2) mg/dL AST 29 (5-34) Units/L ALT 13 (0-55) Units/L Alkaline Phosphatase 112 (38-126) Units/L Albumin 2.9 L (3.5-5.0) g/dL Consult Discharge Plan - Plan Instructions: Heart Failure (DC), Acute Respiratory Distress Syndrome (DC), Chronic Obstructive Pulmonary Disease (DC) Referrals: Fercho Gilmore CNP [Advanced Practice Nurse] - 01/19/17 2:00 pm Yue Kennedy CNP [Primary Care Provider] - 12/28/16 12:30 pm () Prescriptions: Albuterol Sulfate [Albuterol Inhaler] 2 puff IH Q4H PRN #1 inhaler PRN Reason: Shortness Of Breath Fluticasone/Salmeterol [Advair 250-50 Diskus] 1 each IH BID #60 blst.w.dev predniSONE [PredniSONE] 10 mg PO DAILY 8 Days tablet Vancomycin/0.9 % Sod Chloride [Vanco 1.25 gm/150 ml-0.9% NaCl] 1.25 gm IV BID # 14 plast..bag
[2016-12-21] MEDS ORDERED: Aminoglycoside Consult 1 EACH MC ONE (14:53)
== END 2016-12-21 14:54 | disposition home health service (06) | DRG 292 ==
LOC: EMEROO 16:34 → 3ANU 16:34 → SUATTDRO 22:43
PROVIDERS: ADMIT Internal Medicine; ATTEND Internal Medicine

== ENCOUNTER 2017-01-04 15:00 | Inpatient (IN) ==
[2017-01-04 15:42] LABS: Eosinophils % 3.4 %; Immature Granulocytes % 0.8 % (0-4)
[2017-01-04 15:44] LABS: Basophils % 0.8 %; Eosinophils # 0.1 K/mcL (0.0-0.6); Hematocrit 37.9 % (35.3-44.9); Lymphocytes # 0.8 K/mcL (0.6-4.6); Lymphocytes % 21.5 %; Mean Corpuscular Hemoglobin 28.7 pg (28.0-33.3); Mean Platelet Volume 10.4 fL (9.4-12.4); Monocytes # 0.3 K/mcL (0.0-1.3); Monocytes % 8.5 %; Neutrophils # 2.5 K/mcL (1.6-8.9); Platelet Count 128 K/mcL (140-400); Red Blood Count 3.83 M/mcL (3.82-4.97); Red Cell Distribution Width 16.1 % (11.5-14.5)
[2017-01-04 15:55] LABS: BUN/Creatinine Ratio 26 (6-26); Blood Urea Nitrogen 23 mg/dL (7-20); Calcium 8.5 mg/dL (8.6-10.8); Carbon Dioxide 35 mEq/L (19-29); Chloride 100 mEq/L (98-109); Glucose 107 mg/dL (70-99); Osmolality,Calculated 302 (280-300); Potassium 4.1 mEq/L (3.5-4.5); Sodium 144 mEq/L (136-145); eGFR For African Americans > 60 (> 60); eGFR For Non-African Americans > 60 (> 60)
[2017-01-04 16:04] LABS: Hypochromasia Present (Not Present)
--- NOTE | 2017-01-04 16:12 | Emergency Department Note ---
Disposition Clinical Impression: Respiratory failure with hypoxia and hypercapnia CHF exacerbation Qualifiers: Congestive heart failure type: systolic Qualified Code(s): I50.23 - Acute on chronic systolic (congestive) heart failure Disposition: Admitted As Inpatient Condition: Fair Referrals: Yue Kennedy CNP [Primary Care Provider] - General Adult HPI - General Chief complaint: ED Weakness Stated complaint: CHF exac Source: patient, EMS Limitations: no limitations Nursing Notes Reviewed: Yes Vital Signs Reviewed: Yes - History of Present Illness HPI Narrative: 76-year-old female presents to the emergency department after her her home health nurse was concerned that she was having increased sleepiness over the last couple days. Home health nurse was worried that patient had rales on lung exam in that she had increased bilateral lower extremity edema. Home health nurse states the patient has not been able to ambulate as well either. Patient is on 3 L of oxygen via nasal cannula. Pain Scale: 4 - Related Data Home Medications Medication Instructions Recorded Confirmed Citalopram Hydrobromide 10 mg PO DAILY 09/20/16 12/15/16 [Citalopram HBr] Clopidogrel [Plavix] 75 mg PO DAILY 09/20/16 12/15/16 Diltiazem HCl [Diltiazem ER] 120 mg PO QAM 09/20/16 12/15/16 Ferrous Sulfate 325 mg PO DAILY 09/20/16 12/15/16 Folic Acid 1 mg PO DAILY 09/20/16 12/15/16 HYDROcodone/Acet 7.5/325 mg [[place] 1 tab PO TID 09/20/16 12/15/16 7.5-325 mg] Nitroglycerin [Nitrostat] 0.4 mg SL Q5M PRN 09/20/16 12/15/16 Pantoprazole Sodium [Protonix] 40 mg PO BID 09/20/16 12/15/16 Potassium Chloride [K-Tab ER] 30 meq PO DAILY 09/20/16 12/15/16 Ropinirole HCl [Requip] 3 mg PO HS 09/20/16 12/15/16 Isosorbide MONOnitrate (24 HR) 60 mg PO DAILY 11/18/16 12/15/16 [Imdur] Gabapentin [Neurontin] 300 mg PO TID 12/04/16 12/15/16 Furosemide [Lasix] 80 mg PO BID 01/04/17 01/04/17 Previous Rx's Medication Instructions Recorded Aspirin 81 mg PO DAILY tab.chew 11/21/16 Carvedilol [Coreg] 6.25 mg PO BIDWM tablet 12/01/16 Albuterol Sulfate [Albuterol 2 puff IH Q4H PRN #1 inhaler 12/20/16 Inhaler] Fluticasone/Salmeterol [Advair 1 each IH BID #60 blst.w.dev 12/21/16 250-50 Diskus] Allergies Allergy/AdvReac Type Severity Reaction Status Date / Time acetaminophen AdvReac Anaphylaxis Verified 12/03/16 20:50 [From Tylenol-Codeine] codeine AdvReac Vomiting Verified 11/19/16 11:44 [From Tylenol-Codeine #3] All systems ED: reviewed and negative except as stated. Review of Systems: As Per HPI Constitutional: Denies: fever Cardiovascular: Denies: chest pain Respiratory: Reports: dyspnea. 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 - Social History Smoking Status: Never smoker Smokeless Tobacco Status: No Alcohol use: Reports: none Drug use: Reports: none Physical Exam General: 76-year-old female, appearing edematous, Leno bandages around both legs Head: autraumatic, EOMI, no conjuncitval pallor, no scleral icterus, Mouth: oral mucous membranes moist Neck: neck soft, trachea midline Chest:: Equal chest wall rise Lungs: Rales throughout, no wheezes Heart: normal heart sounds, normal rate and rhythm, Abdomen: soft, non-tender, no rigidity, no guarding, no rebdound tenderness Lower Extremities: 3+ pedal edema bilaterally, calves non-tender, small wound on the dorsum of the right foot that appears to be healing, wound on the left leg that appears to be healing as well Integumentary: Skin warm, dry, and intact Neuro: Alert Psych: normal affect, normal mood - General Limitations: no limitations General appearance: alert, in no apparent distress Course Vital Signs Temperature 97.8 F 01/04/17 15:04 Pulse Rate 66 01/04/17 15:04 Respiratory Rate 16 01/04/17 15:04 Blood Pressure 109/75 01/04/17 15:04 O2 Sat by Pulse Oximetry 94 01/04/17 15:04 Temperature 97.8 F 01/04/17 15:04 Pulse Rate 60 01/04/17 16:15 Respiratory Rate 18 01/04/17 18:16 Blood Pressure 116/68 01/04/17 18:16 O2 Sat by Pulse Oximetry 100 01/04/17 17:00 Oxygen Delivery Oxygen Delivery Room Air Medical Decision Making - Lab Data Result diagrams: 01/04/17 15:36 01/04/17 15:36 Lab Results 01/04/17 01/04/17 01/04/17 Range/Units 15:36 15:36 15:36 WBC 3.9 L (4.3-11.1) K/mcL RBC 3.83 (3.82-4.97) M/mcL Hgb 11.0 L (11.5-15.4) g/dL Hct 37.9 (35.3-44.9) % MCV 99.0 (83.0-100.0) fL MCH 28.7 (28.0-33.3) pg MCHC 29.0 L (31.6-35.5) g/dL RDW 16.1 H (11.5-14.5) % Plt Count 128 L (140-400) K/mcL MPV 10.4 (9.4-12.4) fL Immature Gran % 0.8 (0-4) % Seg Neutrophils % 65.0 % Lymphocytes % 21.5 % Monocytes % 8.5 % Eosinophils % 3.4 % Basophils % 0.8 % Neutrophils # 2.5 (1.6-8.9) K/mcL Lymphocytes # 0.8 (0.6-4.6) K/mcL Monocytes # 0.3 (0.0-1.3) K/mcL Eosinophils # 0.1 (0.0-0.6) K/mcL Basophils # 0.0 (0.0-0.2) K/mcL Hypochromasia Present A (Not Present) ABG pH (7.32-7.45) pH Units ABG pCO2 (35-45) mmHg ABG pO2 (85-104) mmHg ABG HCO3 (21-27) mEq/L ABG Total CO2 (20-26) mEq/L ABG O2 Saturation (95-98) % ABG Base Excess (-2 to 3) mEq/L O2 Delivery Device Inspired O2 (1-15=lpm [id number]=%) Sodium 144 (136-145) mEq/L Potassium 4.1 (3.5-4.5) mEq/L Chloride 100 (98-109) mEq/L Carbon Dioxide 35 H (19-29) mEq/L BUN 23 H (7-20) mg/dL Creatinine 0.89 (0.57-1.11) mg/dL Est GFR ( Amer) > 60 (> 60) Est GFR (Non-Af Amer) > 60 (> 60) BUN/Creatinine Ratio 26 (6-26) Glucose 107 H (70-99) mg/dL Calculated Osmolality 302 H (280-300) Lactic Acid 1.0 (0.5-2.2) mmol/L Calcium 8.5 L (8.6-10.8) mg/dL Troponin I (0-0.03) ng/mL B-Natriuretic Peptide (0-100) pg/mL TSH 0.961 (0.350-4.840) mcIU/mL Urine Color (Yellow) Urine Clarity (Clear) Urine pH (5.0-8.0) pH Units Ur Specific [place] (1.010-1.025) Urine Protein (Neg-Trace) mg/dL Urine Glucose (UA) (Normal) mg/dL Urine Ketones (Negative) mg/dL Urine Blood (Negative) Urine Nitrite (Negative) Urine Bilirubin (Negative) Urine Urobilinogen (Normal) mg/dL Ur Leukocyte Esterase (Negative) Urine Microscopic RBC (0-3) per hpf Urine Microscopic WBC (0-3) per hpf Ur Squamous Epith Cells (None-Few) per lpf Urine Bacteria (None-Few) per hpf Hyaline Casts (None-Few) per lpf Ur Culture Indicated? (NO) 01/04/17 01/04/17 01/04/17 Range/Units 15:36 15:36 16:48 WBC (4.3-11.1) K/mcL RBC (3.82-4.97) M/mcL Hgb (11.5-15.4) g/dL Hct (35.3-44.9) % MCV (83.0-100.0) fL MCH (28.0-33.3) pg MCHC (31.6-35.5) g/dL RDW (11.5-14.5) % Plt Count (140-400) K/mcL MPV (9.4-12.4) fL Immature Gran % (0-4) % Seg Neutrophils % % Lymphocytes % % Monocytes % % Eosinophils % % Basophils % % Neutrophils # (1.6-8.9) K/mcL Lymphocytes # (0.6-4.6) K/mcL Monocytes # (0.0-1.3) K/mcL Eosinophils # (0.0-0.6) K/mcL Basophils # (0.0-0.2) K/mcL Hypochromasia (Not Present) ABG pH 7.40 (7.32-7.45) pH Units ABG pCO2 59 H (35-45) mmHg ABG pO2 69 L (85-104) mmHg ABG HCO3 37 H (21-27) mEq/L ABG Total CO2 38 H (20-26) mEq/L ABG O2 Saturation 93 L (95-98) % ABG Base Excess 10 H (-2 to 3) mEq/L O2 Delivery Device Cannula Inspired O2 1.0 (1-15=lpm [id number]=%) Sodium (136-145) mEq/L Potassium (3.5-4.5) mEq/L Chloride (98-109) mEq/L Carbon Dioxide (19-29) mEq/L BUN (7-20) mg/dL Creatinine (0.57-1.11) mg/dL Est GFR ( Amer) (> 60) Est GFR (Non-Af Amer) (> 60) BUN/Creatinine Ratio (6-26) Glucose (70-99) mg/dL Calculated Osmolality (280-300) Lactic Acid (0.5-2.2) mmol/L Calcium (8.6-10.8) mg/dL Troponin I 0.02 (0-0.03) ng/mL B-Natriuretic Peptide 993 H (0-100) pg/mL TSH (0.350-4.840) mcIU/mL Urine Color (Yellow) Urine Clarity (Clear) Urine pH (5.0-8.0) pH Units Ur Specific [place] (1.010-1.025) Urine Protein (Neg-Trace) mg/dL Urine Glucose (UA) (Normal) mg/dL Urine Ketones (Negative) mg/dL Urine Blood (Negative) Urine Nitrite (Negative) Urine Bilirubin (Negative) Urine Urobilinogen (Normal) mg/dL Ur Leukocyte Esterase (Negative) Urine Microscopic RBC (0-3) per hpf Urine Microscopic WBC (0-3) per hpf Ur Squamous Epith Cells (None-Few) per lpf Urine Bacteria (None-Few) per hpf Hyaline Casts (None-Few) per lpf Ur Culture Indicated? (NO) 01/04/17 01/04/17 Range/Units 16:57 17:30 WBC (4.3-11.1) K/mcL RBC (3.82-4.97) M/mcL Hgb (11.5-15.4) g/dL Hct (35.3-44.9) % MCV (83.0-100.0) fL MCH (28.0-33.3) pg MCHC (31.6-35.5) g/dL RDW (11.5-14.5) % Plt Count (140-400) K/mcL MPV (9.4-12.4) fL Immature Gran % (0-4) % Seg Neutrophils % % Lymphocytes % % Monocytes % % Eosinophils % % Basophils % % Neutrophils # (1.6-8.9) K/mcL Lymphocytes # (0.6-4.6) K/mcL Monocytes # (0.0-1.3) K/mcL Eosinophils # (0.0-0.6) K/mcL Basophils # (0.0-0.2) K/mcL Hypochromasia (Not Present) ABG pH (7.32-7.45) pH Units ABG pCO2 (35-45) mmHg ABG pO2 (85-104) mmHg ABG HCO3 (21-27) mEq/L ABG Total CO2 (20-26) mEq/L ABG O2 Saturation (95-98) % ABG Base Excess (-2 to 3) mEq/L O2 Delivery Device Inspired O2 (1-15=lpm [id number]=%) Sodium (136-145) mEq/L Potassium (3.5-4.5) mEq/L Chloride (98-109) mEq/L Carbon Dioxide (19-29) mEq/L BUN (7-20) mg/dL Creatinine (0.57-1.11) mg/dL Est GFR ( Amer) (> 60) Est GFR (Non-Af Amer) (> 60) BUN/Creatinine Ratio (6-26) Glucose (70-99) mg/dL Calculated Osmolality (280-300) Lactic Acid 1.1 (0.5-2.2) mmol/L Calcium (8.6-10.8) mg/dL Troponin I (0-0.03) ng/mL B-Natriuretic Peptide (0-100) pg/mL TSH (0.350-4.840) mcIU/mL Urine Color Yellow (Yellow) Urine Clarity Clear (Clear) Urine pH 7.0 (5.0-8.0) pH Units Ur Specific [place] 1.016 (1.010-1.025) Urine Protein Negative (Neg-Trace) mg/dL Urine Glucose (UA) Normal (Normal) mg/dL Urine Ketones Negative (Negative) mg/dL Urine Blood Negative (Negative) Urine Nitrite Negative (Negative) Urine Bilirubin Negative (Negative) Urine Urobilinogen Normal (Normal) mg/dL Ur Leukocyte Esterase Small H (Negative) Urine Microscopic RBC 0-3 (0-3) per hpf Urine Microscopic WBC 0-3 (0-3) per hpf Ur Squamous Epith Cells Moderate H (None-Few) per lpf Urine Bacteria None Seen (None-Few) per hpf Hyaline Casts None Seen (None-Few) per lpf Ur Culture Indicated? YES A (NO) - EKG Data EKG #1 EKG attestation: Yes I reviewed and interpreted this EKG. EKG results narrative: 15:28 Ventricular rate 74 bpm, QRS duration 90 ms, QT 407 ms, QTC 435 ms, normal axis. Atrial fibrillation with a ventricular rate of 74 bpm. There are no acute ST changes noted on this electrocardiogram in comparison to previous one performed on 12/15/2016. Attestation Statement - Attestation Attestation: I, Omega Pathak, examined this patient and my medical decision-making was reviewed with the ORTHODONTIC LABORATORY TECHNICIAN/PA/Advanced Practice Nurse/Resident Physician. I agree with the documented findings, disposition and treatment plan as described except to the extent set forth below. 76-year-old female presents emergency Department with concerns of increased fatigue and edema and weakness. Patient was sent to the emergency department by home health nursing for further evaluation. During my evaluation in emergency Department patient is fatigued, falling asleep during the evaluation. Patient denies shortness of breath or chest pain or palpitations during my exam. ABG shows elevated CO2 level consistent with hypercarbic respiratory failure which is consistent with patient's exam. On initial evaluation the patient was satting 100% on 3 L which she states she uses at home regularly. I decreased the oxygen level to 1 L. Patient was initiated on BiPAP in the emergency department. Patient will be admitted to the hospital for further care and evaluation.
[2017-01-04 17:01] LABS: Thyroid Stimulating Hormone 0.961 mcIU/mL (0.350-4.840)
[2017-01-04 17:05] LABS: ABG Base Excess 10 mEq/L (-2 to 3); ABG HCO3 37 mEq/L (21-27); ABG Oxygen Saturation 93 % (95-98); ABG PCO2 59 mmHg (35-45); ABG PO2 69 mmHg (85-104); ABG TCO2 38 mEq/L (20-26)
[2017-01-04 17:14] LABS: Bilirubin,Urine Negative (Negative); Blood,Urine Negative (Negative); Clarity,Urine Clear (Clear); Color,Urine Yellow (Yellow); Glucose,Urine (UA) Normal (Normal); Ketones,Urine Negative (Negative); Leukocyte Esterase,Urine Small (Negative); Nitrite,Urine Negative (Negative); Protein,Urine Negative (Neg-Trace); Specific Gravity,Urine 1.016 (1.010-1.025); Urobilinogen,Urine Normal (Normal)
[2017-01-04 17:16] LABS: Bacteria,Urine None Seen per hpf (None-Few); Hyaline Casts,Urine None Seen per lpf (None-Few); RBC,Urine 0-3 per hpf (0-3); Squamous Epithelial Cell,Urine Moderate per lpf (None-Few); WBC,Urine 0-3 per hpf (0-3)
[2017-01-04] MEDS ORDERED: Ondansetron 4 MG/2 ML VIAL IVP PRN (19:17)
[2017-01-04] MEDS ORDERED: Naloxone 0.4 MG/ML INJ IVP PRN (19:17)
[2017-01-04] MEDS ORDERED: Mag Hydrox/Al Hydrox/Simeth 30 ML UDC PO PRN (19:17)
[2017-01-04] MEDS ORDERED: MOM Conc 10 ML UD.LIQ PO PRN (19:17)
[2017-01-04] MEDS ORDERED: Nitroglycerin 0.4 MG TAB.SUBL SL PRN (19:21)
[2017-01-04] MEDS: Budesonide/Formoterol 80/4.5 MDI IH SCH (20:10)
[2017-01-04] MEDS: *HR* HYDROcodone/Acet 7.5/325 mg TABLET PO SCH (20:37)
[2017-01-04] MEDS: Gabapentin 300 MG CAPSULE PO SCH (20:37)
--- NOTE | 2017-01-04 23:00 | Internal Med History&Physical ---
Date of Encounter: 01/04/17 Time of Encounter: 18:00 Assessment and Plan (1) Respiratory failure with hypoxia and hypercapnia Current visit: Yes Status: Acute Presented to ED with acute hypercapnic resp failure in the setting of chronic hypoxic resp failure. Has improved with bipap. Most likely related to CHF and COPD. Continue aggressive pulmonary management. Bipap as needed. Qualifiers: Chronicity: acute on chronic Qualified Code(s): J96.21 - Acute and chronic respiratory failure with hypoxia; J96.22 - Acute and chronic respiratory failure with hypercapnia; J96.22 - Acute and chronic respiratory failure with hypercapnia; J96.22 - Acute and chronic respiratory failure with hypercapnia (2) CHF exacerbation Current visit: Yes Status: Acute Diurese. Supportive care. Salt restriction. Qualifiers: Congestive heart failure type: diastolic Qualified Code(s): I50.33 - Acute on chronic diastolic (congestive) heart failure (3) A-fib Current visit: No Status: Chronic Continue home medications. Qualifiers: Atrial fibrillation type: chronic Qualified Code(s): I48.2 - Chronic atrial fibrillation (4) DM type 2 (diabetes mellitus, type 2) Current visit: No Status: Chronic Accuchecks and coverage Qualifiers: Diabetes mellitus complication status: without complication Diabetes mellitus termite control servicer insulin use: without termite control servicer use Qualified Code(s): E11.9 - Type 2 diabetes mellitus without complications (5) CAD (coronary artery disease) Current visit: No Status: Chronic Continue home meds. Qualifiers: Coronary Disease-Associated Artery/Lesion type: [place] artery [place] vs. transplanted heart: [place] heart Associated angina: without angina Qualified Code(s): I25.10 - Atherosclerotic heart disease of [place] coronary artery without angina pectoris (6) Venous stasis dermatitis of both lower extremities Current visit: No Status: Chronic Chronic issue. (7) High blood pressure Current visit: No Status: Chronic Continue home medications. Qualifiers: Hypertension type: essential hypertension Qualified Code(s): I10 - Essential (primary) hypertension Internal Medicine - H&P: HPI Chief complaint: Somnolence Admitted From: Emergency Dept Plans for Post Hospital Care: Home History of present illness: Ms. Crawford is a 76 year old female with hx chronic hypoxic resp failure and CHF brought to ED due to increased somnolence. Her home health care nurse was concerned that she was more sleepy today. In ED she was difficult to keep awake and ABG showed hypercarbic resp failure. Ultimately she was placed on bipap with some improvement. Denies fever or chills. No chest pain or GI issues. Has been having increased edema as well. At time of exam she is off bipap and conversant and awake. She is oriented and denies new issues. She is currently high risk due to potential for worsening respiratory failure. Past Med Surg Social Fam HX - Past Medical History Medical history: GERD, GI bleed, myocardial infarction, atrial fibrillation, hyperlipidemia, arthritis, hypertension, other, TIA, valvular heart disease, coronary artery disease, cardiomyopathy, CHF Psychiatric history: anxiety, depression - Past Surgical History Surgical History: - Social History Smoking Status: Never smoker Smokeless Tobacco Status: No Alcohol use: none Drug use: none - Family History Mother Living Status: Hx Family GI Disorders: Yes Father Hx Family Respiratory Disorders: Yes (COPD) Brother Living Status: Age at : 72 Cause of : CHF Hx Family Cardiac Disorders: Yes Hx Family Respiratory Disorders: Yes Hx Family Endocrine Disorder: Yes Hx Family Medical Disorders: Yes Internal Medicine - H&P: Meds Citalopram Hydrobromide [Citalopram HBr] 10 mg PO DAILY 09/20/16 [History] Clopidogrel [Plavix] 75 mg PO DAILY 09/20/16 [History] Diltiazem HCl [Diltiazem ER] 120 mg PO QAM 09/20/16 [History] Ferrous Sulfate 325 mg PO DAILY 09/20/16 [History] Folic Acid 1 mg PO DAILY 09/20/16 [History] HYDROcodone/Acet 7.5/325 mg [[place] 7.5-325 mg] 1 tab PO TID 09/20/16 [History] Nitroglycerin [Nitrostat] 0.4 mg SL Q5M PRN 09/20/16 [History] Pantoprazole Sodium [Protonix] 40 mg PO BID 09/20/16 [History] Potassium Chloride [K-Tab ER] 30 meq PO DAILY 09/20/16 [History] Ropinirole HCl [Requip] 3 mg PO HS 09/20/16 [History] Isosorbide MONOnitrate (24 HR) [Imdur] 60 mg PO DAILY 11/18/16 [History] Aspirin 81 mg PO DAILY tab.chew 11/21/16 [Rx] Carvedilol [Coreg] 6.25 mg PO BIDWM tablet 12/01/16 [Rx] Gabapentin [Neurontin] 300 mg PO TID 12/04/16 [History] Albuterol Sulfate [Albuterol Inhaler] 2 puff IH Q4H PRN #1 inhaler 12/20/16 [Rx] Fluticasone/Salmeterol [Advair 250-50 Diskus] 1 each IH BID #60 blst.w.dev 12/21 [Rx] Furosemide [Lasix] 80 mg PO BID 01/04/17 [History] 3 Allergy/AdvReac Type Severity Reaction Status Date / Time acetaminophen AdvReac Anaphylaxis Verified 12/03/16 20:50 [From Tylenol-Codeine] codeine AdvReac Vomiting Verified 11/19/16 11:44 [From Tylenol-Codeine #3] All Systems PM: A 10-system review of systems was performed and is negative for pertinent findings except as documented above in the HPI. Review of systems: Pt fatigued but alert. - Constitutional Constitutional: fatigue, lethargy, malaise, no chills, no fever(s) - EENT Nose, mouth and throat: dry mouth, no nasal discharge, no sore throat - Cardiovascular Cardiovascular ROS IM: dyspnea, paroxysmal nocturnal dyspnea, no chest pain, no palpitations - Respiratory Respiratory: cough, dyspnea on exertion, no chest congestion - Gastrointestinal Gastrointestinal: no abdominal pain, no constipation, no diarrhea - Genitourinary Genitourinary: no dysuria, no urinary frequency, no urinary urgency - Musculoskeletal Musculoskeletal ROS IM: arthralgias, no myalgias, no numbness - Integumentary Integumentary IM: no erythema, no rash - Neurological Neurological ROS: no confusion, no dizziness, no numbness - Endocrine Endocrine IM: no cold intolerance, no heat intolerance - Hematologic/Lymphatic Hematologic/Lymphatic: no easy bleeding - Allergic/Immunologic Allergic/Immunologic: no throat swelling - Constitutional Vitals: Temp Pulse Resp BP Pulse Ox 97.7 F 68 14 124/69 96 01/04/17 18:40 01/04/17 18:40 01/04/17 20:10 01/04/17 18:40 11/15/17 20:10 General appearance: Present: mild distress, A&O X 3, answers questions appropriately - Head Head exam: Present: atraumatic, normocephalic - Eye Eye exam: Present: EOMI, PERRL, conjuntiva pink - ENT ENT exam: Present: mucous membranes dry - Neck Neck exam general surgery: Absent: lymphadenopathy, thyromegaly - Respiratory Respiratory exam: Present: decreased breath sounds, rales, rhonchi - Cardiovascular Cardiovascular exam: Present: RRR. Absent: tachycardia - GI/Abdominal GI/Abdominal exam: Present: normal bowel sounds, soft. Absent: tenderness - Extremities Exam Extremities exam: Present: pedal edema, warm. Absent: tenderness - Neurological Exam Neurological exam: Present: alert, oriented X3 - Skin Skin exam: Present: dry, warm. Absent: rash Internal Med - H&P Results - Labs CBC & Chem 7: 01/04/17 15:36 01/04/17 15:36
[2017-01-04] MEDS: Ipratropium/Albuterol Neb 3 ML IH SCH (23:37)
[2017-01-05] MEDS: *HR* Heparin 5,000 UNIT/ML VIAL SQ SCH ×3 (00:13→17:02)
[2017-01-05] MEDS: Ipratropium/Albuterol Neb 3 ML IH SCH ×6 (04:07→23:35)
[2017-01-05 04:54] LABS: Basophils % 0.6 %; Immature Granulocytes % 0.6 % (0-4); Red Cell Distribution Width 15.9 % (11.5-14.5)
[2017-01-05 04:56] LABS: Eosinophils # 0.1 K/mcL (0.0-0.6); Eosinophils % 3.5 %; Hematocrit 35.8 % (35.3-44.9); Hemoglobin 10.1 g/dL (11.5-15.4); Lymphocytes # 0.7 K/mcL (0.6-4.6); Lymphocytes % 21.6 %; Mean Corpuscular HGB Conc 28.2 g/dL (31.6-35.5); Mean Corpuscular Hemoglobin 28.2 pg (28.0-33.3); Mean Platelet Volume 9.8 fL (9.4-12.4); Monocytes # 0.3 K/mcL (0.0-1.3); Monocytes % 10.2 %; Platelet Count 107 K/mcL (140-400); Red Blood Count 3.58 M/mcL (3.82-4.97); Segmented Neutrophils % 63.5 %
[2017-01-05 05:03] LABS: BUN/Creatinine Ratio 26 (6-26); Blood Urea Nitrogen 22 mg/dL (7-20); Carbon Dioxide 37 mEq/L (19-29); Chloride 102 mEq/L (98-109); Glucose 124 mg/dL (70-99); Magnesium 2.1 mg/dL (1.6-2.6); Osmolality,Calculated 303 (280-300); Potassium 3.9 mEq/L (3.5-4.5); Sodium 144 mEq/L (136-145); eGFR For African Americans > 60 (> 60); eGFR For Non-African Americans > 60 (> 60)
[2017-01-05 05:19] LABS: Hypochromasia Present (Not Present); Platelet Estimate Decreased (Normal)
[2017-01-05] MEDS: Budesonide/Formoterol 80/4.5 MDI IH SCH ×2 (07:39→19:47)
[2017-01-05] MEDS ORDERED: Furosemide 40 MG/4 ML VIAL IVP SCH (08:00)
--- NOTE | 2017-01-05 08:41 | Internal Med Progress Note ---
<RangelSushil Cristal - Last Filed: 01/05/17 09:01> Date of Encounter: 01/05/17 Time of Encounter: 08:38 - Assessment and plan (1) Respiratory failure with hypoxia and hypercapnia Current Visit: Yes Status: Acute Assessment and plan: Worsening dyspnea for the past few days pCO2 59 in ED - BiPAP last evening - now 97% on 2L NC Home O2 level 3L Likely related to CHF and COPD Continue respiratory support as needed Qualifiers: Chronicity: acute on chronic Qualified Code(s): J96.21 - Acute and chronic respiratory failure with hypoxia; J96.22 - Acute and chronic respiratory failure with hypercapnia; J96.22 - Acute and chronic respiratory failure with hypercapnia; J96.22 - Acute and chronic respiratory failure with hypercapnia (2) Acute on chronic diastolic (congestive) heart failure Current Visit: No Status: Acute Assessment and plan: Worsening dyspnea and edema in LE and abdomen Reports taking her home Lasix 80mg BID, but is not always compliant with fluid and slat restriction Limited Echo 12/04/16: LVEF 65% Consider Bumex when ready for discharge Breathing much improved since last night Continue IV Lasix, daily weight, I/Os, fluid and salt restriction (3) A-fib Current Visit: No Status: Chronic Assessment and plan: Currently NSR and rate controlled. Not on anticoagulation due to previous GI bleed, but is taking Plavix Continue home medications Qualifiers: Atrial fibrillation type: paroxysmal Qualified Code(s): I48.0 - Paroxysmal atrial fibrillation (4) DM type 2 (diabetes mellitus, type 2) Current Visit: No Status: Chronic Assessment and plan: Accuchecks and SSI Qualifiers: Diabetes mellitus complication status: without complication Diabetes mellitus intermediate accountant insulin use: without intermediate accountant use Qualified Code(s): E11.9 - Type 2 diabetes mellitus without complications (5) Venous stasis dermatitis of both lower extremities Current Visit: No Status: Chronic Assessment and plan: Reports chronic edema in LE, but has been worse over the past few days (6) CAD (coronary artery disease) Current Visit: No Status: Chronic Assessment and plan: Continue home meds Qualifiers: Coronary Disease-Associated Artery/Lesion type: [place] artery [place] vs. transplanted heart: [place] heart Associated angina: without angina Qualified Code(s): I25.10 - Atherosclerotic heart disease of [place] coronary artery without angina pectoris (7) Hypertension Current Visit: Yes Status: Acute Assessment and plan: Normotensive. Continue home meds Qualifiers: Hypertension type: essential hypertension Qualified Code(s): I10 - Essential (primary) hypertension (8) DVT prophylaxis Current Visit: No Status: Acute Assessment and plan: SQ heparin - Subjective Interval history: Pt sitting up eating breakfast. Reports she had been having worsening dyspnea, fatigue, and increased swelling the past few days. She was recently in the hospital for CHF and LE cellulitis with home health and vancomycin. She finished her course of antibiotics. Does reports some loose stools, but not watery. She reports that this morning her breathing is improving. Continues to have edema on her LE and her abdomen. She feels less fatigued this morning as well. Denies syncope, light-headedness, fevers, chills, chest pain, cough, N/V, dysuria, or leg pain. - Constitutional Vitals: Temp Pulse Resp BP Pulse Ox 97.5 F L 72 18 123/77 98 01/05/17 06:34 01/05/17 06:34 01/05/17 06:34 01/05/17 06:34 01/05/17 06:34 General appearance: Present: mild distress, A&O X 3, answers questions appropriately - Head Head exam: Present: atraumatic, normocephalic - Eye Eye exam: Present: conjuntiva pink, sclera anicteric - Neck Neck exam general surgery: Present: supple, trachea midline. Absent: lymphadenopathy - Respiratory Respiratory exam: Present: rales (bibasilar). Absent: accessory muscle use, rhonchi, wheezes - Cardiovascular Cardiovascular exam: Present: RRR, +S1, +S2. Absent: diastolic murmur, systolic murmur - GI/Abdominal GI/Abdominal exam: Present: normal bowel sounds, soft, no peritoneal signs. Absent: distended, tenderness - Extremities Exam Extremities exam: Present: pedal edema, warm, radial pulses palpable and symmetrical. Absent: calf tenderness, cyanotic - Neurological Exam Neurological exam: Present: oriented X3, no focal deficits. Absent: facial droop, speech deficit - Skin Skin exam: Present: dry, intact Internal Medicine: Result - Labs CBC & Chem 7: 01/05/17 04:37 01/05/17 04:37 Labs: Short CBC 01/05/17 Range/Units 04:37 WBC 3.2 L (4.3-11.1) K/mcL Hgb 10.1 L (11.5-15.4) g/dL Hct 35.8 (35.3-44.9) % Plt Count 107 L (140-400) K/mcL Neutrophils # 2.0 (1.6-8.9) K/mcL BMP 01/05/17 04:37 Sodium 144 Potassium 3.9 Chloride 102 Carbon Dioxide 37 H BUN 22 H Creatinine 0.84 Glucose 124 H Calcium 8.0 L - ABG Interpretation ABG results: ABG ABG pH 7.40 pH Units (7.32-7.45) 01/04/17 16:48 ABG pCO2 59 mmHg (35-45) H 01/04/17 16:48 ABG pO2 69 mmHg (85-104) L 01/04/17 16:48 ABG O2 Saturation 93 % (95-98) L 01/04/17 16:48 Consult Discharge Plan - Plan Referrals: Yue Kennedy [employer]PHOLST[employer]MER [Primary Care Provider] - <Stanton Elliott H - Last Filed: 01/05/17 13:49> Date of Encounter: 01/05/17 - Constitutional Vitals: Temp Pulse Resp BP Pulse Ox 98.1 F 84 16 114/76 94 01/05/17 10:40 01/05/17 10:40 01/05/17 11:16 01/05/17 10:40 01/05/17 11:16 Internal Medicine: Result - Labs CBC & Chem 7: 01/05/17 04:37 01/05/17 04:37 Labs: Short CBC 01/05/17 Range/Units 04:37 WBC 3.2 L (4.3-11.1) K/mcL Hgb 10.1 L (11.5-15.4) g/dL Hct 35.8 (35.3-44.9) % Plt Count 107 L (140-400) K/mcL Neutrophils # 2.0 (1.6-8.9) K/mcL BMP 01/05/17 04:37 Sodium 144 Potassium 3.9 Chloride 102 Carbon Dioxide 37 H BUN 22 H Creatinine 0.84 Glucose 124 H Calcium 8.0 L - ABG Interpretation ABG results: ABG ABG pH 7.40 pH Units (7.32-7.45) 01/04/17 16:48 ABG pCO2 59 mmHg (35-45) H 01/04/17 16:48 ABG pO2 69 mmHg (85-104) L 01/04/17 16:48 ABG O2 Saturation 93 % (95-98) L 01/04/17 16:48 - Attending Attestation acute on chronic hypoxic resp failure secondary to acute diastolic CHF exacerbation increase lasix IV to 60 mg BID ( takes 80 mg bid at home) may discharge on Bumex at a later time BIpap qualification I examined this patient and my medical decision-making was reviewed with the Resident Physician. I agree with the documented findings, disposition and treatment plan as described except to the extent set forth below.
[2017-01-05] MEDS: Gabapentin 300 MG CAPSULE PO SCH ×3 (08:58→21:46)
[2017-01-05] MEDS: Diltiazem CD (24hr) 120 MG CAPSULE PO SCH (08:58)
[2017-01-05] MEDS: *HR* HYDROcodone/Acet 7.5/325 mg TABLET PO SCH ×2 (08:58→17:02)
[2017-01-05] MEDS: Isosorbide MONOnitrate (24 HR) 60 MG TAB.ER.24H PO SCH (08:58)
[2017-01-05] MEDS: Folic Acid 1 MG TABLET PO SCH (08:58)
[2017-01-05] MEDS: Aspirin 81 MG TAB.CHEW PO SCH (08:59)
[2017-01-05] MEDS ORDERED: Furosemide 20 MG/2 ML VIAL IVP ONE (13:47)
[2017-01-05] MEDS: Furosemide 40 MG/4 ML VIAL IVP SCH (17:01)
--- NOTE | 2017-01-05 17:49 | Electrocardiograph Report ---
[place] [id number] Test Date: 2017-01-04 Pat Name: Kimberly Crawford Department: 102 Room: [id number] Gender: F Post Doc Fellowship: Ekp : 1940 Requested By: Hermelindo Yi Order Number: [id number] Reading MD: Reagan Bee MD Measurements Intervals [place] Rate: 74 P: NV: 0 QRS: 72 QRSD: 90 T: -3 QT: 407 QTc: 435 Interpretive Statements ATRIAL FIBRILLATION LOW QRS VOLTAGE IN PRECORDIAL LEADS Electronically Signed On 01-05-2017 17:47:30 EST by Reagan Bee MD
[2017-01-06] MEDS: *HR* HYDROcodone/Acet 7.5/325 mg TABLET PO SCH ×4 (00:19→20:28)
[2017-01-06] MEDS: *HR* Heparin 5,000 UNIT/ML VIAL SQ SCH ×3 (00:19→17:01)
[2017-01-06] MEDS: Ipratropium/Albuterol Neb 3 ML IH SCH ×6 (03:33→23:20)
[2017-01-06 07:02] LABS: Alanine Aminotransferase 40 Units/L (0-55); Albumin 2.8 g/dL (3.5-5.0); Albumin/Globulin Ratio 0.9 (1.1-2.2); Alkaline Phosphatase 183 Units/L (38-126); Aspartate Amino Transferase 26 Units/L (5-34); BUN/Creatinine Ratio 31 (6-26); Bilirubin,Total 1.2 mg/dL (0.2-1.2); Blood Urea Nitrogen 27 mg/dL (7-20); Calcium 8.3 mg/dL (8.6-10.8); Carbon Dioxide 31 mEq/L (19-29); Chloride 102 mEq/L (98-109); Globulin 3.1 g/dL (2.4-3.5); Glucose 117 mg/dL (70-99); Osmolality,Calculated 300 (280-300); Sodium 142 mEq/L (136-145); Total Protein 5.9 g/dL (6.0-8.3); eGFR For African Americans > 60 (> 60); eGFR For Non-African Americans > 60 (> 60)
[2017-01-06 07:04] LABS: Hemoglobin 10.7 g/dL (11.5-15.4); Mean Corpuscular Volume 98.7 fL (83.0-100.0); Red Cell Distribution Width 15.9 % (11.5-14.5)
[2017-01-06 07:05] LABS: Hematocrit 36.6 % (35.3-44.9); Mean Corpuscular HGB Conc 29.2 g/dL (31.6-35.5); Mean Corpuscular Hemoglobin 28.8 pg (28.0-33.3); Mean Platelet Volume 11.3 fL (9.4-12.4); Red Blood Count 3.71 M/mcL (3.82-4.97)
[2017-01-06 07:06] LABS: Potassium 4.9 mEq/L (3.5-4.5)
[2017-01-06 07:07] LABS: Platelet Count 73 K/mcL (140-400)
[2017-01-06] MEDS: Budesonide/Formoterol 80/4.5 MDI IH SCH ×2 (07:46→20:16)
--- NOTE | 2017-01-06 08:49 | Internal Med Progress Note ---
<Sushil Multani - Last Filed: 01/06/17 10:28> Date of Encounter: 01/06/17 Time of Encounter: 08:47 - Assessment and plan (1) Acute on chronic respiratory failure with hypoxia and hypercapnia Current Visit: Yes Status: Acute Assessment and plan: Worsening dyspnea for the past few days pCO2 59 in ED - BiPAPx1 evening - now > 90% on 2L NC Home O2 level 3L Likely related to CHF and COPD Continue respiratory support as needed Overnight BiPAP/O2 qualification - pt does qualify for BiPAP - Rx sent to gearcase assembler for home set-up (2) Acute on chronic diastolic (congestive) heart failure Current Visit: No Status: Acute Assessment and plan: Worsening dyspnea and edema in LE and abdomen Reports taking her home Lasix 80mg BID, but is not always compliant with fluid and slat restriction Limited Echo 12/04/16: LVEF 65% Echo 10/18/16: LVEF 60%, dilated hypokinetic RV, severely dilated RA, severe TR, mild-mod , mild MR - Cardio previously discussed that pt is poor candidate for tricuspid valve replacement and pt did not want to seek surgical intervention Consider Bumex when ready for discharge Breathing is improving Continue IV Lasix, daily weight, I/Os, fluid and salt restriction - Will need more dietary adherence at home to salt and fluid restriction - Add TRISHA wraps on bilateral LE Stop PO potassium as K is 4.9 (3) Cellulitis Current Visit: No Status: Acute Assessment and plan: Warmth and redness to left LE Add Ancef and wraps Qualifiers: Site of cellulitis: extremity Site of cellulitis of extremity: lower extremity Laterality: left Qualified Code(s): L03.116 - Cellulitis of left lower limb (4) A-fib Current Visit: No Status: Chronic Assessment and plan: Currently NSR and rate controlled. Not on anticoagulation due to previous GI bleed, but is taking Plavix Continue home medications Qualifiers: Atrial fibrillation type: paroxysmal Qualified Code(s): I48.0 - Paroxysmal atrial fibrillation (5) DM type 2 (diabetes mellitus, type 2) Current Visit: No Status: Chronic Assessment and plan: Accuchecks and SSI Qualifiers: Diabetes mellitus complication status: without complication Diabetes mellitus halfway insulin use: without terminal clerk use Qualified Code(s): E11.9 - Type 2 diabetes mellitus without complications (6) Venous stasis dermatitis of both lower extremities Current Visit: No Status: Chronic Assessment and plan: Reports chronic edema in LE, but has been worse over the past few days TRISHA wraps bilaterally (7) CAD (coronary artery disease) Current Visit: No Status: Chronic Assessment and plan: Continue home meds Qualifiers: Coronary Disease-Associated Artery/Lesion type: [place] artery [place] vs. transplanted heart: [place] heart Associated angina: without angina Qualified Code(s): I25.10 - Atherosclerotic heart disease of [place] coronary artery without angina pectoris (8) Hypertension Current Visit: Yes Status: Acute Assessment and plan: Normotensive. Continue home meds Qualifiers: Hypertension type: essential hypertension Qualified Code(s): I10 - Essential (primary) hypertension (9) DVT prophylaxis Current Visit: No Status: Acute Assessment and plan: SQ heparin - Subjective Interval history: Pt sitting up eating breakfast. Reports improving dyspnea. Continues to have edema on her LE and her abdomen. She feels less fatigued this morning as well. Denies syncope, light-headedness, fevers, chills, chest pain, cough, N/V, dysuria, or leg pain. - Constitutional Vitals: Temp Pulse Resp BP Pulse Ox 97.5 F L 61 18 130/66 100 01/06/17 06:52 01/06/17 06:52 01/06/17 06:52 01/06/17 06:52 01/06/17 06:52 General appearance: Present: A&O X 3, no acute distress, answers questions appropriately - Head Head exam: Present: atraumatic, normocephalic - Eye Eye exam: Present: conjuntiva pink, sclera anicteric - Neck Neck exam general surgery: Present: supple, trachea midline. Absent: lymphadenopathy - Respiratory Respiratory exam: Present: rales (bibasilar). Absent: accessory muscle use, rhonchi, wheezes - Cardiovascular Cardiovascular exam: Present: RRR, +S1, +S2. Absent: diastolic murmur, systolic murmur - GI/Abdominal GI/Abdominal exam: Present: normal bowel sounds, soft, no peritoneal signs. Absent: distended, tenderness - Extremities Exam Extremities exam: Present: pedal edema, warm, radial pulses palpable and symmetrical. Absent: calf tenderness, cyanotic - Neurological Exam Neurological exam: Present: CN II-XII intact, oriented X3, no focal deficits. Absent: facial droop, speech deficit - Skin Skin exam: Present: dry, intact Internal Medicine: Result - Labs CBC & Chem 7: 01/06/17 06:38 01/06/17 06:38 Labs: Short CBC 01/06/17 Range/Units 06:38 WBC 3.9 L (4.3-11.1) K/mcL Hgb 10.7 L (11.5-15.4) g/dL Hct 36.6 (35.3-44.9) % Plt Count 73 L (140-400) K/mcL BMP 01/06/17 06:38 Sodium 142 Potassium 4.9 H D Chloride 102 Carbon Dioxide 31 H BUN 27 H Creatinine 0.86 Glucose 117 H Calcium 8.3 L Liver Function 01/06/17 Range/Units 06:38 Total Bilirubin 1.2 (0.2-1.2) mg/dL AST 26 (5-34) Units/L ALT 40 (0-55) Units/L Alkaline Phosphatase 183 H (38-126) Units/L Albumin 2.8 L (3.5-5.0) g/dL - ABG Interpretation ABG results: ABG ABG pH 7.40 pH Units (7.32-7.45) 01/04/17 16:48 ABG pCO2 59 mmHg (35-45) H 01/04/17 16:48 ABG pO2 69 mmHg (85-104) L 01/04/17 16:48 ABG O2 Saturation 93 % (95-98) L 01/04/17 16:48 Consult Discharge Plan - Plan Referrals: Yue Kennedy, [employer]TER [Primary Care Provider] - <Stanton Elliott H - Last Filed: 01/06/17 13:13> Date of Encounter: 01/06/17 - Constitutional Vitals: Temp Pulse Resp BP Pulse Ox 97.6 F 93 18 97/65 96 01/06/17 11:37 01/06/17 11:37 01/06/17 11:37 01/06/17 11:37 01/06/17 11:37 Internal Medicine: Result - Labs CBC & Chem 7: 01/06/17 06:38 01/06/17 06:38 Labs: Short CBC 01/06/17 Range/Units 06:38 WBC 3.9 L (4.3-11.1) K/mcL Hgb 10.7 L (11.5-15.4) g/dL Hct 36.6 (35.3-44.9) % Plt Count 73 L (140-400) K/mcL BMP 01/06/17 06:38 Sodium 142 Potassium 4.9 H D Chloride 102 Carbon Dioxide 31 H BUN 27 H Creatinine 0.86 Glucose 117 H Calcium 8.3 L Liver Function 01/06/17 Range/Units 06:38 Total Bilirubin 1.2 (0.2-1.2) mg/dL AST 26 (5-34) Units/L ALT 40 (0-55) Units/L Alkaline Phosphatase 183 H (38-126) Units/L Albumin 2.8 L (3.5-5.0) g/dL - ABG Interpretation ABG results: ABG ABG pH 7.40 pH Units (7.32-7.45) 01/04/17 16:48 ABG pCO2 59 mmHg (35-45) H 01/04/17 16:48 ABG pO2 69 mmHg (85-104) L 01/04/17 16:48 ABG O2 Saturation 93 % (95-98) L 01/04/17 16:48 - Attending Attestation acute on chronic hypoxic resp failure secondary to acute diastolic CHF exacerbation Continue diuresis with lasix IV to 60 mg BID ( takes 80 mg bid at home) may discharge on Bumex at a later time qualified for BiPAP at home Possible acute cellulitis in both lower extremities Start Ancef I examined this patient and my medical decision-making was reviewed with the Resident Physician. I agree with the documented findings, disposition and treatment plan as described except to the extent set forth below.
[2017-01-06] MEDS: Furosemide 40 MG/4 ML VIAL IVP SCH ×2 (09:02→17:01)
[2017-01-06] MEDS: Folic Acid 1 MG TABLET PO SCH (09:02)
[2017-01-06] MEDS: Isosorbide MONOnitrate (24 HR) 60 MG TAB.ER.24H PO SCH (09:02)
[2017-01-06] MEDS: Gabapentin 300 MG CAPSULE PO SCH ×3 (09:02→20:28)
[2017-01-06] MEDS: Aspirin 81 MG TAB.CHEW PO SCH (09:02)
[2017-01-06] MEDS: Diltiazem CD (24hr) 120 MG CAPSULE PO SCH (09:03)
--- NOTE | 2017-01-06 09:56 | Physician Discharge Referral ---
Home Health/Hosp Referral Info Transfer to: Home Health Provider in Charge Post Discharge: PCP - Diagnosis (1) Acute on chronic respiratory failure with hypoxia and hypercapnia Priority: Primary Status: Acute (2) Acute on chronic diastolic (congestive) heart failure Priority: Secondary Status: Acute (3) A-fib Priority: Secondary Status: Chronic (4) DM type 2 (diabetes mellitus, type 2) Priority: Secondary Status: Chronic (5) Venous stasis dermatitis of both lower extremities Priority: Secondary Status: Chronic (6) CAD (coronary artery disease) Priority: Secondary Status: Chronic (7) Hypertension Priority: Secondary Status: Acute (8) DVT prophylaxis Priority: Secondary Status: Acute - Respiratory Orders Oxygen / L per min (2-3L nasal canula), Other (BiPAP at night) Smoking Cessation: Smoking cessation has been advised. For more information, call the [place] Tobacco Quit Line at 7-009-NBKL-NOW. - Diet/Nutrition Diet/Nutrition Orders: Cardiac (Salt (less than 2000mg) and Fluid (less than 1.5L) Restriction) - Services Needed Following services are medically necessary services: Nursing, Physical Therapy, Occupational Therapy - Transfer Medications Home Medications: Citalopram Hydrobromide [Citalopram HBr] 10 mg PO DAILY 09/20/16 [History] Clopidogrel [Plavix] 75 mg PO DAILY 09/20/16 [History] Diltiazem HCl [Diltiazem ER] 120 mg PO QAM 09/20/16 [History] Ferrous Sulfate 325 mg PO DAILY 09/20/16 [History] Folic Acid 1 mg PO DAILY 09/20/16 [History] HYDROcodone/Acet 7.5/325 mg [[place] 7.5-325 mg] 1 tab PO TID 09/20/16 [History] Nitroglycerin [Nitrostat] 0.4 mg SL Q5M PRN 09/20/16 [History] Pantoprazole Sodium [Protonix] 40 mg PO BID 09/20/16 [History] Potassium Chloride [K-Tab ER] 30 meq PO DAILY 09/20/16 [History] Ropinirole HCl [Requip] 3 mg PO HS 09/20/16 [History] Isosorbide MONOnitrate (24 HR) [Imdur] 60 mg PO DAILY 11/18/16 [History] Aspirin 81 mg PO DAILY tab.chew 11/21/16 [Rx] Carvedilol [Coreg] 6.25 mg PO BIDWM tablet 12/01/16 [Rx] Gabapentin [Neurontin] 300 mg PO TID 12/04/16 [History] Albuterol Sulfate [Albuterol Inhaler] 2 puff IH Q4H PRN #1 inhaler 12/20/16 [Rx] Fluticasone/Salmeterol [Advair 250-50 Diskus] 1 each IH BID #60 blst.w.dev 12/21 [Rx] Furosemide [Lasix] 80 mg PO BID 01/04/17 [History] Allergies/Adverse Reactions: 3 Allergy/AdvReac Type Severity Reaction Status Date / Time acetaminophen AdvReac Anaphylaxis Verified 12/03/16 20:50 [From Tylenol-Codeine] codeine AdvReac Vomiting Verified 11/19/16 11:44 [From Tylenol-Codeine #3] Certification: Further, I certify that my clinical findings support that this patient is homebound (i.e. absences from home require considerable and taxing effort and are for medical reasons or nondenominational services or infrequently or short duration when for other reasons) because: Homebound Reason: Leaving home requires considerable and taxing effort due to condition Attestation: My signature below is to certify that this patient is under my care and that I, or nurse practitioner, or a physician's event marketing assistant working with me, has a face-to -face encounter with this patient.
[2017-01-06] MEDS: ceFAZolin 1,000 MG in Water for inj. (sterile) 10 ML IVP SCH ×2 (11:57→17:02)
[2017-01-07] MEDS: *HR* Heparin 5,000 UNIT/ML VIAL SQ SCH ×3 (00:07→16:21)
[2017-01-07] MEDS: ceFAZolin 1,000 MG in Water for inj. (sterile) 10 ML IVP SCH ×2 (02:08→08:43)
[2017-01-07] MEDS: Ipratropium/Albuterol Neb 3 ML IH SCH ×6 (04:56→23:06)
[2017-01-07 06:54] LABS: Hematocrit 34.6 % (35.3-44.9); Hemoglobin 10.1 g/dL (11.5-15.4); Immature Platelets 4.2 % (1.1-6.1); Mean Corpuscular HGB Conc 29.2 g/dL (31.6-35.5); Mean Corpuscular Hemoglobin 29.1 pg (28.0-33.3); Mean Corpuscular Volume 99.7 fL (83.0-100.0); Mean Platelet Volume 10.2 fL (9.4-12.4); Red Blood Count 3.47 M/mcL (3.82-4.97)
[2017-01-07 07:11] LABS: Alanine Aminotransferase 27 Units/L (0-55); Albumin 2.9 g/dL (3.5-5.0); Alkaline Phosphatase 179 Units/L (38-126); Aspartate Amino Transferase 19 Units/L (5-34); BUN/Creatinine Ratio 28 (6-26); Bilirubin,Total 1.2 mg/dL (0.2-1.2); Blood Urea Nitrogen 30 mg/dL (7-20); Calcium 8.4 mg/dL (8.6-10.8); Carbon Dioxide 35 mEq/L (19-29); Chloride 98 mEq/L (98-109); Globulin 2.9 g/dL (2.4-3.5); Glucose 119 mg/dL (70-99); Osmolality,Calculated 299 (280-300); Sodium 141 mEq/L (136-145); Total Protein 5.8 g/dL (6.0-8.3); eGFR For African Americans > 60 (> 60); eGFR For Non-African Americans 50 (> 60)
[2017-01-07] MEDS: Budesonide/Formoterol 80/4.5 MDI IH SCH ×2 (07:39→20:07)
[2017-01-07] MEDS: Gabapentin 300 MG CAPSULE PO SCH ×3 (08:42→22:08)
[2017-01-07] MEDS: Isosorbide MONOnitrate (24 HR) 60 MG TAB.ER.24H PO SCH (08:42)
[2017-01-07] MEDS: *HR* HYDROcodone/Acet 7.5/325 mg TABLET PO SCH ×3 (08:43→22:07)
[2017-01-07] MEDS: Aspirin 81 MG TAB.CHEW PO SCH (08:43)
[2017-01-07] MEDS: Diltiazem CD (24hr) 120 MG CAPSULE PO SCH (08:43)
[2017-01-07] MEDS: Folic Acid 1 MG TABLET PO SCH (08:43)
[2017-01-07] MEDS: Furosemide 40 MG/4 ML VIAL IVP SCH (08:44)
[2017-01-07] MEDS ORDERED: Doxycycline 100 MG in 0.9 % Sodium Chloride 150 ML IVPB SCH (13:47)
--- NOTE | 2017-01-07 13:50 | Internal Med Progress Note ---
Date of Encounter: 01/07/17 Time of Encounter: 13:49 - Assessment and plan (1) Acute on chronic respiratory failure with hypoxemia Current Visit: No Status: Resolved Assessment and plan: acute on chronic hypoxic resp failure secondary to acute diastolic CHF exacerbation with severe lower extremity edema/bilaterally Current Visit: Yes Status: Acute Assessment and plan: Stop Lasix IV and start Bumex IV Qualified for BiPAP pCO2 59 in ED - BiPAPx1 evening - now > 90% on 2L [place] Home O2 level 3L (2) Acute on chronic diastolic (congestive) heart failure Current Visit: No Status: Acute Assessment and plan: Worsening dyspnea and edema in LE and abdomen Reports taking her home Lasix 80mg BID, but is not always compliant with fluid and slat restriction Limited Echo 12/04/16: LVEF 65% Echo 10/18/16: LVEF 60%, dilated hypokinetic RV, severely dilated RA, severe TR, mild-mod , mild MR - Cardio previously discussed that pt is poor candidate for tricuspid valve replacement and pt did not want to seek surgical intervention Consider Bumex when ready for discharge Breathing is improving Continue IV Lasix, daily weight, I/Os, fluid and salt restriction - Will need more dietary adherence at home to salt and fluid restriction - Add TRISHA wraps on bilateral LE Stop PO potassium as K is 4.9 (3) Cellulitis Current Visit: No Status: Acute Assessment and plan: Warmth and redness to left LE Stop Ancef and start IV doxycycline wraps Qualifiers: Site of cellulitis: extremity Site of cellulitis of extremity: lower extremity Laterality: left Qualified Code(s): L03.116 - Cellulitis of left lower limb (4) A-fib Current Visit: No Status: Chronic Assessment and plan: Currently NSR and rate controlled. Not on anticoagulation due to previous GI bleed, but is taking Plavix Continue home medications Qualifiers: Atrial fibrillation type: paroxysmal Qualified Code(s): I48.0 - Paroxysmal atrial fibrillation (5) DM type 2 (diabetes mellitus, type 2) Current Visit: No Status: Chronic Assessment and plan: Accuchecks and SSI Qualifiers: Diabetes mellitus complication status: without complication Diabetes mellitus intermediate card tender insulin use: without intermediate card tender use Qualified Code(s): E11.9 - Type 2 diabetes mellitus without complications (6) Venous stasis dermatitis of both lower extremities Current Visit: No Status: Chronic Assessment and plan: Reports chronic edema in LE, but has been worse over the past few days TRISHA wraps bilaterally (7) CAD (coronary artery disease) Current Visit: No Status: Chronic Assessment and plan: Continue home meds Qualifiers: Coronary Disease-Associated Artery/Lesion type: [place] artery [place] vs. transplanted heart: [place] heart Associated angina: without angina Qualified Code(s): I25.10 - Atherosclerotic heart disease of [place] coronary artery without angina pectoris (8) Hypertension Current Visit: Yes Status: Acute Assessment and plan: Normotensive. Continue home meds Qualifiers: Hypertension type: essential hypertension Qualified Code(s): I10 - Essential (primary) hypertension (9) DVT prophylaxis Current Visit: No Status: Acute Assessment and plan: SQ heparin - Subjective Interval history: Feeling still short of breath, not improving, weight has increased from 85 kg up to 87.9 kg, has not had a good quantification of output, denies any chest pain, abdominal pain, redness in the left lower extremity has not changed - Constitutional Vitals: Temp Pulse Resp BP Pulse Ox 98.0 F 77 17 102/68 90 01/07/17 10:58 01/07/17 10:58 01/07/17 11:21 01/07/17 10:58 01/07/17 11:21 General appearance: Present: A&O X 3, no acute distress, answers questions appropriately - Head Head exam: Present: atraumatic, normocephalic - Eye Eye exam: Present: PERRL, conjuntiva pink, sclera anicteric Pupils: Present: PERRL - Neck Neck exam general surgery: Present: supple, trachea midline. Absent: lymphadenopathy - Respiratory Respiratory exam: Present: decreased breath sounds, CTAB. Absent: accessory muscle use, rales, rhonchi, wheezes - Cardiovascular Cardiovascular exam: Present: RRR, +S1, +S2. Absent: diastolic murmur, gallop, rubs, systolic murmur - GI/Abdominal GI/Abdominal exam: Present: normal bowel sounds, soft, no peritoneal signs. Absent: distended, tenderness - Extremities Exam Extremities exam: Present: pedal edema (Severe lymphedema in both lower extremities, redness/erythema has progressed, warm), warm, radial pulses palpable and symmetrical. Absent: calf tenderness, cyanotic - Neurological Exam Neurological exam: Present: CN II-XII intact, oriented X3, no focal deficits. Absent: pronater drift, facial droop, speech deficit - Skin Skin exam: Present: dry, intact Internal Medicine: Result - Labs CBC & Chem 7: 01/07/17 05:57 01/07/17 05:57 Labs: Short CBC 01/07/17 Range/Units 05:57 WBC 3.2 L (4.3-11.1) K/mcL Hgb 10.1 L (11.5-15.4) g/dL Hct 34.6 L (35.3-44.9) % Plt Count 102 L (140-400) K/mcL BMP 01/07/17 05:57 Sodium 141 Potassium 4.0 Chloride 98 Carbon Dioxide 35 H BUN 30 H Creatinine 1.07 Glucose 119 H Calcium 8.4 L Liver Function 01/07/17 Range/Units 05:57 Total Bilirubin 1.2 (0.2-1.2) mg/dL AST 19 (5-34) Units/L ALT 27 (0-55) Units/L Alkaline Phosphatase 179 H (38-126) Units/L Albumin 2.9 L (3.5-5.0) g/dL - ABG Interpretation ABG results: ABG ABG pH 7.40 pH Units (7.32-7.45) 01/04/17 16:48 ABG pCO2 59 mmHg (35-45) H 01/04/17 16:48 ABG pO2 69 mmHg (85-104) L 01/04/17 16:48 ABG O2 Saturation 93 % (95-98) L 01/04/17 16:48 Consult Discharge Plan - Plan Referrals: Yue Kennedy, [employer]ER [Primary Care Provider] -
[2017-01-07] MEDS: Bumetanide 1 MG/4 ML VIAL IVP SCH ×2 (16:21→16:30)
[2017-01-08] MEDS: *HR* Heparin 5,000 UNIT/ML VIAL SQ SCH (01:34)
[2017-01-08] MEDS: Doxycycline 100 MG in 0.9 % Sodium Chloride 150 ML IVPB SCH ×2 (03:05→17:29)
[2017-01-08] MEDS: Ipratropium/Albuterol Neb 3 ML IH SCH ×6 (04:10→23:41)
[2017-01-08 06:07] LABS: Hematocrit 32.6 % (35.3-44.9); Hemoglobin 9.6 g/dL (11.5-15.4); Mean Corpuscular HGB Conc 29.4 g/dL (31.6-35.5); Mean Corpuscular Hemoglobin 28.8 pg (28.0-33.3); Mean Corpuscular Volume 97.9 fL (83.0-100.0); Mean Platelet Volume 10.4 fL (9.4-12.4); Platelet Count 101 K/mcL (140-400); Red Blood Count 3.33 M/mcL (3.82-4.97); Red Cell Distribution Width 16.2 % (11.5-14.5)
[2017-01-08 06:43] LABS: BUN/Creatinine Ratio 29 (6-26); Blood Urea Nitrogen 29 mg/dL (7-20); Calcium 8.2 mg/dL (8.6-10.8); Carbon Dioxide 32 mEq/L (19-29); Chloride 99 mEq/L (98-109); Glucose 119 mg/dL (70-99); Osmolality,Calculated 297 (280-300); Potassium 4.1 mEq/L (3.5-4.5); Sodium 140 mEq/L (136-145); eGFR For African Americans > 60 (> 60); eGFR For Non-African Americans 53 (> 60)
[2017-01-08] MEDS: Budesonide/Formoterol 80/4.5 MDI IH SCH ×2 (07:50→20:54)
[2017-01-08] MEDS: Bumetanide 1 MG/4 ML VIAL IVP SCH ×2 (09:55→17:28)
[2017-01-08] MEDS: *HR* HYDROcodone/Acet 7.5/325 mg TABLET PO SCH ×3 (09:56→21:06)
[2017-01-08] MEDS: Isosorbide MONOnitrate (24 HR) 60 MG TAB.ER.24H PO SCH (09:56)
[2017-01-08] MEDS: Diltiazem CD (24hr) 120 MG CAPSULE PO SCH (09:56)
[2017-01-08] MEDS: Aspirin 81 MG TAB.CHEW PO SCH (09:56)
[2017-01-08] MEDS: Gabapentin 300 MG CAPSULE PO SCH ×3 (09:57→21:06)
[2017-01-08] MEDS: Folic Acid 1 MG TABLET PO SCH (10:01)
--- NOTE | 2017-01-08 10:24 | Internal Med Progress Note ---
Date of Encounter: 01/08/17 Time of Encounter: 10:22 - Assessment and plan (1) Acute on chronic respiratory failure with hypoxemia Current Visit: No Status: Resolved Assessment and plan: acute on chronic hypoxic resp failure secondary to acute diastolic CHF exacerbation with severe lower extremity edema/bilaterally Current Visit: Yes Status: Acute Assessment and plan: Stopped Lasix IV and started Bumex IV on 01/07/17 Qualified for BiPAP pCO2 59 in ED - BiPAPx1 evening - now > 90% on 2L [place] Home O2 level 3L (2) Acute on chronic diastolic (congestive) heart failure Current Visit: No Status: Acute Assessment and plan: Worsening dyspnea and edema in LE and abdomen Reports taking her home Lasix 80mg BID, but is not always compliant with fluid and slat restriction Limited Echo 12/04/16: LVEF 65% Echo 10/18/16: LVEF 60%, dilated hypokinetic RV, severely dilated RA, severe TR, mild-mod , mild MR - Cardio previously discussed that pt is poor candidate for tricuspid valve replacement and pt did not want to seek surgical intervention Consider Bumex when ready for discharge Breathing is improving Continue IV Lasix, daily weight, I/Os, fluid and salt restriction - Will need more dietary adherence at home to salt and fluid restriction - Add LENO wraps on bilateral LE Stop PO potassium as K is 4.9 (3) Cellulitis Current Visit: No Status: Acute Assessment and plan: Warmth and redness to left LE Stopped Ancef on 01/07/17 Continue IV doxycycline day 2 Leno wraps Qualifiers: Site of cellulitis: extremity Site of cellulitis of extremity: lower extremity Laterality: left Qualified Code(s): L03.116 - Cellulitis of left lower limb (4) A-fib Current Visit: No Status: Chronic Assessment and plan: Currently NSR and rate controlled. Not on anticoagulation due to previous GI bleed, but is taking Plavix Continue home medications Qualifiers: Atrial fibrillation type: paroxysmal Qualified Code(s): I48.0 - Paroxysmal atrial fibrillation (5) DM type 2 (diabetes mellitus, type 2) Current Visit: No Status: Chronic Assessment and plan: Accuchecks and SSI Qualifiers: Diabetes mellitus complication status: without complication Diabetes mellitus jowl trimmer insulin use: without assisted use Qualified Code(s): E11.9 - Type 2 diabetes mellitus without complications (6) Venous stasis dermatitis of both lower extremities Current Visit: No Status: Chronic Assessment and plan: Reports chronic edema in LE, but has been worse over the past few days LENO wraps bilaterally (7) CAD (coronary artery disease) Current Visit: No Status: Chronic Assessment and plan: Continue home meds Qualifiers: Coronary Disease-Associated Artery/Lesion type: [place] artery [place] vs. transplanted heart: [place] heart Associated angina: without angina Qualified Code(s): I25.10 - Atherosclerotic heart disease of [place] coronary artery without angina pectoris (8) Hypertension Current Visit: Yes Status: Acute Assessment and plan: Normotensive. Continue home meds Qualifiers: Hypertension type: essential hypertension Qualified Code(s): I10 - Essential (primary) hypertension (9) DVT prophylaxis Current Visit: No Status: Acute Assessment and plan: SQ heparin - Subjective Interval history: Feeling less short of breath, weight has increased from 85 kg up to 88.8 kg, has not had a good quantification of output, denies any chest pain, abdominal pain, redness in the left lower extremity has improved - Constitutional Vitals: Temp Pulse Resp BP Pulse Ox 98 F 78 16 113/64 99 01/08/17 04:56 01/08/17 04:56 01/08/17 04:56 01/08/17 04:56 01/08/17 04:56 General appearance: Present: A&O X 3, no acute distress, answers questions appropriately - Head Head exam: Present: atraumatic, normocephalic - Eye Eye exam: Present: PERRL, conjuntiva pink, sclera anicteric Pupils: Present: PERRL - Neck Neck exam general surgery: Present: supple, trachea midline. Absent: lymphadenopathy - Respiratory Respiratory exam: Present: CTAB, rales (Minimal bibasilar crackles). Absent: accessory muscle use, rhonchi, wheezes - Cardiovascular Cardiovascular exam: Present: RRR, +S1, +S2. Absent: diastolic murmur, gallop, rubs, systolic murmur - GI/Abdominal GI/Abdominal exam: Present: distended, normal bowel sounds, soft, no peritoneal signs. Absent: tenderness - Extremities Exam Extremities exam: Present: warm, radial pulses palpable and symmetrical. Absent : calf tenderness, cyanotic, pedal edema - Neurological Exam Neurological exam: Present: CN II-XII intact, oriented X3, no focal deficits. Absent: pronater drift, facial droop, speech deficit Additional comments: Bilateral lower extremity +2 pitting edema improved, erythema mainly in left lower extremity has improved - Skin Skin exam: Present: dry, intact Internal Medicine: Result - Labs CBC & Chem 7: 01/08/17 05:41 01/08/17 05:41 Labs: Short CBC 01/08/17 Range/Units 05:41 WBC 3.4 L (4.3-11.1) K/mcL Hgb 9.6 L (11.5-15.4) g/dL Hct 32.6 L (35.3-44.9) % Plt Count 101 L (140-400) K/mcL BMP 01/08/17 05:41 Sodium 140 Potassium 4.1 Chloride 99 Carbon Dioxide 32 H BUN 29 H Creatinine 1.01 Glucose 119 H Calcium 8.2 L - ABG Interpretation ABG results: ABG ABG pH 7.40 pH Units (7.32-7.45) 01/04/17 16:48 ABG pCO2 59 mmHg (35-45) H 01/04/17 16:48 ABG pO2 69 mmHg (85-104) L 01/04/17 16:48 ABG O2 Saturation 93 % (95-98) L 01/04/17 16:48 Consult Discharge Plan - Plan Referrals: Yue Kennedy, [employer] LOAN OFFICER [Primary Care Provider] -
[2017-01-08] MEDS: Nystatin POWDER 30 GM BOTTLE TP SCH ×2 (17:29→21:06)
[2017-01-09] MEDS: Doxycycline 100 MG in 0.9 % Sodium Chloride 150 ML IVPB SCH (02:37)
[2017-01-09] MEDS: Ipratropium/Albuterol Neb 3 ML IH SCH ×3 (03:47→11:04)
[2017-01-09 05:02] LABS: Hemoglobin 9.5 g/dL (11.5-15.4); Mean Corpuscular Volume 98.2 fL (83.0-100.0); Red Cell Distribution Width 16.4 % (11.5-14.5)
[2017-01-09 05:04] LABS: Hematocrit 32.6 % (35.3-44.9); Immature Platelets 3.1 % (1.1-6.1); Mean Corpuscular HGB Conc 29.1 g/dL (31.6-35.5); Mean Corpuscular Hemoglobin 28.6 pg (28.0-33.3); Mean Platelet Volume 10.4 fL (9.4-12.4); Red Blood Count 3.32 M/mcL (3.82-4.97)
[2017-01-09] MEDS: Budesonide/Formoterol 80/4.5 MDI IH SCH (07:37)
[2017-01-09 08:13] VITALS: BP 133/64
[2017-01-09] MEDS: Folic Acid 1 MG TABLET PO SCH (09:30)
[2017-01-09] MEDS: Isosorbide MONOnitrate (24 HR) 60 MG TAB.ER.24H PO SCH (09:30)
[2017-01-09] MEDS: Bumetanide 1 MG/4 ML VIAL IVP SCH (09:30)
[2017-01-09] MEDS: *HR* HYDROcodone/Acet 7.5/325 mg TABLET PO SCH (09:30)
[2017-01-09] MEDS: Gabapentin 300 MG CAPSULE PO SCH (09:30)
[2017-01-09] MEDS: Aspirin 81 MG TAB.CHEW PO SCH (09:30)
[2017-01-09] MEDS: Nystatin POWDER 30 GM BOTTLE TP SCH (09:31)
[2017-01-09] MEDS: Diltiazem CD (24hr) 120 MG CAPSULE PO SCH (09:31)
--- NOTE | 2017-01-09 09:56 | Discharge Summary ---
Date of Encounter: 01/09/17 Time of Encounter: 09:49 - Discharge Diagnosis (1) Acute on chronic respiratory failure with hypoxemia Priority: Primary Status: Resolved Comments: Current Visit: No Status: Resolved Assessment and plan: acute on chronic hypoxic resp failure secondary to acute diastolic CHF exacerbation with severe lower extremity edema/bilaterally Current Visit: Yes Status: Acute Assessment and plan: Stopped Lasix IV and started Bumex IV on 01/07/17 Qualified for BiPAP pCO2 59 in ED - BiPAPx1 evening - now > 90% on 2L [place] Home O2 level 3L (2) Acute on chronic diastolic (congestive) heart failure Current Visit: No Status: Acute Assessment and plan: (3) Cellulitis Current Visit: No Status: Acute Assessment and plan: Warmth and redness to left LE Stopped Ancef on 01/07/17 Continue doxycycline day 3 Leno wraps Qualifiers: Site of cellulitis: extremity Site of cellulitis of extremity: lower extremity Laterality: left Qualified Code(s): L03.116 - Cellulitis of left lower limb (4) A-fib Current Visit: No Status: Chronic Assessment and plan: Currently NSR and rate controlled. Not on anticoagulation due to previous GI bleed, but is taking Plavix Continue home medications Qualifiers: Atrial fibrillation type: paroxysmal Qualified Code(s): I48.0 - Paroxysmal atrial fibrillation (5) DM type 2 (diabetes mellitus, type 2) Current Visit: No Status: Chronic Assessment and plan: Accuchecks and SSI Qualifiers: Diabetes mellitus complication status: without complication Diabetes mellitus snf insulin use: without snf use Qualified Code(s): E11.9 - Type 2 diabetes mellitus without complications (6) Venous stasis dermatitis of both lower extremities Current Visit: No Status: Chronic Assessment and plan: Reports chronic edema in LE, but has been worse over the past few days LENO wraps bilaterally (7) CAD (coronary artery disease) Current Visit: No Status: Chronic Assessment and plan: Continue home meds Qualifiers: Coronary Disease-Associated Artery/Lesion type: [place] artery [place] vs. transplanted heart: [place] heart Associated angina: without angina Qualified Code(s): I25.10 - Atherosclerotic heart disease of [place] coronary artery without angina pectoris (8) Hypertension Current Visit: Yes Status: Acute Assessment and plan: Normotensive. Continue home meds Qualifiers: Hypertension type: essential hypertension Qualified Code(s): I10 - Essential (primary) hypertension - Discharge Medications Prescriptions: Bumetanide [Bumex] 2 mg PO BID #60 tablet Doxycycline 100 mg PO BID #10 capsule Home Medications: Citalopram Hydrobromide [Citalopram HBr] 10 mg PO DAILY 09/20/16 [History] Clopidogrel [Plavix] 75 mg PO DAILY 09/20/16 [History] Diltiazem HCl [Diltiazem ER] 120 mg PO QAM 09/20/16 [History] Ferrous Sulfate 325 mg PO DAILY 09/20/16 [History] Folic Acid 1 mg PO DAILY 09/20/16 [History] HYDROcodone/Acet 7.5/325 mg [[place] 7.5-325 mg] 1 tab PO TID 09/20/16 [History] Nitroglycerin [Nitrostat] 0.4 mg SL Q5M PRN 09/20/16 [History] Pantoprazole Sodium [Protonix] 40 mg PO BID 09/20/16 [History] Potassium Chloride [K-Tab ER] 30 meq PO DAILY 09/20/16 [History] Ropinirole HCl [Requip] 3 mg PO HS 09/20/16 [History] Isosorbide MONOnitrate (24 HR) [Imdur] 60 mg PO DAILY 11/18/16 [History] Aspirin 81 mg PO DAILY tab.chew 11/21/16 [Rx] Carvedilol [Coreg] 6.25 mg PO BIDWM tablet 12/01/16 [Rx] Gabapentin [Neurontin] 300 mg PO TID 12/04/16 [History] Albuterol Sulfate [Albuterol Inhaler] 2 puff IH Q4H PRN #1 inhaler 12/20/16 [Rx] Fluticasone/Salmeterol [Advair 250-50 Diskus] 1 each IH BID #60 blst.w.dev 12/21 [Rx] Bumetanide [Bumex] 2 mg PO BID #60 tablet 01/09/17 [Rx] Doxycycline 100 mg PO BID #10 capsule 01/09/17 [Rx] Allergies/Adverse Reactions: 3 Allergy/AdvReac Type Severity Reaction Status Date / Time acetaminophen AdvReac Anaphylaxis Verified 12/03/16 20:50 [From Tylenol-Codeine] codeine AdvReac Vomiting Verified 11/19/16 11:44 [From Tylenol-Codeine #3] Date of admission: 01/04/17 19:17 Primary care physician: Yue Kennedy CNP - Patient Status Disposition: Home Health Service Condition: Fair Overall status at discharge: patient is back to baseline - Discharge Instructions Follow Up With: Yue Kennedy CNP [Primary Care Provider] - Additional Instructions: Follow-up with primary care physician within the next 7 days. Stop Lasix and start Bumex. Complete 5 more days of doxycycline. Decrease fluid intake at home. Use Leno wraps in both lower extremities at all times - Diet and Activity Activity: increase activity as tolerated Diet: low fat, low cholesterol Hospital course: Ms. Crawford is a 76 year old female with hx chronic hypoxic resp failure, hypertension, hyperlipidemia, TIA, cardiomyopathy, GERD, GI bleed, depression, anxiety, diabetes type 2 not insulin-dependent, CAD, A. fib not on anticoagulation, and diastolic CHF brought to ED due to increased somnolence. The patient has had multiple admissions over the past couple months. Her home health care nurse was concerned that she was more sleepy . In ED, she was difficult to keep awake and ABG showed hypercarbic resp failure. PH was 7.32 PCO2 72 PO2 85. Ultimately she was placed on bipap. Worsening dyspnea and edema in LE and abdomen Reports taking her home Lasix 80mg BID, but is not always compliant with fluid and slat restriction Limited Echo 12/04/16: LVEF 65% Echo 10/18/16: LVEF 60%, dilated hypokinetic RV, severely dilated RA, severe TR, mild-mod , mild MR - Cardio previously discussed that pt is poor candidate for tricuspid valve replacement and pt did not want to seek surgical intervention Was having increased edema as well. Her condition did not improve much with IV Lasix for which she was switched to Bumex IV. Also, she was started on Ancef due to bilateral lower extremity cellulitis but unfortunately did not improve. The patient was switched to doxycycline and finally started improving. Was offered the option to stay another day to continue diuresis but preferes to be discharged home at this point. Will need a fluid restriction and to continue BUmex (better up source and the Lasix) - Time Spent with Patient Total time spent providing and/or coordinating discharge services: Greater than 30 minutes (40 min) - Constitutional Vitals: Temp Pulse Resp BP Pulse Ox 97.6 F 84 14 133/64 91 01/09/17 08:12 01/09/17 08:12 01/09/17 08:12 01/09/17 08:12 01/09/17 08:12 General appearance: Present: A&O X 3, no acute distress, answers questions appropriately - Head Head exam: Present: atraumatic, normocephalic - Eye Eye exam: Present: PERRL, conjuntiva pink, sclera anicteric Pupils: Present: PERRL - Neck Neck exam general surgery: Present: supple, trachea midline. Absent: lymphadenopathy - Respiratory Respiratory exam: Present: decreased breath sounds, CTAB. Absent: accessory muscle use, rales, rhonchi, wheezes - Cardiovascular Cardiovascular exam: Present: RRR, +S1, +S2. Absent: diastolic murmur, gallop, rubs, systolic murmur - GI/Abdominal GI/Abdominal exam: Present: normal bowel sounds, soft, no peritoneal signs. Absent: distended, tenderness - Extremities Exam Extremities exam: Present: warm, radial pulses palpable and symmetrical. Absent : calf tenderness, cyanotic, pedal edema - Neurological Exam Neurological exam: Present: CN II-XII intact, oriented X3, no focal deficits. Absent: pronater drift, facial droop, speech deficit Additional comments: +2 pitting edema in the lower extremities have improved, erythema has improved mainly in the left lower extremity - Skin Skin exam: Present: dry. Absent: intact - VTE Documentation of Mechanical Device: Intermittent pneumatic compression device
--- NOTE | 2017-01-09 10:16 | Physician Discharge Referral ---
Home Health/Hosp Referral Info Transfer to: Home Health Provider in Charge Post Discharge: PCP - Diagnosis (1) Acute on chronic respiratory failure with hypoxemia Status: Resolved - Respiratory Orders Smoking Cessation: Smoking cessation has been advised. For more information, call the [place] Tobacco Quit Line at 8-638-RZOH-NOW. - Diet/Nutrition Diet/Nutrition Orders: No Added Salt (PORSCHE) - Services Needed Following services are medically necessary services: Home Health Aide, Physical Therapy, Occupational Therapy Home Care Orders: Follow-up with primary care physician within the next 7 days. Stop Lasix and start Bumex. Complete 5 more days of doxycycline. Decrease fluid intake at home. Use Leno wraps in both lower extremities at all times - Transfer Medications Prescriptions: Bumetanide [Bumex] 2 mg PO BID #60 tablet Doxycycline 100 mg PO BID #10 capsule Home Medications: Citalopram Hydrobromide [Citalopram HBr] 10 mg PO DAILY 09/20/16 [History] Clopidogrel [Plavix] 75 mg PO DAILY 09/20/16 [History] Diltiazem HCl [Diltiazem ER] 120 mg PO QAM 09/20/16 [History] Ferrous Sulfate 325 mg PO DAILY 09/20/16 [History] Folic Acid 1 mg PO DAILY 09/20/16 [History] HYDROcodone/Acet 7.5/325 mg [[place] 7.5-325 mg] 1 tab PO TID 09/20/16 [History] Nitroglycerin [Nitrostat] 0.4 mg SL Q5M PRN 09/20/16 [History] Pantoprazole Sodium [Protonix] 40 mg PO BID 09/20/16 [History] Potassium Chloride [K-Tab ER] 30 meq PO DAILY 09/20/16 [History] Ropinirole HCl [Requip] 3 mg PO HS 09/20/16 [History] Isosorbide MONOnitrate (24 HR) [Imdur] 60 mg PO DAILY 11/18/16 [History] Aspirin 81 mg PO DAILY tab.chew 11/21/16 [Rx] Carvedilol [Coreg] 6.25 mg PO BIDWM tablet 12/01/16 [Rx] Gabapentin [Neurontin] 300 mg PO TID 12/04/16 [History] Albuterol Sulfate [Albuterol Inhaler] 2 puff IH Q4H PRN #1 inhaler 12/20/16 [Rx] Fluticasone/Salmeterol [Advair 250-50 Diskus] 1 each IH BID #60 blst.w.dev 12/21 [Rx] Bumetanide [Bumex] 2 mg PO BID #60 tablet 01/09/17 [Rx] Doxycycline 100 mg PO BID #10 capsule 01/09/17 [Rx] Allergies/Adverse Reactions: 3 Allergy/AdvReac Type Severity Reaction Status Date / Time acetaminophen AdvReac Anaphylaxis Verified 12/03/16 20:50 [From Tylenol-Codeine] codeine AdvReac Vomiting Verified 11/19/16 11:44 [From Tylenol-Codeine #3] Certification: Further, I certify that my clinical findings support that this patient is homebound (i.e. absences from home require considerable and taxing effort and are for medical reasons or temple services or infrequently or short duration when for other reasons) because: Homebound Reason: Patient requires assistance of a person or device to safely leave home Attestation: My signature below is to certify that this patient is under my care and that I, or nurse practitioner, or a physician's assistant track coach working with me, has a face-to -face encounter with this patient.
== END 2017-01-09 14:27 | disposition home health service (06) | DRG 291 ==
LOC: 2NENU 15:00 → EMEROO 15:00 → 2NENU 18:28
PROVIDERS: ADMIT Internal Medicine; ATTEND Internal Medicine

== ENCOUNTER 2017-02-04 20:37 | Inpatient (IN) ==
[2017-02-04] MEDS ORDERED: 0.9 % Sodium Chloride 1,000 ML IVC ONE (20:49)
--- NOTE | 2017-02-04 20:50 | Emergency Department Note ---
Disposition Clinical Impression: UTI (urinary tract infection) Qualifiers: Urinary tract infection type: site unspecified Hematuria presence: without hematuria Qualified Code(s): N39.0 - Urinary tract infection, site not specified Fatigue Qualifiers: Fatigue type: unspecified Qualified Code(s): R53.83 - Other fatigue Disposition: Admitted As Inpatient Condition: Good Time of Disposition: 23:18 General Adult HPI - General Chief complaint: ED General Medical Stated complaint: "doesn't feel good" Time Seen by Provider: 02/04/17 20:46 Source: patient, EMS Mode of arrival: EMS Limitations: no limitations Nursing Notes Reviewed: Yes Vital Signs Reviewed: Yes - History of Present Illness HPI Narrative: Patient is a 76 year old female with past medical history of hypertension, hyperlipidemia, CHF, COPD, CAD, previous VA. She is chronically on 2 L nasal cannula oxygen at home. She presents today due to "feeling generally unwell." She denies any specific chest pain, any shortness of breath above her baseline with COPD, cough above baseline with COPD, nausea, vomiting, fevers, abdominal pain. She does admit to dysuria a few days ago but states that she recently finished a prescription of Augmentin for UTI that was diagnosed about a week ago. She says that she just feels weak. Denies any specific focal numbness, tingling, weakness. She lives a home with her daughter, daughter called EMS to bring her to the ER for further evaluation. Daughter is not present at this time. Pain Scale: 0 - Related Data Home Medications Medication Instructions Recorded Confirmed Citalopram Hydrobromide 10 mg PO DAILY 09/20/16 01/04/17 [Citalopram HBr] Clopidogrel [Plavix] 75 mg PO DAILY 09/20/16 01/04/17 Diltiazem HCl [Diltiazem ER] 120 mg PO QAM 09/20/16 01/04/17 Ferrous Sulfate 325 mg PO DAILY 09/20/16 01/04/17 Folic Acid 1 mg PO DAILY 09/20/16 01/04/17 HYDROcodone/Acet 7.5/325 mg [[place] 1 tab PO TID 09/20/16 01/04/17 7.5-325 mg] Nitroglycerin [Nitrostat] 0.4 mg SL Q5M PRN 09/20/16 01/04/17 Pantoprazole Sodium [Protonix] 40 mg PO BID 09/20/16 01/04/17 Potassium Chloride [K-Tab ER] 30 meq PO DAILY 09/20/16 01/04/17 Ropinirole HCl [Requip] 3 mg PO HS 09/20/16 01/04/17 Isosorbide MONOnitrate (24 HR) 60 mg PO DAILY 11/18/16 01/04/17 [Imdur] Gabapentin [Neurontin] 300 mg PO TID 12/04/16 01/04/17 Previous Rx's Medication Instructions Recorded Aspirin 81 mg PO DAILY tab.chew 11/21/16 Carvedilol [Coreg] 6.25 mg PO BIDWM tablet 12/01/16 Albuterol Sulfate [Albuterol 2 puff IH Q4H PRN #1 inhaler 12/20/16 Inhaler] Fluticasone/Salmeterol [Advair 1 each IH BID #60 blst.w.dev 12/21/16 250-50 Diskus] Bumetanide [Bumex] 2 mg PO BID #60 tablet 01/09/17 Doxycycline 100 mg PO BID #10 capsule 01/09/17 Allergies Allergy/AdvReac Type Severity Reaction Status Date / Time acetaminophen AdvReac Anaphylaxis Verified 12/03/16 20:50 [From Tylenol-Codeine] codeine AdvReac Vomiting Verified 11/19/16 11:44 [From Tylenol-Codeine #3] All systems ED: reviewed and negative except as stated. Constitutional: Denies: fever Cardiovascular: Denies: chest pain, palpitations Respiratory: Denies: cough, dyspnea, wheezes Gastrointestinal: Denies: abdominal pain, nausea, vomiting, diarrhea, constipation, hematemesis, melena, hematochezia Genitourinary: Denies: urgency, dysuria, frequency, hematuria Neurological: Denies: headache, weakness, numbness, paresthesias Past Medical History - Past Medical History Attestation: Yes The following information was validated with the patient. 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 Absent: tenderness - Chest Chest inspection: Present: normal inspection, symmetric chest wall rise - Respiratory Respiratory exam: Present: normal lung sounds bilaterally - Cardiovascular Cardiovascular exam: Present: regular rate, normal rhythm, normal heart sounds - Abdominal Exam Abdominal exam: Present: soft, Non-Tender. Absent: tenderness, distention, guarding, rebound, rigidity - Extremities Exam Extremities exam: Present: full ROM, pedal edema (Bilateral lower extremity venous stasis with significant swelling of bilateral feet that patient says is chronic for her baseline.). Absent: tenderness - Neurological Exam Neurological exam: Present: alert, oriented X3, CN II-XII intact. Absent: motor sensory deficit - Psychiatric Psychiatric exam: Present: normal affect, normal mood - Skin Skin exam: Present: warm, dry, intact Course Course Narrative: Vitals within normal limits. Physical exam shows the patient appears generally fatigued, laying her head back, eyes closed. She is in otherwise no acute distress. Heart regular rate and rhythm, lungs clear to auscultation, abdomen soft and benign. She does have some lower extremity venous stasis discoloration and edema bilateral feet and calves. However, she states that this is near baseline for her. We will obtain basic blood work, troponin, EKG, chest x-ray, urinalysis. We will give the patient 1 L normal saline bolus due to dry mucous membranes. 23:16 Labs show show chronic anemia. Otherwise, no major electrolyte abnormalities. Creatinine within normal limits. Urinalysis positive for UTI. She just finished Augmentin. We will consider this failed outpatient treatment of UTI. We will give the patient Rocephin and admit for further care. Vital Signs Temperature 98.8 F 02/04/17 20:41 Pulse Rate 74 02/04/17 20:41 Respiratory Rate 18 02/04/17 20:41 Blood Pressure 116/69 02/04/17 20:41 O2 Sat by Pulse Oximetry 96 02/04/17 20:41 Temperature 98.8 F 02/04/17 20:41 Pulse Rate 69 02/04/17 22:20 Respiratory Rate 20 02/04/17 22:20 Blood Pressure 113/73 02/04/17 22:20 O2 Sat by Pulse Oximetry 96 02/04/17 22:20 Oxygen Delivery Oxygen Delivery Nasal Cannula Medical Decision Making - MDM Narrative Medical decision making narrative: Labs show show chronic anemia. Otherwise, no major electrolyte abnormalities. Creatinine within normal limits. Urinalysis positive for UTI. She just finished Augmentin. We will consider this failed outpatient treatment of UTI. We will give the patient Rocephin and admit for further care - Medical Records Medical records reviewed: Yes I reviewed the patient's medical records. - Lab Data Lab results reviewed: Yes I reviewed the patient's lab results. Result diagrams: 02/04/17 21:10 02/04/17 21:10 Lab Results 02/04/17 02/04/17 02/04/17 Range/Units 21:10 21:10 21:10 WBC 5.2 (4.3-11.1) K/mcL RBC 3.58 L (3.82-4.97) M/mcL Hgb 10.3 L (11.5-15.4) g/dL Hct 36.2 (35.3-44.9) % MCV 101.1 H (83.0-100.0) fL MCH 28.8 (28.0-33.3) pg MCHC 28.5 L (31.6-35.5) g/dL RDW 15.0 H (11.5-14.5) % Plt Count 100 L (140-400) K/mcL MPV 10.3 (9.4-12.4) fL Immature Gran % 0.6 (0-4) % Seg Neutrophils % 77.2 % Lymphocytes % 14.0 % Monocytes % 6.2 % Eosinophils % 1.4 % Basophils % 0.6 % Neutrophils # 4.0 (1.6-8.9) K/mcL Lymphocytes # 0.7 (0.6-4.6) K/mcL Monocytes # 0.3 (0.0-1.3) K/mcL Eosinophils # 0.1 (0.0-0.6) K/mcL Basophils # 0.0 (0.0-0.2) K/mcL Platelet Estimate Slight Decrease L (Normal) Sodium 143 (136-145) mEq/L Potassium 3.7 (3.5-4.5) mEq/L Chloride 96 L (98-109) mEq/L Carbon Dioxide 38 H (19-29) mEq/L BUN 21 H (7-20) mg/dL Creatinine 1.00 (0.57-1.11) mg/dL Est GFR ( Amer) > 60 (> 60) Est GFR (Non-Af Amer) 54 L (> 60) BUN/Creatinine Ratio 21 (6-26) Glucose 154 H (70-99) mg/dL Calculated Osmolality 302 H (280-300) Lactic Acid 1.4 (0.5-2.2) mmol/L Calcium 8.9 (8.6-10.8) mg/dL Total Bilirubin 1.4 H (0.2-1.2) mg/dL AST 14 (5-34) Units/L ALT 12 (0-55) Units/L Alkaline Phosphatase 132 H (38-126) Units/L Troponin I (0-0.03) ng/mL Serum Total Protein 6.4 (6.0-8.3) g/dL Albumin 2.8 L (3.5-5.0) g/dL Globulin 3.6 H (2.4-3.5) g/dL Albumin/Globulin Ratio 0.8 L (1.1-2.2) TSH 1.341 (0.350-4.840) mcIU/mL Urine Color (Yellow) Urine Clarity (Clear) Urine pH (5.0-8.0) pH Units Ur Specific [place] (1.010-1.025) Urine Protein (Neg-Trace) mg/dL Urine Glucose (UA) (Normal) mg/dL Urine Ketones (Negative) mg/dL Urine Blood (Negative) Urine Nitrite (Negative) Urine Bilirubin (Negative) Urine Urobilinogen (Normal) mg/dL Ur Leukocyte Esterase (Negative) Urine Microscopic RBC (0-3) per hpf Urine Microscopic WBC (0-3) per hpf Ur Squamous Epith Cells (None-Few) per lpf Urine Bacteria (None-Few) per hpf Hyaline Casts (None-Few) per lpf Ur Culture Indicated? (NO) 02/04/17 02/04/17 Range/Units 21:10 21:41 WBC (4.3-11.1) K/mcL RBC (3.82-4.97) M/mcL Hgb (11.5-15.4) g/dL Hct (35.3-44.9) % MCV (83.0-100.0) fL MCH (28.0-33.3) pg MCHC (31.6-35.5) g/dL RDW (11.5-14.5) % Plt Count (140-400) K/mcL MPV (9.4-12.4) fL Immature Gran % (0-4) % Seg Neutrophils % % Lymphocytes % % Monocytes % % Eosinophils % % Basophils % % Neutrophils # (1.6-8.9) K/mcL Lymphocytes # (0.6-4.6) K/mcL Monocytes # (0.0-1.3) K/mcL Eosinophils # (0.0-0.6) K/mcL Basophils # (0.0-0.2) K/mcL Platelet Estimate (Normal) Sodium (136-145) mEq/L Potassium (3.5-4.5) mEq/L Chloride (98-109) mEq/L Carbon Dioxide (19-29) mEq/L BUN (7-20) mg/dL Creatinine (0.57-1.11) mg/dL Est GFR ( Amer) (> 60) Est GFR (Non-Af Amer) (> 60) BUN/Creatinine Ratio (6-26) Glucose (70-99) mg/dL Calculated Osmolality (280-300) Lactic Acid (0.5-2.2) mmol/L Calcium (8.6-10.8) mg/dL Total Bilirubin (0.2-1.2) mg/dL AST (5-34) Units/L ALT (0-55) Units/L Alkaline Phosphatase (38-126) Units/L Troponin I 0.02 (0-0.03) ng/mL Serum Total Protein (6.0-8.3) g/dL Albumin (3.5-5.0) g/dL Globulin (2.4-3.5) g/dL Albumin/Globulin Ratio (1.1-2.2) TSH (0.350-4.840) mcIU/mL Urine Color Yellow (Yellow) Urine Clarity Cloudy A (Clear) Urine pH 5.5 (5.0-8.0) pH Units Ur Specific [place] 1.019 (1.010-1.025) Urine Protein Negative (Neg-Trace) mg/dL Urine Glucose (UA) Normal (Normal) mg/dL Urine Ketones Negative (Negative) mg/dL Urine Blood Large H (Negative) Urine Nitrite Negative (Negative) Urine Bilirubin Negative (Negative) Urine Urobilinogen Normal (Normal) mg/dL Ur Leukocyte Esterase Large H (Negative) Urine Microscopic RBC 15-30 H (0-3) per hpf Urine Microscopic WBC TNTC H (0-3) per hpf Ur Squamous Epith Cells Moderate H (None-Few) per lpf Urine Bacteria None Seen (None-Few) per hpf Hyaline Casts None Seen (None-Few) per lpf Ur Culture Indicated? YES A (NO) - Radiology Data Radiology results reviewed: Yes I reviewed the patient's radiology results. Chest X-Ray 02/04/17 20:47 IMPRESSION: Similar to slightly increased findings suggesting mild to moderate pulmonary vascular congestion. No focal airspace consolidation. D/ / Jose Lema / Jose Lema Interpreting Provider: Jose Lema - EKG Data EKG #1 EKG attestation: Yes I reviewed and interpreted this EKG. EKG results narrative: 02/04/2017 20:45. Atrial fibrillation. Rate 64. QRS 89. QTc 378. Normal axis. No acute ST elevation or depression. T-wave inversion in V2, V4, V5 that are new from previous EKG on 01/04/2017 S.B.ABryan - S.B.A.R. Situation: Demographics, MOA Background: Presenting Complaint, Relevant PMH, Meds, & Allergies Assessment: Vital Signs, Course and respsone to treatment, Exam Concerns, Patient/Family Expectation, Pertinant Lab Results, Outstanding Labs Recommendation: Barrier(s) to disposition, Recommendation based on pending studies, treatments, or consults S.B.ABryan Report Given to: Dr. Falk SImeldaBImeldaA.R. Repor Time: 23:19 Attestation Statement - Attestation Attestation: I examined this patient and my medical decision-making was reviewed with the Resident Physician. I agree with the documented findings, disposition and treatment plan as described except to the extent set forth below. Patient presents to the emergency department stating "I feel icky." No fever. No vomiting or diarrhea. No chest pain. No difficulty breathing. States she does not feel well. Patient is in no distress with stable vitals on examination. Heart Regular lungs clear. Abdomen soft. Plan. Basic labs with UA.
[2017-02-04 21:16] LABS: Hematocrit 36.2 % (35.3-44.9)
[2017-02-04 21:17] LABS: Basophils % 0.6 %
[2017-02-04 21:18] LABS: Eosinophils # 0.1 K/mcL (0.0-0.6); Eosinophils % 1.4 %; Hemoglobin 10.3 g/dL (11.5-15.4); Immature Granulocytes % 0.6 % (0-4); Lymphocytes # 0.7 K/mcL (0.6-4.6); Mean Corpuscular HGB Conc 28.5 g/dL (31.6-35.5); Mean Corpuscular Hemoglobin 28.8 pg (28.0-33.3); Mean Corpuscular Volume 101.1 fL (83.0-100.0); Mean Platelet Volume 10.3 fL (9.4-12.4); Monocytes # 0.3 K/mcL (0.0-1.3); Monocytes % 6.2 %; Platelet Count 100 K/mcL (140-400); Red Blood Count 3.58 M/mcL (3.82-4.97); Segmented Neutrophils % 77.2 %
[2017-02-04 21:33] LABS: Alanine Aminotransferase 12 Units/L (0-55); Albumin 2.8 g/dL (3.5-5.0); Albumin/Globulin Ratio 0.8 (1.1-2.2); Alkaline Phosphatase 132 Units/L (38-126); Aspartate Amino Transferase 14 Units/L (5-34); BUN/Creatinine Ratio 21 (6-26); Bilirubin,Total 1.4 mg/dL (0.2-1.2); Blood Urea Nitrogen 21 mg/dL (7-20); Calcium 8.9 mg/dL (8.6-10.8); Carbon Dioxide 38 mEq/L (19-29); Chloride 96 mEq/L (98-109); Glucose 154 mg/dL (70-99); Osmolality,Calculated 302 (280-300); Potassium 3.7 mEq/L (3.5-4.5); Sodium 143 mEq/L (136-145); Total Protein 6.4 g/dL (6.0-8.3); eGFR For African Americans > 60 (> 60); eGFR For Non-African Americans 54 (> 60)
[2017-02-04 21:34] LABS: Globulin 3.6 g/dL (2.4-3.5)
[2017-02-04 21:50] LABS: Platelet Estimate Slight Decrease (Normal)
[2017-02-04 21:50] LABS: Bilirubin,Urine Negative (Negative); Blood,Urine Large (Negative); Clarity,Urine Cloudy (Clear); Color,Urine Yellow (Yellow); Glucose,Urine (UA) Normal (Normal); Ketones,Urine Negative (Negative); Leukocyte Esterase,Urine Large (Negative); Nitrite,Urine Negative (Negative); PH,Urine 5.5 pH Units (5.0-8.0); Protein,Urine Negative (Neg-Trace); Specific Gravity,Urine 1.019 (1.010-1.025); Urobilinogen,Urine Normal (Normal)
[2017-02-04 21:52] LABS: Bacteria,Urine None Seen per hpf (None-Few); Hyaline Casts,Urine None Seen per lpf (None-Few); RBC,Urine 15-30 per hpf (0-3); Squamous Epithelial Cell,Urine Moderate per lpf (None-Few); WBC,Urine TNTC per hpf (0-3)
[2017-02-04 21:55] LABS: Thyroid Stimulating Hormone 1.341 mcIU/mL (0.350-4.840)
[2017-02-04] MEDS ORDERED: Ondansetron 4 MG/2 ML VIAL IVP PRN (23:24)
[2017-02-04] MEDS ORDERED: *HR* Promethazine 25 MG/ML VIAL IVP PRN (23:24)
[2017-02-04] MEDS ORDERED: *HR* Morphine 2 MG/ML SYRINGE IVP PRN (23:24)
[2017-02-04] MEDS ORDERED: Naloxone 0.4 MG/ML INJ IVP PRN (23:24)
--- NOTE | 2017-02-04 23:29 | Internal Med History&Physical ---
Date of Encounter: 02/04/17 Time of Encounter: 23:10 Assessment and Plan (1) UTI (urinary tract infection) Current visit: Yes Status: Acute Will admit the pt into Med Surg Reviewed her Urine cx results from last month. She did have ESBL positive E. COli and Proteus in the past It looks like last week she did not get right abx will start her on Invanz abx will f/u on urine and blood cx drawn in the ER Will give very gentle IV hydration only due to her severe [place]HC class 3 CHF Qualifiers: Urinary tract infection type: site unspecified Hematuria presence: without hematuria Qualified Code(s): N39.0 - Urinary tract infection, site not specified (2) Weakness Current visit: No Status: Acute due to UTI cont supportive and symptomatic care (3) DM type 2 (diabetes mellitus, type 2) Current visit: No Status: Chronic held PO meds placed her on ISS Qualifiers: (4) Cellulitis Current visit: No Status: Acute She does have b/l LE cellulities.. mostly venous stasis dermatitis cont empirical abx Invanz Qualifiers: Site of cellulitis of extremity: lower extremity Qualified Code(s): L03.119 - Cellulitis of unspecified part of limb (5) Chronic respiratory failure with hypoxia, on home O2 therapy Current visit: No Status: Acute stable not in exacerbation cont home regimen (6) Venous stasis dermatitis of both lower extremities Current visit: No Status: Chronic (7) COPD (chronic obstructive pulmonary disease) Current visit: No Status: Chronic Qualifiers: Qualified Code(s): J44.9 - Chronic obstructive pulmonary disease, unspecified (8) DVT prophylaxis Current visit: No Status: Acute on Lovenox SQ Internal Medicine - H&P: HPI Chief complaint: Lethargic / weak Admitted From: Emergency Dept Plans for Post Hospital Care: Hospice - Home History of present illness: Ms. Crawford is a 76 year old female with past medical history of right sided diastolic CHF NYHA class III, COPD, Chronic hypoxic resp failure on oxygen dependence at 3 L, chronic atrial fibrillation not , hypertension, and obesity pt who is currently on home hospice care and recently treated for UTI as an out pt, now she preseed to ER with feeling sick and weak. Pt denied any CP / SOB. No fever / Chills. Her UA showed signs of infection. She also have significant erythema in both legs with no open wounds. Past Med Surg Social Fam HX - Past Medical History Medical history: GERD, GI bleed, myocardial infarction, atrial fibrillation, hyperlipidemia, arthritis, hypertension, other, TIA, valvular heart disease, coronary artery disease, cardiomyopathy, CHF Psychiatric history: anxiety, depression - Past Surgical History Surgical History: - Social History Smoking Status: Never smoker Smokeless Tobacco Status: No Alcohol use: none Drug use: none - Family History Mother Living Status: Hx Family GI Disorders: Yes Father Hx Family Respiratory Disorders: Yes (COPD) Brother Living Status: Hx Family Cardiac Disorders: Yes Hx Family Respiratory Disorders: Yes Hx Family Endocrine Disorder: Yes Internal Medicine - H&P: Meds Citalopram Hydrobromide [Citalopram HBr] 10 mg PO DAILY 09/20/16 [History] Clopidogrel [Plavix] 75 mg PO DAILY 09/20/16 [History] Diltiazem HCl [Diltiazem ER] 120 mg PO QAM 09/20/16 [History] Ferrous Sulfate 325 mg PO DAILY 09/20/16 [History] Folic Acid 1 mg PO DAILY 09/20/16 [History] HYDROcodone/Acet 7.5/325 mg [[place] 7.5-325 mg] 1 tab PO TID 09/20/16 [History] Nitroglycerin [Nitrostat] 0.4 mg SL Q5M PRN 09/20/16 [History] Pantoprazole Sodium [Protonix] 40 mg PO BID 09/20/16 [History] Potassium Chloride [K-Tab ER] 30 meq PO DAILY 09/20/16 [History] Ropinirole HCl [Requip] 3 mg PO HS 09/20/16 [History] Isosorbide MONOnitrate (24 HR) [Imdur] 60 mg PO DAILY 11/18/16 [History] Aspirin 81 mg PO DAILY tab.chew 11/21/16 [Rx] Carvedilol [Coreg] 6.25 mg PO BIDWM tablet 12/01/16 [Rx] Gabapentin [Neurontin] 300 mg PO TID 12/04/16 [History] Albuterol Sulfate [Albuterol Inhaler] 2 puff IH Q4H PRN #1 inhaler 12/20/16 [Rx] Fluticasone/Salmeterol [Advair 250-50 Diskus] 1 each IH BID #60 blst.w.dev 12/21 [Rx] Bumetanide [Bumex] 2 mg PO BID #60 tablet 01/09/17 [Rx] Doxycycline 100 mg PO BID #10 capsule 01/09/17 [Rx] 3 Allergy/AdvReac Type Severity Reaction Status Date / Time acetaminophen AdvReac Anaphylaxis Verified 12/03/16 20:50 [From Tylenol-Codeine] codeine AdvReac Vomiting Verified 11/19/16 11:44 [From Tylenol-Codeine #3] All Systems PM: A 10-system review of systems was performed and is negative for pertinent findings except as documented above in the HPI. Review of systems: All the systems are reviewed everything is benign except the systems and symptoms I mentioned in the history of present illness - Constitutional Vitals: Temp Pulse Resp BP Pulse Ox 98.8 F 69 20 113/73 96 02/04/17 20:41 02/04/17 22:20 02/04/17 22:20 02/04/17 22:20 02/04/17 22:20 General appearance: Present: A&O X 3, answers questions appropriately - Head Head exam: Present: atraumatic, normal inspection - Neck Neck exam general surgery: Present: supple - Respiratory Respiratory exam: Present: decreased breath sounds. Absent: rales, respiratory distress, rhonchi, wheezes - Cardiovascular Cardiovascular exam: Present: irregular rhythm, +S1, +S2, systolic murmur - GI/Abdominal GI/Abdominal exam: Present: normal bowel sounds, soft. Absent: rebound, rigid, tenderness - Extremities Exam Extremities exam: Present: pedal edema, tenderness (both legs). Absent: calf tenderness - Back Exam Back exam: Absent: CVA tenderness (L), CVA tenderness (R) - Neurological Exam Neurological exam: Present: alert, oriented X3 - Psychiatric Psychiatric exam: Present: normal affect, normal mood Internal Med - H&P Results - Labs CBC & Chem 7: 02/04/17 21:10 02/04/17 21:10
[2017-02-04] MEDS ORDERED: 0.9 % Sodium Chloride 1,000 ML IVC SCH (23:30)
[2017-02-05] MEDS ORDERED: cefTRIAXone 1,000 MG in Water for inj. (sterile) 10 ML IVPB ONE (01:00)
[2017-02-05] MEDS: Ertapenem 1,000 MG in Water for inj. (sterile) 10 ML IVP SCH (01:06)
[2017-02-05 04:52] LABS: Hemoglobin 10.7 g/dL (11.5-15.4)
[2017-02-05 04:54] LABS: Basophils % 0.7 %; Eosinophils # 0.1 K/mcL (0.0-0.6); Eosinophils % 1.6 %; Hematocrit 38.2 % (35.3-44.9); Immature Granulocytes % 0.5 % (0-4); Lymphocytes # 0.7 K/mcL (0.6-4.6); Lymphocytes % 17.1 %; Mean Corpuscular Hemoglobin 28.3 pg (28.0-33.3); Mean Corpuscular Volume 101.1 fL (83.0-100.0); Mean Platelet Volume 10.2 fL (9.4-12.4); Monocytes # 0.4 K/mcL (0.0-1.3); Monocytes % 8.7 %; Neutrophils # 3.1 K/mcL (1.6-8.9); Platelet Count 104 K/mcL (140-400); Red Blood Count 3.78 M/mcL (3.82-4.97); Segmented Neutrophils % 71.4 %
[2017-02-05 05:06] LABS: Alanine Aminotransferase 12 Units/L (0-55); Albumin 2.9 g/dL (3.5-5.0); Albumin/Globulin Ratio 0.8 (1.1-2.2); Alkaline Phosphatase 131 Units/L (38-126); Aspartate Amino Transferase 16 Units/L (5-34); BUN/Creatinine Ratio 21 (6-26); Bilirubin,Total 1.2 mg/dL (0.2-1.2); Blood Urea Nitrogen 19 mg/dL (7-20); Calcium 8.9 mg/dL (8.6-10.8); Carbon Dioxide 38 mEq/L (19-29); Chloride 98 mEq/L (98-109); Globulin 3.5 g/dL (2.4-3.5); Glucose 104 mg/dL (70-99); Magnesium 1.8 mg/dL (1.6-2.6); Osmolality,Calculated 301 (280-300); Potassium 3.7 mEq/L (3.5-4.5); Sodium 144 mEq/L (136-145); Total Protein 6.4 g/dL (6.0-8.3); eGFR For African Americans > 60 (> 60); eGFR For Non-African Americans > 60 (> 60)
[2017-02-05 05:29] LABS: Hypochromasia Present (Not Present)
[2017-02-05 05:30] LABS: Platelet Estimate Decreased (Normal)
[2017-02-05] MEDS: *HR* Enoxaparin 40 MG/0.4 ML SYRINGE SQ SCH (05:32)
[2017-02-05] MEDS: Folic Acid 1 MG TABLET PO SCH (08:29)
[2017-02-05] MEDS: Diltiazem CD (24hr) 120 MG CAPSULE PO SCH (08:29)
[2017-02-05] MEDS: Aspirin 81 MG TAB.CHEW PO SCH (08:29)
[2017-02-05] MEDS: Isosorbide MONOnitrate (24 HR) 60 MG TAB.ER.24H PO SCH (08:30)
[2017-02-05] MEDS: Gabapentin 300 MG CAPSULE PO SCH ×3 (08:30→21:17)
--- NOTE | 2017-02-05 09:04 | Internal Med Progress Note ---
Date of Encounter: 02/05/17 Time of Encounter: 09:02 - Assessment and plan (1) UTI (urinary tract infection) Current Visit: Yes Status: Acute Assessment and plan: Urinalysis shows pyuria with no bacteria, follow up urine culture. Patient does have history of previous UTIs with ESBL Escherichia coli and Proteus. Continue IV ertapenem for now. Stop IV hydration. Qualifiers: Urinary tract infection type: site unspecified Hematuria presence: without hematuria Qualified Code(s): N39.0 - Urinary tract infection, site not specified (2) Weakness Current Visit: Yes Status: Acute Assessment and plan: likely related to UTI; supportive care and treat underlying condition; poor baseline functional status, bed and wheelchair-bound; (3) A-fib Current Visit: Yes Status: Chronic Assessment and plan: Currently rate controlled. Continue beta shilpa and calcium channel shilpa. Not on long-term anticoagulation due to history of GI bleed. Qualifiers: Atrial fibrillation type: paroxysmal Qualified Code(s): I48.0 - Paroxysmal atrial fibrillation (4) Cellulitis Current Visit: Yes Status: Chronic Assessment and plan: Has history of bilateral stasis dermatitis and venous stasis ulcers in bilateral legs. Continue IV antibiotics. Continue local wound care and Leno wraps for pedal edema. Qualifiers: Site of cellulitis: extremity Site of cellulitis of extremity: lower extremity Laterality: unspecified laterality Qualified Code(s): L03.119 - Cellulitis of unspecified part of limb (5) Chronic respiratory failure with hypoxia, on home O2 therapy Current Visit: Yes Status: Chronic Assessment and plan: Due to COPD. Continue supplemental oxygen via nasal cannula. (6) Venous stasis dermatitis of both lower extremities Current Visit: Yes Status: Chronic (7) COPD (chronic obstructive pulmonary disease) Current Visit: Yes Status: Chronic Assessment and plan: Not in acute exacerbation. Continue when necessary bronchodilators and supplemental oxygen. Qualifiers: COPD type: unspecified COPD Qualified Code(s): J44.9 - Chronic obstructive pulmonary disease, unspecified (8) Chronic diastolic CHF (congestive heart failure) Current Visit: Yes Status: Chronic Assessment and plan: Hold IV hydration, restart home dose of Bumex as patient had a recent hospitalization for acute CHF and is currently noted to have mild basal crackles. Continue beta shilpa. Fluid restriction and urine output monitoring. (9) CAD (coronary artery disease) Current Visit: Yes Status: Chronic Qualifiers: Coronary Disease-Associated Artery/Lesion type: [place] artery [place] vs. transplanted heart: [place] heart Associated angina: without angina Qualified Code(s): I25.10 - Atherosclerotic heart disease of [place] coronary artery without angina pectoris - Subjective Interval history: Reports generalized weakness and fatigue; has poor functional status at baseline , non-ambulatory; bed and wheelchair-bound; denies shortness of breath, chest pain; has chronic leg swelling and weakness in legs, with stasis ulcers and oozing; - Constitutional Vitals: Temp Pulse Resp BP Pulse Ox 97.8 F 69 20 123/76 100 02/05/17 07:54 02/05/17 07:54 02/05/17 07:54 02/05/17 07:54 02/05/17 08:07 General appearance: Present: A&O X 3, obese, answers questions appropriately - Respiratory Respiratory exam: Present: decreased breath sounds (at left base), rales (right basal crepts). Absent: accessory muscle use, rhonchi, wheezes - Cardiovascular Cardiovascular exam: Present: irregular rhythm, +S1, +S2. Absent: diastolic murmur, gallop, rubs, systolic murmur - GI/Abdominal GI/Abdominal exam: Present: normal bowel sounds, soft, no peritoneal signs. Absent: distended, tenderness - Extremities Exam Extremities exam: Present: pedal edema (B/L legs in LENO wraps), warm, radial pulses palpable and symmetrical. Absent: calf tenderness, cyanotic - Neurological Exam Neurological exam: Present: CN II-XII intact, oriented X3, no focal deficits, strengths equal and symetr throughout (decreased motor power in B/L LE). Absent : pronater drift, facial droop, speech deficit Internal Medicine: Result - Labs CBC & Chem 7: 02/05/17 03:45 02/05/17 03:45 Labs: Short CBC 02/05/17 Range/Units 03:45 WBC 4.3 (4.3-11.1) K/mcL Hgb 10.7 L (11.5-15.4) g/dL Hct 38.2 (35.3-44.9) % Plt Count 104 L (140-400) K/mcL Neutrophils # 3.1 (1.6-8.9) K/mcL BMP 02/05/17 03:45 Sodium 144 Potassium 3.7 Chloride 98 Carbon Dioxide 38 H BUN 19 Creatinine 0.89 Glucose 104 H Calcium 8.9 Liver Function 02/05/17 Range/Units 03:45 Total Bilirubin 1.2 (0.2-1.2) mg/dL AST 16 (5-34) Units/L ALT 12 (0-55) Units/L Alkaline Phosphatase 131 H (38-126) Units/L Albumin 2.9 L (3.5-5.0) g/dL - VTE Documentation of Mechanical Device: Graduated compression elastic hosiery Consult Discharge Plan - Plan Referrals: Keven Paulson MD [Primary Care Provider] -
[2017-02-05] MEDS: Bumetanide 1 MG TABLET PO SCH ×2 (10:29→21:17)
[2017-02-05] MEDS: *HR* HYDROcodone/Acet 7.5/325 mg TABLET PO SCH ×3 (10:29→21:17)
[2017-02-05] MEDS: Budesonide/Formoterol 80/4.5 MDI IH SCH ×2 (10:48→20:28)
[2017-02-06] MEDS: Ertapenem 1,000 MG in Water for inj. (sterile) 10 ML IVP SCH (01:26)
[2017-02-06] MEDS: *HR* Enoxaparin 40 MG/0.4 ML SYRINGE SQ SCH (05:41)
[2017-02-06 05:50] LABS: Mean Platelet Volume 10.7 fL (9.4-12.4)
[2017-02-06 05:51] LABS: Immature Granulocytes % 0.5 % (0-4); Mean Corpuscular Volume 100.8 fL (83.0-100.0)
[2017-02-06 06:03] LABS: Basophils % 0.8 %; Eosinophils # 0.1 K/mcL (0.0-0.6); Eosinophils % 2.3 %; Hematocrit 35.8 % (35.3-44.9); Hemoglobin 10.3 g/dL (11.5-15.4); Lymphocytes # 0.7 K/mcL (0.6-4.6); Lymphocytes % 17.1 %; Mean Corpuscular HGB Conc 28.8 g/dL (31.6-35.5); Monocytes # 0.3 K/mcL (0.0-1.3); Monocytes % 8.5 %; Neutrophils # 2.8 K/mcL (1.6-8.9); Platelet Count 117 K/mcL (140-400); Red Blood Count 3.55 M/mcL (3.82-4.97); Red Cell Distribution Width 15.1 % (11.5-14.5); Segmented Neutrophils % 70.8 %
[2017-02-06 06:07] LABS: BUN/Creatinine Ratio 19 (6-26); Blood Urea Nitrogen 16 mg/dL (7-20); Calcium 8.3 mg/dL (8.6-10.8); Carbon Dioxide 37 mEq/L (19-29); Chloride 99 mEq/L (98-109); Glucose 116 mg/dL (70-99); Magnesium 1.7 mg/dL (1.6-2.6); Osmolality,Calculated 300 (280-300); Potassium 3.5 mEq/L (3.5-4.5); Sodium 144 mEq/L (136-145); eGFR For African Americans > 60 (> 60); eGFR For Non-African Americans > 60 (> 60)
[2017-02-06 06:45] LABS: Hypochromasia Present (Not Present); Platelet Estimate Decreased (Normal)
[2017-02-06] MEDS: *HR* HYDROcodone/Acet 7.5/325 mg TABLET PO SCH ×3 (09:28→20:40)
[2017-02-06] MEDS: Gabapentin 300 MG CAPSULE PO SCH ×3 (09:28→20:40)
[2017-02-06] MEDS: Bumetanide 1 MG TABLET PO SCH ×2 (09:28→20:40)
[2017-02-06] MEDS: Aspirin 81 MG TAB.CHEW PO SCH (09:29)
[2017-02-06] MEDS: Folic Acid 1 MG TABLET PO SCH (09:29)
[2017-02-06] MEDS: Diltiazem CD (24hr) 120 MG CAPSULE PO SCH (09:29)
[2017-02-06] MEDS: Isosorbide MONOnitrate (24 HR) 60 MG TAB.ER.24H PO SCH (09:29)
--- NOTE | 2017-02-06 10:16 | Internal Med Progress Note ---
Date of Encounter: 02/06/17 Time of Encounter: 10:16 - Assessment and plan (1) UTI (urinary tract infection) Current Visit: Yes Status: Ruled-out Assessment and plan: Urinalysis shows pyuria with no bacteria, urine culture grows yeast, likely colonization due to multiple UTIs and antibiotic use. Will hold off antibiotics at this time; Patient is medically stable for discharge, however she reports she has no one to take her home or stay with her tonight; Qualifiers: Urinary tract infection type: site unspecified Hematuria presence: without hematuria Qualified Code(s): N39.0 - Urinary tract infection, site not specified (2) Weakness Current Visit: Yes Status: Chronic Assessment and plan: patient is on home Hospice program although she does not desire palliative care ; she has been mostly bed and wheelchair bound, cannot participate in PT; (3) A-fib Current Visit: Yes Status: Chronic Assessment and plan: Currently rate controlled. Continue beta shilpa and calcium channel shilpa. Not on long-term anticoagulation due to history of GI bleed. Qualifiers: Atrial fibrillation type: paroxysmal Qualified Code(s): I48.0 - Paroxysmal atrial fibrillation (4) Cellulitis Current Visit: Yes Status: Ruled-out Assessment and plan: B/L legs with dusky discoloration, likely chronic; also has chronic stasis dermatitis and pedal edema; will hold off antibiotics; continue leg elevation and TRISHA wraps; Qualifiers: Site of cellulitis: extremity Site of cellulitis of extremity: lower extremity Laterality: unspecified laterality Qualified Code(s): L03.119 - Cellulitis of unspecified part of limb (5) Chronic respiratory failure with hypoxia, on home O2 therapy Current Visit: Yes Status: Chronic Assessment and plan: Due to COPD. Continue supplemental oxygen via nasal cannula. (6) Venous stasis dermatitis of both lower extremities Current Visit: Yes Status: Chronic (7) COPD (chronic obstructive pulmonary disease) Current Visit: Yes Status: Chronic Assessment and plan: Not in acute exacerbation. Continue when necessary bronchodilators and supplemental oxygen. Qualifiers: COPD type: unspecified COPD Qualified Code(s): J44.9 - Chronic obstructive pulmonary disease, unspecified (8) Chronic diastolic CHF (congestive heart failure) Current Visit: Yes Status: Chronic Assessment and plan: continue home dose of Bumex. Continue beta shilpa, supplemental O2. Fluid restriction and urine output monitoring. (9) CAD (coronary artery disease) Current Visit: Yes Status: Chronic Qualifiers: Coronary Disease-Associated Artery/Lesion type: [place] artery [place] vs. transplanted heart: [place] heart Associated angina: without angina Qualified Code(s): I25.10 - Atherosclerotic heart disease of [place] coronary artery without angina pectoris - Subjective Interval history: Feels better; she does have fatigue and leg swelling at baseline; no fever/ chills, shortness of breath, chest pain, palpitations; no nausea, vomiting, abdominal pain; - Constitutional Vitals: Temp Pulse Resp BP Pulse Ox 96.9 F L 71 14 125/76 94 02/06/17 06:39 02/06/17 06:39 02/06/17 06:39 02/06/17 06:39 02/06/17 06:39 General appearance: Present: A&O X 3, obese, answers questions appropriately - Respiratory Respiratory exam: Present: CTAB, rales (faint crackles B/L bases). Absent: accessory muscle use, rhonchi, wheezes - Cardiovascular Cardiovascular exam: Present: irregular rhythm, +S1, +S2. Absent: diastolic murmur, gallop, rubs, systolic murmur - GI/Abdominal GI/Abdominal exam: Present: normal bowel sounds, soft, no peritoneal signs. Absent: distended, tenderness - Extremities Exam Extremities exam: Present: pedal edema (4+ chronic pedal edema, with mild erythema, no new signs of infection), warm, radial pulses palpable and symmetrical. Absent: calf tenderness, cyanotic Internal Medicine: Result - Labs CBC & Chem 7: 02/06/17 05:14 02/06/17 05:14 Labs: Short CBC 02/06/17 Range/Units 05:14 WBC 4.0 L (4.3-11.1) K/mcL Hgb 10.3 L (11.5-15.4) g/dL Hct 35.8 (35.3-44.9) % Plt Count 117 L (140-400) K/mcL Neutrophils # 2.8 (1.6-8.9) K/mcL BMP 02/06/17 05:14 Sodium 144 Potassium 3.5 Chloride 99 Carbon Dioxide 37 H BUN 16 Creatinine 0.86 Glucose 116 H Calcium 8.3 L Cardiac Enzymes 02/05/17 Range/Units 11:43 Troponin I 0.02 (0-0.03) ng/mL - VTE Documentation of Mechanical Device: Graduated compression elastic hosiery Consult Discharge Plan - Plan Referrals: Keven Paulson MD [Primary Care Provider] -
[2017-02-06] MEDS: Budesonide/Formoterol 80/4.5 MDI IH SCH ×2 (10:34→20:08)
[2017-02-07] MEDS: *HR* Enoxaparin 40 MG/0.4 ML SYRINGE SQ SCH (06:11)
--- NOTE | 2017-02-07 08:35 | Discharge Summary ---
Date of Encounter: 02/07/17 Time of Encounter: 08:30 - Discharge Diagnosis (1) Weakness Priority: Primary Status: Chronic (2) A-fib Priority: Secondary Status: Chronic Qualifiers: Atrial fibrillation type: paroxysmal Qualified Code(s): I48.0 - Paroxysmal atrial fibrillation (3) GERARD (acute kidney injury) Priority: Primary Status: Acute - Discharge Medications Home Medications: Citalopram Hydrobromide [Citalopram HBr] 10 mg PO DAILY 09/20/16 [History] Clopidogrel [Plavix] 75 mg PO DAILY 09/20/16 [History] Diltiazem HCl [Diltiazem ER] 120 mg PO QAM 09/20/16 [History] Ferrous Sulfate 325 mg PO DAILY 09/20/16 [History] Folic Acid 1 mg PO DAILY 09/20/16 [History] HYDROcodone/Acet 7.5/325 mg [[place] 7.5-325 mg] 1 tab PO TID 09/20/16 [History] Nitroglycerin [Nitrostat] 0.4 mg SL Q5M PRN 09/20/16 [History] Pantoprazole Sodium [Protonix] 40 mg PO BID 09/20/16 [History] Potassium Chloride [K-Tab ER] 30 meq PO DAILY 09/20/16 [History] Ropinirole HCl [Requip] 3 mg PO HS 09/20/16 [History] Isosorbide MONOnitrate (24 HR) [Imdur] 60 mg PO DAILY 11/18/16 [History] Aspirin 81 mg PO DAILY tab.chew 11/21/16 [Rx] Carvedilol [Coreg] 6.25 mg PO BIDWM tablet 12/01/16 [Rx] Gabapentin [Neurontin] 300 mg PO TID 12/04/16 [History] Albuterol Sulfate [Albuterol Inhaler] 2 puff IH Q4H PRN #1 inhaler 12/20/16 [Rx] Fluticasone/Salmeterol [Advair 250-50 Diskus] 1 each IH BID #60 blst.w.dev 12/21 [Rx] Bumetanide [Bumex] 2 mg PO BID #60 tablet 01/09/17 [Rx] Allergies/Adverse Reactions: 3 Allergy/AdvReac Type Severity Reaction Status Date / Time acetaminophen AdvReac Anaphylaxis Verified 12/03/16 20:50 [From Tylenol-Codeine] codeine AdvReac Vomiting Verified 11/19/16 11:44 [From Tylenol-Codeine #3] Date of admission: 02/04/17 23:24 Primary care physician: Keven Paulson MD Consults: 02/05/17 00:03 Consult to [employer] [CONS] Routine Reason for SW Consult: Has no means of reaching home today, pending discharge - Patient Status Disposition: Home, Self-Care Condition: Fair Overall status at discharge: patient is back to baseline - Discharge Instructions Instructions: Urinary Tract Infection in Women (GEN) Follow Up With: Keven Paulson MD [Primary Care Provider] - (Will have hospice, no appt. necessary. Thank you) - Diet and Activity Activity: increase activity as tolerated Diet: regular diet Hospital course: Ms. Crawford is a 76 year old female with past medical history of right sided diastolic CHF NYHA class III, COPD, Chronic hypoxic resp failure on oxygen dependence at 3 L, chronic atrial fibrillation not , hypertension, and obesity pt who is on home hospice care and recently treated for UTI as an out pt. She presented to the ER with feeling sick and weak.She had mild GERARD and was put on IVF. There was a concern regarding UTI and was put on broad spectrum abx initially but UA and cutltures were negative. She was back to baseline with IV hydration and she was discharged on 02/07 in stable condition. - Time Spent with Patient Total time spent providing and/or coordinating discharge services: - Constitutional Vitals: Temp Pulse Resp BP Pulse Ox 97.5 F L 61 22 117/72 99 02/07/17 07:30 02/07/17 07:30 02/07/17 07:30 02/07/17 07:30 02/07/17 07:30 General appearance: Present: A&O X 3, obese, answers questions appropriately Exam: GEN: NAD CVS: RRR. S1, S2, No m/r/g RESP: CTAB ABD: Soft, NT, ND, +BS EXT: No edema. 2+ DP. No rashes NEURO: Nonfocal - VTE Documentation of Mechanical Device: Graduated compression elastic hosiery
--- NOTE | 2017-02-07 08:39 | Physician Discharge Referral ---
Home Health/Hosp Referral Info Transfer to: Home Health - Diagnosis (1) Weakness Priority: Primary Status: Chronic (2) A-fib Priority: Secondary Status: Chronic (3) GERARD (acute kidney injury) Priority: Primary Status: Acute - Respiratory Orders Oxygen / L per min (3L) Smoking Cessation: Smoking cessation has been advised. For more information, call the [place] Tobacco Quit Line at 1-761-CKVW-NOW. - Diet/Nutrition Diet/Nutrition Orders: Regular - Activity Activity Orders: Up ad victorino - Transfer Medications Home Medications: Citalopram Hydrobromide [Citalopram HBr] 10 mg PO DAILY 09/20/16 [History] Clopidogrel [Plavix] 75 mg PO DAILY 09/20/16 [History] Diltiazem HCl [Diltiazem ER] 120 mg PO QAM 09/20/16 [History] Ferrous Sulfate 325 mg PO DAILY 09/20/16 [History] Folic Acid 1 mg PO DAILY 09/20/16 [History] HYDROcodone/Acet 7.5/325 mg [[place] 7.5-325 mg] 1 tab PO TID 09/20/16 [History] Nitroglycerin [Nitrostat] 0.4 mg SL Q5M PRN 09/20/16 [History] Pantoprazole Sodium [Protonix] 40 mg PO BID 09/20/16 [History] Potassium Chloride [K-Tab ER] 30 meq PO DAILY 09/20/16 [History] Ropinirole HCl [Requip] 3 mg PO HS 09/20/16 [History] Isosorbide MONOnitrate (24 HR) [Imdur] 60 mg PO DAILY 11/18/16 [History] Aspirin 81 mg PO DAILY tab.chew 11/21/16 [Rx] Carvedilol [Coreg] 6.25 mg PO BIDWM tablet 12/01/16 [Rx] Gabapentin [Neurontin] 300 mg PO TID 12/04/16 [History] Albuterol Sulfate [Albuterol Inhaler] 2 puff IH Q4H PRN #1 inhaler 12/20/16 [Rx] Fluticasone/Salmeterol [Advair 250-50 Diskus] 1 each IH BID #60 blst.w.dev 12/21 [Rx] Bumetanide [Bumex] 2 mg PO BID #60 tablet 01/09/17 [Rx] Allergies/Adverse Reactions: 3 Allergy/AdvReac Type Severity Reaction Status Date / Time acetaminophen AdvReac Anaphylaxis Verified 12/03/16 20:50 [From Tylenol-Codeine] codeine AdvReac Vomiting Verified 11/19/16 11:44 [From Tylenol-Codeine #3] Certification: Further, I certify that my clinical findings support that this patient is homebound (i.e. absences from home require considerable and taxing effort and are for medical reasons or bahai services or infrequently or short duration when for other reasons) because: Homebound Reason: Patient requires assistance of a person or device to safely leave home Attestation: My signature below is to certify that this patient is under my care and that I, or nurse practitioner, or a physician's operations assistant working with me, has a face-to -face encounter with this patient.
--- NOTE | 2017-02-07 09:49 | Electrocardiograph Report ---
[address] [place] [address] Test Date: 2017-02-04 Pat Name: Kimberly Crawford Department: [id number] Room: 3A23 Gender: F Labourers: NAHID : 1940 Requested By: Tiburcio Ravi Order Number: [id number] Reading MD: Rosalio Chong DO Measurements Intervals Bond Rate: 64 P: NH: 0 QRS: 69 QRSD: 89 T: 162 QT: 368 QTc: 378 Interpretive Statements ATRIAL FIBRILLATION LOW QRS VOLTAGE IN PRECORDIAL LEADS POSSIBLE SEPTAL MYOCARDIAL INFARCTION, OF INDETERMINATE AGE Electronically Signed On 02-07-2017 9:47:59 EST by Rosalio Chong DO
[2017-02-07] MEDS: Diltiazem CD (24hr) 120 MG CAPSULE PO SCH (10:09)
[2017-02-07] MEDS: Folic Acid 1 MG TABLET PO SCH (10:10)
[2017-02-07] MEDS: Gabapentin 300 MG CAPSULE PO SCH (10:10)
[2017-02-07] MEDS: Bumetanide 1 MG TABLET PO SCH (10:10)
[2017-02-07] MEDS: *HR* HYDROcodone/Acet 7.5/325 mg TABLET PO SCH (10:10)
[2017-02-07] MEDS: Aspirin 81 MG TAB.CHEW PO SCH (10:10)
[2017-02-07] MEDS: Isosorbide MONOnitrate (24 HR) 60 MG TAB.ER.24H PO SCH (10:11)
[2017-02-07] MEDS: Budesonide/Formoterol 80/4.5 MDI IH SCH (10:39)
[2017-02-07 11:33] VITALS: BP 124/80
== END 2017-02-07 15:30 | disposition hospice, home (50) | DRG 758 ==
LOC: EMEROO 20:37 → 3ANU 20:37
PROVIDERS: ADMIT Family Medicine; ATTEND Internal Medicine

== ENCOUNTER 2017-02-10 00:54 | Observation (INO) ==
[2017-02-10] MEDS ORDERED: Naloxone 0.4 MG/ML INJ IVP PRN (04:41)
[2017-02-10] MEDS ORDERED: Acetaminophen 325 MG TABLET PO PRN (04:41)
[2017-02-10] MEDS ORDERED: Nitroglycerin 0.4 MG TAB.SUBL SL PRN (04:48)
[2017-02-10] MEDS: Levofloxacin 500 MG/100 ML 500 MG/100 ML BAG IVPB SCH (05:39)
[2017-02-10] MEDS: *HR* Heparin 5,000 UNIT/ML VIAL SQ SCH ×2 (05:42→17:43)
--- NOTE | 2017-02-10 06:53 | Internal Med History&Physical ---
Date of Encounter: 02/10/17 Time of Encounter: 04:00 Assessment and Plan (1) Right-sided heart failure Current visit: No Status: Acute Patient has moderate to severe pulmonary hypertension. Shows right-sided heart failure. - Will place patient on Lasix IV. - Strict I and O - Fluid restriction - Oxygen treatment, avoid hypoxia (2) A-fib Current visit: No Status: Chronic Heart rate is well controlled. Patient is on aspirin and Plavix. No anticoagulation because of GI bleeding Qualifiers: Atrial fibrillation type: chronic Qualified Code(s): I48.2 - Chronic atrial fibrillation (3) CHF exacerbation Current visit: No Status: Acute Patient has elevated BNP. Chest x-ray shows pulmonary vascular congestion. Consider CHF exacerbation. - IV Lasix - Strict I/O - Fluid restriction. Qualifiers: Congestive heart failure type: diastolic Qualified Code(s): I50.33 - Acute on chronic diastolic (congestive) heart failure (4) DVT prophylaxis Current visit: No Status: Acute Heparin subcutaneously (5) High blood pressure Current visit: No Status: Chronic Continue home medication. Qualifiers: Hypertension type: essential hypertension Qualified Code(s): I10 - Essential (primary) hypertension (6) CAD (coronary artery disease) Current visit: No Status: Chronic Pt denies chest pain. Continue home medications Qualifiers: Coronary Disease-Associated Artery/Lesion type: [place] artery [place] vs. transplanted heart: [place] heart Associated angina: without angina Qualified Code(s): I25.10 - Atherosclerotic heart disease of [place] coronary artery without angina pectoris Internal Medicine - H&P: HPI Chief complaint: Facial swelling and shortness of breath Admitted From: Home Plans for Post Hospital Care: Home History of present illness: Ms. Crawford is a 76 year old female was recently hospitalized for weakness present to [place] [facility] for facial swelling and shortness of breath. Patient was known to have a history of hypertension, A. fib, COPD, CHF, pulmonary hypertension, hx of UTI, history of renal artery stenosis after stenting, history of GI bleeding , A. fib. Patient said her shortness of breath and is facial swelling started from last time of discharge (02/07). Patient denies chest pain, nausea, or fever. Patient has a chronic leg swelling for several weeks. Patient denies dysuria but has some urinary urgency. In ER, she has elevated BNP and chest x- ray shows pulmonary congestion. Patient also was found UTI . Patient was admitted for CHF exacerbation and UTI. Past Med Surg Social Fam HX - Past Medical History Medical history: arthritis, atrial fibrillation, cardiomyopathy, CHF, COPD, coronary artery disease, diabetes, GERD, GI bleed, hyperlipidemia, hypertension , myocardial infarction, TIA, venous stasis, valvular heart disease, other Psychiatric history: anxiety, depression - Past Surgical History Surgical History: - Social History Smoking Status: Never smoker Smokeless Tobacco Status: No Alcohol use: none Drug use: none - Family History Mother Living Status: Hx Family GI Disorders: Yes Father Hx Family Respiratory Disorders: Yes (COPD) Brother Living Status: Hx Family Cardiac Disorders: Yes Hx Family Respiratory Disorders: Yes Hx Family Endocrine Disorder: Yes Internal Medicine - H&P: Meds Citalopram Hydrobromide [Citalopram HBr] 10 mg PO DAILY 09/20/16 [History] Clopidogrel [Plavix] 75 mg PO DAILY 09/20/16 [History] Diltiazem HCl [Diltiazem ER] 120 mg PO QAM 09/20/16 [History] Ferrous Sulfate 325 mg PO DAILY 09/20/16 [History] Folic Acid 1 mg PO DAILY 09/20/16 [History] HYDROcodone/Acet 7.5/325 mg [[place] 7.5-325 mg] 1 tab PO TID 09/20/16 [History] Nitroglycerin [Nitrostat] 0.4 mg SL Q5M PRN 09/20/16 [History] Pantoprazole Sodium [Protonix] 40 mg PO BID 09/20/16 [History] Potassium Chloride [K-Tab ER] 30 meq PO DAILY 09/20/16 [History] Ropinirole HCl [Requip] 3 mg PO HS 09/20/16 [History] Isosorbide MONOnitrate (24 HR) [Imdur] 60 mg PO DAILY 11/18/16 [History] Aspirin 81 mg PO DAILY tab.chew 11/21/16 [Rx] Carvedilol [Coreg] 6.25 mg PO BIDWM tablet 12/01/16 [Rx] Gabapentin [Neurontin] 300 mg PO TID 12/04/16 [History] Albuterol Sulfate [Albuterol Inhaler] 2 puff IH Q4H PRN #1 inhaler 12/20/16 [Rx] Fluticasone/Salmeterol [Advair 250-50 Diskus] 1 each IH BID #60 blst.w.dev 12/21 [Rx] Bumetanide [Bumex] 2 mg PO BID #60 tablet 01/09/17 [Rx] 3 Allergy/AdvReac Type Severity Reaction Status Date / Time codeine AdvReac Vomiting Verified 11/19/16 11:44 [From Tylenol-Codeine #3] All Systems PM: A 10-system review of systems was performed and is negative for pertinent findings except as documented above in the HPI. - Constitutional Vitals: Temp Pulse Resp BP Pulse Ox 98.1 F 58 16 135/78 94 02/10/17 04:57 02/10/17 04:57 02/10/17 04:57 02/10/17 04:57 02/10/17 04:57 General appearance: Present: A&O X 3, no acute distress, answers questions appropriately - Head Head exam: Present: atraumatic, normocephalic - Eye Eye exam: Present: PERRL, conjuntiva pink, sclera anicteric Pupils: Present: PERRL - Neck Neck exam general surgery: Present: supple, trachea midline. Absent: lymphadenopathy - Respiratory Respiratory exam: Present: CTAB. Absent: accessory muscle use, rales, rhonchi, wheezes - Cardiovascular Cardiovascular exam: Present: RRR, +S1, +S2. Absent: diastolic murmur, gallop, rubs, systolic murmur - GI/Abdominal GI/Abdominal exam: Present: normal bowel sounds, soft, no peritoneal signs. Absent: distended, tenderness - Extremities Exam Extremities exam: Present: pedal edema (B/L pedal edema up to knee, patient has bilateral lower leg redness but no warmth), warm, radial pulses palpable and symmetrical. Absent: calf tenderness, cyanotic - Neurological Exam Neurological exam: Present: CN II-XII intact, oriented X3, no focal deficits. Absent: pronater drift, facial droop, speech deficit - Skin Skin exam: Present: dry, intact Internal Med - H&P Results - EKG Data -: EKG Interpreted by Myself (Rea hooper )
[2017-02-10] MEDS ORDERED: Furosemide 40 MG/4 ML VIAL IVP SCH (09:00)
[2017-02-10] MEDS ORDERED: *HR* HYDROcodone/Acet 7.5/325 mg TABLET PO SCH (09:00)
[2017-02-10] MEDS: Budesonide/Formoterol 80/4.5 MDI IH SCH ×2 (09:44→21:44)
[2017-02-10] MEDS: Diltiazem CD (24hr) 120 MG CAPSULE PO SCH (09:52)
[2017-02-10] MEDS: Isosorbide MONOnitrate (24 HR) 60 MG TAB.ER.24H PO SCH (09:52)
[2017-02-10] MEDS: Aspirin 81 MG TAB.CHEW PO SCH (09:52)
[2017-02-10] MEDS: *HR* HYDROcodone/Acet 7.5/325 mg TABLET PO PRN ×3 (09:53→21:41)
[2017-02-10] MEDS: Folic Acid 1 MG TABLET PO SCH (09:53)
[2017-02-10] MEDS: Gabapentin 300 MG CAPSULE PO SCH ×3 (09:53→21:31)
[2017-02-10] MEDS: Furosemide 40 MG/4 ML VIAL IVP SCH ×2 (09:56→16:12)
--- NOTE | 2017-02-10 13:10 | Event Note ---
Date of Encounter: 02/10/17 Time of Encounter: 13:09 76/female Multiple comorbid issues. Transferred from [facility] emergency room. Noted that patient has a right-sided heart failure/congestive heart failure. Patient's urinalysis is positive for leukocyte esterase. Likely she has underlying urinary tract infection. Presently she is on appropriate antibiotics: Levofloxacin as per the previous culture and sensitivities. Plan: Will continue present management.
[2017-02-11 04:40] LABS: Basophils % 0.4 %
[2017-02-11 04:42] LABS: Eosinophils # 0.1 K/mcL (0.0-0.6); Eosinophils % 1.9 %; Immature Granulocytes % 0.6 % (0-4); Lymphocytes # 0.8 K/mcL (0.6-4.6); Lymphocytes % 16.4 %; Mean Corpuscular HGB Conc 27.8 g/dL (31.6-35.5); Mean Corpuscular Hemoglobin 28.2 pg (28.0-33.3); Mean Corpuscular Volume 101.4 fL (83.0-100.0); Mean Platelet Volume 10.4 fL (9.4-12.4); Monocytes # 0.5 K/mcL (0.0-1.3); Monocytes % 9.6 %; Neutrophils # 3.4 K/mcL (1.6-8.9); Platelet Count 119 K/mcL (140-400); Red Blood Count 3.55 M/mcL (3.82-4.97); Red Cell Distribution Width 16.1 % (11.5-14.5); Segmented Neutrophils % 71.1 %
[2017-02-11 05:07] LABS: BUN/Creatinine Ratio 22 (6-26); Blood Urea Nitrogen 20 mg/dL (8-23); Calcium 8.7 mg/dL (8.6-10.3); Carbon Dioxide 43 mEq/L (23-29); Chloride 97 mEq/L (98-107); Glucose 136 mg/dL (70-105); Magnesium 1.9 mg/dL (1.6-2.6); Osmolality,Calculated 301 (280-300); Potassium 3.6 mEq/L (3.5-5.1); Sodium 143 mEq/L (136-145); eGFR For African Americans > 60 (> 60); eGFR For Non-African Americans 59 (> 60)
[2017-02-11] MEDS: *HR* Heparin 5,000 UNIT/ML VIAL SQ SCH ×2 (05:27→17:14)
[2017-02-11] MEDS: Levofloxacin 500 MG/100 ML 500 MG/100 ML BAG IVPB SCH (05:27)
[2017-02-11 05:47] LABS: Macrocytosis Present (Not Present); Platelet Estimate Decreased (Normal)
[2017-02-11] MEDS: Budesonide/Formoterol 80/4.5 MDI IH SCH ×2 (07:56→21:42)
[2017-02-11] MEDS: Diltiazem CD (24hr) 120 MG CAPSULE PO SCH (09:20)
[2017-02-11] MEDS: Gabapentin 300 MG CAPSULE PO SCH ×3 (09:20→21:48)
[2017-02-11] MEDS: Isosorbide MONOnitrate (24 HR) 60 MG TAB.ER.24H PO SCH (09:21)
[2017-02-11] MEDS: Furosemide 40 MG/4 ML VIAL IVP SCH ×2 (09:21→17:13)
[2017-02-11] MEDS: Folic Acid 1 MG TABLET PO SCH (09:21)
[2017-02-11] MEDS: Aspirin 81 MG TAB.CHEW PO SCH (09:21)
--- NOTE | 2017-02-11 15:47 | Internal Med Progress Note ---
Date of Encounter: 02/13/17 Time of Encounter: 15:38 - Assessment and plan (1) UTI (urinary tract infection) Current Visit: No Status: Ruled-out Assessment and plan: 76/female Multiple comorbid conditions. Admitted with right-sided heart failure. Noted that in the [facility] emergency room UA is suggestive of a urinary tract infection. Patient is presently on levofloxacin. We will follow the culture from the [facility] ER UA specimen. Qualifiers: Urinary tract infection type: site unspecified Hematuria presence: without hematuria Qualified Code(s): N39.0 - Urinary tract infection, site not specified (2) Bilateral lower leg cellulitis Current Visit: No Status: Acute Assessment and plan: Patient has a bilateral lower leg edema. This is more like a venous stasis done cellulitis. We will continue wrapping of the leg and we will continue conservator management at this time. Patient needs to go to the nursing facility rather than home. This patient is getting hospitalized almost every 10 days for the past 3 months. (3) COPD (chronic obstructive pulmonary disease) Current Visit: No Status: Chronic Assessment and plan: Patient's COPD is stable at this point. We will continue to resume home medications. Close observation on the respiratory status. Qualifiers: COPD type: unspecified COPD Qualified Code(s): J44.9 - Chronic obstructive pulmonary disease, unspecified (4) Restless leg syndrome Current Visit: No Status: Chronic Assessment and plan: Stable (5) Chronic diastolic CHF (congestive heart failure) Current Visit: No Status: Chronic Assessment and plan: Patient has chronic congestive heart failure. No new events. We will continue the home medications/managed (6) CAD (coronary artery disease) Current Visit: No Status: Chronic Qualifiers: Coronary Disease-Associated Artery/Lesion type: [place] artery [place] vs. transplanted heart: [place] heart Associated angina: without angina Qualified Code(s): I25.10 - Atherosclerotic heart disease of [place] coronary artery without angina pectoris - Subjective Interval history: Patient seen and examined. Chart reviewed. Patient is comfortably lying in the bed. patient denies chest pain, nausea, vomiting, abdominal pain, dizziness and diarrhea. - Constitutional Vitals: Temp Pulse Resp BP Pulse Ox 97.8 F 74 17 116/68 93 02/11/17 11:31 02/11/17 11:31 02/11/17 11:31 02/11/17 11:31 02/11/17 11:31 General appearance: Present: A&O X 3, no acute distress, answers questions appropriately - Head Head exam: Present: atraumatic, normocephalic - Eye Eye exam: Present: PERRL, conjuntiva pink, sclera anicteric Pupils: Present: PERRL - Neck Neck exam general surgery: Present: supple, trachea midline. Absent: lymphadenopathy - Respiratory Respiratory exam: Present: CTAB. Absent: accessory muscle use, rales, rhonchi, wheezes - Cardiovascular Cardiovascular exam: Present: RRR, +S1, +S2. Absent: diastolic murmur, gallop, rubs, systolic murmur - GI/Abdominal GI/Abdominal exam: Present: normal bowel sounds, soft, no peritoneal signs. Absent: distended, tenderness - Extremities Exam Extremities exam: Present: warm, radial pulses palpable and symmetrical. Absent : calf tenderness, cyanotic, pedal edema - Neurological Exam Neurological exam: Present: CN II-XII intact, oriented X3, no focal deficits. Absent: pronater drift, facial droop, speech deficit - Skin Skin exam: Present: dry, intact Internal Medicine: Result - Labs CBC & Chem 7: 02/13/17 04:50 02/13/17 04:50 Labs: Short CBC 02/11/17 Range/Units 03:47 WBC 4.8 (4.3-11.1) K/mcL Hgb 10.0 L (11.5-15.4) g/dL Hct 36.0 (35.3-44.9) % Plt Count 119 L (140-400) K/mcL Neutrophils # 3.4 (1.6-8.9) K/mcL BMP 02/11/17 03:47 Sodium 143 Potassium 3.6 Chloride 97 L Carbon Dioxide 43 H* BUN 20 Creatinine 0.92 Glucose 136 H Calcium 8.7 - VTE Documentation of Mechanical Device: Graduated compression elastic hosiery Consult Discharge Plan - Plan Referrals: NONE,PCP [Primary Care Provider] -
[2017-02-11] MEDS: *HR* HYDROcodone/Acet 7.5/325 mg TABLET PO PRN (21:48)
[2017-02-12] MEDS: Levofloxacin 500 MG/100 ML 500 MG/100 ML BAG IVPB SCH (04:59)
[2017-02-12] MEDS: *HR* Heparin 5,000 UNIT/ML VIAL SQ SCH ×2 (05:50→17:18)
[2017-02-12] MEDS: Budesonide/Formoterol 80/4.5 MDI IH SCH ×2 (07:52→22:05)
[2017-02-12 10:02] LABS: Alanine Aminotransferase 7 Units/L (7-52); Albumin 3.2 g/dL (3.5-5.7); Albumin/Globulin Ratio 1.2 (1.1-2.2); Alkaline Phosphatase 94 Units/L (34-104); Aspartate Amino Transferase 16 Units/L (13-39); BUN/Creatinine Ratio 21 (6-26); Bilirubin,Total 1.2 mg/dL (0.3-1.0); Blood Urea Nitrogen 20 mg/dL (8-23); Calcium 8.7 mg/dL (8.6-10.3); Carbon Dioxide 38 mEq/L (23-29); Chloride 98 mEq/L (98-107); Globulin 2.6 g/dL (2.4-3.5); Glucose 157 mg/dL (70-105); Osmolality,Calculated 300 (280-300); Sodium 142 mEq/L (136-145); Total Protein 5.8 g/dL (6.4-8.9); eGFR For African Americans > 60 (> 60); eGFR For Non-African Americans 56 (> 60)
[2017-02-12] MEDS: Folic Acid 1 MG TABLET PO SCH (10:20)
[2017-02-12] MEDS: Gabapentin 300 MG CAPSULE PO SCH ×3 (10:20→20:37)
[2017-02-12] MEDS: Aspirin 81 MG TAB.CHEW PO SCH (10:20)
[2017-02-12] MEDS: Furosemide 40 MG/4 ML VIAL IVP SCH ×2 (10:20→16:18)
[2017-02-12] MEDS: Diltiazem CD (24hr) 120 MG CAPSULE PO SCH (10:21)
[2017-02-12] MEDS: Isosorbide MONOnitrate (24 HR) 60 MG TAB.ER.24H PO SCH (10:28)
[2017-02-12 10:41] LABS: Basophils % 0.6 %; Immature Granulocytes % 0.4 % (0-4); Mean Platelet Volume 11.1 fL (9.4-12.4)
[2017-02-12 10:43] LABS: Eosinophils # 0.1 K/mcL (0.0-0.6); Eosinophils % 2.2 %; Hematocrit 34.9 % (35.3-44.9); Hemoglobin 9.8 g/dL (11.5-15.4); Lymphocytes # 0.7 K/mcL (0.6-4.6); Lymphocytes % 15.8 %; Mean Corpuscular HGB Conc 28.1 g/dL (31.6-35.5); Mean Corpuscular Hemoglobin 28.4 pg (28.0-33.3); Mean Corpuscular Volume 101.2 fL (83.0-100.0); Monocytes # 0.3 K/mcL (0.0-1.3); Monocytes % 7.4 %; Neutrophils # 3.4 K/mcL (1.6-8.9); Nucleated Red Blood Cells 0.4 /100 WBC (0); Platelet Count 121 K/mcL (140-400); Red Blood Count 3.45 M/mcL (3.82-4.97); Red Cell Distribution Width 16.2 % (11.5-14.5); Segmented Neutrophils % 73.6 %
[2017-02-12 10:45] LABS: Hypochromasia Present (Not Present)
--- NOTE | 2017-02-12 16:25 | Internal Med Progress Note ---
Date of Encounter: 02/13/17 Time of Encounter: 16:24 - Assessment and plan (1) UTI (urinary tract infection) Current Visit: No Status: Ruled-out Assessment and plan: 76/female Multiple comorbid conditions. Admitted with right-sided heart failure. Noted that in the [facility] emergency room UA is suggestive of a urinary tract infection. Patient is presently on levofloxacin. We will follow the culture from the [facility] ER UA specimen. 02/12/2017. Continue levofloxacin, awaiting for urine culture Qualifiers: Urinary tract infection type: site unspecified Hematuria presence: without hematuria Qualified Code(s): N39.0 - Urinary tract infection, site not specified (2) Bilateral lower leg cellulitis Current Visit: No Status: Acute Assessment and plan: Patient has a bilateral lower leg edema. This is more like a venous stasis done cellulitis. We will continue wrapping of the leg and we will continue conservator management at this time. Patient needs to go to the nursing facility rather than home. This patient is getting hospitalized almost every 10 days for the past 3 months. 02/12/2017. We will continue same management for lower limb stasis (3) COPD (chronic obstructive pulmonary disease) Current Visit: No Status: Chronic Assessment and plan: Patient's COPD is stable at this point. We will continue to resume home medications. Close observation on the respiratory status. Qualifiers: COPD type: unspecified COPD Qualified Code(s): J44.9 - Chronic obstructive pulmonary disease, unspecified (4) Restless leg syndrome Current Visit: No Status: Chronic Assessment and plan: Stable (5) Chronic diastolic CHF (congestive heart failure) Current Visit: No Status: Chronic Assessment and plan: Patient has chronic congestive heart failure. No new events. We will continue the home medications/managed (6) CAD (coronary artery disease) Current Visit: No Status: Chronic Assessment and plan: Stable coronary artery disease. Qualifiers: Coronary Disease-Associated Artery/Lesion type: [place] artery [place] vs. transplanted heart: [place] heart Associated angina: without angina Qualified Code(s): I25.10 - Atherosclerotic heart disease of [place] coronary artery without angina pectoris - Subjective Interval history: Patient seen and examined. Chart reviewed. Patient is comfortably lying in the bed. patient denies chest pain, nausea, vomiting, abdominal pain, dizziness and diarrhea. 02/12/2017. Patient is comfortably lying in the bed. She denies any symptoms. She denies any complaints. Patient does not want to go home. - Constitutional Vitals: Temp Pulse Resp BP Pulse Ox 97.6 F 66 18 127/78 95 02/12/17 15:57 02/12/17 15:57 02/12/17 15:57 02/12/17 15:57 02/12/17 15:57 General appearance: Present: A&O X 3, no acute distress, answers questions appropriately - Head Head exam: Present: atraumatic, normocephalic - Eye Eye exam: Present: PERRL, conjuntiva pink, sclera anicteric Pupils: Present: PERRL - Neck Neck exam general surgery: Present: supple, trachea midline. Absent: lymphadenopathy - Respiratory Respiratory exam: Present: CTAB. Absent: accessory muscle use, rales, rhonchi, wheezes - Cardiovascular Cardiovascular exam: Present: RRR, +S1, +S2. Absent: diastolic murmur, gallop, rubs, systolic murmur - GI/Abdominal GI/Abdominal exam: Present: normal bowel sounds, soft, no peritoneal signs. Absent: distended, tenderness - Extremities Exam Extremities exam: Present: warm, radial pulses palpable and symmetrical. Absent : calf tenderness, cyanotic, pedal edema - Neurological Exam Neurological exam: Present: CN II-XII intact, oriented X3, no focal deficits. Absent: pronater drift, facial droop, speech deficit - Skin Skin exam: Present: dry, intact Internal Medicine: Result - Labs CBC & Chem 7: 02/13/17 04:50 02/13/17 04:50 Labs: Short CBC 02/12/17 Range/Units 05:26 WBC 4.6 (4.3-11.1) K/mcL Hgb 9.8 L (11.5-15.4) g/dL Hct 34.9 L (35.3-44.9) % Plt Count 121 L (140-400) K/mcL Neutrophils # 3.4 (1.6-8.9) K/mcL BMP 02/12/17 05:26 Sodium 142 Potassium 4.0 Chloride 98 Carbon Dioxide 38 H BUN 20 Creatinine 0.96 Glucose 157 H Calcium 8.7 Liver Function 02/12/17 Range/Units 05:26 Total Bilirubin 1.2 H (0.3-1.0) mg/dL AST 16 (13-39) Units/L ALT 7 (7-52) Units/L Alkaline Phosphatase 94 (34-104) Units/L Albumin 3.2 L (3.5-5.7) g/dL - VTE Documentation of Mechanical Device: Graduated compression elastic hosiery Consult Discharge Plan - Plan Referrals: NONE,PCP [Primary Care Provider] -
[2017-02-12] MEDS: *HR* HYDROcodone/Acet 7.5/325 mg TABLET PO PRN (20:36)
[2017-02-13 04:57] LABS: Hemoglobin 10.1 g/dL (11.5-15.4)
[2017-02-13 05:00] LABS: Basophils % 0.8 %; Eosinophils # 0.1 K/mcL (0.0-0.6); Eosinophils % 2.8 %; Immature Granulocytes % 0.4 % (0-4); Immature Platelets 4.6 % (1.1-6.1); Lymphocytes # 0.9 K/mcL (0.6-4.6); Lymphocytes % 17.1 %; Mean Corpuscular HGB Conc 28.9 g/dL (31.6-35.5); Mean Corpuscular Hemoglobin 28.9 pg (28.0-33.3); Mean Platelet Volume 10.9 fL (9.4-12.4); Monocytes # 0.4 K/mcL (0.0-1.3); Monocytes % 8.1 %; Neutrophils # 3.6 K/mcL (1.6-8.9); Platelet Count 110 K/mcL (140-400); Red Cell Distribution Width 16.7 % (11.5-14.5); Segmented Neutrophils % 70.8 %
[2017-02-13] MEDS ORDERED: Levofloxacin 250 MG/50 ML 250 MG/50 ML BAG IVPB SCH (05:00)
[2017-02-13 05:11] LABS: Alanine Aminotransferase 6 Units/L (7-52); Albumin 3.2 g/dL (3.5-5.7); Albumin/Globulin Ratio 1.1 (1.1-2.2); Alkaline Phosphatase 99 Units/L (34-104); Aspartate Amino Transferase 21 Units/L (13-39); BUN/Creatinine Ratio 24 (6-26); Bilirubin,Total 1.2 mg/dL (0.3-1.0); Blood Urea Nitrogen 21 mg/dL (8-23); Calcium 8.6 mg/dL (8.6-10.3); Carbon Dioxide 36 mEq/L (23-29); Chloride 98 mEq/L (98-107); Globulin 2.8 g/dL (2.4-3.5); Glucose 111 mg/dL (70-105); Osmolality,Calculated 294 (280-300); Potassium 4.5 mEq/L (3.5-5.1); Sodium 140 mEq/L (136-145); eGFR For African Americans > 60 (> 60); eGFR For Non-African Americans > 60 (> 60)
[2017-02-13 05:13] LABS: Hypochromasia Present (Not Present); Macrocytosis Present (Not Present); Platelet Estimate Decreased (Normal)
[2017-02-13] MEDS: *HR* HYDROcodone/Acet 7.5/325 mg TABLET PO PRN ×2 (05:31→20:22)
[2017-02-13] MEDS: *HR* Heparin 5,000 UNIT/ML VIAL SQ SCH ×2 (05:34→17:31)
[2017-02-13] MEDS: Levofloxacin 500 MG/100 ML 500 MG/100 ML BAG IVPB SCH (05:35)
[2017-02-13] MEDS: Gabapentin 300 MG CAPSULE PO SCH ×3 (09:20→20:22)
[2017-02-13] MEDS: Isosorbide MONOnitrate (24 HR) 60 MG TAB.ER.24H PO SCH (09:20)
[2017-02-13] MEDS: Diltiazem CD (24hr) 120 MG CAPSULE PO SCH (09:21)
[2017-02-13] MEDS: Furosemide 40 MG/4 ML VIAL IVP SCH ×2 (09:21→17:31)
[2017-02-13] MEDS: Aspirin 81 MG TAB.CHEW PO SCH (09:21)
[2017-02-13] MEDS: Folic Acid 1 MG TABLET PO SCH (09:21)
[2017-02-13] MEDS: Budesonide/Formoterol 80/4.5 MDI IH SCH ×2 (11:40→20:31)
--- NOTE | 2017-02-13 15:46 | Internal Med Progress Note ---
Date of Encounter: 02/13/17 Time of Encounter: 15:44 - Assessment and plan (1) UTI (urinary tract infection) Current Visit: No Status: Ruled-out Assessment and plan: 76/female Multiple comorbid conditions. Admitted with right-sided heart failure. Noted that in the [facility] emergency room UA is suggestive of a urinary tract infection. Patient is presently on levofloxacin. We will follow the culture from the [facility] ER UA specimen. 02/12/2017. Continue levofloxacin, awaiting for urine culture 02/13/2017. Urine culture negative/blood culture negative. We will discontinue levofloxacin. Qualifiers: Urinary tract infection type: site unspecified Hematuria presence: without hematuria Qualified Code(s): N39.0 - Urinary tract infection, site not specified (2) Bilateral lower leg cellulitis Current Visit: No Status: Acute Assessment and plan: Patient has a bilateral lower leg edema. This is more like a venous stasis done cellulitis. We will continue wrapping of the leg and we will continue conservator management at this time. Patient needs to go to the nursing facility rather than home. This patient is getting hospitalized almost every 10 days for the past 3 months. 02/12/2017. We will continue same management for lower limb stasis The. This patient needs a placement in a fpc. We will get opinion from a physical therapy/occupational therapy. If PT OT recommends and we will place this patient in a fpc for further evaluation and management. (3) COPD (chronic obstructive pulmonary disease) Current Visit: No Status: Chronic Assessment and plan: Patient's COPD is stable at this point. We will continue to resume home medications. Close observation on the respiratory status. Qualifiers: COPD type: unspecified COPD Qualified Code(s): J44.9 - Chronic obstructive pulmonary disease, unspecified (4) Restless leg syndrome Current Visit: No Status: Chronic Assessment and plan: Stable (5) Chronic diastolic CHF (congestive heart failure) Current Visit: No Status: Chronic Assessment and plan: Patient has chronic congestive heart failure. No new events. We will continue the home medications/managed (6) CAD (coronary artery disease) Current Visit: No Status: Chronic Assessment and plan: Stable coronary artery disease. Qualifiers: Coronary Disease-Associated Artery/Lesion type: [place] artery [place] vs. transplanted heart: [place] heart Associated angina: without angina Qualified Code(s): I25.10 - Atherosclerotic heart disease of [place] coronary artery without angina pectoris - Subjective Interval history: Patient seen and examined. Chart reviewed. Patient is comfortably lying in the bed. patient denies chest pain, nausea, vomiting, abdominal pain, dizziness and diarrhea. 02/12/2017. Patient is comfortably lying in the bed. She denies any symptoms. She denies any complaints. Patient does not want to go home. 02/13/2017. Patient seen and examined. Chart reviewed. Patient is sitting up in the bed. Patient feels comfortable. Informed patient's about the urine culture result. Patient is not keen to go home to - Constitutional Vitals: Temp Pulse Resp BP Pulse Ox 97.5 F L 78 15 102/69 95 02/13/17 11:47 02/13/17 11:47 02/13/17 11:47 02/13/17 11:47 02/13/17 11:47 General appearance: Present: A&O X 3, no acute distress, answers questions appropriately - Head Head exam: Present: atraumatic, normocephalic - Eye Eye exam: Present: PERRL, conjuntiva pink, sclera anicteric Pupils: Present: PERRL - Neck Neck exam general surgery: Present: supple, trachea midline. Absent: lymphadenopathy - Respiratory Respiratory exam: Present: CTAB. Absent: accessory muscle use, rales, rhonchi, wheezes - Cardiovascular Cardiovascular exam: Present: RRR, +S1, +S2. Absent: diastolic murmur, gallop, rubs, systolic murmur - GI/Abdominal GI/Abdominal exam: Present: normal bowel sounds, soft, no peritoneal signs. Absent: distended, tenderness - Extremities Exam Extremities exam: Present: warm, radial pulses palpable and symmetrical. Absent : calf tenderness, cyanotic, pedal edema - Neurological Exam Neurological exam: Present: CN II-XII intact, oriented X3, no focal deficits. Absent: pronater drift, facial droop, speech deficit - Skin Skin exam: Present: dry, intact Internal Medicine: Result - Labs CBC & Chem 7: 02/13/17 04:50 02/13/17 04:50 Labs: Short CBC 02/13/17 Range/Units 04:50 WBC 5.1 (4.3-11.1) K/mcL Hgb 10.1 L (11.5-15.4) g/dL Hct 35.0 L (35.3-44.9) % Plt Count 110 L (140-400) K/mcL Neutrophils # 3.6 (1.6-8.9) K/mcL BMP 02/13/17 04:50 Sodium 140 Potassium 4.5 Chloride 98 Carbon Dioxide 36 H BUN 21 Creatinine 0.87 Glucose 111 H Calcium 8.6 Liver Function 02/13/17 Range/Units 04:50 Total Bilirubin 1.2 H (0.3-1.0) mg/dL AST 21 (13-39) Units/L ALT 6 L (7-52) Units/L Alkaline Phosphatase 99 (34-104) Units/L Albumin 3.2 L (3.5-5.7) g/dL - VTE Documentation of Mechanical Device: Graduated compression elastic hosiery Consult Discharge Plan - Plan Referrals: NONE,PCP [Primary Care Provider] -
[2017-02-14] MEDS ORDERED: Levofloxacin 250 MG/50 ML 250 MG/50 ML BAG IVPB SCH (05:00)
[2017-02-14] MEDS: *HR* Heparin 5,000 UNIT/ML VIAL SQ SCH ×2 (05:09→17:24)
[2017-02-14] MEDS: Budesonide/Formoterol 80/4.5 MDI IH SCH ×2 (07:50→23:31)
[2017-02-14] MEDS: Gabapentin 300 MG CAPSULE PO SCH ×3 (10:11→20:15)
[2017-02-14] MEDS: Folic Acid 1 MG TABLET PO SCH (10:11)
[2017-02-14] MEDS: Diltiazem CD (24hr) 120 MG CAPSULE PO SCH (10:11)
[2017-02-14] MEDS: Aspirin 81 MG TAB.CHEW PO SCH (10:12)
[2017-02-14] MEDS: Isosorbide MONOnitrate (24 HR) 60 MG TAB.ER.24H PO SCH (10:12)
[2017-02-14] MEDS: *HR* HYDROcodone/Acet 7.5/325 mg TABLET PO PRN ×2 (10:12→17:24)
[2017-02-14] MEDS: Furosemide 40 MG/4 ML VIAL IVP SCH ×2 (10:12→17:24)
--- NOTE | 2017-02-14 16:33 | Internal Med Progress Note ---
Date of Encounter: 02/14/17 Time of Encounter: 10:50 - Assessment and plan (1) CAD (coronary artery disease) Current Visit: Yes Status: Chronic Assessment and plan: No chest pain. Continue aspirin, Plavix and carvedilol. Qualifiers: Coronary Disease-Associated Artery/Lesion type: [place] artery [place] vs. transplanted heart: [place] heart Associated angina: without angina Qualified Code(s): I25.10 - Atherosclerotic heart disease of [place] coronary artery without angina pectoris (2) Chronic diastolic CHF (congestive heart failure) Current Visit: Yes Status: Chronic Assessment and plan: Continue Lasix. Renal function is stable. Recommend placement to skilled rehabilitation as patient has had recurrent hospitalizations with no improvement in overall condition. Patient willing to consider this. 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 We will make necessary arrangements. (3) COPD (chronic obstructive pulmonary disease) Current Visit: Yes Status: Chronic Assessment and plan: Not in acute exacerbation. Continue bronchodilators as needed. Qualifiers: COPD type: unspecified COPD Qualified Code(s): J44.9 - Chronic obstructive pulmonary disease, unspecified (4) Restless leg syndrome Current Visit: No Status: Chronic Assessment and plan: Continue Requip (5) Right-sided heart failure Current Visit: Yes Status: Acute Assessment and plan: Continue Lasix. O2 supplementation (6) UTI (urinary tract infection) Current Visit: Yes Status: Resolved Assessment and plan: Patient treated with Levaquin. Has completed treatment course. Cultures are negative. Qualifiers: Urinary tract infection type: site unspecified Hematuria presence: without hematuria Qualified Code(s): N39.0 - Urinary tract infection, site not specified (7) Venous stasis dermatitis of both lower extremities Current Visit: Yes Status: Chronic Assessment and plan: Chronic. No clear signs of cellulitis. - Subjective Interval history: Patient is lying in bed. Denies any new complaints at this time. Overall feeling a little bit better. Continues to have some shortness of breath. No chest pain. No fever or chills overnight. - Constitutional Vitals: Temp Pulse Resp BP Pulse Ox 97.7 F 67 17 141/74 97 02/14/17 15:32 02/14/17 15:32 02/14/17 15:32 02/14/17 15:32 02/14/17 15:32 General appearance: Present: A&O X 3, no acute distress, answers questions appropriately - Respiratory Respiratory exam: Present: CTAB. Absent: accessory muscle use, rales, rhonchi, wheezes - Cardiovascular Cardiovascular exam: Present: RRR, +S1, +S2. Absent: diastolic murmur, gallop, rubs, systolic murmur - GI/Abdominal GI/Abdominal exam: Present: normal bowel sounds, soft, no peritoneal signs. Absent: distended, tenderness - Extremities Exam Extremities exam: Present: warm, radial pulses palpable and symmetrical. Absent : calf tenderness, cyanotic, pedal edema - Neurological Exam Neurological exam: Present: alert, oriented X3, no focal deficits. Absent: facial droop, speech deficit Internal Medicine: Result - Labs CBC & Chem 7: 02/13/17 04:50 02/13/17 04:50 - VTE Documentation of Mechanical Device: Graduated compression elastic hosiery Consult Discharge Plan - Plan Referrals: NONE,PCP [Primary Care Provider] - (working on placement)
[2017-02-15] MEDS: *HR* Heparin 5,000 UNIT/ML VIAL SQ SCH ×2 (06:07→17:46)
[2017-02-15 08:01] LABS: Basophils % 0.6 %; Hemoglobin 9.8 g/dL (11.5-15.4)
[2017-02-15 08:03] LABS: Eosinophils # 0.2 K/mcL (0.0-0.6); Eosinophils % 3.1 %; Hematocrit 34.9 % (35.3-44.9); Immature Granulocytes % 0.8 % (0-4); Lymphocytes # 0.7 K/mcL (0.6-4.6); Lymphocytes % 14.6 %; Mean Corpuscular HGB Conc 28.1 g/dL (31.6-35.5); Mean Corpuscular Hemoglobin 28.8 pg (28.0-33.3); Mean Corpuscular Volume 102.6 fL (83.0-100.0); Monocytes # 0.5 K/mcL (0.0-1.3); Monocytes % 10.9 %; Neutrophils # 3.4 K/mcL (1.6-8.9); Nucleated Red Blood Cells 0.6 /100 WBC (0); Platelet Count 107 K/mcL (140-400); Red Cell Distribution Width 16.5 % (11.5-14.5)
[2017-02-15 08:04] LABS: BUN/Creatinine Ratio 27 (6-26); Blood Urea Nitrogen 21 mg/dL (8-23); Calcium 8.4 mg/dL (8.6-10.3); Carbon Dioxide 41 mEq/L (23-29); Chloride 99 mEq/L (98-107); Glucose 104 mg/dL (70-105); Osmolality,Calculated 297 (280-300); Potassium 4.3 mEq/L (3.5-5.1); Sodium 142 mEq/L (136-145); eGFR For African Americans > 60 (> 60); eGFR For Non-African Americans > 60 (> 60)
[2017-02-15 08:43] LABS: Hypochromasia Present (Not Present); Platelet Estimate Slight Decrease (Normal)
[2017-02-15] MEDS ORDERED: levoFLOXacin 250 MG TABLET PO SCH (09:00)
[2017-02-15] MEDS: Aspirin 81 MG TAB.CHEW PO SCH (09:21)
[2017-02-15] MEDS: *HR* HYDROcodone/Acet 7.5/325 mg TABLET PO PRN ×2 (09:21→18:31)
[2017-02-15] MEDS: Diltiazem CD (24hr) 120 MG CAPSULE PO SCH (09:21)
[2017-02-15] MEDS: Folic Acid 1 MG TABLET PO SCH (09:21)
[2017-02-15] MEDS: Furosemide 40 MG/4 ML VIAL IVP SCH (09:22)
[2017-02-15] MEDS: Isosorbide MONOnitrate (24 HR) 60 MG TAB.ER.24H PO SCH (09:22)
[2017-02-15] MEDS: Gabapentin 300 MG CAPSULE PO SCH ×2 (09:22→15:34)
[2017-02-15] MEDS: Budesonide/Formoterol 80/4.5 MDI IH SCH (11:38)
[2017-02-15] MEDS ORDERED: acetaZOLAMIDE 250 MG TABLET PO ONE (14:05)
[2017-02-15 15:59] VITALS: BP 127/79
--- NOTE | 2017-02-15 16:44 | Internal Med Progress Note ---
Date of Encounter: 02/15/17 Time of Encounter: 11:40 - Assessment and plan (1) Right-sided heart failure Current Visit: Yes Status: Acute Assessment and plan: Clinically patient is feeling better. We will transition Lasix to oral (2) CAD (coronary artery disease) Current Visit: Yes Status: Chronic Assessment and plan: On aspirin, Plavix and carvedilol. Qualifiers: Coronary Disease-Associated Artery/Lesion type: [place] artery [place] vs. transplanted heart: [place] heart Associated angina: without angina Qualified Code(s): I25.10 - Atherosclerotic heart disease of [place] coronary artery without angina pectoris (3) Chronic diastolic CHF (congestive heart failure) Current Visit: Yes Status: Chronic Assessment and plan: Continue diuretics. Patient with chronic persistent pedal edema. Awaiting placement to skilled rehabilitation. (4) COPD (chronic obstructive pulmonary disease) Current Visit: Yes Status: Chronic Assessment and plan: Continue O2 supplementation. Bronchodilators as needed. Follow up outpatient with pulmonology. Qualifiers: COPD type: unspecified COPD Qualified Code(s): J44.9 - Chronic obstructive pulmonary disease, unspecified (5) Restless leg syndrome Current Visit: No Status: Chronic Assessment and plan: Continue Requip. (6) Venous stasis dermatitis of both lower extremities Current Visit: Yes Status: Chronic Assessment and plan: [place] wrap. Would recommend referral to lymphedema or venous stasis clinic as outpatient. - Subjective Interval history: Patient continues to do better. Feeling good this morning. Denies any chest pain or palpitations. No abdominal pain. He is currently on 2 L of O2 supplementation. At home she is usually on 3 L. - Constitutional Vitals: Temp Pulse Resp BP Pulse Ox 97.3 F L 74 18 127/79 97 02/15/17 15:49 02/15/17 15:49 02/15/17 15:49 02/15/17 15:49 02/15/17 15:49 General appearance: Present: A&O X 3, no acute distress, answers questions appropriately - Eye Eye exam: Present: EOMI, PERRL, conjuntiva pink, sclera anicteric - Respiratory Respiratory exam: Present: CTAB. Absent: accessory muscle use, rales, rhonchi, wheezes - Cardiovascular Cardiovascular exam: Present: RRR, +S1, +S2. Absent: diastolic murmur, gallop, rubs, systolic murmur - GI/Abdominal GI/Abdominal exam: Present: normal bowel sounds, soft, no peritoneal signs. Absent: distended, tenderness - Extremities Exam Extremities exam: Present: pedal edema (Bilateral pitting pedal edema with stasis dermatitis), warm, radial pulses palpable and symmetrical. Absent: calf tenderness, cyanotic - Neurological Exam Neurological exam: Present: alert, oriented X3, no focal deficits. Absent: facial droop, speech deficit - Skin Skin exam: Present: dry, intact Internal Medicine: Result - Labs CBC & Chem 7: 02/15/17 07:12 02/15/17 07:12 Labs: Short CBC 02/15/17 Range/Units 07:12 WBC 4.9 (4.3-11.1) K/mcL Hgb 9.8 L (11.5-15.4) g/dL Hct 34.9 L (35.3-44.9) % Plt Count 107 L (140-400) K/mcL Neutrophils # 3.4 (1.6-8.9) K/mcL BMP 02/15/17 07:12 Sodium 142 Potassium 4.3 Chloride 99 Carbon Dioxide 41 H* BUN 21 Creatinine 0.78 Glucose 104 Calcium 8.4 L - VTE Documentation of Mechanical Device: Graduated compression elastic hosiery Consult Discharge Plan - Plan Instructions: Heart Failure (DC), Methicillin Resistant Staphylococcus Aureus ( DC), Acute Kidney Injury (DC) Referrals: NONE,PCP [Primary Care Provider] - (Patient will follow up with ECF PCP)
[2017-02-15] MEDS ORDERED: Furosemide 40 MG TABLET PO SCH (17:00)
--- NOTE | 2017-02-15 17:38 | Discharge Summary ---
Date of Encounter: 02/15/17 Time of Encounter: 17:35 - Discharge Diagnosis (1) Right-sided heart failure Priority: Primary Status: Acute (2) CAD (coronary artery disease) Priority: Secondary Status: Chronic Qualifiers: Coronary Disease-Associated Artery/Lesion type: [place] artery [place] vs. transplanted heart: [place] heart Associated angina: without angina Qualified Code(s): I25.10 - Atherosclerotic heart disease of [place] coronary artery without angina pectoris (3) Chronic diastolic CHF (congestive heart failure) Priority: Secondary Status: Chronic (4) COPD (chronic obstructive pulmonary disease) Priority: Secondary Status: Chronic Qualifiers: COPD type: unspecified COPD Qualified Code(s): J44.9 - Chronic obstructive pulmonary disease, unspecified (5) Restless leg syndrome Priority: Secondary Status: Chronic (6) Venous stasis dermatitis of both lower extremities Priority: Secondary Status: Chronic - Discharge Medications Prescriptions: Gabapentin [Neurontin] 300 mg PO TID #30 capsule HYDROcodone/Acet 7.5/325 mg [[place] 7.5-325 mg] 1 tab PO TID PRN #14 tablet PRN Reason: Moderate Pain Home Medications: Citalopram Hydrobromide [Citalopram HBr] 10 mg PO DAILY 09/20/16 [History] Clopidogrel [Plavix] 75 mg PO DAILY 09/20/16 [History] Diltiazem HCl [Diltiazem ER] 120 mg PO QAM 09/20/16 [History] Ferrous Sulfate 325 mg PO DAILY 09/20/16 [History] Folic Acid 1 mg PO DAILY 09/20/16 [History] Nitroglycerin [Nitrostat] 0.4 mg SL Q5M PRN 09/20/16 [History] Pantoprazole Sodium [Protonix] 40 mg PO BID 09/20/16 [History] Ropinirole HCl [Requip] 3 mg PO HS 09/20/16 [History] Isosorbide MONOnitrate (24 HR) [Imdur] 60 mg PO DAILY 11/18/16 [History] Aspirin 81 mg PO DAILY tab.chew 11/21/16 [Rx] Carvedilol [Coreg] 6.25 mg PO BIDWM tablet 12/01/16 [Rx] Albuterol Sulfate [Albuterol Inhaler] 2 puff IH Q4H PRN #1 inhaler 12/20/16 [Rx] Fluticasone/Salmeterol [Advair 250-50 Diskus] 1 each IH BID #60 blst.w.dev 12/21 [Rx] Bumetanide [Bumex] 2 mg PO BID #60 tablet 01/09/17 [Rx] Acetaminophen [Tylenol] 650 mg PO Q6HR PRN tablet 02/15/17 [Rx] Docusate [Colace] 100 mg PO BID PRN capsule 02/15/17 [Rx] Gabapentin [Neurontin] 300 mg PO TID #30 capsule 02/15/17 [Rx] HYDROcodone/Acet 7.5/325 mg [[place] 7.5-325 mg] 1 tab PO TID PRN #14 tablet 02/15 [Rx] Potassium Chloride 30 meq PO DAILY tab.er.prt 02/15/17 [Rx] Allergies/Adverse Reactions: 3 Allergy/AdvReac Type Severity Reaction Status Date / Time codeine AdvReac Vomiting Verified 11/19/16 11:44 [From Tylenol-Codeine #3] - Notes to Outpatient Provider Please refer patient to vascular surgery or lymphedema clinic for chronic bilateral pedal edema/lymphedema Date of admission: 02/10/17 03:19 Primary care physician: PCP NONE Consults: 02/10/17 05:13 Consult to Macaroni Maker [CONS] Routine Reason for SW Consult: Patient frequent readmission. Home o2 in place. 02/14/17 07:58 Consult to Occupational Therapy [CONS] Routine Comment: Evaluate, develop and implement POC Reason for Consult: Gen weakness Consult to Physical Therapy [CONS] Routine Comment: Evaluate, develop and implement POC Reason for Consult: Gen weakness Discharging clinician: Brandt Holly Anticipated date of discharge: 02/15/17 - Patient Status Disposition: Transfer SNF Condition: Fair Functional capacity at discharge: uses cane/walker Overall status at discharge: patient is progressing back to baseline - Discharge Instructions Instructions: Heart Failure (DC), Methicillin Resistant Staphylococcus Aureus ( DC), Acute Kidney Injury (DC), Urinary Tract Infection in Women (DC), Cellulitis (DC) Follow Up With: NONE,PCP [Primary Care Provider] - (Patient will follow up with [facility] PCP) - Diet and Activity Activity: as per physical therapy, increase activity as tolerated, wear oxygen at all times Diet: diabetic diet, low fat, low cholesterol, low salt diet, other ( Restriction to 1.5 L per day) Hospital course: Ms. Crawford is a 76 year old female patient with a history of essential hypertension, atrial fibrillation, COPD, pulmonary hypertension was hospitalized here with acute right-sided heart failure and CHF exacerbation. She was treated with intravenous Lasix, O2 supplementation. She was also diagnosed with urinary tract infection and was treated with levofloxacin. Her urine cultures were negative and after 3 days of antibiotics, levofloxacin was stopped. She has chronic lower extremity pedal edema with stasis dermatitis. Initially she was suspected of having bilateral lower extremity cellulitis but it appears to be more chronic stasis dermatitis. She will need to follow up with vascular surgery or lymphedema clinic for further management of this condition. Her heart failure has improved and she is doing much better overall. She has been evaluated by physical therapy and recommended placement to skilled rehabilitation. Patient is willing to go to have at this time and will be discharged to rehabilitation once she has not been available. She will continue to take Bumex 2 mg twice daily for heart failure. She will follow up with cardiology for further management as outpatient. - Time Spent with Patient Total time spent providing and/or coordinating discharge services: Greater than 30 minutes (35 min) - Constitutional Vitals: Temp Pulse Resp BP Pulse Ox 97.3 F L 74 18 127/79 97 02/15/17 15:49 02/15/17 15:49 02/15/17 15:49 02/15/17 15:49 02/15/17 15:49 General appearance: Present: A&O X 3, no acute distress, answers questions appropriately - Neck Neck exam general surgery: Present: supple, trachea midline. Absent: lymphadenopathy - Respiratory Respiratory exam: Present: decreased breath sounds (at both bases), prolonged expiratory phase. Absent: accessory muscle use, rales, rhonchi, wheezes - Cardiovascular Cardiovascular exam: Present: RRR, +S1, +S2. Absent: diastolic murmur, gallop, rubs, systolic murmur - Extremities Exam Extremities exam: Present: pedal edema (bilateral pitting pedal edema with venous stasis dermatitis), warm, radial pulses palpable and symmetrical. Absent : calf tenderness, cyanotic - Neurological Exam Neurological exam: Present: alert, CN II-XII intact, oriented X3, no focal deficits. Absent: facial droop, speech deficit - VTE Documentation of Mechanical Device: Graduated compression elastic hosiery
--- NOTE | 2017-02-15 17:42 | Physician Discharge Referral ---
ExtendedCare Referral Info Provider in Charge after Transfer: PCP Institutional Level of Care: Skilled - Diagnosis (1) Right-sided heart failure Priority: Primary Status: Acute (2) CAD (coronary artery disease) Priority: Secondary Status: Chronic (3) Chronic diastolic CHF (congestive heart failure) Priority: Secondary Status: Chronic (4) COPD (chronic obstructive pulmonary disease) Priority: Secondary Status: Chronic (5) Restless leg syndrome Priority: Secondary Status: Chronic (6) Venous stasis dermatitis of both lower extremities Priority: Secondary Status: Chronic Prognosis: Fair Aware of Diagnosis: Patient, Family Aware of Prognosis: Patient, Family - Transfer Medications Prescriptions: Gabapentin [Neurontin] 300 mg PO TID #30 capsule HYDROcodone/Acet 7.5/325 mg [[place] 7.5-325 mg] 1 tab PO TID PRN #14 tablet PRN Reason: Moderate Pain Home Medications: Citalopram Hydrobromide [Citalopram HBr] 10 mg PO DAILY 09/20/16 [History] Clopidogrel [Plavix] 75 mg PO DAILY 09/20/16 [History] Diltiazem HCl [Diltiazem ER] 120 mg PO QAM 09/20/16 [History] Ferrous Sulfate 325 mg PO DAILY 09/20/16 [History] Folic Acid 1 mg PO DAILY 09/20/16 [History] Nitroglycerin [Nitrostat] 0.4 mg SL Q5M PRN 09/20/16 [History] Pantoprazole Sodium [Protonix] 40 mg PO BID 09/20/16 [History] Ropinirole HCl [Requip] 3 mg PO HS 09/20/16 [History] Isosorbide MONOnitrate (24 HR) [Imdur] 60 mg PO DAILY 11/18/16 [History] Aspirin 81 mg PO DAILY tab.chew 11/21/16 [Rx] Carvedilol [Coreg] 6.25 mg PO BIDWM tablet 12/01/16 [Rx] Albuterol Sulfate [Albuterol Inhaler] 2 puff IH Q4H PRN #1 inhaler 12/20/16 [Rx] Fluticasone/Salmeterol [Advair 250-50 Diskus] 1 each IH BID #60 blst.w.dev 12/21 [Rx] Bumetanide [Bumex] 2 mg PO BID #60 tablet 01/09/17 [Rx] Acetaminophen [Tylenol] 650 mg PO Q6HR PRN tablet 02/15/17 [Rx] Docusate [Colace] 100 mg PO BID PRN capsule 02/15/17 [Rx] Gabapentin [Neurontin] 300 mg PO TID #30 capsule 02/15/17 [Rx] HYDROcodone/Acet 7.5/325 mg [[place] 7.5-325 mg] 1 tab PO TID PRN #14 tablet 02/15 [Rx] Potassium Chloride 30 meq PO DAILY tab.er.prt 02/15/17 [Rx] Allergies/Adverse Reactions: 3 Allergy/AdvReac Type Severity Reaction Status Date / Time codeine AdvReac Vomiting Verified 11/19/16 11:44 [From Tylenol-Codeine #3] - Respiratory Orders Oxygen / L per min (2-3L/min) Smoking Cessation: Smoking cessation has been advised. For more information, call the [place] Tobacco Quit Line at 1-368-YCVP-NOW. - Lab Orders Lab Orders: Other (include drug levels w/frequency) (CBC, BMP in 1 week) - Ancillary Orders May consult with Dentist, Traffic Officer, Embedded Engineer PRN - Advance Directives Code Status: Full Code - Mobility Orders Other (per PT eval) - Rehabiliation Orders Rehab Potential: Fair Rehab Orders: Evaluation for Physical Therapy, Evaluation for Occupational Therapy - Treatments List/Other: Restriction to 1.5 L per day - Diet Orders No Concentrated Sweets (diabetic), Cardiac CERTIFICATION: I certify that the transfer of the above named patient to an Extended Care Facility is necessary for the continuing treatment of the diagnosis listed. The above information is true and accurate reflection of patient's current condition. Confidential - Redisclosure prohibited without a patient's written consent.
== END 2017-02-15 18:56 ==
LOC: INTOOBSV 03:19 → SUATTDRO 03:19 → 2ANU 03:19
PROVIDERS: ADMIT Internal Medicine; ATTEND Internal Medicine